=== PATIENT | female | born 1955 | race Caucasian/White ===

== ENCOUNTER 2016-12-12 16:51 | Emergency (ER) | payer MEDICAID ==
[~2016-12-12 16:51] MED LIST: /CELE20CA; ADV500INH INH; ADVAIR DISKUS; ALBU17IN INH; ALBUTEROL NEBS; AMONIUM LACTATE TOP; ATOR1TAB21 PO; AUGM500T34 PO; BENT10CA PO; BUPR300T34 PO; BUPROPION; CELEBREX; CROMOLYN OPTH OU; DOCU100C PO; DRIS50002 PO; FERR325T PO; FURO40TA2 PO; HUMULIN R; HYDR25TA8; INSUHUMDS SC; IPRASOL4 INH; IRON65TA PO; K-TA10TA PO; KLOR10TA; LASI40TA; LEVE1INJ5 SC; LIDO1OIN2 TOP; LIPITOR; LYRI200C PO; LYRI75CA; METF1000 PO; MULTIVIT; ONDA4TAB6 PO; OYST500T76; PERC5TAB6 PO; PERC5TAB8; PRED10TA2; PRILOSEC; PROA1AER2 INH; PROT1TAB2 PO; PROTPAK PO; RITA10TA; SANCTURA; SING10TA32 PO; SPIR12.9 INH; SPIRIVA; STOO100C PO; SYNT50TA PO; TRAM50TA2; TROS60CA2 PO; ULTR37.52 PO; VIBR100C; VITAMIN B-12; VITAMIN C; VITAMIN D; ZOFR20TA PO; ZYRT10CA PO; [UNRECOGNIZED DRUG - CODE] PO; voltaren gel TOP
--- NOTE | 2016-12-12 18:22 | REP ---
Left knee five views: Comparison 05/01/2011. There is no fracture or dislocation. I suspect there is a large effusion/hemarthrosis in the supra pouch. There is tricompartment osteoarthritis. This has progressed. There are no calcifications or foreign bodies. Signed by Earl Mendoza MD 12/12/2016 06:14 P
[2016-12-12] MEDS ORDERED: NORCO, ANEXSIA 5/325MG TABLET (HYDROcodone/ACETAMINOPHEN) As Ordered ONE (20:06)
--- NOTE | 2016-12-12 20:17 | EDDOCDS ---
Physician Documentation [facility] Name: Alba Amaya Age: 61 yrs Sex: Female : 1955 Arrival Date: 12/12/2016 Time: 16:51 Bed TR8 Private MD: Jeremiah Hoover [facility] Disposition: 12/12/16 20:06 Discharged to Home/Self Care. Impression: Osteoarthritis of knee, Sprain of other specified parts of left knee. - Condition is Stable. - Discharge Instructions: Knee Sprain, Knee Pain. - Prescriptions for [place] 5- 325 mg Oral Tablet - take 1 tablet by ORAL route every 6 hours As needed MDD: 4 tabs; 15 tablet. - Medication Reconciliation, Local Pharmacy Hours form. - Follow up: Private Physician; When: Call to arrange an appointment; Reason: Recheck today's complaints, Continuance of care. - Problem is new. - Symptoms are unchanged. Historical: - Allergies: Adhesive; - Home Meds: 1. ferrous sulfate 325 mg (65 mg iron) Oral tab twice a day 2. trospium 60 mg oral cp24 once daily 3. Vitamin D Oral 00474 unit weekly 4. bupropion HCl 300 mg Oral Tb24 1 tab once daily 5. Certavite-Antioxidant 18-400 mg-mcg oral tab 1 tab once daily 6. Protonix 40 mg Oral TbEC 2 times per day 7. levothyroxine 50 mcg Oral tab 1 tab once daily 8. pregabalin 300 mg oral cap 1 cap 2 times per day 9. atorvastatin 10 mg oral tab 1 tab once daily 10. Singulair 10 mg Oral tab 1 tab once daily 11. Zyrtec 10 mg Oral chew 1 tab once daily 12. metformin 1,000 mg Oral tab 1 tab 2 times per day 13. Bentyl 10 mg Oral cap 4 times per day 14. Ultracet 37.5-325 mg Oral tab 2 tabs every 4 hours 15. Carafate 1 gram Oral tab 1 tab 4 times per day 16. Klor-Con M20 20 mEq Oral pack 1 tab 2 times per day 17. Humalog Pen sliding scale Sub-Q inpn 10 unit three times a day 18. Levamir 125units qHS 85 units nightly 19. Advair Diskus 500-50 mcg/dose Inhl dsdv 2 times per day 20. Spiriva with HandiHaler 18 mcg Inhl CpDv 1 cap once daily 21. ProAir HFA 90 mcg/actuation inhalation HFAA 2 puffs every 4-6 hours 22. DuoNeb 0.5 mg-3 mg(2.5 mg base)/3 mL Inhl nebu 3 mL QID prn 23. CPAP machine 24. tobramycin 0.3 % Opht drop 25. Colace 100 mg oral cap as needed 26. melatonin 5 mg Oral cap PRN HS 27. albuterol sulfate 90 mcg/actuation Inhl aepb 2 puffs every 4-6 hours 28. Lasix 40 mg Oral tab 1 tab once daily 29. Lipitor 20 mg Oral tab 1 tab once daily 30. Zofran (as hydrochloride) 4 mg Oral tab as needed - PMHx: Depression; Diabetes - IDDM: controlled; GERD; Osteoarthritis; - PSHx: Gastric Bypass; Hernia repair; Lithotripsy; bilateral carpal tunnel; D & C; cone biopsy; Tubal ligation; multiple menisus repair; - Social history: Smoking status: Patient states former smoker of tobacco. No barriers to communication noted. - Family history: Not pertinent. - : The pt / caregiver states he / she is not on anticoagulants. Home medication list is obtained from the patient. - Exposure Risk Screening:: None identified. Vital Signs: 12/12 16:57 BP 139 / 64; Pulse 90; Resp 18 S; Temp 96.5(O); Pulse Ox 98% on R/A; Weight 122.47 kg / gr2 270 lbs (R); Height 5 ft. 4 in. (162.56 cm) (R); Pain 8/10; 20:07 BP 156 / 72; Pulse 79; Resp 18; Temp 97.0(O); Pulse Ox 95% on R/A; Pain 8/10; kb5 16:57 Body Mass Index 46.34 (122.47 kg, 162.56 cm) gr2 MDM: 17:22 Knee, Complete Ordered. EDMS 20:05 HYDROcodone-acetaminophen 5 mg-325 mg 1 tabs PO once ordered. mo1 20:05 Knee, Complete Reviewed. mo1 Administered Medications: 20:13 Drug: HYDROcodone-acetaminophen 1 tabs [hydrocodone 5 mg-acetaminophen 325 mg tablet (1 cz tabs)] Route: PO; Signatures: Dispatcher [employer] EDMS Mark Vargas, RN RN Lizabeth Vasquez RN RN cj James Hill PA PA mo1 MTDD
--- NOTE | 2016-12-12 20:17 | EDDOCDS ---
Nurse's Notes [facility] Name: Alba Amaya Age: 61 yrs Sex: Female : 1955 Arrival Date: 12/12/2016 Time: 16:51 Bed TR8 Private MD: Jeremiah Hoover [facility] Diagnosis: Osteoarthritis of knee;Sprain of other specified parts of left knee Presentation: 12/12 17:00 Presenting complaint: Patient states: left knee pain, there's no cartilage left in it [facility] and I over did it and it has flared up really bad now it is swollen and painful. Adult Sepsis Screening: The patient does not have new or worsening altered mentation. Patient's respiratory rate is less than 22. Systolic blood pressure is greater than 100. Patient has a qSOFA score of 0- Negative Sepsis Screen. Suicide/Homicide risk assessment- the patient denies having any suicidal and/or homicidal ideations and does not present with any other emotional, behavioral or mental health complaints. Status: Patient is not a director of community services or dependent. Transition of care: patient was not received from another setting of care. 17:00 Acuity: JOSE MIGUEL Level 4 [facility] 17:00 Method Of Arrival: Wheelchair [facility] Triage Assessment: 17:14 General: Appears in no apparent distress, comfortable, Behavior is appropriate for age, [facility] cooperative. Pain: Location: left knee Pain currently is 9 out of 10 on a pain scale. HIV screening NA for this visit Offered previously. Neurological: No deficits noted. Respiratory: No deficits noted. Airway is patent Respiratory effort is even, unlabored, Respiratory pattern is regular, symmetrical. Derm: Skin is pink, warm & dry. Musculoskeletal: Range of motion limited in left knee. Historical: - Allergies: Adhesive; - Home Meds: 1. ferrous sulfate 325 mg (65 mg iron) Oral tab twice a day 2. trospium 60 mg oral cp24 once daily 3. Vitamin D Oral 84834 unit weekly 4. bupropion HCl 300 mg Oral Tb24 1 tab once daily 5. Certavite-Antioxidant 18-400 mg-mcg oral tab 1 tab once daily 6. Protonix 40 mg Oral TbEC 2 times per day 7. levothyroxine 50 mcg Oral tab 1 tab once daily 8. pregabalin 300 mg oral cap 1 cap 2 times per day 9. atorvastatin 10 mg oral tab 1 tab once daily 10. Singulair 10 mg Oral tab 1 tab once daily 11. Zyrtec 10 mg Oral chew 1 tab once daily 12. metformin 1,000 mg Oral tab 1 tab 2 times per day 13. Bentyl 10 mg Oral cap 4 times per day 14. Ultracet 37.5-325 mg Oral tab 2 tabs every 4 hours 15. Carafate 1 gram Oral tab 1 tab 4 times per day 16. Klor-Con M20 20 mEq Oral pack 1 tab 2 times per day 17. Humalog Pen sliding scale Sub-Q inpn 10 unit three times a day 18. Levamir 125units qHS 85 units nightly 19. Advair Diskus 500-50 mcg/dose Inhl dsdv 2 times per day 20. Spiriva with HandiHaler 18 mcg Inhl CpDv 1 cap once daily 21. ProAir HFA 90 mcg/actuation inhalation HFAA 2 puffs every 4-6 hours 22. DuoNeb 0.5 mg-3 mg(2.5 mg base)/3 mL Inhl nebu 3 mL QID prn 23. CPAP machine 24. tobramycin 0.3 % Opht drop 25. Colace 100 mg oral cap as needed 26. melatonin 5 mg Oral cap PRN HS 27. albuterol sulfate 90 mcg/actuation Inhl aepb 2 puffs every 4-6 hours 28. Lasix 40 mg Oral tab 1 tab once daily 29. Lipitor 20 mg Oral tab 1 tab once daily 30. Zofran (as hydrochloride) 4 mg Oral tab as needed - PMHx: Depression; Diabetes - IDDM: controlled; GERD; Osteoarthritis; - PSHx: Gastric Bypass; Hernia repair; Lithotripsy; bilateral carpal tunnel; D & C; cone biopsy; Tubal ligation; multiple menisus repair; - Social history: Smoking status: Patient states former smoker of tobacco. No barriers to communication noted. - Family history: Not pertinent. - : The pt / caregiver states he / she is not on anticoagulants. Home medication list is obtained from the patient. - Exposure Risk Screening:: None identified. Screenin:13 Screening information is obtained from the patient. Fall risk: No risks identified. cz Assistance ADL's: requires no assistance with activities of daily living. Abuse/DV Screen: The patient / caregiver reports he/she is: not in a situation that causes fear, pain or injury. Nutritional screening: No deficits noted. home support is adequate. Assessment: 20:13 Reassessment: Patient appears in no apparent distress at this time. pt medicated for cz stated pain and discharged. Vital Signs: 16:57 BP 139 / 64; Pulse 90; Resp 18 S; Temp 96.5(O); Pulse Ox 98% on R/A; Weight 122.47 kg gr2 (R); Height 5 ft. 4 in. (162.56 cm) (R); Pain 8/10; 20:07 BP 156 / 72; Pulse 79; Resp 18; Temp 97.0(O); Pulse Ox 95% on R/A; Pain 8/10; kb5 16:57 Body Mass Index 46.34 (122.47 kg, 162.56 cm) gr2 Vitals: 16:54 Log In Time: December 12, 2016 at 16:42. mt4 ED Course: 16:52 Patient visited by Brittany Prater. mt4 16:52 Patient moved to Waiting mt4 16:53 Jeremiah Hoover [facility] is Private Physician. mt4 16:55 Patient visited by Donavan Mccullough. gr2 16:57 Patient visited by Donavan Mccullough. gr2 16:57 Patient moved to Pre RCE gr2 17:01 Triage Initiated cjh 18:34 Knee, Complete Returned. EDMS 19:46 James Hill PA is PHCP. mo1 19:46 Tito Yung DO is Attending Physician. mo1 19:46 Patient moved to Triage 1 jf3 20:05 Patient visited by James Hill PA. mo1 20:09 Patient visited by Og Ritter PCA. kb5 20:13 Patient moved to TR8 cz 20:13 The patient / caregiver is instructed regarding the plan of care and ED course. cz 20:13 No IV's were initiated during this patient's visit. No procedures done that require cz assistance. Administered Medications: 20:13 Drug: HYDROcodone-acetaminophen 1 tabs [hydrocodone 5 mg-acetaminophen 325 mg tablet (1 cz tabs)] Route: PO; Order Results: Radiology Order: Knee, Complete Test: Knee, Complete REASON FOR EXAMINATION: Trauma; Left knee five views:; ; Comparison 05/01/2011.; ; There is no fracture or dislocation. I suspect there is a large; effusion/hemarthrosis in the supra pouch.; ; There is tricompartment osteoarthritis. This has progressed.; ; There are no calcifications or foreign bodies.; ; ; Signed by; Earl Mendoza MD 12/12/2016 06:14 P; Outcome: 20:06 Discharge ordered by Provider. mo1 20:13 Discharge Assessment: Patient awake, alert and oriented x 3. No cognitive and/or cz functional deficits noted. Patient verbalized understanding of disposition instructions. patient administered narcotics - yes. Pt provided with safe discharge. The following High Risk Discharge criteria are identified: None. Discharged to home ambulatory, with friend. Condition: stable. Discharge instructions given to patient, Instructed on discharge instructions, follow up and referral plans. medication usage, Demonstrated understanding of instructions, medications, Pt was receptive of discharge instructions/ teaching. Prescriptions given X 1. No special radiology studies were completed. Property :Personal belongings accompany Pt. 20:17 Patient left the ED. cz Signatures: Dispatcher [employer] EDMS Mark Vargas RN RN cz Og Ritter, MANAGER PAID MANAGER PAID kb5 Brittany Prater mt4 Lizabeth Fitzgerald,RN RN [facility] Donavan Mccullough gr2 James Hill PA PA mo1 Baldemar Leung,RN RN jf3 MTDD
--- NOTE | 2016-12-14 21:17 | EDDOCDS ---
Physician Documentation [facility] Name: Alba Amaya Age: 61 yrs Sex: Female : 1955 Arrival Date: 12/12/2016 Time: 16:51 Bed TR8 Private MD: Jeremiah Hoover [facility] Disposition: 12/12/16 20:06 Discharged to Home/Self Care. Impression: Osteoarthritis of knee, Sprain of other specified parts of left knee. - Condition is Stable. - Discharge Instructions: Knee Sprain, Knee Pain. - Prescriptions for [place] 5- 325 mg Oral Tablet - take 1 tablet by ORAL route every 6 hours As needed MDD: 4 tabs; 15 tablet. - Medication Reconciliation, Local Pharmacy Hours form. - Follow up: Private Physician; When: Call to arrange an appointment; Reason: Recheck today's complaints, Continuance of care. - Problem is new. - Symptoms are unchanged. Historical: - Allergies: Adhesive; - Home Meds: 1. ferrous sulfate 325 mg (65 mg iron) Oral tab twice a day 2. trospium 60 mg oral cp24 once daily 3. Vitamin D Oral 75068 unit weekly 4. bupropion HCl 300 mg Oral Tb24 1 tab once daily 5. Certavite-Antioxidant 18-400 mg-mcg oral tab 1 tab once daily 6. Protonix 40 mg Oral TbEC 2 times per day 7. levothyroxine 50 mcg Oral tab 1 tab once daily 8. pregabalin 300 mg oral cap 1 cap 2 times per day 9. atorvastatin 10 mg oral tab 1 tab once daily 10. Singulair 10 mg Oral tab 1 tab once daily 11. Zyrtec 10 mg Oral chew 1 tab once daily 12. metformin 1,000 mg Oral tab 1 tab 2 times per day 13. Bentyl 10 mg Oral cap 4 times per day 14. Ultracet 37.5-325 mg Oral tab 2 tabs every 4 hours 15. Carafate 1 gram Oral tab 1 tab 4 times per day 16. Klor-Con M20 20 mEq Oral pack 1 tab 2 times per day 17. Humalog Pen sliding scale Sub-Q inpn 10 unit three times a day 18. Levamir 125units qHS 85 units nightly 19. Advair Diskus 500-50 mcg/dose Inhl dsdv 2 times per day 20. Spiriva with HandiHaler 18 mcg Inhl CpDv 1 cap once daily 21. ProAir HFA 90 mcg/actuation inhalation HFAA 2 puffs every 4-6 hours 22. DuoNeb 0.5 mg-3 mg(2.5 mg base)/3 mL Inhl nebu 3 mL QID prn 23. CPAP machine 24. tobramycin 0.3 % Opht drop 25. Colace 100 mg oral cap as needed 26. melatonin 5 mg Oral cap PRN HS 27. albuterol sulfate 90 mcg/actuation Inhl aepb 2 puffs every 4-6 hours 28. Lasix 40 mg Oral tab 1 tab once daily 29. Lipitor 20 mg Oral tab 1 tab once daily 30. Zofran (as hydrochloride) 4 mg Oral tab as needed - PMHx: Depression; Diabetes - IDDM: controlled; GERD; Osteoarthritis; - PSHx: Gastric Bypass; Hernia repair; Lithotripsy; bilateral carpal tunnel; D & C; cone biopsy; Tubal ligation; multiple menisus repair; - Social history: Smoking status: Patient states former smoker of tobacco. No barriers to communication noted. - Family history: Not pertinent. - : The pt / caregiver states he / she is not on anticoagulants. Home medication list is obtained from the patient. - Exposure Risk Screening:: None identified. Vital Signs: 12/12 16:57 BP 139 / 64; Pulse 90; Resp 18 S; Temp 96.5(O); Pulse Ox 98% on R/A; Weight 122.47 kg / gr2 270 lbs (R); Height 5 ft. 4 in. (162.56 cm) (R); Pain 8/10; 20:07 BP 156 / 72; Pulse 79; Resp 18; Temp 97.0(O); Pulse Ox 95% on R/A; Pain 8/10; kb5 16:57 Body Mass Index 46.34 (122.47 kg, 162.56 cm) gr2 MDM: 17:22 Knee, Complete Ordered. EDMS 20:05 HYDROcodone-acetaminophen 5 mg-325 mg 1 tabs PO once ordered. mo1 20:05 Knee, Complete Reviewed. mo1 12/13 18:21 T-Sheet-- Draft Copy was scanned into [employer] and attached to record. klr Administered Medications: 12/12 20:13 Drug: HYDROcodone-acetaminophen 1 tabs [hydrocodone 5 mg-acetaminophen 325 mg tablet (1 cz tabs)] Route: PO; Signatures: Dispatcher [employer] Mark Galvin RN RN cz Hafner, Jane, RN RN [facility] James Hill PA PA mo1 Karen Morris The chart was reviewed and I authenticate all verbal orders and agree with the evaluation and treatment provided.Attachments: 12/13 18:21 T-Sheet-- Draft Copy richard Chart Complete MTDD
--- NOTE | 2016-12-14 21:17 | EDDOCDS ---
Physician Documentation [facility] Name: Alba Amaya Age: 61 yrs Sex: Female : 1955 Arrival Date: 12/12/2016 Time: 16:51 Bed TR8 Private MD: Jeremiah Hoover [facility] Disposition: 12/12/16 20:06 Discharged to Home/Self Care. Impression: Osteoarthritis of knee, Sprain of other specified parts of left knee. - Condition is Stable. - Discharge Instructions: Knee Sprain, Knee Pain. - Prescriptions for [place] 5- 325 mg Oral Tablet - take 1 tablet by ORAL route every 6 hours As needed MDD: 4 tabs; 15 tablet. - Medication Reconciliation, Local Pharmacy Hours form. - Follow up: Private Physician; When: Call to arrange an appointment; Reason: Recheck today's complaints, Continuance of care. - Problem is new. - Symptoms are unchanged. Historical: - Allergies: Adhesive; - Home Meds: 1. ferrous sulfate 325 mg (65 mg iron) Oral tab twice a day 2. trospium 60 mg oral cp24 once daily 3. Vitamin D Oral 97431 unit weekly 4. bupropion HCl 300 mg Oral Tb24 1 tab once daily 5. Certavite-Antioxidant 18-400 mg-mcg oral tab 1 tab once daily 6. Protonix 40 mg Oral TbEC 2 times per day 7. levothyroxine 50 mcg Oral tab 1 tab once daily 8. pregabalin 300 mg oral cap 1 cap 2 times per day 9. atorvastatin 10 mg oral tab 1 tab once daily 10. Singulair 10 mg Oral tab 1 tab once daily 11. Zyrtec 10 mg Oral chew 1 tab once daily 12. metformin 1,000 mg Oral tab 1 tab 2 times per day 13. Bentyl 10 mg Oral cap 4 times per day 14. Ultracet 37.5-325 mg Oral tab 2 tabs every 4 hours 15. Carafate 1 gram Oral tab 1 tab 4 times per day 16. Klor-Con M20 20 mEq Oral pack 1 tab 2 times per day 17. Humalog Pen sliding scale Sub-Q inpn 10 unit three times a day 18. Levamir 125units qHS 85 units nightly 19. Advair Diskus 500-50 mcg/dose Inhl dsdv 2 times per day 20. Spiriva with HandiHaler 18 mcg Inhl CpDv 1 cap once daily 21. ProAir HFA 90 mcg/actuation inhalation HFAA 2 puffs every 4-6 hours 22. DuoNeb 0.5 mg-3 mg(2.5 mg base)/3 mL Inhl nebu 3 mL QID prn 23. CPAP machine 24. tobramycin 0.3 % Opht drop 25. Colace 100 mg oral cap as needed 26. melatonin 5 mg Oral cap PRN HS 27. albuterol sulfate 90 mcg/actuation Inhl aepb 2 puffs every 4-6 hours 28. Lasix 40 mg Oral tab 1 tab once daily 29. Lipitor 20 mg Oral tab 1 tab once daily 30. Zofran (as hydrochloride) 4 mg Oral tab as needed - PMHx: Depression; Diabetes - IDDM: controlled; GERD; Osteoarthritis; - PSHx: Gastric Bypass; Hernia repair; Lithotripsy; bilateral carpal tunnel; D & C; cone biopsy; Tubal ligation; multiple menisus repair; - Social history: Smoking status: Patient states former smoker of tobacco. No barriers to communication noted. - Family history: Not pertinent. - : The pt / caregiver states he / she is not on anticoagulants. Home medication list is obtained from the patient. - Exposure Risk Screening:: None identified. Vital Signs: 12/12 16:57 BP 139 / 64; Pulse 90; Resp 18 S; Temp 96.5(O); Pulse Ox 98% on R/A; Weight 122.47 kg / gr2 270 lbs (R); Height 5 ft. 4 in. (162.56 cm) (R); Pain 8/10; 20:07 BP 156 / 72; Pulse 79; Resp 18; Temp 97.0(O); Pulse Ox 95% on R/A; Pain 8/10; kb5 16:57 Body Mass Index 46.34 (122.47 kg, 162.56 cm) gr2 MDM: 17:22 Knee, Complete Ordered. EDMS 20:05 HYDROcodone-acetaminophen 5 mg-325 mg 1 tabs PO once ordered. mo1 20:05 Knee, Complete Reviewed. mo1 12/13 18:21 T-Sheet-- Draft Copy was scanned into [employer] and attached to record. klr Administered Medications: 12/12 20:13 Drug: HYDROcodone-acetaminophen 1 tabs [hydrocodone 5 mg-acetaminophen 325 mg tablet (1 cz tabs)] Route: PO; Signatures: Dispatcher [employer] Mark Galvin RN RN cz Hafner, Jane, RN RN [facility] James Hill PA PA mo1 Karen Morris The chart was reviewed and I authenticate all verbal orders and agree with the evaluation and treatment provided.Attachments: 12/13 18:21 T-Sheet-- Draft Copy richard Chart Complete MTDD
--- NOTE | 2016-12-14 21:17 | EDDOCDS ---
Nurse's Notes [facility] Name: Alba Amaya Age: 61 yrs Sex: Female : 1955 Arrival Date: 12/12/2016 Time: 16:51 Bed TR8 Private MD: Jeremiah Hoover [facility] Diagnosis: Osteoarthritis of knee;Sprain of other specified parts of left knee Presentation: 12/12 17:00 Presenting complaint: Patient states: left knee pain, there's no cartilage left in it [facility] and I over did it and it has flared up really bad now it is swollen and painful. Adult Sepsis Screening: The patient does not have new or worsening altered mentation. Patient's respiratory rate is less than 22. Systolic blood pressure is greater than 100. Patient has a qSOFA score of 0- Negative Sepsis Screen. Suicide/Homicide risk assessment- the patient denies having any suicidal and/or homicidal ideations and does not present with any other emotional, behavioral or mental health complaints. Status: Patient is not a support services specialist or dependent. Transition of care: patient was not received from another setting of care. 17:00 Acuity: JOSE MIGUEL Level 4 [facility] 17:00 Method Of Arrival: Wheelchair [facility] Triage Assessment: 17:14 General: Appears in no apparent distress, comfortable, Behavior is appropriate for age, [facility] cooperative. Pain: Location: left knee Pain currently is 9 out of 10 on a pain scale. HIV screening NA for this visit Offered previously. Neurological: No deficits noted. Respiratory: No deficits noted. Airway is patent Respiratory effort is even, unlabored, Respiratory pattern is regular, symmetrical. Derm: Skin is pink, warm & dry. Musculoskeletal: Range of motion limited in left knee. Historical: - Allergies: Adhesive; - Home Meds: 1. ferrous sulfate 325 mg (65 mg iron) Oral tab twice a day 2. trospium 60 mg oral cp24 once daily 3. Vitamin D Oral 20498 unit weekly 4. bupropion HCl 300 mg Oral Tb24 1 tab once daily 5. Certavite-Antioxidant 18-400 mg-mcg oral tab 1 tab once daily 6. Protonix 40 mg Oral TbEC 2 times per day 7. levothyroxine 50 mcg Oral tab 1 tab once daily 8. pregabalin 300 mg oral cap 1 cap 2 times per day 9. atorvastatin 10 mg oral tab 1 tab once daily 10. Singulair 10 mg Oral tab 1 tab once daily 11. Zyrtec 10 mg Oral chew 1 tab once daily 12. metformin 1,000 mg Oral tab 1 tab 2 times per day 13. Bentyl 10 mg Oral cap 4 times per day 14. Ultracet 37.5-325 mg Oral tab 2 tabs every 4 hours 15. Carafate 1 gram Oral tab 1 tab 4 times per day 16. Klor-Con M20 20 mEq Oral pack 1 tab 2 times per day 17. Humalog Pen sliding scale Sub-Q inpn 10 unit three times a day 18. Levamir 125units qHS 85 units nightly 19. Advair Diskus 500-50 mcg/dose Inhl dsdv 2 times per day 20. Spiriva with HandiHaler 18 mcg Inhl CpDv 1 cap once daily 21. ProAir HFA 90 mcg/actuation inhalation HFAA 2 puffs every 4-6 hours 22. DuoNeb 0.5 mg-3 mg(2.5 mg base)/3 mL Inhl nebu 3 mL QID prn 23. CPAP machine 24. tobramycin 0.3 % Opht drop 25. Colace 100 mg oral cap as needed 26. melatonin 5 mg Oral cap PRN HS 27. albuterol sulfate 90 mcg/actuation Inhl aepb 2 puffs every 4-6 hours 28. Lasix 40 mg Oral tab 1 tab once daily 29. Lipitor 20 mg Oral tab 1 tab once daily 30. Zofran (as hydrochloride) 4 mg Oral tab as needed - PMHx: Depression; Diabetes - IDDM: controlled; GERD; Osteoarthritis; - PSHx: Gastric Bypass; Hernia repair; Lithotripsy; bilateral carpal tunnel; D & C; cone biopsy; Tubal ligation; multiple menisus repair; - Social history: Smoking status: Patient states former smoker of tobacco. No barriers to communication noted. - Family history: Not pertinent. - : The pt / caregiver states he / she is not on anticoagulants. Home medication list is obtained from the patient. - Exposure Risk Screening:: None identified. Screenin:13 Screening information is obtained from the patient. Fall risk: No risks identified. cz Assistance ADL's: requires no assistance with activities of daily living. Abuse/DV Screen: The patient / caregiver reports he/she is: not in a situation that causes fear, pain or injury. Nutritional screening: No deficits noted. home support is adequate. Assessment: 20:13 Reassessment: Patient appears in no apparent distress at this time. pt medicated for cz stated pain and discharged. Vital Signs: 16:57 BP 139 / 64; Pulse 90; Resp 18 S; Temp 96.5(O); Pulse Ox 98% on R/A; Weight 122.47 kg gr2 (R); Height 5 ft. 4 in. (162.56 cm) (R); Pain 8/10; 20:07 BP 156 / 72; Pulse 79; Resp 18; Temp 97.0(O); Pulse Ox 95% on R/A; Pain 8/10; kb5 16:57 Body Mass Index 46.34 (122.47 kg, 162.56 cm) gr2 Vitals: 16:54 Log In Time: December 12, 2016 at 16:42. mt4 ED Course: 16:52 Patient visited by Brittany Prater. mt4 16:52 Patient moved to Waiting mt4 16:53 Jeremiah Hoover [facility] is Private Physician. mt4 16:55 Patient visited by Donavan Mccullough. gr2 16:57 Patient visited by Donavan Mccullough. gr2 16:57 Patient moved to Pre RCE gr2 17:01 Triage Initiated cj 18:34 Knee, Complete Returned. EDMS 19:46 James Hill PA is PHCP. mo1 19:46 Tito Yung DO is Attending Physician. mo1 19:46 Patient moved to Triage 1 jf3 20:05 Patient visited by James Hill PA. mo1 20:09 Patient visited by Og Ritter PCA. kb5 20:13 Patient moved to TR8 cz 20:13 The patient / caregiver is instructed regarding the plan of care and ED course. cz 20:13 No IV's were initiated during this patient's visit. No procedures done that require cz assistance. 12/13 18:21 T-Sheet-- Draft Copy was scanned into [employer] and attached to record. klr Administered Medications: 12/12 20:13 Drug: HYDROcodone-acetaminophen 1 tabs [hydrocodone 5 mg-acetaminophen 325 mg tablet (1 cz tabs)] Route: PO; Order Results: Radiology Order: Knee, Complete Test: Knee, Complete REASON FOR EXAMINATION: Trauma; Left knee five views:; ; Comparison 05/01/2011.; ; There is no fracture or dislocation. I suspect there is a large; effusion/hemarthrosis in the supra pouch.; ; There is tricompartment osteoarthritis. This has progressed.; ; There are no calcifications or foreign bodies.; ; ; Signed by; Earl Mendoza MD 12/12/2016 06:14 P; Outcome: 20:06 Discharge ordered by Provider. mo1 20:13 Discharge Assessment: Patient awake, alert and oriented x 3. No cognitive and/or cz functional deficits noted. Patient verbalized understanding of disposition instructions. patient administered narcotics - yes. Pt provided with safe discharge. The following High Risk Discharge criteria are identified: None. Discharged to home ambulatory, with friend. Condition: stable. Discharge instructions given to patient, Instructed on discharge instructions, follow up and referral plans. medication usage, Demonstrated understanding of instructions, medications, Pt was receptive of discharge instructions/ teaching. Prescriptions given X 1. No special radiology studies were completed. Property :Personal belongings accompany Pt. 20:17 Patient left the ED. cz Signatures: Dispatcher [employer] EDMS Mark Vargas, RN RN cz Og Ritter, DONOR SERVICES COORDINATOR DONOR SERVICES COORDINATOR kb5 Brittany Prater mt4 Lizabeth FitzgeraldRN RN Donavan Arriola2 James Hill PA PA mo1 Baldemar Leung,JERRY RN jf3 Karen Morris Chart Complete MTDD
== END 2016-12-12 20:17 | disposition home or self-care (01) ==
LOC: M ED 16:51
DX: S83.92XA Sprain of unspecified site of left knee, initial encounter (principal); X58.XXXA Exposure to other specified factors, initial encounter; Y92.018 Other place in single-family (private) house as the place of occurrence of the external cause; Y93.89 Activity, other specified; Y99.8 Other external cause status; M25.462 Effusion, left knee; M17.12 Unilateral primary osteoarthritis, left knee; E11.9 Type 2 diabetes mellitus without complications; K21.9 Gastro-esophageal reflux disease without esophagitis; F32.9 Major depressive disorder, single episode, unspecified; Z98.84 Bariatric surgery status; Z79.899 Other long term (current) drug therapy; Z79.51 Long term (current) use of inhaled steroids; Z79.4 Long term (current) use of insulin; Z79.52 Long term (current) use of systemic steroids; Z91.048 Other nonmedicinal substance allergy status; Z87.891 Personal history of nicotine dependence

== ENCOUNTER 2017-02-08 12:09 | Outpatient (RCR) | payer MEDICAID, OTHER | END 2017-02-19 | LOC: M PT 12:09 | PROVIDERS: ATTEND Orthopaedic Surgery | DX: Z51.89 Encounter for other specified aftercare (principal); M17.12 Unilateral primary osteoarthritis, left knee ==

== ENCOUNTER → 2017-03-03 | Outpatient (CLI) | payer OTHER ==
[~2017-03-03] MED LIST changes: +MELA5CHW PO; +METABOUP PLUS PO; +OPCOSOL OU; +PROA1AER INH; +SUCR1TAB56 PO
[2017-03-03 11:48] LABS: MEAN CORPUSCULAR HEMOGLOBIN 28.8 pg (27.0-33.0); MEAN CORPUSCULAR HGB CONC 32.9 g/dl (32.0-36.5); MEAN CORPUSCULAR VOLUME 87.5 fl (80.0-96.0); RED CELL DISTRIBUTION WIDTH 13.8 % (11.5-14.5); WHITE BLOOD COUNT 5.1 K/mm3 (4.0-10.0)
[2017-03-03 12:07] LABS: YEAST LIKE CELL URINE AUTO SMALL
[2017-03-03 12:10] LABS: ALBUMIN 3.8 GM/DL (3.2-5.2); ALBUMIN/GLOBULIN RATIO 1.27 (1.00-1.93); BILIRUBIN,TOTAL 0.5 MG/DL (0.2-1.0); CALCIUM LEVEL 8.7 MG/DL (8.8-10.2); CREATININE FOR GFR 1.09 MG/DL (0.55-1.02); GLOMERULAR FILTRATION RATE 54.5 (>45); POTASSIUM SERUM 4.4 MEQ/L (3.5-5.1); TOTAL PROTEIN 6.8 GM/DL (6.4-8.2)
== END ==
LOC: M ADMPAT 08:55
PROVIDERS: ATTEND Orthopaedic Surgery
DX: M17.12 Unilateral primary osteoarthritis, left knee (principal)

== ENCOUNTER 2017-03-15 10:55 | Inpatient (IN) | payer MEDICAID, OTHER ==
[2017-03-03 10:11] VITALS: BP 154/77
--- NOTE | 2017-03-10 16:18 | HPE ---
DATE OF ADMISSION: 03/15/2017 ADMITTING PHYSICIAN: Dr. Rodriguez. CHIEF COMPLAINT: Left knee pain. HISTORY OF PRESENT ILLNESS: This is a pleasant 61-year-old female with progressively worsening left knee pain and stiffness. She has failed to improve with conservative treatment. She has elected for surgery for her continued symptoms. She has pain with weightbearing activities and her activities of daily living. X-rays of her knee are notable for advanced osteoarthritis of the left knee joint. She has consented for a left total knee arthroplasty by Dr. Syd Rodriguez. Medical optimization was performed by Harleen Hartmann. ALLERGIES: She is allergic to ADHESIVES. CURRENT MEDICATIONS: - atorvastatin 20 mg once a day - Sanctura 60 mg once a day - dicyclomine 20 mg one tablet three times a day - vitamin D2 1.25 mg one capsule a week - Ultracet 37.5/325 mg 1-2 tablets every 4-6 hours as needed - Singulair 10 mg a day - Zyrtec 10 mg a day - furosemide 40 mg a day - Synthroid 50 mcg a day - ferrous sulfate 325 mg one tablet twice a day - Wellbutrin 300 mg one in the morning - Lyrica 300 mg twice a day - metformin 1000 mg one tablet twice a day - potassium 20 mEq two tablets a day - Zofran 4 mg one tablet every 6 hours as needed - Humalog 10 units three times a day as needed - Levemir 72 units at bedtime - voltaren gel three times a day as needed - lidocaine ointment three times a day for the back as needed - Advair Diskus 500/50 twice a day - Spiriva inhaler once a day - ProAir inhaler as needed - DuoNeb as needed - Opcon-A two drops in each eye every 4 hours as needed - MetaboUP two tablets once a day - melatonin 5 mg two tablets at bedtime - stool softener PAST MEDICAL HISTORY: Includes: 1. Diabetes. 2. Chronic obstructive pulmonary disease (COPD). 3. High cholesterol. 4. Hypothyroidism. 5. Depression. 6. Sleep apnea. PAST SURGICAL HISTORY: 1. Cone biopsy and dilation and curettage (D C). 2. Bilateral carpal tunnel releases. 3. Tubal ligation. 4. Hernia repair. 5. Cholecystectomy. SOCIAL HISTORY: This patient is retired. She quit smoking 16 years ago. She rarely drinks alcohol. FAMILY HISTORY: Noncontributory. REVIEW OF SYSTEMS: This patient denies chest pain, heart palpitations, cough, wheezing, difficulty breathing and shortness of breath. She denies abdominal pain, nausea, vomiting, diarrhea or constipation. She denies recent upper respiratory infection or urinary tract infection symptoms. She does complain of persistent pain in her left knee and pain with weightbearing activities of the left knee. PHYSICAL EXAMINATION: GENERAL: She is a well-nourished, well-developed, in no acute distress, alert female patient. She walks with a moderate limp favoring her left lower extremity. She does use a walker. VITAL SIGNS: She is 5 feet 3 inches, weighs 279 pounds with a temperature of 97.3, blood pressure 145/80, pulse of 80 and respirations of 16. NECK: Supple without adenopathy or jugular venous distension. There were no carotid bruits appreciated upon auscultation. LUNGS: Clear to auscultation without rales or wheeze throughout. HEART: Regular rate and rhythm. ABDOMEN: Bowel sounds were present. EXTREMITIES: Examination of the knee revealed intact skin. She had decreased range of motion secondary to pain and stiffness. The limb is neurovascularly intact. LABORATORY DATA: Chest x-ray showed some minor scarring and fibrotic changes in the lingular along the left heart border, but no acute cardiopulmonary disease findings. EKG showed sinus rhythm at 92 beats per minute. Nasal and sinus culture showed moderate growth of Staphylococcus aureus. Glucose 211, BUN 23, creatinine 1.09, for a GFR of 54.5, sodium 141, potassium 4.4. Complete blood count (CBC) was within normal limits. Sedimentation rate was 31. ProTime 13.3, INR 1.00. Urinalysis (UA) showed 2+ glucose, trace ketones, 2+ leukocyte esterase, 65 white blood cells and a small amount of yeastlike cells for a yeast for a yeast typhi. Otherwise, within normal limits with specific gravity 1.027. Urine culture showed a contaminated specimen. IMPRESSION: 1. Symptomatic osteoarthritis of the left knee joint. 2. 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 PLAN: Plan is to proceed as planned for her left total knee arthroplasty by Dr. Rodriguez on 03/15/2017. Up until that day of surgery, she is going to start Bactroban ointment to the nares twice a day today, as well as Hibiclens scrubs every day. She communicated understanding and agreement of the plan. We will see her 03/15/2017.
[~2017-03-15] VITALS: Ht 160 cm; Wt 122.0 kg
[2017-03-15] MEDS: fentaNYL 100 MCG/2 ML INJECTION (J3010) IV ONE ×2 (10:53→12:18)
[2017-03-15] MEDS: MIDAZOLAM INJ 2 MG/2 ML VIAL (J2250) IV ONE ×2 (10:53→12:18)
[2017-03-15] MEDS ORDERED: LR 1,000 ML IV SCH ×3 (11:15→15:15)
[2017-03-15] MEDS ORDERED: ACETAMINOPHEN 500 MG TAB PO ONE (11:15)
[2017-03-15] MEDS ORDERED: MIDAZOLAM INJ 2 MG/2 ML VIAL (J2250) As Ordered ONE ×2 (11:52→12:49)
[2017-03-15] MEDS ORDERED: fentaNYL 100 MCG/2 ML INJECTION (J3010) As Ordered ONE ×3 (11:52→12:49)
[2017-03-15] MEDS ORDERED: HumaLOG INSULIN (NovoLOG) PER UNIT As Ordered ONE (11:59)
[2017-03-15] MEDS ORDERED: HumaLOG INSULIN (NovoLOG) PER UNIT SC ONE (12:15)
[2017-03-15] MEDS ORDERED: PROPOFOL 200 MG/20 ML VIAL As Ordered ONE (12:51)
[2017-03-15] MEDS ORDERED: LIDOCAINE 2% INJ 100 MG/5 ML SDV (FOR ANES.) As Ordered ONE (12:51)
[2017-03-15] MEDS ORDERED: ePHEDrine SULFATE 25 MG/5 ML(5MG/ML) SYRINGE As Ordered ONE (13:17)
[2017-03-15] MEDS ORDERED: PHENYLephrine HCL 500 MCG/5 ML (100MCG/ML) SYRINGE (J2370) As Ordered ONE (13:17)
[2017-03-15] MEDS ORDERED: ONDANSETRON 4MG/2ML VIAL (J2405) As Ordered ONE (13:34)
[2017-03-15] MEDS ORDERED: BUPIVACAINE HCL 0.5% 10 ML VIAL XX ONE (13:49)
[2017-03-15] MEDS ORDERED: EPINEPHrine INJ 1 MG/ML 1ML VIAL/AMP XX ONE (13:49)
[2017-03-15] MEDS ORDERED: ROPIvacaine 0.5% 30 ML INJECTION (J2795) XX ONE (13:49)
[2017-03-15] MEDS ORDERED: TRANEXAMIC ACID 100 MG/ML 10ML VIAL XX ONE (13:49)
[2017-03-15] MEDS ORDERED: ceFAZolin 1GM INJ (J0690) IR ONE (13:49)
[2017-03-15] MEDS ORDERED: MORPHINE PCA 1MG/ML 100ML CADD As Ordered ONE (15:07)
[2017-03-15] MEDS ORDERED: fentaNYL 100 MCG/2 ML INJECTION (J3010) IV PRN (15:15)
[2017-03-15] MEDS ORDERED: MEPERIDINE INJ 25 MG/ML VIAL (J2175) IV PRN (15:15)
[2017-03-15] MEDS ORDERED: METOCLOPRAMIDE INJ 10MG/2ML VIAL (J2765) IV PRN (15:15)
[2017-03-15] MEDS ORDERED: ONDANSETRON 4MG/2ML VIAL (J2405) IV PRN ×3 (15:15→20:00)
[2017-03-15] MEDS ORDERED: MORPHINE PCA 1MG/ML 100ML CADD IV PRN ×2 (15:30→20:00)
[2017-03-15] MEDS ORDERED: diphenhydrAMINE INJ 50MG/ML VIAL (J1200) IV PRN ×2 (15:30→20:00)
[2017-03-15] MEDS ORDERED: PATIENT IS CURRENTLY ON AN ON-Q PAIN BUSTER PAIN RELIEF SYSTEM XX SCH (15:30)
[2017-03-15] MEDS ORDERED: NALOXONE INJ 0.4 MG/1 ML VIAL (J2310) IV PRN ×2 (15:30→20:00)
[2017-03-15] MEDS ORDERED: NALBUPHINE HCL 10 MG/ML AMP (J2300) IV PRN ×2 (15:30→20:00)
[2017-03-15] MEDS ORDERED: EPIDURAL/PCA KEYS XX PRN ×2 (15:30→20:00)
[2017-03-15] MEDS: PERCOCET 5MG/325MG TAB PO PRN ×2 (15:45→16:24)
[2017-03-15] MEDS ORDERED: FLEET ENEMA PR PRN (15:45)
[2017-03-15] MEDS ORDERED: WARFARIN SOD 5 MG TAB PO SCH (17:00)
[2017-03-15] MEDS ORDERED: PERCOCET 5MG/325MG TAB As Ordered ONE (19:08)
[2017-03-15 19:30] VITALS: BP 166/78
[2017-03-15] MEDS: LR 1,000 ML IV SCH (19:58)
[2017-03-15 20:00] VITALS: BP 144/72
[2017-03-15] MEDS ORDERED: IPRATROPIUM 0.5MG/ALBUTEROL 2.5MG INH SOL UD 3ML (DUONEB)(J7620) NEB PRN (20:00)
[2017-03-15] MEDS ORDERED: DOCUSATE SODIUM 100 MG CAP PO PRN (20:00)
[2017-03-15] MEDS: IPRATROPIUM 0.5MG/ALBUTEROL 2.5MG INH SOL UD 3ML (DUONEB)(J7620) NEB SCH ×2 (20:00→23:22)
[2017-03-15] MEDS ORDERED: GLUCOSE 4 GM CHEW TABLET PO PRN (20:00)
[2017-03-15] MEDS ORDERED: GLUCAGON FOR INJ 1 MG VIAL (J1610) SC PRN (20:00)
[2017-03-15] MEDS ORDERED: DEXTROSE 50% 50 ML SYRINGE IV PRN (20:00)
[2017-03-15 21:00] VITALS: BP 139/71
[2017-03-15] MEDS ORDERED: LEVEMIR (INSULIN DETEMIR) 1 UNITS/0.01ML SC SCH (21:00)
[2017-03-15] MEDS: HumaLOG INSULIN (NovoLOG) PER UNIT SC SCH (21:00)
[2017-03-15] MEDS: SUCRALFATE 1 GM TAB PO SCH (21:00)
--- NOTE | 2017-03-15 21:12 | CR ---
DATE OF CONSULTATION: 03/15/2017 PRIMARY CARE PROVIDER: Harleen Hartmann CONSULTATION REPORT FOR: Dr. Rodriguez REASON FOR CONSULTATION: Postoperative management. HISTORY OF PRESENT ILLNESS: The patient is a 61-year-old female with past medical history significant for arthritis, diabetes, chronic obstructive pulmonary disease (COPD), hyperlipidemia, hypothyroidism, depression and sleep apnea, presented to the hospital for elective left knee arthroplasty by Dr. Syd Rodriguez. She had been medically optimized by Harleen Hartmann outpatient after she had failed outpatient conservative therapy. The patient tolerated procedure well. She was moved to the floor. The patient was seen in postanesthesia care unit (PACU). She denied any shortness of breath or chest pain. Denied any nausea or vomiting. She was tolerating a diet. Knee pain was controlled. No other symptoms. REVIEW OF SYSTEMS: 12-point review of systems obtained all which was negative except for those mentioned above. PAST MEDICAL HISTORY: Significant for type 2 diabetes, COPD, hyperlipidemia, hypothyroidism, depression and sleep apnea. PAST SURGICAL HISTORY: Significant for dilatation and curettage (D C), bilateral carpal tunnel release, tubal ligation, hernia repair and cholecystectomy. SOCIAL HISTORY: The patient quit smoking 16 years ago. Drinks alcohol occasionally. FAMILY HISTORY: Noncontributory. HOME MEDICATIONS: Include: - atorvastatin 20 mg daily - Sanctura 60 mg daily - vitamin B12 - Ultracet - Singulair - Zyrtec - Lasix - Synthroid - iron sulfate - Wellbutrin - Lyrica - metformin - potassium - Zofran - Humalog - Levemir - Voltaren gel - lidocaine ointment - Advair Diskus - Spiriva - ProAir - DuoNebs as needed - melatonin - stool softener ALLERGIES TO MEDICATIONS: The patient only has allergies to adhesive tape. PHYSICAL FINDINGS: Vital signs postoperatively: Temperature 97.8, pulse 109, respiratory rate 16, blood pressure 161/73, pulse oximetry 93% on 2 liters nasal cannula. HEENT: Pupils equal, round, reactive to light and accommodation. Neck: Supple. No jugular venous distention (JVD). Lungs: Clear to auscultation bilaterally. Abdomen: Soft, nontender, nondistended. Extremities: No clubbing, cyanosis or edema. LABORATORY FINDINGS: We will order labs in the morning. Preoperative labs were done outpatient and reviewed by primary care provider, Harleen Hartmann. ASSESSMENT/PLAN: 1. Left knee arthroplasty. The patient tolerated the procedure well. Pain and anticoagulation and physical activity per surgery. 2. Diabetes. Will start the patient on consistent carbohydrate diet with insulin sliding scale. We will continue Levemir 20 units at night. 3. History of hyperlipidemia. Continue atorvastatin. 4. History of hypothyroidism. Continue Synthroid. 5. Chronic obstructive pulmonary disease (COPD). We will continue DuoNebs as needed and scheduled. 6. Obstructive sleep apnea. We will put in an order to use home C-PAP machine which the patient has brought along. We will continue to monitor the patient on continuous pulse oximetry overnight. 7. Deep venous thrombosis (DVT) prophylaxis. The patient was started on Coumadin per surgery.
[2017-03-15] MEDS: PANTOPRAZOLE 40MG TAB (PROTONIX) PO SCH (21:20)
[2017-03-15] MEDS: ATORVASTATIN 20 MG TAB PO SCH (21:20)
[2017-03-15] MEDS: MONTELUKAST 10 MG TAB PO SCH (21:20)
[2017-03-15 22:00] VITALS: BP 166/87
[2017-03-15 23:00] VITALS: BP 162/92
[2017-03-15] MEDS: ADVAIR DISKUS 500/50 INH PWD INH SCH (23:22)
[2017-03-15 23:24] VITALS: O2SAT 94
[2017-03-16] VITALS: BP 160/88
[2017-03-16] MEDS: LR 1,000 ML IV SCH (01:58)
--- NOTE | 2017-03-16 03:39 | RO ---
DATE OF PROCEDURE: 03/15/2017 PREOPERATIVE DIAGNOSIS: Left knee degenerative arthritis. POSTOPERATIVE DIAGNOSIS: Left knee degenerative arthritis. PROCEDURE: Left total knee arthroplasty using a size 4 narrow femoral component , cruciate retaining, with a size 3 tibial tray, 10 mm rotating platform polyethylene insert, and a 32 mm polyethylene button. All components were cemented. Prosthesis was made by Ra and Ra[employer]DeP[employer] as a PFC knee. SURGEON: Eva Rodriguez MD CRAYON SAWYER: YULISA Crabtree ANESTHESIA: Left femoral nerve block with spinal. COMPLICATIONS: None. ESTIMATED BLOOD LOSS: Less than 50 mL. SPECIMENS: Joint surface. DESCRIPTION OF PROCEDURE: Antibiotics were given intravenously preoperatively. Then, after a successful left femoral nerve block and spinal anesthetic was established, tourniquet place on left upper thigh and not inflated. Her large pannus had to be reflected out of the way, but we were able to do so adequately. After appropriate time-out, the tourniquet was then inflated after a routine sterile prep and drape had been completed. Then, we made a longitudinal incision for a medial parapatellar approach. Bovie cautery was used to coagulate crossing vessels. Then, a patellar arthrotomy was performed. Subperiosteal dissection around the proximal medial portion of the tibia was performed and the proximal lateral portion of the tibia. It was difficult to pat the patella. We subluxed it laterally. A drill was placed down the center of the femoral canal, followed by the intramedullary jagdeep with the distal femoral cutting jig set at 10 mm resection level at 5-degree valgus cut for a left knee. It was pinned into position and the distal femoral cut performed. AP sizing jig measured closest to a size 4, and so we pinned it in that position and used the 3-degree external rotation block on the size #4. A 4-in-1 block was applied, and the anterior, posterior, chamfer cuts performed, taking great care to protect the surrounding soft tissues. We then exposed the proximal tibia, used the extramedullary jagdeep to attempt to be parallel to the mechanical axis of the tibia, and we referenced off the medial tibial condyle, set the jig at that position at 4 mm resection level, pinned the jig into position, and then extramedullary jagdeep was used to check the position once again. It appeared to be that we were parallel to the mechanical axis. The proximal tibial osteotomy was then performed, and then we placed a lamina pump press operator laterally and performed a completion medial meniscectomy, debridement of the posteromedial osteophytes. We then placed a lamina pump press operator medially and performed a completion lateral meniscectomy and debridement of the posterolateral osteophytes. We then used the spacer block, and the 10 mm fit snug in both flexion and extension with symmetric flexion/extension gaps with good stability to varus/valgus AP stress testing. Thus, we elected to use that size insert. We exposed the proximal tibia, sized for a #3. It just barely fit. We had to use a 3. Could not use a 2-1/2 necessarily because we were using a size 4 femur , but it fit just pretty much line to line with some slight lateral overhang. The tray was then pinned into position, followed by the tower, and then we reamed and broached, placed the polyethylene, then placed the femoral component, brought the knee into extension, everted the patella, performed a patellar osteotomy, and sized for a 32 button. The lug holes were drilled, and the trial patella was placed and the patellofemoral tracking was anatomic. Thus, we drilled the lug holes for the femur, removed all of the trial components, and then Karla Leyvamarcus mixed the cement on the back table as I prepared the bony surfaces for cementing with a copious amount of pulsatile lavage irrigant solution. Then, once everything had been thoroughly dried, we cemented the tibial tray, removed excess cement, placed the polyethylene. We then cemented the femoral component, removed excess cement, brought the knee into extension, everted the patella, and cemented the patella and held it with a clamp until the cement had hardened after we removed the excess. We copiously pulsatile lavage irrigated out the knee joint again, as we did several times throughout the operation, while the cement was hardening. We then placed the tranexamic acid, then closed the apex of the arthrotomy with two #1 PDS sutures, and then the medial parapatellar area was closed with a single PDS suture, #1. Then, #1 double-armed Stratafix was used to close the capsule. We then released the tourniquet, placed a PainBuster catheter, copiously pulsatile lavage irrigated out the subdermal tissues, and they were closed with interrupted #2-0 PDS sutures. Skin was closed with chantel, covered by Adaptic dry sterile bulky dressing. She was then transferred to the recovery room in stable condition. There were no intraoperative complications. Mr. Corey, my assistant director of nursing, was critical to the success of the procedure by helping to close the wound, prepare the patient for surgery, help to mix the cement, help to manipulate the knee (it was a difficult operation because of the size of her leg), and to help with appropriate soft tissue retraction so I could perform the operation smoothly and efficiently. PRINCE
[2017-03-16 04:00] VITALS: BP 160/88
[2017-03-16] MEDS: LEVOTHYROXINE 0.05 MG TAB (50 MCG) PO SCH (05:16)
[2017-03-16 07:24] LABS: MEAN CORPUSCULAR HGB CONC 32.7 g/dl (32.0-36.5); MEAN CORPUSCULAR VOLUME 88.8 fl (80.0-96.0); RED CELL DISTRIBUTION WIDTH 13.7 % (11.5-14.5); WHITE BLOOD COUNT 6.9 K/mm3 (4.0-10.0)
[2017-03-16] MEDS: ADVAIR DISKUS 500/50 INH PWD INH SCH ×2 (07:29→19:36)
[2017-03-16] MEDS: IPRATROPIUM 0.5MG/ALBUTEROL 2.5MG INH SOL UD 3ML (DUONEB)(J7620) NEB SCH ×3 (07:30→18:41)
[2017-03-16] MEDS ORDERED: HumaLOG INSULIN (NovoLOG) PER UNIT SC SCH (07:30)
[2017-03-16 07:36] LABS: INR 1.24
[2017-03-16 07:42] LABS: ALBUMIN 3.3 GM/DL (3.2-5.2); ALBUMIN/GLOBULIN RATIO 1.1 (1.00-1.93); BILIRUBIN,TOTAL 0.3 MG/DL (0.2-1.0); CALCIUM LEVEL 8.4 MG/DL (8.8-10.2); CREATININE FOR GFR 1.16 MG/DL (0.55-1.02); GLOMERULAR FILTRATION RATE 50.7 (>45); MAGNESIUM LEVEL 1.8 MG/DL (1.8-2.4); TOTAL PROTEIN 6.3 GM/DL (6.4-8.2)
[2017-03-16] MEDS: MIRALAX *UNIT DOSE* 17GM PACKET PO SCH (09:15)
[2017-03-16] MEDS: MOM 30ML SUSPENSION UDC PO SCH (09:15)
[2017-03-16] MEDS: HumaLOG INSULIN (NovoLOG) PER UNIT SC SCH ×4 (09:16→21:00)
[2017-03-16] MEDS: ONDANSETRON 4 MG ORAL DISINTEGRATING TAB (S0181) PO PRN (09:17)
[2017-03-16] MEDS: FUROSEMIDE 40 MG TAB PO SCH (09:17)
[2017-03-16] MEDS: PERCOCET 5MG/325MG TAB PO PRN ×4 (09:17→22:17)
[2017-03-16] MEDS: PANTOPRAZOLE 40MG TAB (PROTONIX) PO SCH ×2 (09:18→19:51)
[2017-03-16] MEDS: SENOKOT S TAB PO SCH ×2 (09:18→19:52)
[2017-03-16] MEDS: buPROPion **XL** TABLET 150MG (WELLBUTRIN XL) PO SCH (09:18)
[2017-03-16] MEDS: SUCRALFATE 1 GM TAB PO SCH ×4 (09:18→19:52)
[2017-03-16] MEDS: FERROUS SULFATE 325MG TAB PO SCH ×2 (12:32→17:26)
[2017-03-16 14:00] VITALS: BP 144/70
--- NOTE | 2017-03-16 16:29 | IPN ---
DATE: 03/16/2017 Patient seen and examined. No acute events overnight. Denies any chest pain, pressure or discomfort. Denies any shortness of breath. Reported surgical pain was in tolerable limits. VITAL SIGNS: Temperature 97.9, pulse 101, respirations 16, blood pressure 144/70, pulse oximetry 94% on room air. LABORATORY: WBC 6.9, hemoglobin and hematocrit (H and H) 10.7/32.8, platelets 234. Chemistry: Sodium 138, potassium 4, chloride 103, bicarbonate 25, BUN 20, creatinine 1.16. PHYSICAL EXAMINATION: GENERAL: Patient alert and oriented times three. Obese. In no acute distress. HEENT: Normocephalic, atraumatic. PULMONARY: Bilateral clear to auscultation. CARDIAC: Regular rate and rhythm. Normal S1, S2. ABDOMEN: Soft, nontender, obese. Positive bowel sounds. EXTREMITIES: Surgical site dressings clean, dry and intact. Dorsalis pedal (DP)/posterior tibial (PT) pulses 2+ ASSESSMENT AND PLAN: This is a 61-year-old female patient with underlying medical history of obesity, osteoarthritis, diabetes type 2, chronic obstructive pulmonary disease (COPD), sleep apnea on continuous positive airway pressure (CPAP) at home, dyslipidemia, hypothyroidism, depression, admitted under orthopedic service for left total knee replacement. PROBLEMS: 1. Osteoarthritis status post left total knee arthroplasty by Dr. Syd Paul. Perioperative management as per Dr. Syd Paul. Pain regimen, deep venous thrombosis (DVT) prophylaxis as per orthopedics. Patient currently on Coumadin for DVT prophylaxis. Bowel regimen as ordered. Physical activity status and physical therapy as per primary team. 2. Type 2 diabetes. Patient baseline 85 of Levemir at night. Was given only 20; therefore, patient has slight hyperglycemia. Will increase the Levemir to 60 and monitor. Insulin was mealtime coverage as well. Follow up fingersticks. Address as needed. 3. Dyslipidemia. Continue statin. 4. Hypothyroidism. Continue Synthroid. 5. Chronic obstructive pulmonary disease (COPD). Patient currently not having a wheeze. Nebulizer treatment as needed. Continue Singulair and Advair. 6. Sleep apnea. Obstructive sleep apnea (BHUPINDER) protocol. Continue continuous positive airway pressure (CPAP). 7. Hypertension. Restarting Lasix. Monitor blood pressure. 8. Deep venous thrombosis (DVT) prophylaxis. Patient on Coumadin. Follow up INR. DISPOSITION: As per orthopedic team.
[2017-03-16] MEDS ORDERED: WARFARIN SOD 5 MG TAB PO ONE (17:00)
--- NOTE | 2017-03-16 17:05 | REP ---
LEFT KNEE: REASON: Status-post TKR. COMPARISON: 12/12/2016, a preoperative exam. AP and cross table lateral views were obtained showing a total knee prosthetic device. The femoral and tibial components of which are well seated and well approximated. There is no evidence of an acute fracture. There is expected postoperative soft-tissue swelling. There is an anterior skin staple line in place. IMPRESSION: Postoperative TKR as described above. Signed by Jerzy Butcher DO 03/16/2017 06:27 P
[2017-03-16] MEDS: ATORVASTATIN 20 MG TAB PO SCH (19:51)
[2017-03-16] MEDS: MONTELUKAST 10 MG TAB PO SCH (19:52)
[2017-03-16] MEDS: POTASSIUM CHLORIDE 10 MEQ SR TABLET PO SCH (19:52)
[2017-03-16] MEDS: MORPHINE 15 MG SA TAB PO SCH (19:54)
[2017-03-16] MEDS: ONDANSETRON 4 MG TAB (S0181) PO PRN (19:57)
[2017-03-16] MEDS: LEVEMIR (INSULIN DETEMIR) 1 UNITS/0.01ML SC SCH (19:58)
[2017-03-16] MEDS ORDERED: LEVEMIR (INSULIN DETEMIR) 1 UNITS/0.01ML SC SCH (21:00)
[2017-03-16 22:00] VITALS: BP 142/78
[2017-03-17] MEDS: IPRATROPIUM 0.5MG/ALBUTEROL 2.5MG INH SOL UD 3ML (DUONEB)(J7620) NEB SCH ×4 (00:32→20:00)
[2017-03-17] MEDS: PERCOCET 5MG/325MG TAB PO PRN ×5 (03:00→18:36)
[2017-03-17] MEDS: LEVOTHYROXINE 0.05 MG TAB (50 MCG) PO SCH (05:42)
[2017-03-17] MEDS: ONDANSETRON 4 MG TAB (S0181) PO PRN ×3 (05:43→15:54)
[2017-03-17 06:00] VITALS: BP 168/86
[2017-03-17 06:52] LABS: MEAN CORPUSCULAR HEMOGLOBIN 29.1 pg (27.0-33.0); MEAN CORPUSCULAR HGB CONC 33.3 g/dl (32.0-36.5); MEAN CORPUSCULAR VOLUME 87.3 fl (80.0-96.0); RED CELL DISTRIBUTION WIDTH 13.9 % (11.5-14.5); WHITE BLOOD COUNT 5.2 K/mm3 (4.0-10.0)
[2017-03-17 06:58] LABS: INR 1.55
[2017-03-17 07:13] LABS: ALBUMIN 2.8 GM/DL (3.2-5.2); ALBUMIN/GLOBULIN RATIO 0.85 (1.00-1.93); ALKALINE PHOSPHATASE 104 U/L (45-117); ALT/SGPT 16 U/L (12-78); ANION GAP 8 MEQ/L (8-16); AST/SGOT 16 U/L (15-37); BILIRUBIN,TOTAL 0.5 MG/DL (0.2-1.0); BLOOD UREA NITROGEN 14 MG/DL (7-18); CALCIUM LEVEL 8.2 MG/DL (8.8-10.2); CARBON DIOXIDE LEVEL 26 MEQ/L (21-32); CHLORIDE LEVEL 107 MEQ/L (98-107); CREATININE FOR GFR 0.75 MG/DL (0.55-1.02); GLOMERULAR FILTRATION RATE > 60.0 (>45); GLUCOSE, FASTING 148 MG/DL (80-110); MAGNESIUM LEVEL 2.1 MG/DL (1.8-2.4); POTASSIUM SERUM 3.3 MEQ/L (3.5-5.1); SODIUM LEVEL 141 MEQ/L (136-145); TOTAL PROTEIN 6.1 GM/DL (6.4-8.2)
[2017-03-17] MEDS: ADVAIR DISKUS 500/50 INH PWD INH SCH ×2 (07:35→20:44)
[2017-03-17] MEDS: SUCRALFATE 1 GM TAB PO SCH ×4 (08:27→20:19)
[2017-03-17] MEDS: FUROSEMIDE 40 MG TAB PO SCH (08:27)
[2017-03-17] MEDS: MIRALAX *UNIT DOSE* 17GM PACKET PO SCH (08:28)
[2017-03-17] MEDS: MOM 30ML SUSPENSION UDC PO SCH (08:28)
[2017-03-17] MEDS: buPROPion **XL** TABLET 150MG (WELLBUTRIN XL) PO SCH (08:28)
[2017-03-17] MEDS ORDERED: ENOXAPARIN 40 MG/0.4 ML SYRINGE (J1650) SC ONE (09:00)
[2017-03-17] MEDS: SENOKOT S TAB PO SCH ×2 (09:00→20:19)
[2017-03-17] MEDS: PANTOPRAZOLE 40MG TAB (PROTONIX) PO SCH ×2 (09:00→20:17)
[2017-03-17] MEDS: MORPHINE 15 MG SA TAB PO SCH ×2 (09:15→20:17)
[2017-03-17] MEDS: HumaLOG INSULIN (NovoLOG) PER UNIT SC SCH ×4 (09:32→20:28)
[2017-03-17] MEDS: FERROUS SULFATE 325MG TAB PO SCH ×2 (12:54→17:52)
[2017-03-17 14:00] VITALS: BP 146/87
[2017-03-17] MEDS ORDERED: WARFARIN SOD 5 MG TAB PO ONE (17:00)
[2017-03-17] MEDS ORDERED: WARFARIN SOD 7.5 MG TAB PO ONE (17:00)
[2017-03-17] MEDS ORDERED: WARFARIN SOD 10 MG TAB PO ONE (17:00)
[2017-03-17] MEDS ORDERED: POTASSIUM CHLORIDE 10 MEQ SR TABLET PO ONE (17:15)
[2017-03-17] MEDS: MONTELUKAST 10 MG TAB PO SCH (20:19)
[2017-03-17] MEDS: LEVEMIR (INSULIN DETEMIR) 1 UNITS/0.01ML SC SCH (20:19)
[2017-03-17] MEDS: ATORVASTATIN 20 MG TAB PO SCH (20:20)
[2017-03-17] MEDS: POTASSIUM CHLORIDE 10 MEQ SR TABLET PO SCH (20:20)
[2017-03-17 22:00] VITALS: BP 138/85
--- NOTE | 2017-03-17 23:16 | IPN ---
DATE: 03/17/2017 The patient seen and examined. Reported nausea, with also vomiting. Likely secondary to pain medication. Reported surgical pain to be slightly worse today than yesterday. Denies any fevers or chills, chest pain, pressure or discomfort. VITAL SIGNS: Temperature 99.3, pulse 104, respirations 16, blood pressure 146/87, pulse oximetry 94% on room air. LABORATORY: WBC 5.2, hemoglobin and hematocrit 10.6/31.8, platelets 223. Chemistry: Sodium 141, potassium 3.3, chloride 107, bicarbonate 26, BUN 14, creatinine 0.75, magnesium 2.1. PHYSICAL EXAMINATION: GENERAL: The patient alert and oriented times three. In no acute distress. Morbidly obese. HEENT: Normocephalic, atraumatic. PULMONARY: Bilaterally clear. CARDIAC: Regular rate and rhythm. Normal S1, S2. ABDOMEN: Soft, nontender, obese. Positive bowel sounds. EXTREMITIES: Surgical sites clean, dry and intact. Dorsalis pedis/posterior tibial (DP/PT) pulses 2+. ASSESSMENT AND PLAN: This is a 61-year-old female patient with underlying medical history of obesity, osteoarthritis, type 2 diabetes, chronic obstructive pulmonary disease (COPD), sleep apnea on CPAP at home. Dyslipidemia. Hypothyroidism, depression, admitted under orthopedic service for left total knee replacement. PROBLEM LIST: 1. Osteoarthritis. Status post left total knee arthroplasty by Dr. Syd Rodriguez. Perioperative management, pain regimen, deep venous thrombosis (DVT) prophylaxis and activity status as per orthopedics. The patient on Coumadin for DVT prophylaxis. Bowel regimen ordered. Physical therapy, physical medicine and rehabilitation (PM and R) evaluation. 2. Type 2 diabetes. Basal bolus insulin. Levemir dose has been increased to 60 units, will monitor. Increase as needed. The patient on 85 of Levemir at night at home. Mealtime coverage. Follow fingersticks. 3. Dyslipidemia. Continue statin. 4. Hypokalemia secondary to nausea and vomiting, likely due to opioids. Zofran as needed. Supplement electrolytes. 5. Hypothyroidism. Continue Synthroid. 6. Chronic obstructive pulmonary disease (COPD) history. Currently not having any wheeze. Nebulizer treatments, Singulair, Advair. 7. Sleep apnea. Obstructive sleep apnea (BHUPINDER) protocol. Home CPAP. 8. Hypertension. Restarting Lasix. Monitor blood pressure. 9. Deep venous thrombosis (DVT) prophylaxis. Patient on Coumadin as per primary team. DISPOSITION: As per primary team, physical therapy. Clinical improvement.
[2017-03-18] MEDS: ONDANSETRON 4 MG ORAL DISINTEGRATING TAB (S0181) PO PRN ×2 (00:45→21:38)
[2017-03-18] MEDS: IPRATROPIUM 0.5MG/ALBUTEROL 2.5MG INH SOL UD 3ML (DUONEB)(J7620) NEB SCH ×4 (01:07→18:38)
[2017-03-18] MEDS: LEVOTHYROXINE 0.05 MG TAB (50 MCG) PO SCH (05:27)
[2017-03-18 06:00] VITALS: BP 173/70
[2017-03-18] MEDS: ONDANSETRON 4 MG TAB (S0181) PO PRN ×3 (06:00→19:24)
[2017-03-18] MEDS ORDERED: MAGNESIUM CITRATE 300 ML BTL PO ONE (06:30)
[2017-03-18 07:13] LABS: MEAN CORPUSCULAR HEMOGLOBIN 29.2 pg (27.0-33.0); MEAN CORPUSCULAR HGB CONC 33.6 g/dl (32.0-36.5); MEAN CORPUSCULAR VOLUME 86.8 fl (80.0-96.0); RED CELL DISTRIBUTION WIDTH 13.8 % (11.5-14.5); WHITE BLOOD COUNT 5.5 K/mm3 (4.0-10.0)
[2017-03-18 07:22] LABS: INR 1.76
[2017-03-18 07:52] LABS: ALBUMIN/GLOBULIN RATIO 0.79 (1.00-1.93); ALKALINE PHOSPHATASE 129 U/L (45-117); ALT/SGPT 19 U/L (12-78); ANION GAP 8 MEQ/L (8-16); AST/SGOT 14 U/L (15-37); BILIRUBIN,TOTAL 0.8 MG/DL (0.2-1.0); BLOOD UREA NITROGEN 13 MG/DL (7-18); CALCIUM LEVEL 8.6 MG/DL (8.8-10.2); CARBON DIOXIDE LEVEL 28 MEQ/L (21-32); CHLORIDE LEVEL 105 MEQ/L (98-107); GLOMERULAR FILTRATION RATE > 60.0 (>45); GLUCOSE, FASTING 154 MG/DL (80-110); MAGNESIUM LEVEL 2.3 MG/DL (1.8-2.4); POTASSIUM SERUM 3.9 MEQ/L (3.5-5.1); SODIUM LEVEL 141 MEQ/L (136-145); TOTAL PROTEIN 6.8 GM/DL (6.4-8.2)
[2017-03-18] MEDS: ADVAIR DISKUS 500/50 INH PWD INH SCH ×2 (07:56→20:21)
[2017-03-18] MEDS: SUCRALFATE 1 GM TAB PO SCH ×4 (08:05→20:27)
[2017-03-18] MEDS: SENOKOT S TAB PO SCH ×2 (08:05→20:26)
[2017-03-18] MEDS: FUROSEMIDE 40 MG TAB PO SCH (08:05)
[2017-03-18] MEDS: PANTOPRAZOLE 40MG TAB (PROTONIX) PO SCH ×2 (08:05→20:27)
[2017-03-18] MEDS: MORPHINE 15 MG SA TAB PO SCH ×2 (08:06→20:28)
[2017-03-18] MEDS: buPROPion **XL** TABLET 150MG (WELLBUTRIN XL) PO SCH (08:06)
[2017-03-18] MEDS: HumaLOG INSULIN (NovoLOG) PER UNIT SC SCH ×4 (08:07→20:16)
[2017-03-18] MEDS: PERCOCET 5MG/325MG TAB PO PRN ×2 (08:07→15:08)
[2017-03-18] MEDS: MIRALAX *UNIT DOSE* 17GM PACKET PO SCH (08:10)
[2017-03-18 08:19] VITALS: BP 160/80
[2017-03-18] MEDS: MOM 30ML SUSPENSION UDC PO SCH (09:00)
[2017-03-18] MEDS ORDERED: LIDOCAINE 1% MDV 20ML VIAL ONE (09:31)
[2017-03-18] MEDS ORDERED: dexameTHASONE 10 MG/1 ML VIAL PRES.FREE (J1100) ONE (09:31)
--- NOTE | 2017-03-18 09:31 | REP ---
PORTABLE CHEST: AP portable view of the chest is performed. COMPARISON: 09/15/2016. There is no acute infiltrate or pulmonary edema. Cardiomediastinal silhouette is unchanged without significant cardiomegaly. There is some calcification of the thoracic aorta. IMPRESSION: No acute pulmonary disease. Signed by Earl Baires MD 03/18/2017 04:48 P
[2017-03-18] MEDS ORDERED: ROPIvacaine 0.5% 30 ML INJECTION (J2795) ONE (09:35)
[2017-03-18] MEDS: FERROUS SULFATE 325MG TAB PO SCH ×2 (12:50→17:28)
[2017-03-18 14:00] VITALS: BP 147/72
--- NOTE | 2017-03-18 16:06 | ECGEPIP ---
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
[2017-03-18] MEDS ORDERED: WARFARIN SOD 5 MG TAB PO ONE (17:00)
[2017-03-18] MEDS: ATORVASTATIN 20 MG TAB PO SCH (20:26)
[2017-03-18] MEDS: MONTELUKAST 10 MG TAB PO SCH (20:26)
[2017-03-18] MEDS: POTASSIUM CHLORIDE 10 MEQ SR TABLET PO SCH (20:27)
[2017-03-18] MEDS: LEVEMIR (INSULIN DETEMIR) 1 UNITS/0.01ML SC SCH (20:28)
--- NOTE | 2017-03-18 20:44 | IPN ---
DATE: 03/18/2017 The patient is seen and examined. No acute events overnight. Denies any fevers or chills, chest pain, pressure or discomfort. Continues to report constipation. VITAL SIGNS: Temperature 97.9, pulse 107, respirations 18, blood pressure 147/72, pulse oximetry 96% on room air. LABORATORY: WBC 5.5, hemoglobin and hematocrit 11.2/33.4, platelets 271. Chemistry: Sodium 141, potassium 3.9, chloride 105, bicarbonate 28, BUN 13, creatinine 0.9. PHYSICAL EXAMINATION: GENERAL: The patient is morbidly obese, alert and oriented times three, in no acute distress. HEENT: Normocephalic, atraumatic. PULMONARY: Bilaterally clear. CARDIAC: Regular rate and rhythm. Normal S1, S2. ABDOMEN: Soft, obese, nontender. Positive bowel sounds. EXTREMITIES: Surgical sites clean, dry and intact. Dorsalis pedis/posterior tibial (DP/PT) pulses 2+. ASSESSMENT AND PLAN: This is a 61-year-old female patient with underlying medical history of morbid obesity, osteoarthritis, type 2 diabetes, chronic obstructive pulmonary disease (COPD), sleep apnea on continuous positive airway pressure (CPAP), dyslipidemia. hypothyroidism, depression, admitted under orthopedic service for left total knee replacement. 1. Osteoarthritis, status post left total knee arthroplasty by Dr. Syd Rodriguez. Perioperative management, pain regimen, deep venous thrombosis (DVT) prophylaxis and activity status as per orthopedics. Patient on Coumadin for deep venous thrombosis (DVT). Followup INR. Bowel regimen as ordered. Physical therapy. Physical medicine and rehabilitation (PM and R) evaluation consult was ordered. 2. Type 2 diabetes. Basal bolus insulin, adjust dosage as needed. Follow fingersticks. 3. Constipation. Bowel regimen as ordered. Enema as needed. Follow bowel movements. 4. Dyslipidemia. Continue statin. 5. Hypokalemia, secondary to nausea and vomiting, likely due to opioid, Zofran. Please refer to above. Supplement as needed. Followup electrolytes. 6. Hypothyroidism. Continue Synthroid. 7. Chronic obstructive pulmonary disease (COPD). Patient not having any wheeze. Nebulizer treatments, Singulair, Advair. 8. Sleep apnea. Obstructive sleep apnea (BHUPINDER) protocol. Continue home continuous positive airway pressure (CPAP). 9. Hypertension. Restarting Lasix. Followup blood pressure. 10. Deep venous thrombosis (DVT) prophylaxis. Patient on Coumadin as per primary team. DISPOSITION: Pending clinical improvement, physical therapy. Patient might need short term rehabilitation.
[2017-03-18 22:00] VITALS: BP 173/83
[2017-03-19] MEDS: PERCOCET 5MG/325MG TAB PO PRN ×6 (00:46→21:45)
[2017-03-19] MEDS: ONDANSETRON 4 MG TAB (S0181) PO PRN ×4 (00:48→21:47)
[2017-03-19] MEDS: IPRATROPIUM 0.5MG/ALBUTEROL 2.5MG INH SOL UD 3ML (DUONEB)(J7620) NEB SCH ×4 (01:08→20:00)
[2017-03-19] MEDS: LEVOTHYROXINE 0.05 MG TAB (50 MCG) PO SCH (05:13)
[2017-03-19] MEDS: ONDANSETRON 4 MG ORAL DISINTEGRATING TAB (S0181) PO PRN ×3 (05:13→18:21)
[2017-03-19 06:00] VITALS: BP 166/64
[2017-03-19] MEDS: SUCRALFATE 1 GM TAB PO SCH ×4 (06:10→21:49)
[2017-03-19 07:22] LABS: MEAN CORPUSCULAR HEMOGLOBIN 30.1 pg (27.0-33.0); MEAN CORPUSCULAR HGB CONC 33.9 g/dl (32.0-36.5); MEAN CORPUSCULAR VOLUME 88.8 fl (80.0-96.0); RED CELL DISTRIBUTION WIDTH 13.8 % (11.5-14.5); WHITE BLOOD COUNT 4.8 K/mm3 (4.0-10.0)
[2017-03-19 07:28] LABS: INR 1.91
[2017-03-19 07:38] LABS: ALBUMIN/GLOBULIN RATIO 0.83 (1.00-1.93); ALKALINE PHOSPHATASE 124 U/L (45-117); ALT/SGPT 19 U/L (12-78); ANION GAP 8 MEQ/L (8-16); AST/SGOT 18 U/L (15-37); BILIRUBIN,TOTAL 0.7 MG/DL (0.2-1.0); BLOOD UREA NITROGEN 13 MG/DL (7-18); CALCIUM LEVEL 8.4 MG/DL (8.8-10.2); CARBON DIOXIDE LEVEL 30 MEQ/L (21-32); CHLORIDE LEVEL 102 MEQ/L (98-107); CREATININE FOR GFR 0.97 MG/DL (0.55-1.02); GLOMERULAR FILTRATION RATE > 60.0 (>45); GLUCOSE, FASTING 178 MG/DL (80-110); MAGNESIUM LEVEL 2.5 MG/DL (1.8-2.4); POTASSIUM SERUM 3.6 MEQ/L (3.5-5.1); SODIUM LEVEL 140 MEQ/L (136-145); TOTAL PROTEIN 6.6 GM/DL (6.4-8.2)
[2017-03-19] MEDS ORDERED: ACET65TA PO (07:46)
[2017-03-19] MEDS ORDERED: COUM2.5T11 PO (07:46)
[2017-03-19] MEDS ORDERED: PERC5TAB6 PO (07:46)
[2017-03-19] MEDS: ADVAIR DISKUS 500/50 INH PWD INH SCH ×2 (07:47→20:26)
[2017-03-19] MEDS: CETIRIZINE (ZyrTEC) 10 MG TAB PO SCH (08:01)
[2017-03-19] MEDS: PANTOPRAZOLE 40MG TAB (PROTONIX) PO SCH ×2 (08:01→21:49)
[2017-03-19] MEDS: buPROPion **XL** TABLET 150MG (WELLBUTRIN XL) PO SCH (08:02)
[2017-03-19] MEDS: FUROSEMIDE 40 MG TAB PO SCH (08:02)
[2017-03-19] MEDS: MIRALAX *UNIT DOSE* 17GM PACKET PO SCH (08:02)
[2017-03-19] MEDS: SENOKOT S TAB PO SCH ×2 (08:02→21:50)
[2017-03-19] MEDS: MOM 30ML SUSPENSION UDC PO SCH (08:02)
[2017-03-19] MEDS: HumaLOG INSULIN (NovoLOG) PER UNIT SC SCH ×4 (08:03→21:00)
[2017-03-19] MEDS ORDERED: SENN-23 PO (08:19)
[2017-03-19] MEDS: FERROUS SULFATE 325MG TAB PO SCH ×2 (12:41→17:26)
[2017-03-19 14:00] VITALS: BP 150/86
--- NOTE | 2017-03-19 15:20 | IPN ---
DATE: 03/19/2017 Patient is seen and examined. No acute events overnight. Denies any chest pain, pressure or discomfort. Reported nausea, no vomiting. Reported constipation has improved. Denies fever or chills. VITAL SIGNS: Temperature 98.9, pulse 103, respirations 18, blood pressure 150/86, pulse oximetry 94% on room air. LABORATORY DATA: WBC 4.8, hemoglobin and hematocrit 11.2/33.2, platelets 300. Chemistry: Sodium 140, potassium 3.6, chloride 102, bicarbonate 30, BUN 13, creatinine 0.97. PHYSICAL EXAMINATION: GENERAL: The patient is morbidly obese, alert and oriented times three, in no acute distress. HEENT: Normocephalic, atraumatic. PULMONARY: Bilaterally clear. CARDIAC: Regular rate and rhythm. Normal S1, S2. ABDOMEN: Soft, obese, nontender. Positive bowel sounds. EXTREMITIES: Dressing clean, dry and intact. Dorsalis pedis/posterior tibial (DP/PT) pulses 2+. ASSESSMENT AND PLAN: This is a 61-year-old female patient with underlying medical history of morbid obesity, osteoarthritis, type 2 diabetes, chronic obstructive pulmonary disease (COPD), sleep apnea on continuous positive airway pressure (CPAP) at night, dyslipidemia. hypothyroidism, depression, admitted under orthopedic service for left total knee replacement. 1. Osteoarthritis, status post left total knee arthroplasty by Dr. Syd Rodriguez. Perioperative management, wound care, pain regimen, deep venous thrombosis (DVT) prophylaxis, activity status, physical therapy as per orthopedics. Patient on Coumadin for deep venous thrombosis (DVT) prophylaxis. Followup INR. Bowel regimen ordered. Physical therapy (PT). Possible short-term rehabilitation. 2. Nausea, likely secondary to opioid. Opioid has been adjusted by primary team. Zofran as needed. 3. Type 2 diabetes. Basal bolus insulin, adjust as needed. Followup fingersticks. 4. Constipation. Bowel regimen as ordered. Enema has been given. Followup bowel movements. 5. Dyslipidemia. Continue statin. 6. Hypokalemia, secondary to nausea and vomiting, likely due to opioid. Continue to follow. 7. Hypothyroidism. Continue Synthroid. 8. Chronic obstructive pulmonary disease (COPD). Patient not having any wheeze. Nebulizer treatments, Singulair and Advair. 9. Sleep apnea. Obstructive sleep apnea (BHUPINDER) protocol. Continue CPAP. 10. Hypertension. Restart Lasix. Followup blood pressure. 11. Deep venous thrombosis (DVT) prophylaxis. Patient on Coumadin as per primary team. DISPOSITION: Pending clinical improvement, physical therapy, short term rehabilitation.
[2017-03-19] MEDS: ACETAMINOPHEN TAB 650MG DOSE (2X325MG) PO PRN (15:46)
[2017-03-19] MEDS: LEVEMIR (INSULIN DETEMIR) 1 UNITS/0.01ML SC SCH (21:46)
[2017-03-19] MEDS: MONTELUKAST 10 MG TAB PO SCH (21:48)
[2017-03-19] MEDS: POTASSIUM CHLORIDE 10 MEQ SR TABLET PO SCH (21:48)
[2017-03-19] MEDS: ATORVASTATIN 20 MG TAB PO SCH (21:49)
[2017-03-19 22:00] VITALS: BP 161/83
[2017-03-20] MEDS: ONDANSETRON 4 MG ORAL DISINTEGRATING TAB (S0181) PO PRN ×3 (01:20→18:55)
[2017-03-20] MEDS: IPRATROPIUM 0.5MG/ALBUTEROL 2.5MG INH SOL UD 3ML (DUONEB)(J7620) NEB SCH ×4 (01:25→20:00)
[2017-03-20] MEDS: PERCOCET 5MG/325MG TAB PO PRN ×6 (02:42→22:54)
[2017-03-20] MEDS: LEVOTHYROXINE 0.05 MG TAB (50 MCG) PO SCH (05:55)
[2017-03-20 06:00] VITALS: BP 139/65
[2017-03-20] MEDS: ONDANSETRON 4 MG TAB (S0181) PO PRN ×3 (06:12→17:32)
[2017-03-20 06:44] LABS: INR 1.78
[2017-03-20 06:46] LABS: MEAN CORPUSCULAR HEMOGLOBIN 29.3 pg (27.0-33.0); MEAN CORPUSCULAR HGB CONC 33.3 g/dl (32.0-36.5); MEAN CORPUSCULAR VOLUME 87.9 fl (80.0-96.0); RED CELL DISTRIBUTION WIDTH 13.5 % (11.5-14.5); WHITE BLOOD COUNT 4.7 K/mm3 (4.0-10.0)
[2017-03-20 06:53] LABS: ALBUMIN/GLOBULIN RATIO 0.83 (1.00-1.93); BILIRUBIN,TOTAL 0.7 MG/DL (0.2-1.0); CALCIUM LEVEL 8.5 MG/DL (8.8-10.2); CREATININE FOR GFR 1.03 MG/DL (0.55-1.02); GLOMERULAR FILTRATION RATE 58.2 (>45); MAGNESIUM LEVEL 2.2 MG/DL (1.8-2.4); POTASSIUM SERUM 3.6 MEQ/L (3.5-5.1); TOTAL PROTEIN 6.6 GM/DL (6.4-8.2)
[2017-03-20] MEDS: ADVAIR DISKUS 500/50 INH PWD INH SCH ×2 (07:37→20:27)
[2017-03-20] MEDS ORDERED: POTASSIUM CHLORIDE 10 MEQ SR TABLET PO ONE (08:00)
[2017-03-20] MEDS: MIRALAX *UNIT DOSE* 17GM PACKET PO SCH (10:29)
[2017-03-20] MEDS: MOM 30ML SUSPENSION UDC PO SCH (10:29)
[2017-03-20] MEDS: HumaLOG INSULIN (NovoLOG) PER UNIT SC SCH ×4 (10:30→21:00)
[2017-03-20] MEDS: PANTOPRAZOLE 40MG TAB (PROTONIX) PO SCH ×2 (10:31→21:20)
[2017-03-20] MEDS: CETIRIZINE (ZyrTEC) 10 MG TAB PO SCH (10:31)
[2017-03-20] MEDS: buPROPion **XL** TABLET 150MG (WELLBUTRIN XL) PO SCH (10:31)
[2017-03-20] MEDS: SUCRALFATE 1 GM TAB PO SCH ×4 (10:31→21:19)
[2017-03-20] MEDS: FUROSEMIDE 40 MG TAB PO SCH (10:31)
[2017-03-20] MEDS: SENOKOT S TAB PO SCH ×2 (10:31→21:18)
[2017-03-20] MEDS: FERROUS SULFATE 325MG TAB PO SCH ×2 (13:05→17:32)
[2017-03-20 14:00] VITALS: BP 137/76
[2017-03-20] MEDS ORDERED: WARFARIN SOD 5 MG TAB PO ONE (17:00)
--- NOTE | 2017-03-20 18:00 | IPN ---
DATE: 03/20/2017 Patient seen and examined. No acute events overnight. Denies any chest pain, pressure or discomfort. Reported left breast with cyst that ruptured generally well-healed. VITAL SIGNS: Temperature 98.4, pulse 97, respirations 18, blood pressure 139/65, pulse oximetry 98% on room air. LABORATORY DATA: WBC 4.7, hemoglobin and hematocrit (H and H) 11.8/34.8, platelets 364. Chemistry: Sodium 141, potassium 3.8, chloride 103, bicarbonate 30, BUN 15, creatinine 1.03. PHYSICAL EXAMINATION: GENERAL: Patient morbidly obese, alert and oriented times three, in no acute distress. HEENT: Normocephalic, atraumatic. PULMONARY: Bilateral clear to auscultation. Two scars over left breast, erythematous. Lesion noted, small, healing, nontender. CARDIAC: Regular rate and rhythm. Normal S1, S2. ABDOMEN: Soft, obese, nontender. Positive bowel sounds. EXTREMITIES: Clean, dry and intact dressings. Dorsalis pedis (DP), posterior tibial (PT) pulses 2+. ASSESSMENT AND PLAN: This is a 61-year-old female patient with underlying medical history of morbid obesity, osteoarthritis, type 2 diabetes, chronic obstructive pulmonary disease (COPD), sleep apnea on continuous positive airway pressure (CPAP) at night, dyslipidemia, hypothyroidism, depression, admitted under orthopedic service for left total knee replacement. PROBLEMS: 1. Osteoarthritis status post left total knee replacement. Arthroplasty by Dr. Syd Rodriguez. Perioperative management, wound care, pain regimen, deep venous thrombosis (DVT) prophylaxis, activity status, physical therapy, as per orthopedics. Patient on Coumadin for DVT prophylaxis. Bowel regimen ordered. Pain regimen as per orthopedics. Discharge pending short-term rehabilitation. 2. Nausea. Likely secondary to opiates. Opiates have been adjusted by primary team. Zofran as needed. Possible component of gastroparesis. 3. Left breast sebaceous cyst. Has ruptured. Currently healing. Recommend outpatient mammogram, since patient has not been having mammograms in years. 4. Type 2 diabetes. Continue basal bolus insulin as needed. Follow up fingersticks. 5. Constipation. Bowel regimen as needed. Enema has been given. Follow up albumin. 6. Dyslipidemia. Continue statin. 7. Hypokalemia. Secondary to nausea and vomiting. Supplementation. Continue to follow. 8. Hypothyroidism. Continue Synthroid. 9. Chronic obstructive pulmonary disease (COPD). Patient not having any wheeze. Nebulizer treatment. Singular and Advair. 10. Obstructive sleep apnea. BHUPINDER protocol. Continue continuous positive airway pressure (CPAP) . 11. Hypertension. Restart Lasix. Follow up blood pressure. 12. Deep venous thrombosis (DVT) prophylaxis. Patient on Coumadin as per primary team. DISPOSITION: Pending clinical improvement, physical therapy, short-term rehabilitation.
[2017-03-20] MEDS: LEVEMIR (INSULIN DETEMIR) 1 UNITS/0.01ML SC SCH (21:17)
[2017-03-20] MEDS: POTASSIUM CHLORIDE 10 MEQ SR TABLET PO SCH (21:18)
[2017-03-20] MEDS: MONTELUKAST 10 MG TAB PO SCH (21:19)
[2017-03-20] MEDS: ATORVASTATIN 20 MG TAB PO SCH (21:19)
[2017-03-20 22:00] VITALS: BP 162/78
[2017-03-21] MEDS: IPRATROPIUM 0.5MG/ALBUTEROL 2.5MG INH SOL UD 3ML (DUONEB)(J7620) NEB SCH ×4 (02:15→20:00)
[2017-03-21] MEDS: PERCOCET 5MG/325MG TAB PO PRN ×5 (03:15→22:12)
[2017-03-21] MEDS: ONDANSETRON 4 MG ORAL DISINTEGRATING TAB (S0181) PO PRN (04:39)
[2017-03-21] MEDS: LEVOTHYROXINE 0.05 MG TAB (50 MCG) PO SCH (05:20)
[2017-03-21 06:00] VITALS: BP 150/74
[2017-03-21 06:57] LABS: INR 1.77
[2017-03-21 06:58] LABS: MEAN CORPUSCULAR HEMOGLOBIN 28.7 pg (27.0-33.0); MEAN CORPUSCULAR HGB CONC 31.4 g/dl (32.0-36.5); MEAN CORPUSCULAR VOLUME 91.6 fl (80.0-96.0); RED CELL DISTRIBUTION WIDTH 13.5 % (11.5-14.5); WHITE BLOOD COUNT 4.4 K/mm3 (4.0-10.0)
[2017-03-21 07:08] LABS: ALBUMIN/GLOBULIN RATIO 0.88 (1.00-1.93); BILIRUBIN,TOTAL 0.6 MG/DL (0.2-1.0); CALCIUM LEVEL 8.4 MG/DL (8.8-10.2); CREATININE FOR GFR 1.07 MG/DL (0.55-1.02); GLOMERULAR FILTRATION RATE 55.7 (>45); MAGNESIUM LEVEL 2.2 MG/DL (1.8-2.4); POTASSIUM SERUM 3.8 MEQ/L (3.5-5.1); TOTAL PROTEIN 6.4 GM/DL (6.4-8.2)
[2017-03-21] MEDS ORDERED: MAGNESIUM CITRATE 300 ML BTL PO ONE (07:30)
[2017-03-21] MEDS ORDERED: MAALOX 30 ML SUSP *UDC PO PRN (07:45)
[2017-03-21] MEDS: MOM 30ML SUSPENSION UDC PO SCH (07:50)
[2017-03-21] MEDS: HumaLOG INSULIN (NovoLOG) PER UNIT SC SCH ×4 (07:52→21:00)
[2017-03-21] MEDS: CETIRIZINE (ZyrTEC) 10 MG TAB PO SCH (07:53)
[2017-03-21] MEDS: SENOKOT S TAB PO SCH ×2 (07:53→22:01)
[2017-03-21] MEDS: PANTOPRAZOLE 40MG TAB (PROTONIX) PO SCH ×2 (07:53→22:01)
[2017-03-21] MEDS: FUROSEMIDE 20 MG TAB PO SCH (07:54)
[2017-03-21] MEDS: SUCRALFATE 1 GM TAB PO SCH ×4 (07:54→22:00)
[2017-03-21] MEDS: MIRALAX *UNIT DOSE* 17GM PACKET PO SCH (07:54)
[2017-03-21] MEDS: ADVAIR DISKUS 500/50 INH PWD INH SCH ×2 (08:17→19:50)
[2017-03-21] MEDS: LIDOCAINE 2% JELLY 30 ML TOP SCH ×2 (09:00→22:00)
[2017-03-21] MEDS: buPROPion **XL** TABLET 150MG (WELLBUTRIN XL) PO SCH (09:30)
[2017-03-21] MEDS: FERROUS SULFATE 325MG TAB PO SCH ×2 (12:00→16:58)
[2017-03-21 14:00] VITALS: BP 132/64
[2017-03-21] MEDS ORDERED: WARFARIN SOD 7.5 MG TAB PO ONE (17:00)
[2017-03-21] MEDS: LEVEMIR (INSULIN DETEMIR) 1 UNITS/0.01ML SC SCH (21:59)
[2017-03-21 22:00] VITALS: BP 139/75
[2017-03-21] MEDS: ATORVASTATIN 20 MG TAB PO SCH (22:01)
[2017-03-21] MEDS: POTASSIUM CHLORIDE 10 MEQ SR TABLET PO SCH (22:01)
--- NOTE | 2017-03-21 22:08 | IPN ---
DATE: 03/21/2017 SUBJECTIVE: Patient seen and examined. No acute events overnight. Denies any fever, chills, chest pain, pressure or discomfort. Continues to have nausea. Reported surgical pain to be much improved. VITAL SIGNS: Temperature 98.2, pulse 91, respirations 20, blood pressure 150/74, pulse oximetry 97% on room air. LABORATORY DATA: WBC 4.4, hemoglobin and hematocrit 11 over 35, platelets 311. Chemistry: Sodium 139, potassium 3.8, chloride 103, bicarbonate 28, BUN 15, creatinine 1.07. PHYSICAL EXAMINATION: GENERAL: Morbidly obese, alert and oriented times three. No acute distress. HEENT: Normocephalic, atraumatic. PULMONARY: Bilaterally clear to auscultation. HEART: Regular rate and rhythm. Normal S1, S2. ABDOMEN: Soft, obese, nontender. Positive bowel sounds. EXTREMITIES: Clean dry dressing. Mild minimal exudate; otherwise dry. Dorsalis pedis and posterior tibial pulses 2+. ASSESSMENT AND PLAN: This is a 61 female patient with underlying medical history of morbid obesity, osteoarthritis, type 2 diabetes, chronic obstructive pulmonary disease (COPD), sleep apnea on continuous positive airway pressure (CPAP) at night, dyslipidemia, hypothyroidism, depression, admitted under orthopedic service for left total knee replacement. 1. Osteoarthritis, status post left total knee replacement by Dr. Rodriguez. Perioperative management, wound care, pain management, deep venous thrombosis (DVT) prophylaxis, activity status and physical therapy as per orthopedics. Patient on Coumadin for DVT prophylaxis. Bowel regimen ordered. Pain regimen as per orthopedics. Discharge pending short-term rehabilitation. 2. Nausea, likely secondary to opiates versus diabetic gastroparesis. Opiate has been adjusted. Zofran. Bowel regimen. Possible components of gastroparesis. 3. Left breast sebaceous cyst that has ruptured, well healing. Outpatient mammogram recommended. 4. Type 2 diabetes. Continue basal bolus insulin. Followup fingersticks. 5. Constipation. Bowel regimen as prescribed. Followup enema as needed. Followup bowel movement. 6. Dyslipidemia. Continue statin. 7. Hypokalemia. Supplement electrolytes. Continue to monitor. 8. Hypothyroidism. Continue Synthroid. 9. Chronic obstructive pulmonary disease (COPD). Patient currently not having any wheeze. Continue Singulair, Advair, nebulizer treatment. 10. Obstructive sleep apnea. BHUPINDER protocol. CPAP at night. 11. Hypertension. Lasix restarted. Continue to monitor. 12. DVT prophylaxis. Patient on Coumadin as per primary team. DISPOSITION: Pending clinical improvement, physical therapy, short-term rehabilitation.
[2017-03-21] MEDS: MONTELUKAST 10 MG TAB PO SCH (22:59)
[2017-03-22] MEDS: IPRATROPIUM 0.5MG/ALBUTEROL 2.5MG INH SOL UD 3ML (DUONEB)(J7620) NEB SCH ×4 (01:15→19:51)
[2017-03-22] MEDS: ONDANSETRON 4 MG TAB (S0181) PO PRN ×4 (01:58→21:22)
[2017-03-22] MEDS: ACETAMINOPHEN TAB 650MG DOSE (2X325MG) PO PRN ×2 (05:06→23:31)
[2017-03-22 06:00] VITALS: BP 186/90
[2017-03-22] MEDS: LEVOTHYROXINE 0.05 MG TAB (50 MCG) PO SCH (06:38)
[2017-03-22 07:18] LABS: MEAN CORPUSCULAR HEMOGLOBIN 28.7 pg (27.0-33.0); MEAN CORPUSCULAR HGB CONC 32.4 g/dl (32.0-36.5); MEAN CORPUSCULAR VOLUME 88.7 fl (80.0-96.0); RED CELL DISTRIBUTION WIDTH 13.8 % (11.5-14.5); WHITE BLOOD COUNT 5.1 K/mm3 (4.0-10.0)
[2017-03-22 07:24] LABS: INR 1.98
[2017-03-22] MEDS: ADVAIR DISKUS 500/50 INH PWD INH SCH ×2 (07:42→19:51)
[2017-03-22 07:48] LABS: ALBUMIN 2.9 GM/DL (3.2-5.2); ALBUMIN/GLOBULIN RATIO 0.81 (1.00-1.93); BILIRUBIN,TOTAL 0.5 MG/DL (0.2-1.0); CALCIUM LEVEL 8.5 MG/DL (8.8-10.2); CREATININE FOR GFR 1.11 MG/DL (0.55-1.02); GLOMERULAR FILTRATION RATE 53.4 (>45); MAGNESIUM LEVEL 2.5 MG/DL (1.8-2.4); POTASSIUM SERUM 4.1 MEQ/L (3.5-5.1); TOTAL PROTEIN 6.5 GM/DL (6.4-8.2)
[2017-03-22] MEDS: SENOKOT S TAB PO SCH ×2 (08:09→21:22)
[2017-03-22] MEDS: MOM 30ML SUSPENSION UDC PO SCH (08:09)
[2017-03-22] MEDS: MIRALAX *UNIT DOSE* 17GM PACKET PO SCH (08:09)
[2017-03-22] MEDS: SUCRALFATE 1 GM TAB PO SCH ×4 (08:09→21:21)
[2017-03-22] MEDS: buPROPion **XL** TABLET 150MG (WELLBUTRIN XL) PO SCH (08:09)
[2017-03-22] MEDS: PANTOPRAZOLE 40MG TAB (PROTONIX) PO SCH ×2 (08:09→21:21)
[2017-03-22] MEDS: ULTRACET TAB PO PRN ×3 (08:09→21:18)
[2017-03-22] MEDS: FUROSEMIDE 20 MG TAB PO SCH (08:10)
[2017-03-22] MEDS: HumaLOG INSULIN (NovoLOG) PER UNIT SC SCH ×4 (08:10→21:00)
[2017-03-22] MEDS: LIDOCAINE 2% JELLY 30 ML TOP SCH ×2 (08:11→23:31)
[2017-03-22] MEDS: CETIRIZINE (ZyrTEC) 10 MG TAB PO SCH (10:33)
[2017-03-22] MEDS: FERROUS SULFATE 325MG TAB PO SCH ×2 (12:21→17:52)
[2017-03-22 14:00] VITALS: BP 146/63
--- NOTE | 2017-03-22 15:08 | IPN ---
DATE: 03/22/2017 SUBJECTIVE: Patient is seen and examined. Continued to have nausea. Reported surgical pain to be much improved. Denies any fevers, chills, chest pain, pressure or discomfort. VITAL SIGNS: Temperature 97.9, pulse 104, respirations 18, blood pressure 146/63, pulse oximetry 95% on room air. LABORATORY DATA: WBC 5.1, hemoglobin and hematocrit 11/34, platelets 341. Chemistry: Sodium 139, potassium 4.1, chloride 103, bicarbonate 29, BUN 15, creatinine 1.11. PHYSICAL EXAMINATION: GENERAL: Patient morbidly obese, alert and oriented times three, in no acute distress. HEENT: Normocephalic, atraumatic. PULMONARY: Bilaterally clear to auscultation. HEART: Regular rate and rhythm with normal S1, S2. ABDOMEN: Soft, obese, nontender. Positive bowel sounds. EXTREMITIES: Dressing clean, dry and intact. Dorsalis pedis (DP) and posterior tibial (PT) pulses 2+. ASSESSMENT AND PLAN: This is a 61-year-old female patient with underlying medical history of morbid obesity, osteoarthritis, type 2 diabetes, chronic obstructive pulmonary disease (COPD), sleep apnea on continuous positive airway pressure (CPAP) at night, dyslipidemia, hypothyroidism, depression, admitted under orthopedic service for left total knee replacement. 1. Osteoarthritis, status post left total knee replacement by Dr. Syd Rodriguez. Perioperative management, wound care, pain management, deep venous thrombosis (DVT) prophylaxis, activity status and physical therapy as per orthopedics. Patient on Coumadin for DVT prophylaxis. Bowel regimen ordered. Pain regimen as per orthopedics. Discharge pending short-term rehabilitation. 2. Nausea, likely secondary to opiates with possible components of diabetic gastroparesis. Opiate dose has been adjusted, Zofran, bowel regimen. 3. Left breast sebaceous cyst that has ruptured, well-healing. Outpatient mammogram recommended. 4. Type 2 diabetes. Continue basal bolus insulin. Followup fingersticks. 5. Constipation. Bowel regimen as prescribed. Followup enema as needed. Followup bowel movement. 6. Dyslipidemia. Continue statin. 7. Hypokalemia. Supplement electrolytes. Continue to monitor. 8. Hypothyroidism. Continue Synthroid. 9. COPD. Patient currently not having any wheeze. Continue Singulair, Advair, and nebulizer treatment. 10. Obstructive sleep apnea. Obstructive sleep apnea (BHUPINDER) protocol. CPAP at night. 11. Hypertension. Monitor blood pressure. Lasix on hold given mildly elevated creatinine. 12. Mildly elevated creatinine. Lasix on hold. Continue to monitor. 13. DVT prophylaxis. On Coumadin as per primary team. Followup international normalized ratio (INR). DISPOSITION: Pending clinical improvement, disposition short-term rehabilitation.
[2017-03-22] MEDS ORDERED: WARFARIN SOD 2.5 MG TAB PO SCH (17:00)
[2017-03-22] MEDS: LEVEMIR (INSULIN DETEMIR) 1 UNITS/0.01ML SC SCH (21:19)
[2017-03-22] MEDS: MONTELUKAST 10 MG TAB PO SCH (21:21)
[2017-03-22] MEDS: POTASSIUM CHLORIDE 10 MEQ SR TABLET PO SCH (21:22)
[2017-03-22] MEDS: ATORVASTATIN 20 MG TAB PO SCH (21:22)
[2017-03-22 22:00] VITALS: BP 167/83
[2017-03-23] MEDS: IPRATROPIUM 0.5MG/ALBUTEROL 2.5MG INH SOL UD 3ML (DUONEB)(J7620) NEB SCH ×2 (01:21→07:45)
[2017-03-23] MEDS: ULTRACET TAB PO PRN (01:26)
[2017-03-23] MEDS: ONDANSETRON 4 MG TAB (S0181) PO PRN ×2 (01:26→08:02)
[2017-03-23] MEDS ORDERED: ULTRACET TAB PO PRN (05:15)
[2017-03-23 06:00] VITALS: BP 145/68
[2017-03-23] MEDS: LEVOTHYROXINE 0.05 MG TAB (50 MCG) PO SCH (06:12)
[2017-03-23] MEDS: ADVAIR DISKUS 500/50 INH PWD INH SCH (07:45)
[2017-03-23 07:46] LABS: MEAN CORPUSCULAR HEMOGLOBIN 29.4 pg (27.0-33.0); MEAN CORPUSCULAR HGB CONC 33.1 g/dl (32.0-36.5); MEAN CORPUSCULAR VOLUME 88.8 fl (80.0-96.0); RED CELL DISTRIBUTION WIDTH 13.8 % (11.5-14.5); WHITE BLOOD COUNT 4.8 K/mm3 (4.0-10.0)
[2017-03-23] MEDS: MOM 30ML SUSPENSION UDC PO SCH (08:02)
[2017-03-23] MEDS: CETIRIZINE (ZyrTEC) 10 MG TAB PO SCH (08:02)
[2017-03-23] MEDS: SENOKOT S TAB PO SCH (08:02)
[2017-03-23] MEDS: PANTOPRAZOLE 40MG TAB (PROTONIX) PO SCH (08:02)
[2017-03-23] MEDS: buPROPion **XL** TABLET 150MG (WELLBUTRIN XL) PO SCH (08:02)
[2017-03-23] MEDS: MIRALAX *UNIT DOSE* 17GM PACKET PO SCH (08:02)
[2017-03-23] MEDS: SUCRALFATE 1 GM TAB PO SCH (08:02)
[2017-03-23] MEDS: HumaLOG INSULIN (NovoLOG) PER UNIT SC SCH (08:03)
[2017-03-23 08:05] LABS: INR 1.84
[2017-03-23] MEDS: LIDOCAINE 2% JELLY 30 ML TOP SCH (08:05)
[2017-03-23 08:13] LABS: CALCIUM LEVEL 8.6 MG/DL (8.8-10.2); CREATININE FOR GFR 1.05 MG/DL (0.55-1.02); GLOMERULAR FILTRATION RATE 56.9 (>45); MAGNESIUM LEVEL 2.4 MG/DL (1.8-2.4); POTASSIUM SERUM 4.2 MEQ/L (3.5-5.1)
--- NOTE | 2017-03-24 16:33 | DSES ---
DATE OF ADMISSION: 03/15/2017 DATE OF DISCHARGE: 03/23/2017 ATTENDING PHYSICIAN: Dr. Rodriguez ADMITTING DIAGNOSIS: Left knee degenerative arthritis. OTHER DIAGNOSES: 1. Type 2 diabetes. 2. Dyslpidemia. 3. Chronic obstructive pulmonary disease (COPD). 4. Obstructive sleep apnea. 5. Hypertension. 6. Hypothyroid. DISCHARGE DIAGNOSIS: Left knee degenerative arthritis status post left total knee arthroplasty. HISTORY OF PRESENT ILLNESS: The patient is a 61-year-old female with continuing left knee pain and stiffness. She failed to improve with conservative measures so she consented for an elective left total knee arthroplasty with Dr. Rodriguez. OPERATION PERFORMED: Left total knee arthroplasty. HOSPITAL COURSE: The patient underwent a left total knee arthroplasty under spinal anesthesia which was uneventful. She was up with physical therapy per their protocol and weightbearing as tolerated on the left lower extremity. The patient did develop hypokalemia secondary to nausea and vomiting while in the hospital. The patient was stable and discharged to short-term rehabilitation. She will resume her preoperative medications and diet. She will take Coumadin and use her thromboembolic-deterrent stockings for 30 days postoperatively to prevent deep venous thrombosis. She will followup in our office in 12-14 days for a wound check and staple removal. She is encouraged to contact our office sooner if there is any increased pain, drainage, bleeding, redness, numbness and tingling in her leg, fever greater than 101 degrees, or any other concerns. Please see the medical record for additional details.
== END 2017-03-23 09:15 | DRG 301 ==
LOC: M OR 10:55 → M MS5PR 19:25
PROVIDERS: ADMIT Orthopaedic Surgery; ATTEND Orthopaedic Surgery
PROC: 0SRB049 Replacement of Left Hip Joint with Ceramic on Polyethylene Synthetic Substitute, Cemented, Open Approach (ICD-10-PCS; principal; 2017-03-15 15:25)
DX: M17.12 Unilateral primary osteoarthritis, left knee (principal); I10 Essential (primary) hypertension; E78.5 Hyperlipidemia, unspecified; J44.9 Chronic obstructive pulmonary disease, unspecified; G47.33 Obstructive sleep apnea (adult) (pediatric); E03.9 Hypothyroidism, unspecified; E87.6 Hypokalemia; Z79.899 Other long term (current) drug therapy; E11.9 Type 2 diabetes mellitus without complications; Z87.891 Personal history of nicotine dependence; Z22.39 Carrier of other specified bacterial diseases; F32.9 Major depressive disorder, single episode, unspecified; Z79.4 Long term (current) use of insulin; K59.00 Constipation, unspecified; R11.2 Nausea with vomiting, unspecified

== ENCOUNTER → 2017-04-05 | Outpatient (CLI) | payer MEDICAID, SELFPAY ==
[~2017-04-05] MED LIST changes: +ACET65TA PO; +COUM2.5T11 PO; +SENN-23 PO
[2017-04-05 11:07] LABS: INR 1.33
== END ==
LOC: M LAB 10:35
DX: Z79.01 Long term (current) use of anticoagulants (principal)

== ENCOUNTER → 2017-04-08 | Outpatient (CLI) | payer OTHER, MEDICAID ==
[2017-04-08 11:43] LABS: INR 1.64
== END ==
LOC: M LAB 11:02
PROVIDERS: ATTEND Orthopaedic Surgery
DX: Z79.01 Long term (current) use of anticoagulants (principal)

== ENCOUNTER → 2017-04-12 | Outpatient (CLI) | payer MEDICAID, SELFPAY ==
[2017-04-12 10:51] LABS: INR 1.93
== END ==
LOC: M LAB 09:52
PROVIDERS: ATTEND Orthopaedic Surgery
DX: Z79.01 Long term (current) use of anticoagulants (principal)

== ENCOUNTER → 2017-07-23 | Outpatient (REF) | payer MEDICAID ==
[~2017-07-23] MED LIST changes: -ACET65TA PO; -COUM2.5T11 PO; +COUM2.5T17 PO; -DOCU100C PO; +DOCU100C16 PO; +FERR1TAB8 PO; -FERR325T PO; +MAPA325T3 PO; -MELA5CHW PO; +MELA5TAB20 PO; -METF1000 PO; +METF10004 PO; +PERC5TAB12 PO; -PERC5TAB6 PO; -PROA1AER INH; +PROAAER10 INH; -ULTR37.52 PO; +ULTR37.54 PO
== END ==
LOC: M SFHCWAGY 15:35
PROVIDERS: ATTEND Nurse Practitioner Family
DX: Z01.419 Encounter for gynecological examination (general) (routine) without abnormal findings (principal)

== ENCOUNTER → 2017-07-23 | Outpatient (CLI) | payer MEDICAID ==
--- NOTE | 2017-07-23 16:34 | REPMRS ---
Patient History The patient states she had a clinical breast exam in 07/2017. Patient is postmenopausal. Digital Woman Screen Mammo: July 23, 2017 - Exam #: [id number] Bilateral CC and MLO view(s) were taken. Technologist: Malia Kimble, Technologist Prior study comparison: July 15, 2015, digital woman screen mammo performed at [facility]. June 04, 2014, digital woman screen mammo performed at [facility]. May 31, 2013, digital woman screen mammo performed at [facility]. FINDINGS: There are scattered fibroglandular densities. There has been no change in the appearance of the mammogram from the prior studies. There is a mild amount of scattered fibroglandular density which is fairly symmetric. There is no interval development of dominant mass, architectural distortion, or clustered microcalcification suggestive of malignancy. ASSESSMENT: BI-RADS/ACR category 1 mammogram. Negative. Recommendation Routine screening mammogram in 1 year (for women over age 40). This mammogram was interpreted with the aid of an FDA-approved computer-aided dectection system. Electronically Signed By: Donnie Alvarado MD 07/23/17 1233
== END ==
LOC: M WHC 14:54
PROVIDERS: ATTEND Nurse Practitioner Family
DX: Z12.31 Encounter for screening mammogram for malignant neoplasm of breast (principal)

== ENCOUNTER 2017-10-08 18:34 | Emergency (ER) | payer MEDICAID ==
[~2017-10-08] VITALS: Ht 162.6 cm; Wt 129.6 kg
[2017-10-08] MEDS ORDERED: VOLT1GEL15 (18:51)
[2017-10-08] MEDS ORDERED: DULO1CAP2 (18:51)
[2017-10-08] MEDS ORDERED: POLY1POW4 (18:51)
[2017-10-08] MEDS ORDERED: METO5TAB2 (18:51)
[2017-10-08 22:00] LABS: BASO % 0.4 % (0.0-1.0); EOS # 0.1 10^3/uL (0.0-0.50); EOS % 2.6 % (0.0-3.0); IMMATURE GRANULOCYTE % 1.5 % (0-0); LYMPH # 1.3 10^3/uL (1.5-4.5); LYMPH % 29.4 % (24.0-44.0); MEAN CORPUSCULAR HEMOGLOBIN 29.1 pg (27.0-33.0); MEAN CORPUSCULAR HGB CONC 32.7 g/dl (32.0-36.5); MEAN CORPUSCULAR VOLUME 89.1 fl (80.0-96.0); MONO # 0.4 10^3/uL (0.0-0.8); MONO % 7.9 % (0.0-5.0); NEUTROPHILS # 2.6 10^3/uL (1.8-7.7); NEUTROPHILS % 58.2 % (36.0-66.0); PLATELET COUNT, AUTOMATED 281 10^3/uL (150-450); RED CELL DISTRIBUTION WIDTH 13.4 % (11.5-14.5); WHITE BLOOD COUNT 4.5 10^3/uL (4.0-10.0)
[2017-10-08] MEDS: IPRATROPIUM 0.5MG/ALBUTEROL 2.5MG INH SOL UD 3ML (DUONEB)(J7620) NEB PRN ×2 (22:07→22:13)
[2017-10-08 22:26] LABS: CREATININE FOR GFR 1.1 MG/DL (0.55-1.02); GLOMERULAR FILTRATION RATE 53.8 (>45); POTASSIUM SERUM 4.4 MEQ/L (3.5-5.1)
[2017-10-08 23:26] VITALS: BP 168/68
[2017-10-08] MEDS ORDERED: ZITHTAB PO (23:46)
[2017-10-08] MEDS ORDERED: PRED20TA PO (23:46)
[2017-10-09] MEDS ORDERED: AZITHROMYCIN 250 MG TAB PO ONE
[2017-10-09] MEDS ORDERED: predniSONE 20 MG TAB PO ONE
--- NOTE | 2017-10-09 14:58 | REP ---
CHEST, TWO VIEWS: There is no evidence of acute infiltrate. No pleural effusion is seen. The heart is normal in size. The mediastinal silhouette is unremarkable. The visualized osseous structures are intact. IMPRESSION: No acute pulmonary disease. Signed by Earl Baires MD 10/09/2017 04:18 P
--- NOTE | 2017-10-12 08:14 | ECGEPIP ---
Stationary ECG Study [facility] - ED Test Date: 2017-10-08 Pat Name: ROHIT INGRAM Department: Room: - Gender: F [employer] Tech: : [id number] Requested By: ALBER HENLEY PA-C. Order Number: [id number] Reading MD: Bailey Mckee Measurements Intervals [place] Rate: 96 P: 65 [place]: 160 QRS: -13 QRSD: 90 T: 52 QT: 343 QTc: 434 Interpretive Statements SINUS RHYTHM WITH OCCASIONAL VENTRICULAR PREMATURE COMPLEXES LOW QRS VOLTAGE IN EXTREMITY LEADS PRWP SIMILAR 03/18/17 Electronically Signed On 10-09-2017 8:43:16 EST by Bailey Mckee
== END 2017-10-09 00:17 | disposition home or self-care (01) ==
LOC: M ED 18:34
DX: J44.1 Chronic obstructive pulmonary disease with (acute) exacerbation (principal); J06.9 Acute upper respiratory infection, unspecified; E66.9 Obesity, unspecified; I50.9 Heart failure, unspecified; E78.00 Pure hypercholesterolemia, unspecified; G47.30 Sleep apnea, unspecified; Z87.01 Personal history of pneumonia (recurrent); K21.9 Gastro-esophageal reflux disease without esophagitis; G61.0 Guillain-Barre syndrome; Z85.41 Personal history of malignant neoplasm of cervix uteri; E11.9 Type 2 diabetes mellitus without complications; E03.9 Hypothyroidism, unspecified; M54.9 Dorsalgia, unspecified; M50.20 Other cervical disc displacement, unspecified cervical region; D75.9 Disease of blood and blood-forming organs, unspecified; F41.9 Anxiety disorder, unspecified; F32.9 Major depressive disorder, single episode, unspecified; Z87.891 Personal history of nicotine dependence; Z79.4 Long term (current) use of insulin; Z79.899 Other long term (current) drug therapy; Z91.89 Other specified personal risk factors, not elsewhere classified

== ENCOUNTER → 2017-12-16 | Outpatient (CLI) | payer MEDICAID, SELFPAY | LOC: M CARPUL 13:20 | DX: J45.40 Moderate persistent asthma, uncomplicated (principal) | CPT/HCPCS: 94060 ==

== ENCOUNTER 2018-01-03 20:00 | Emergency (ER) | payer MEDICAID ==
[2018-01-04 01:18] LABS: BASO % 0.4 % (0.0-1.0); EOS # 0.1 10^3/uL (0.0-0.50); HEMATOCRIT 38.2 % (36.0-47.0); HEMOGLOBIN 12.8 g/dl (12.0-16.0); IMMATURE GRANULOCYTE % 0.7 % (0-3.0); LYMPH # 1.4 10^3/uL (1.5-4.5); LYMPH % 31.8 % (24.0-44.0); MEAN CORPUSCULAR HEMOGLOBIN 29.2 pg (27.0-33.0); MEAN CORPUSCULAR HGB CONC 33.5 g/dl (32.0-36.5); MEAN CORPUSCULAR VOLUME 87.2 fl (80.0-96.0); MONO # 0.3 10^3/uL (0.0-0.8); MONO % 7.6 % (0.0-5.0); NEUTROPHILS # 2.6 10^3/uL (1.8-7.7); NEUTROPHILS % 57.5 % (36.0-66.0); PLATELET COUNT, AUTOMATED 291 10^3/uL (150-450); RED BLOOD COUNT 4.38 10^6/uL (4.00-5.40); RED CELL DISTRIBUTION WIDTH 13.2 % (11.5-14.5); WHITE BLOOD COUNT 4.5 10^3/uL (4.0-10.0)
[2018-01-04] MEDS: KETOROLAC 30 MG/ML VIAL (J1885) IV (01:25)
[2018-01-04 01:42] LABS: ANION GAP 10 MEQ/L (8-16); BLOOD UREA NITROGEN 17 MG/DL (7-18); CALCIUM LEVEL 9.1 MG/DL (8.8-10.2); CARBON DIOXIDE LEVEL 26 MEQ/L (21-32); CHLORIDE LEVEL 102 MEQ/L (98-107); CREATININE FOR GFR 0.95 MG/DL (0.55-1.30); GLOMERULAR FILTRATION RATE > 60.0 (>45); GLUCOSE, FASTING 261 MG/DL (70-100); POTASSIUM SERUM 3.8 MEQ/L (3.5-5.1); SODIUM LEVEL 138 MEQ/L (136-145)
[2018-01-07 09:51] LABS: BEDSIDE GLUCOSE 183 MG/DL (80-115)
== END 2018-01-04 04:38 | disposition home or self-care (01) ==
LOC: M ED 01-04 04:38
DX: R55 Syncope and collapse (principal); H92.09 Otalgia, unspecified ear; F41.9 Anxiety disorder, unspecified; F32.9 Major depressive disorder, single episode, unspecified; M50.30 Other cervical disc degeneration, unspecified cervical region; Z98.84 Bariatric surgery status; Z87.891 Personal history of nicotine dependence
CPT/HCPCS: J1885

== ENCOUNTER 2018-02-09 20:27 | Observation (INO) | payer MEDICAID ==
[2018-02-09 21:51] LABS: BEDSIDE GLUCOSE 488 MG/DL (80-115)
[2018-02-09 22:07] LABS: BASO % 0.4 % (0.0-1.0); EOS # 0.1 10^3/uL (0.0-0.50); EOS % 1.5 % (0.0-3.0); HEMATOCRIT 36.9 % (36.0-47.0); HEMOGLOBIN 12.3 g/dl (12.0-16.0); IMMATURE GRANULOCYTE % 1.1 % (0-3.0); LYMPH # 1.1 10^3/uL (1.5-4.5); LYMPH % 22.6 % (24.0-44.0); MEAN CORPUSCULAR HEMOGLOBIN 28.9 pg (27.0-33.0); MEAN CORPUSCULAR HGB CONC 33.3 g/dl (32.0-36.5); MEAN CORPUSCULAR VOLUME 86.6 fl (80.0-96.0); MONO # 0.4 10^3/uL (0.0-0.8); MONO % 7.9 % (0.0-5.0); NEUTROPHILS # 3.1 10^3/uL (1.8-7.7); NEUTROPHILS % 66.5 % (36.0-66.0); PLATELET COUNT, AUTOMATED 248 10^3/uL (150-450); RED BLOOD COUNT 4.26 10^6/uL (4.00-5.40); RED CELL DISTRIBUTION WIDTH 13.5 % (11.5-14.5); WHITE BLOOD COUNT 4.7 10^3/uL (4.0-10.0)
[2018-02-09 22:21] LABS: INR 0.95; PROTHROMBIN TIME 12.8 SECONDS (12.4-14.5)
[2018-02-09 22:22] LABS: PARTIAL THROMBOPLASTIN TIME 31.1 SECONDS (26.8-37.9)
[2018-02-09 22:36] LABS: ANION GAP 10 MEQ/L (8-16); BLOOD UREA NITROGEN 19 MG/DL (7-18); CALCIUM LEVEL 8.6 MG/DL (8.8-10.2); CARBON DIOXIDE LEVEL 23 MEQ/L (21-32); CHLORIDE LEVEL 106 MEQ/L (98-107); CREATININE FOR GFR 1.03 MG/DL (0.55-1.30); FREE T4 0.91 NG/DL (0.76-1.46); GLUCOSE, FASTING 385 MG/DL (70-100); POTASSIUM SERUM 3.7 MEQ/L (3.5-5.1); SODIUM LEVEL 139 MEQ/L (136-145)
[2018-02-09 22:39] LABS: CPK CREATINE PHOSPHOKINASE 94 U/L (26-192); TROPONIN I < 0.02 NG/ML (< 0.10)
[2018-02-09 22:41] LABS: BEDSIDE GLUCOSE 399 MG/DL (80-115)
[2018-02-09 22:43] LABS: CK-MB VALUE MASS 2.8 NG/ML (<3.6); MB/CK RELATIVE INDEX 2.97 (< OR =4)
[2018-02-10] MEDS ORDERED: ONDANSETRON 4MG/2ML VIAL (J2405) IV
[2018-02-10] MEDS ORDERED: DEXTROSE 50% 50 ML SYRINGE IV
[2018-02-10] MEDS ORDERED: GLUCAGON FOR INJ 1 MG VIAL (J1610) SC
[2018-02-10] MEDS ORDERED: GLUCOSE 4 GM CHEW TABLET PO
[2018-02-10] MEDS ORDERED: HumuLIN R (REGULAR) INSULIN (NovoLIN R) **100U/ML** PER UNIT As Ordered (02:48)
[2018-02-10] MEDS: HumaLOG INSULIN (NovoLOG) PER UNIT SC ×5 (03:02→21:00)
[2018-02-10] MEDS: KETOROLAC 30 MG/ML VIAL (J1885) IV ×3 (03:03→20:06)
[2018-02-10 03:16] LABS: BEDSIDE GLUCOSE 463 MG/DL (80-115)
[2018-02-10 06:52] LABS: HEMATOCRIT 35.5 % (36.0-47.0); HEMOGLOBIN 11.7 g/dl (12.0-16.0); MEAN CORPUSCULAR HEMOGLOBIN 28.7 pg (27.0-33.0); PLATELET COUNT, AUTOMATED 232 10^3/uL (150-450); RED BLOOD COUNT 4.08 10^6/uL (4.00-5.40); RED CELL DISTRIBUTION WIDTH 13.6 % (11.5-14.5); WHITE BLOOD COUNT 5.7 10^3/uL (4.0-10.0)
[2018-02-10 07:14] LABS: ANION GAP 9 MEQ/L (8-16); BLOOD UREA NITROGEN 19 MG/DL (7-18); CALCIUM LEVEL 8.6 MG/DL (8.8-10.2); CARBON DIOXIDE LEVEL 24 MEQ/L (21-32); CHLORIDE LEVEL 108 MEQ/L (98-107); CREATININE FOR GFR 1.09 MG/DL (0.55-1.30); GLOMERULAR FILTRATION RATE 54.3 (>45); GLUCOSE, FASTING 307 MG/DL (70-100); POTASSIUM SERUM 3.5 MEQ/L (3.5-5.1); SODIUM LEVEL 141 MEQ/L (136-145)
[2018-02-10] MEDS: HEPARIN SOD (PORCINE) 5000 UNITS/ML VIAL SC ×2 (08:14→20:07)
[2018-02-10] MEDS ORDERED: BACLOFEN 10 MG TAB PO (08:30)
[2018-02-10] MEDS ORDERED: LIDOCAINE 5% OINT 30 GM EXT (08:30)
[2018-02-10] MEDS: PREGABALIN 100 MG CAP (LYRICA) PO ×2 (09:39→20:05)
[2018-02-10] MEDS: DULoxetine 30 MG CAP (CYMBALTA) PO (09:39)
[2018-02-10] MEDS: FERROUS SULFATE 325MG TAB PO ×2 (09:39→20:06)
[2018-02-10] MEDS: LEVEMIR (INSULIN DETEMIR) 1 UNITS/0.01ML SC (09:40)
[2018-02-10] MEDS: PANTOPRAZOLE 40MG TAB (PROTONIX) PO ×2 (09:40→20:05)
[2018-02-10 10:16] LABS: CK-MB VALUE MASS 2.1 NG/ML (<3.6); CPK CREATINE PHOSPHOKINASE 76 U/L (26-192); MB/CK RELATIVE INDEX 2.76 (< OR =4); TROPONIN I < 0.02 NG/ML (< 0.10)
[2018-02-10] MEDS: LEVOTHYROXINE 50MCG TABLET (0.05MG) PO ×2 (10:46→12:01)
[2018-02-10] MEDS: ADVAIR HFA 230/21MCG INHALER INH ×2 (10:47→20:53)
[2018-02-10] MEDS: OCUVITE 1 TAB PO ×2 (10:47→12:01)
[2018-02-10] MEDS: TIOTROPIUM INHALER/CAPSULE (SPIRIVA) INH (10:47)
[2018-02-10] MEDS ORDERED: SLF 3 ML SYR IV (11:30)
[2018-02-10] MEDS: buPROPion **XL** TABLET 150MG (WELLBUTRIN XL) PO (12:00)
[2018-02-10] MEDS: METOCLOPRAMIDE 5 MG TAB PO ×2 (12:01→17:22)
[2018-02-10] MEDS: SUCRALFATE 1 GM TAB PO ×3 (12:14→20:05)
[2018-02-10 13:20] LABS: BEDSIDE GLUCOSE 374 MG/DL (80-115)
[2018-02-10] MEDS: SLF 3 ML SYR IV ×2 (14:35→21:12)
[2018-02-10] MEDS: ACETAMINOPHEN TAB 650MG DOSE (2X325MG) PO ×2 (14:48→20:05)
[2018-02-10 17:18] LABS: BEDSIDE GLUCOSE 292 MG/DL (80-115)
[2018-02-10] MEDS: ATORVASTATIN 20 MG TAB PO (20:04)
[2018-02-10] MEDS: CETIRIZINE (ZyrTEC) 10 MG TAB PO (20:05)
[2018-02-10] MEDS: MONTELUKAST 10 MG TAB PO (20:05)
[2018-02-10 22:27] LABS: BEDSIDE GLUCOSE 250 MG/DL (80-115)
[2018-02-11] MEDS: IPRATROPIUM 0.5MG/ALBUTEROL 2.5MG INH SOL UD 3ML (DUONEB)(J7620) NEB (01:35)
[2018-02-11] MEDS: SLF 3 ML SYR IV (04:53)
[2018-02-11 06:22] LABS: HEMATOCRIT 34.2 % (36.0-47.0); HEMOGLOBIN 11.3 g/dl (12.0-16.0); MEAN CORPUSCULAR HEMOGLOBIN 29.4 pg (27.0-33.0); MEAN CORPUSCULAR VOLUME 89.1 fl (80.0-96.0); PLATELET COUNT, AUTOMATED 193 10^3/uL (150-450); RED BLOOD COUNT 3.84 10^6/uL (4.00-5.40); RED CELL DISTRIBUTION WIDTH 13.6 % (11.5-14.5); WHITE BLOOD COUNT 4.4 10^3/uL (4.0-10.0)
[2018-02-11 06:41] LABS: ANION GAP 9 MEQ/L (8-16); BLOOD UREA NITROGEN 24 MG/DL (7-18); CALCIUM LEVEL 8.5 MG/DL (8.8-10.2); CARBON DIOXIDE LEVEL 24 MEQ/L (21-32); CHLORIDE LEVEL 105 MEQ/L (98-107); CREATININE FOR GFR 0.99 MG/DL (0.55-1.30); GLOMERULAR FILTRATION RATE > 60.0 (>45); GLUCOSE, FASTING 389 MG/DL (70-100); POTASSIUM SERUM 3.3 MEQ/L (3.5-5.1); SODIUM LEVEL 138 MEQ/L (136-145)
[2018-02-11] MEDS: ADVAIR HFA 230/21MCG INHALER INH ×2 (08:05→08:07)
[2018-02-11] MEDS: TIOTROPIUM INHALER/CAPSULE (SPIRIVA) INH ×2 (08:05→08:07)
[2018-02-11] MEDS: POTASSIUM CHLORIDE 10 MEQ SR TABLET PO (08:56)
[2018-02-11] MEDS: buPROPion **XL** TABLET 150MG (WELLBUTRIN XL) PO (08:56)
[2018-02-11] MEDS: PREGABALIN 100 MG CAP (LYRICA) PO (08:57)
[2018-02-11] MEDS: METOCLOPRAMIDE 5 MG TAB PO ×2 (08:57→13:08)
[2018-02-11] MEDS: SUCRALFATE 1 GM TAB PO ×2 (08:57→13:08)
[2018-02-11] MEDS: PANTOPRAZOLE 40MG TAB (PROTONIX) PO (08:58)
[2018-02-11] MEDS: HumaLOG INSULIN (NovoLOG) PER UNIT SC ×2 (08:58→13:09)
[2018-02-11] MEDS: DULoxetine 30 MG CAP (CYMBALTA) PO (08:58)
[2018-02-11] MEDS: FERROUS SULFATE 325MG TAB PO (08:58)
[2018-02-11] MEDS: LEVEMIR (INSULIN DETEMIR) 1 UNITS/0.01ML SC (08:59)
[2018-02-11] MEDS: KETOROLAC 30 MG/ML VIAL (J1885) IV (09:04)
[2018-02-11 12:14] LABS: BEDSIDE GLUCOSE 422 MG/DL (80-115)
== END 2018-02-11 14:46 | disposition home or self-care (01) ==
LOC: M ED INP 20:28 → M PCU 02-10 12:44 → M ED 20:27
PROVIDERS: Internal Medicine
DX: R55 Syncope and collapse (principal); R42 Dizziness and giddiness; M25.561 Pain in right knee; M25.562 Pain in left knee; E11.9 Type 2 diabetes mellitus without complications; J44.9 Chronic obstructive pulmonary disease, unspecified; E03.9 Hypothyroidism, unspecified; E78.4 Other hyperlipidemia; G47.33 Obstructive sleep apnea (adult) (pediatric); M54.2 Cervicalgia; M54.5 Low back pain; Z79.899 Other long term (current) drug therapy; Z79.4 Long term (current) use of insulin; Z87.891 Personal history of nicotine dependence
CPT/HCPCS: J1885

== ENCOUNTER 2018-03-26 11:05 | Inpatient (IN) | payer MEDICAID ==
[2018-03-26] MEDS: VITAMIN D 50,000 UNITS CAPSULE (ERGOCALCIFEROL 1.25MG) PO (09:00)
[2018-03-26 11:36] LABS: BASO % 0.1 % (0.0-1.0); HEMATOCRIT 39.9 % (36.0-47.0); HEMOGLOBIN 13.3 g/dl (12.0-15.5); IMMATURE GRANULOCYTE % 0.3 % (0-3.0); LYMPH # 0.6 10^3/uL (1.5-4.5); LYMPH % 8.1 % (24.0-44.0); MEAN CORPUSCULAR HGB CONC 33.3 g/dl (32.0-36.5); MEAN CORPUSCULAR VOLUME 86.9 fl (80.0-96.0); MONO # 0.3 10^3/uL (0.0-0.8); MONO % 3.7 % (0.0-5.0); NEUTROPHILS # 6.9 10^3/uL (1.8-7.7); NEUTROPHILS % 87.8 % (36.0-66.0); PLATELET COUNT, AUTOMATED 307 10^3/uL (150-450); RED BLOOD COUNT 4.59 10^6/uL (4.00-5.40); RED CELL DISTRIBUTION WIDTH 13.1 % (11.5-14.5); WHITE BLOOD COUNT 7.8 10^3/uL (4.0-10.0)
[2018-03-26] MEDS: ONDANSETRON 4MG/2ML VIAL (J2405) IV ×3 (11:39→20:19)
[2018-03-26] MEDS: NS 500 ML IV (11:39)
[2018-03-26 12:03] LABS: ALBUMIN 4.3 GM/DL (3.2-5.2); ALBUMIN/GLOBULIN RATIO 1.13 (1.00-1.93); ALKALINE PHOSPHATASE 146 U/L (45-117); ALT/SGPT 26 U/L (12-78); ANION GAP 14 MEQ/L (8-16); AST/SGOT 11 U/L (7-37); BILIRUBIN,DIRECT 0.2 MG/DL (0.0-0.2); BILIRUBIN,TOTAL 0.7 MG/DL (0.2-1.0); BLOOD UREA NITROGEN 14 MG/DL (7-18); CALCIUM LEVEL 9.2 MG/DL (8.8-10.2); CARBON DIOXIDE LEVEL 20 MEQ/L (21-32); CHLORIDE LEVEL 102 MEQ/L (98-107); CREATININE FOR GFR 0.96 MG/DL (0.55-1.30); GLOMERULAR FILTRATION RATE > 60.0 (>45); GLUCOSE, FASTING 295 MG/DL (70-100); LIPASE 75 U/L (73-393); SODIUM LEVEL 136 MEQ/L (136-145); TOTAL PROTEIN 8.1 GM/DL (6.4-8.2)
[2018-03-26 12:35] LABS: CK-MB VALUE MASS 1.6 NG/ML (<3.6); CPK CREATINE PHOSPHOKINASE 79 U/L (26-192); MB/CK RELATIVE INDEX 2.02 (< OR =4); TROPONIN I 0.02 NG/ML (< 0.10)
[2018-03-26] MEDS: GASTROGRAFIN SOLUTION 30ML PO ×2 (12:43→13:05)
[2018-03-26] MEDS: MORPHINE 4 MG/ML 1ML VIAL/SYRINGE (J2270) IV ×3 (12:44→23:16)
[2018-03-26 12:50] LABS: KETONE, URINE AUTO RFX 2+ mg/dL (NEGATIVE); LEUKOCYTE ESTERASE UR AUTO RFX NEGATIVE (NEGATIVE); NITRITE, URINE AUTO RFX NEGATIVE (NEGATIVE); RBC, URINE AUTO RFX 3 /HPF (0-3); SPECIFIC GRAVITY UR AUTO RFX 1.023 (1.002-1.035); SQUAM EPITHELIAL CELL UR AURFX 0 /HPF (0-6); WBC, URINE AUTO RFX 8 /HPF (0-3)
[2018-03-26 13:09] LABS: LACTIC ACID SEPSIS PROTOCOL 1.8 MMOL/L (0.4-2.0)
[2018-03-26] MEDS ORDERED: GLUCOSE 4 GM CHEW TABLET PO (16:30)
[2018-03-26] MEDS ORDERED: DEXTROSE 50% 50 ML SYRINGE IV (16:30)
[2018-03-26] MEDS ORDERED: PANTOPRAZOLE 40MG INJ (PROTONIX) (C9113) IV (16:30)
[2018-03-26] MEDS ORDERED: GLUCAGON FOR INJ 1 MG VIAL (J1610) SC (16:30)
[2018-03-26] MEDS ORDERED: IPRATROPIUM 0.5MG/ALBUTEROL 2.5MG INH SOL UD 3ML (DUONEB)(J7620) NEB (16:30)
[2018-03-26] MEDS ORDERED: BISACODYL 10 MG SUPP PR (16:30)
[2018-03-26] MEDS: NS 1,000 ML IV (16:39)
[2018-03-26] MEDS: PROMETHAZINE INJ 25 MG/ML VIAL (J2550) IV (16:39)
[2018-03-26] MEDS ORDERED: hydrOXYzine 50 MG TAB PO (16:45)
[2018-03-26 16:52] LABS: ABG BASE EXCESS -8.2 (-2.0-2.0); ABG HCO3 15.9 MEQ/L (22.0-26.0); ABG O2 SATURATION 94.5 % (95.0-99.0); ABG PARTIAL PRESSURE CO2 29.1 mmHg (35.0-45.0); ABG PARTIAL PRESSURE O2 86.1 mmHg (75.0-100.0); ABG STANDARD HCO3 17.9 MEQ/L (22.0-26.0); ABG TOTAL CO2 16.8 MEQ/L (23.0-31.0); ABG pH (ARTERIAL) 7.356 UNITS (7.350-7.450)
[2018-03-26] MEDS: SUCRALFATE 1 GM TAB PO ×3 (17:30→21:00)
[2018-03-26] MEDS: NITROGLYCERIN 2% OINT 1 GM *U/D* PKT TOP ×2 (17:34→19:30)
[2018-03-26 17:41] LABS: ESTIMATED AVERAGE GLUCOSE 192 MG/DL (60-110); HEMOGLOBIN A1c 8.3 %
[2018-03-26 17:58] LABS: CPK CREATINE PHOSPHOKINASE 75 U/L (26-192); MB/CK RELATIVE INDEX 2.66 (< OR =4); TROPONIN I 0.02 NG/ML (< 0.10)
[2018-03-26 19:26] LABS: ACETONE/KETONE 42.61 MG/DL (<2.81)
[2018-03-26 19:26] LABS: T UPTAKE 33 % (30-39); THYROXINE (T4) 6.2 UG/DL (4.5-12.0)
[2018-03-26] MEDS ORDERED: HumaLOG INSULIN (NovoLOG) PER UNIT SC (19:41)
[2018-03-26] MEDS: IPRATROPIUM 0.5MG/ALBUTEROL 2.5MG INH SOL UD 3ML (DUONEB)(J7620) NEB (20:00)
[2018-03-26] MEDS: hydrALAZINE INJ 20 MG/ML VIAL IV ×2 (20:19→21:30)
[2018-03-26] MEDS: KCL 20MEQ in NS 1000ML 1,000 ML IV (20:36)
[2018-03-26] MEDS: CETIRIZINE (ZyrTEC) 10 MG TAB PO (20:37)
[2018-03-26] MEDS: SENOKOT S TAB PO (20:37)
[2018-03-26] MEDS: ATORVASTATIN 20 MG TAB PO (20:37)
[2018-03-26] MEDS: PREGABALIN 100 MG CAP (LYRICA) PO (20:37)
[2018-03-26] MEDS: MONTELUKAST 10 MG TAB PO (20:37)
[2018-03-26] MEDS: LEVEMIR (INSULIN DETEMIR) 1 UNITS/0.01ML SC (20:55)
[2018-03-26] MEDS: HumaLOG INSULIN (NovoLOG) PER UNIT SC (20:56)
[2018-03-26] MEDS: ADVAIR HFA 230/21MCG INHALER INH (21:00)
[2018-03-26 21:01] LABS: ACETONE/KETONE 45.02 MG/DL (<2.81); ANION GAP 15 MEQ/L (8-16); BLOOD UREA NITROGEN 12 MG/DL (7-18); CARBON DIOXIDE LEVEL 17 MEQ/L (21-32); CHLORIDE LEVEL 107 MEQ/L (98-107); CREATININE FOR GFR 0.87 MG/DL (0.55-1.30); GLOMERULAR FILTRATION RATE > 60.0 (>45); GLUCOSE, FASTING 251 MG/DL (70-100); MAGNESIUM LEVEL 1.6 MG/DL (1.8-2.4); PHOSPHORUS LEVEL 4.4 MG/DL (2.5-4.9); SODIUM LEVEL 139 MEQ/L (136-145)
[2018-03-26] MEDS: PANTOPRAZOLE 40MG INJ (PROTONIX) (C9113) IV (21:03)
[2018-03-26] MEDS: MAG SULF 1GM/100ML (MAG RUN) 1 GM in APPROPRIATE DILUENT 1 EA IV (21:52)
[2018-03-26] MEDS: HEPARIN SOD (PORCINE) 5000 UNITS/ML VIAL SC (22:00)
[2018-03-26] MEDS: METOCLOPRAMIDE INJ 10MG/2ML VIAL (J2765) IV (23:15)
[2018-03-26 23:24] LABS: BEDSIDE GLUCOSE 270 MG/DL (80-115)
[2018-03-26 23:24] LABS: BEDSIDE GLUCOSE 249 MG/DL (80-115)
[2018-03-26 23:34] LABS: BEDSIDE GLUCOSE 226 MG/DL (80-115)
[2018-03-26 23:57] LABS: BEDSIDE GLUCOSE 217 MG/DL (80-115)
[2018-03-27 00:24] LABS: ACETONE/KETONE 23.88 MG/DL (<2.81); ANION GAP 12 MEQ/L (8-16); BLOOD UREA NITROGEN 11 MG/DL (7-18); CALCIUM LEVEL 8.6 MG/DL (8.8-10.2); CARBON DIOXIDE LEVEL 18 MEQ/L (21-32); CHLORIDE LEVEL 109 MEQ/L (98-107); CK-MB VALUE MASS 1.9 NG/ML (<3.6); CPK CREATINE PHOSPHOKINASE 59 U/L (26-192); CREATININE FOR GFR 0.88 MG/DL (0.55-1.30); GLOMERULAR FILTRATION RATE > 60.0 (>45); GLUCOSE, FASTING 219 MG/DL (70-100); MAGNESIUM LEVEL 1.9 MG/DL (1.8-2.4); MB/CK RELATIVE INDEX 3.22 (< OR =4); POTASSIUM SERUM 3.8 MEQ/L (3.5-5.1); SODIUM LEVEL 139 MEQ/L (136-145); TROPONIN I 0.04 NG/ML (< 0.10)
[2018-03-27] MEDS: HumaLOG INSULIN (NovoLOG) PER UNIT SC ×5 (00:25→21:00)
[2018-03-27] MEDS: hydrALAZINE INJ 20 MG/ML VIAL IV (00:26)
[2018-03-27] MEDS: LIDOCAINE 5% OINT 30 GM EXT (01:16)
[2018-03-27 01:20] LABS: BEDSIDE GLUCOSE 218 MG/DL (80-115)
[2018-03-27] MEDS: IPRATROPIUM 0.5MG/ALBUTEROL 2.5MG INH SOL UD 3ML (DUONEB)(J7620) NEB ×4 (01:28→20:00)
[2018-03-27] MEDS: LORazepam 2 MG/ML VIAL (J2060) IV (02:46)
[2018-03-27 03:06] LABS: LACTIC ACID SEPSIS PROTOCOL 1.5 MMOL/L (0.4-2.0)
[2018-03-27 03:47] LABS: BEDSIDE GLUCOSE 227 MG/DL (80-115)
[2018-03-27 03:54] LABS: BEDSIDE GLUCOSE 206 MG/DL (80-115)
[2018-03-27 04:07] LABS: HEMATOCRIT 38.9 % (36.0-47.0); MEAN CORPUSCULAR HEMOGLOBIN 29.5 pg (27.0-33.0); MEAN CORPUSCULAR HGB CONC 33.4 g/dl (32.0-36.5); MEAN CORPUSCULAR VOLUME 88.2 fl (80.0-96.0); PLATELET COUNT, AUTOMATED 304 10^3/uL (150-450); RED BLOOD COUNT 4.41 10^6/uL (4.00-5.40); RED CELL DISTRIBUTION WIDTH 13.3 % (11.5-14.5); WHITE BLOOD COUNT 9.2 10^3/uL (4.0-10.0)
[2018-03-27 04:25] LABS: ALBUMIN 3.8 GM/DL (3.2-5.2); ALBUMIN/GLOBULIN RATIO 1.06 (1.00-1.93); ALKALINE PHOSPHATASE 131 U/L (45-117); ALT/SGPT 22 U/L (12-78); ANION GAP 11 MEQ/L (8-16); AST/SGOT 22 U/L (7-37); BILIRUBIN,TOTAL 0.6 MG/DL (0.2-1.0); BLOOD UREA NITROGEN 11 MG/DL (7-18); CALCIUM LEVEL 8.8 MG/DL (8.8-10.2); CARBON DIOXIDE LEVEL 20 MEQ/L (21-32); CHLORIDE LEVEL 111 MEQ/L (98-107); CREATININE FOR GFR 0.91 MG/DL (0.55-1.30); GLOMERULAR FILTRATION RATE > 60.0 (>45); GLUCOSE, FASTING 211 MG/DL (70-100); POTASSIUM SERUM 4.1 MEQ/L (3.5-5.1); SODIUM LEVEL 142 MEQ/L (136-145); TOTAL PROTEIN 7.4 GM/DL (6.4-8.2)
[2018-03-27 04:26] LABS: PHOSPHORUS LEVEL 3.8 MG/DL (2.5-4.9)
[2018-03-27 04:26] LABS: ACETONE/KETONE 13.39 MG/DL (<2.81); MAGNESIUM LEVEL 1.9 MG/DL (1.8-2.4)
[2018-03-27] MEDS ORDERED: ISOVUE-370 76% 100ML VIAL (Q9967) As Ordered (04:55)
[2018-03-27] MEDS: ONDANSETRON 4MG/2ML VIAL (J2405) IV (05:07)
[2018-03-27] MEDS: cloNIDine 0.2 MG TAB PO (05:10)
[2018-03-27 06:12] LABS: BEDSIDE GLUCOSE 197 MG/DL (80-115)
[2018-03-27] MEDS: LEVOTHYROXINE 50MCG TABLET (0.05MG) PO (06:12)
[2018-03-27] MEDS: HEPARIN SOD (PORCINE) 5000 UNITS/ML VIAL SC ×3 (06:14→21:21)
[2018-03-27 07:14] LABS: BEDSIDE GLUCOSE 185 MG/DL (80-115)
[2018-03-27] MEDS: TIOTROPIUM INHALER/CAPSULE (SPIRIVA) INH (07:47)
[2018-03-27] MEDS: ADVAIR HFA 230/21MCG INHALER INH ×2 (07:47→19:38)
[2018-03-27] MEDS: PANTOPRAZOLE 40MG INJ (PROTONIX) (C9113) IV (08:35)
[2018-03-27] MEDS: DULoxetine 30 MG CAP (CYMBALTA) PO (08:36)
[2018-03-27] MEDS: MELOXICAM (MOBIC) 7.5 MG TAB PO (08:36)
[2018-03-27] MEDS: OCUVITE 1 TAB PO (08:36)
[2018-03-27] MEDS: PREGABALIN 100 MG CAP (LYRICA) PO ×2 (08:36→21:20)
[2018-03-27] MEDS: SENOKOT S TAB PO ×2 (08:36→21:19)
[2018-03-27] MEDS: buPROPion **XL** TABLET 150MG (WELLBUTRIN XL) PO (08:36)
[2018-03-27] MEDS: SUCRALFATE 1 GM TAB PO ×4 (08:36→21:00)
[2018-03-27 08:55] LABS: ANION GAP 7 MEQ/L (8-16); BLOOD UREA NITROGEN 12 MG/DL (7-18); CALCIUM LEVEL 8.7 MG/DL (8.8-10.2); CARBON DIOXIDE LEVEL 24 MEQ/L (21-32); CHLORIDE LEVEL 112 MEQ/L (98-107); CREATININE FOR GFR 0.93 MG/DL (0.55-1.30); GLOMERULAR FILTRATION RATE > 60.0 (>45); GLUCOSE, FASTING 168 MG/DL (70-100); POTASSIUM SERUM 3.9 MEQ/L (3.5-5.1); SODIUM LEVEL 143 MEQ/L (136-145)
[2018-03-27] MEDS: LEVEMIR (INSULIN DETEMIR) 1 UNITS/0.01ML SC ×2 (09:00→21:21)
[2018-03-27 09:10] LABS: BEDSIDE GLUCOSE 150 MG/DL (80-115)
[2018-03-27 09:14] LABS: ACETONE/KETONE 1.38 MG/DL (<2.81)
[2018-03-27 11:05] LABS: BEDSIDE GLUCOSE 133 MG/DL (80-115)
[2018-03-27 11:29] LABS: VENOUS BASE EXCESS -2.3 (-2.0-2.0); VENOUS HCO3 22.3 MEQ/L (23.0-27.0); VENOUS O2 SATURATION 97.7 % (60.0-80.0); VENOUS PARTIAL PRESSURE CO2 37.7 mmHg (38.0-50.0); VENOUS STANDARD HCO3 22.6 MEQ/L; VENOUS TOTAL CO2 23.5 MEQ/L (24.0-28.0)
[2018-03-27 11:49] LABS: ABG BASE EXCESS -3.2 (-2.0-2.0); ABG HCO3 21.4 MEQ/L (22.0-26.0); ABG O2 SATURATION 96.1 % (95.0-99.0); ABG PARTIAL PRESSURE CO2 36.9 mmHg (35.0-45.0); ABG PARTIAL PRESSURE O2 96.5 mmHg (75.0-100.0); ABG STANDARD HCO3 21.8 MEQ/L (22.0-26.0); ABG TOTAL CO2 22.5 MEQ/L (23.0-31.0); ABG pH (ARTERIAL) 7.381 UNITS (7.350-7.450)
[2018-03-27 11:51] LABS: ANION GAP 7 MEQ/L (8-16); BLOOD UREA NITROGEN 13 MG/DL (7-18); CALCIUM LEVEL 8.7 MG/DL (8.8-10.2); CARBON DIOXIDE LEVEL 23 MEQ/L (21-32); CHLORIDE LEVEL 113 MEQ/L (98-107); CREATININE FOR GFR 0.92 MG/DL (0.55-1.30); GLOMERULAR FILTRATION RATE > 60.0 (>45); GLUCOSE, FASTING 134 MG/DL (70-100); PHOSPHORUS LEVEL 4.1 MG/DL (2.5-4.9); POTASSIUM SERUM 3.6 MEQ/L (3.5-5.1); SODIUM LEVEL 143 MEQ/L (136-145)
[2018-03-27 11:58] LABS: BEDSIDE GLUCOSE 134 MG/DL (80-115)
[2018-03-27 12:07] LABS: ACETONE/KETONE 2.05 MG/DL (<2.81)
[2018-03-27] MEDS: LevoFLOXacin 500 MG TABLET PO (14:02)
[2018-03-27] MEDS: POTASSIUM CHLORIDE 10 MEQ SR TABLET PO (14:02)
[2018-03-27] MEDS: CETIRIZINE (ZyrTEC) 10 MG TAB PO (21:19)
[2018-03-27] MEDS: PANTOPRAZOLE 40MG TAB (PROTONIX) PO (21:20)
[2018-03-27] MEDS: ATORVASTATIN 20 MG TAB PO (21:20)
[2018-03-27] MEDS: MONTELUKAST 10 MG TAB PO (21:20)
[2018-03-27 21:43] LABS: BEDSIDE GLUCOSE 171 MG/DL (80-115)
[2018-03-27 21:43] LABS: BEDSIDE GLUCOSE 223 MG/DL (80-115)
[2018-03-28] MEDS: IPRATROPIUM 0.5MG/ALBUTEROL 2.5MG INH SOL UD 3ML (DUONEB)(J7620) NEB ×4 (01:50→20:00)
[2018-03-28 04:28] LABS: HEMATOCRIT 36.2 % (36.0-47.0); HEMOGLOBIN 11.9 g/dl (12.0-15.5); MEAN CORPUSCULAR HEMOGLOBIN 29.5 pg (27.0-33.0); MEAN CORPUSCULAR HGB CONC 32.9 g/dl (32.0-36.5); MEAN CORPUSCULAR VOLUME 89.6 fl (80.0-96.0); PLATELET COUNT, AUTOMATED 278 10^3/uL (150-450); RED BLOOD COUNT 4.04 10^6/uL (4.00-5.40); RED CELL DISTRIBUTION WIDTH 13.3 % (11.5-14.5); WHITE BLOOD COUNT 3.8 10^3/uL (4.0-10.0)
[2018-03-28 04:43] LABS: KETONE, URINE AUTO RFX TRACE mg/dL (NEGATIVE); MUCUS, URINE RFX SMALL (NEGATIVE); NITRITE, URINE AUTO RFX NEGATIVE (NEGATIVE); RBC, URINE AUTO RFX 6 /HPF (0-3); SPECIFIC GRAVITY UR AUTO RFX 1.044 (1.002-1.035); SQUAM EPITHELIAL CELL UR AURFX 30 /HPF (0-6); YEAST LIKE CELL URINE AUTO RFX LARGE
[2018-03-28 04:44] LABS: LEUKOCYTE ESTERASE UR AUTO RFX 3+ (NEGATIVE); WBC, URINE AUTO RFX TNTC /HPF (0-3)
[2018-03-28 04:56] LABS: ALBUMIN 3.3 GM/DL (3.2-5.2); ALKALINE PHOSPHATASE 126 U/L (45-117); ALT/SGPT 20 U/L (12-78); ANION GAP 7 MEQ/L (8-16); AST/SGOT 15 U/L (7-37); BILIRUBIN,TOTAL 0.5 MG/DL (0.2-1.0); BLOOD UREA NITROGEN 18 MG/DL (7-18); CALCIUM LEVEL 8.4 MG/DL (8.8-10.2); CARBON DIOXIDE LEVEL 22 MEQ/L (21-32); CHLORIDE LEVEL 112 MEQ/L (98-107); CREATININE FOR GFR 1.07 MG/DL (0.55-1.30); GLOMERULAR FILTRATION RATE 55.5 (>45); GLUCOSE, FASTING 133 MG/DL (70-100); SODIUM LEVEL 141 MEQ/L (136-145); TOTAL PROTEIN 6.6 GM/DL (6.4-8.2)
[2018-03-28] MEDS: HEPARIN SOD (PORCINE) 5000 UNITS/ML VIAL SC ×3 (06:30→21:09)
[2018-03-28] MEDS: LEVOTHYROXINE 50MCG TABLET (0.05MG) PO (06:30)
[2018-03-28] MEDS: LevoFLOXacin 500 MG TABLET PO (06:30)
[2018-03-28] MEDS: LEVEMIR (INSULIN DETEMIR) 1 UNITS/0.01ML SC ×2 (08:03→21:08)
[2018-03-28] MEDS: buPROPion **XL** TABLET 150MG (WELLBUTRIN XL) PO (08:03)
[2018-03-28] MEDS: PREGABALIN 100 MG CAP (LYRICA) PO ×2 (08:04→21:09)
[2018-03-28] MEDS: HumaLOG INSULIN (NovoLOG) PER UNIT SC ×4 (08:04→21:00)
[2018-03-28] MEDS: DULoxetine 30 MG CAP (CYMBALTA) PO (08:04)
[2018-03-28] MEDS: PANTOPRAZOLE 40MG TAB (PROTONIX) PO ×2 (08:04→21:09)
[2018-03-28] MEDS: SUCRALFATE 1 GM TAB PO ×4 (08:04→21:09)
[2018-03-28] MEDS: SENOKOT S TAB PO ×2 (08:04→21:09)
[2018-03-28] MEDS: OCUVITE 1 TAB PO (08:04)
[2018-03-28] MEDS: MELOXICAM (MOBIC) 7.5 MG TAB PO (08:04)
[2018-03-28] MEDS: TIOTROPIUM INHALER/CAPSULE (SPIRIVA) INH (08:06)
[2018-03-28] MEDS: ADVAIR HFA 230/21MCG INHALER INH ×2 (08:06→20:01)
[2018-03-28 11:40] LABS: BEDSIDE GLUCOSE 198 MG/DL (80-115)
[2018-03-28] MEDS: NYSTATIN 100,000 UNITS/GM TOPICAL PWD 15 GM TOP ×2 (12:00→17:20)
[2018-03-28 17:01] LABS: BEDSIDE GLUCOSE 236 MG/DL (80-115)
[2018-03-28] MEDS: ULTRACET TAB PO (17:56)
[2018-03-28 19:52] LABS: BEDSIDE GLUCOSE 227 MG/DL (80-115)
[2018-03-28] MEDS: ATORVASTATIN 20 MG TAB PO (21:09)
[2018-03-28] MEDS: CETIRIZINE (ZyrTEC) 10 MG TAB PO (21:09)
[2018-03-28] MEDS: MONTELUKAST 10 MG TAB PO (21:09)
[2018-03-29] MEDS: IPRATROPIUM 0.5MG/ALBUTEROL 2.5MG INH SOL UD 3ML (DUONEB)(J7620) NEB ×2 (01:09→08:00)
[2018-03-29 04:56] LABS: HEMATOCRIT 34.1 % (36.0-47.0); HEMOGLOBIN 11.1 g/dl (12.0-15.5); MEAN CORPUSCULAR HEMOGLOBIN 29.2 pg (27.0-33.0); MEAN CORPUSCULAR HGB CONC 32.6 g/dl (32.0-36.5); MEAN CORPUSCULAR VOLUME 89.7 fl (80.0-96.0); PLATELET COUNT, AUTOMATED 224 10^3/uL (150-450); RED CELL DISTRIBUTION WIDTH 13.2 % (11.5-14.5); WHITE BLOOD COUNT 3.3 10^3/uL (4.0-10.0)
[2018-03-29 05:12] LABS: ALBUMIN/GLOBULIN RATIO 0.97 (1.00-1.93); ALKALINE PHOSPHATASE 107 U/L (45-117); ALT/SGPT 23 U/L (12-78); ANION GAP 6 MEQ/L (8-16); AST/SGOT 16 U/L (7-37); BILIRUBIN,TOTAL 0.3 MG/DL (0.2-1.0); BLOOD UREA NITROGEN 18 MG/DL (7-18); CALCIUM LEVEL 8.7 MG/DL (8.8-10.2); CARBON DIOXIDE LEVEL 23 MEQ/L (21-32); CHLORIDE LEVEL 111 MEQ/L (98-107); GLOMERULAR FILTRATION RATE > 60.0 (>45); GLUCOSE, FASTING 199 MG/DL (70-100); SODIUM LEVEL 140 MEQ/L (136-145); TOTAL PROTEIN 6.1 GM/DL (6.4-8.2)
[2018-03-29] MEDS: LevoFLOXacin 500 MG TABLET PO (06:03)
[2018-03-29] MEDS: HEPARIN SOD (PORCINE) 5000 UNITS/ML VIAL SC ×2 (06:03→13:45)
[2018-03-29] MEDS: LEVOTHYROXINE 50MCG TABLET (0.05MG) PO (06:03)
[2018-03-29] MEDS: SUCRALFATE 1 GM TAB PO ×2 (07:40→11:19)
[2018-03-29] MEDS: HumaLOG INSULIN (NovoLOG) PER UNIT SC ×2 (07:40→11:19)
[2018-03-29] MEDS: ADVAIR HFA 230/21MCG INHALER INH (08:14)
[2018-03-29] MEDS: TIOTROPIUM INHALER/CAPSULE (SPIRIVA) INH (08:14)
[2018-03-29] MEDS: MELOXICAM (MOBIC) 7.5 MG TAB PO (08:42)
[2018-03-29] MEDS: PREGABALIN 100 MG CAP (LYRICA) PO (08:42)
[2018-03-29] MEDS: buPROPion **XL** TABLET 150MG (WELLBUTRIN XL) PO (08:42)
[2018-03-29] MEDS: OCUVITE 1 TAB PO (08:42)
[2018-03-29] MEDS: PANTOPRAZOLE 40MG TAB (PROTONIX) PO (08:42)
[2018-03-29] MEDS: DULoxetine 30 MG CAP (CYMBALTA) PO (08:42)
[2018-03-29] MEDS: SENOKOT S TAB PO (08:42)
[2018-03-29] MEDS: NYSTATIN 100,000 UNITS/GM TOPICAL PWD 15 GM TOP (08:43)
[2018-03-29] MEDS: LEVEMIR (INSULIN DETEMIR) 1 UNITS/0.01ML SC (08:43)
[2018-03-29 11:22] LABS: BEDSIDE GLUCOSE 194 MG/DL (80-115)
== END 2018-03-29 14:06 | disposition home or self-care (01) | DRG 420 ==
LOC: M ED 11:05 → M ED INP 16:18 → M ICU 19:46
DX: E11.65 Type 2 diabetes mellitus with hyperglycemia (principal); E55.9 Vitamin D deficiency, unspecified; N13.30 Unspecified hydronephrosis; M50.20 Other cervical disc displacement, unspecified cervical region; Z68.42 Body mass index [BMI] 45.0-49.9, adult; I16.0 Hypertensive urgency; E66.01 Morbid (severe) obesity due to excess calories; N20.0 Calculus of kidney; K52.9 Noninfective gastroenteritis and colitis, unspecified; R11.2 Nausea with vomiting, unspecified; J44.9 Chronic obstructive pulmonary disease, unspecified; G47.33 Obstructive sleep apnea (adult) (pediatric); M19.90 Unspecified osteoarthritis, unspecified site; M79.7 Fibromyalgia; Z79.899 Other long term (current) drug therapy; M51.26 Other intervertebral disc displacement, lumbar region; Z88.8 Allergy status to other drugs, medicaments and biological substances; Z96.652 Presence of left artificial knee joint; Z87.891 Personal history of nicotine dependence; K44.9 Diaphragmatic hernia without obstruction or gangrene

== ENCOUNTER → 2018-05-02 | Outpatient (REF) | payer MEDICAID | LOC: M SFHCPLAZ 15:56 | DX: E11.42 Type 2 diabetes mellitus with diabetic polyneuropathy (principal) ==

== ENCOUNTER 2018-05-06 13:37 | Emergency (ER) | payer MEDICAID ==
[2018-05-06] MEDS ORDERED: ACETAMINOPHEN TAB 650MG DOSE (2X325MG) PO (14:15)
[2018-05-06 15:04] LABS: VENOUS BASE EXCESS -4.4 (-2.0-2.0); VENOUS HCO3 20.7 MEQ/L (23.0-27.0); VENOUS O2 SATURATION 97.1 % (60.0-80.0); VENOUS PARTIAL PRESSURE CO2 38.3 mmHg (38.0-50.0); VENOUS PARTIAL PRESSURE O2 117.2 mmHg (30.0-50.0); VENOUS STANDARD HCO3 20.8 MEQ/L; VENOUS TOTAL CO2 21.8 MEQ/L (24.0-28.0)
[2018-05-06] MEDS: ONDANSETRON 4MG/2ML VIAL (J2405) IV (15:14)
[2018-05-06 15:21] LABS: ANION GAP 10 MEQ/L (8-16); BLOOD UREA NITROGEN 15 MG/DL (7-18); CALCIUM LEVEL 9.2 MG/DL (8.8-10.2); CARBON DIOXIDE LEVEL 24 MEQ/L (21-32); CHLORIDE LEVEL 106 MEQ/L (98-107); CREATININE FOR GFR 1.12 MG/DL (0.55-1.30); GLOMERULAR FILTRATION RATE 52.5 (>45); GLUCOSE, FASTING 200 MG/DL (70-100); POTASSIUM SERUM 4.5 MEQ/L (3.5-5.1); SODIUM LEVEL 140 MEQ/L (136-145)
== END 2018-05-06 16:19 | disposition home or self-care (01) ==
LOC: M ED 13:37
DX: K91.1 Postgastric surgery syndromes (principal); J44.9 Chronic obstructive pulmonary disease, unspecified; E11.9 Type 2 diabetes mellitus without complications; E66.8 Other obesity; G47.30 Sleep apnea, unspecified; Z87.442 Personal history of urinary calculi; Z98.84 Bariatric surgery status; Z91.19 Patient's noncompliance with other medical treatment and regimen; Z79.899 Other long term (current) drug therapy; Z79.4 Long term (current) use of insulin; Z88.8 Allergy status to other drugs, medicaments and biological substances; Z91.048 Other nonmedicinal substance allergy status; Z87.891 Personal history of nicotine dependence
CPT/HCPCS: J2405

== ENCOUNTER → 2018-05-23 | Outpatient (REF) | payer MEDICAID ==
[2018-05-23 16:11] LABS: ESTIMATED AVERAGE GLUCOSE 180 MG/DL (60-110); HEMOGLOBIN A1c 7.9 %
== END ==
LOC: M SFHCPLAZ 13:24
DX: E11.42 Type 2 diabetes mellitus with diabetic polyneuropathy (principal)

== ENCOUNTER → 2018-05-26 | Outpatient (CLI) | payer MEDICAID | LOC: M RAD 08:10 | DX: R11.2 Nausea with vomiting, unspecified (principal); K30 Functional dyspepsia ==

== ENCOUNTER 2018-06-13 11:55 | Day surgery (SDC) | payer MEDICAID ==
[2018-06-13] MEDS: NS 1,000 ML IV (12:00)
[2018-06-13] MEDS ORDERED: LIDOCAINE 2% INJ 100 MG/5 ML SDV (FOR ANES.) As Ordered (13:23)
[2018-06-13] MEDS ORDERED: PROPOFOL 200 MG/20 ML VIAL As Ordered ×2 (13:23→13:38)
== END 2018-06-13 14:28 | disposition home or self-care (01) ==
LOC: M OPP 11:55
DX: K64.0 First degree hemorrhoids (principal); D12.3 Benign neoplasm of transverse colon; R10.30 Lower abdominal pain, unspecified; R19.7 Diarrhea, unspecified; K57.30 Diverticulosis of large intestine without perforation or abscess without bleeding; K44.9 Diaphragmatic hernia without obstruction or gangrene; Z98.84 Bariatric surgery status; R10.13 Epigastric pain; D64.9 Anemia, unspecified; E78.00 Pure hypercholesterolemia, unspecified; J44.9 Chronic obstructive pulmonary disease, unspecified; E03.9 Hypothyroidism, unspecified; E11.9 Type 2 diabetes mellitus without complications; F41.9 Anxiety disorder, unspecified; F32.9 Major depressive disorder, single episode, unspecified; R51 Headache; I10 Essential (primary) hypertension; M81.0 Age-related osteoporosis without current pathological fracture; G47.30 Sleep apnea, unspecified; Z79.4 Long term (current) use of insulin; Z79.891 Long term (current) use of opiate analgesic; Z79.899 Other long term (current) drug therapy; Z88.8 Allergy status to other drugs, medicaments and biological substances; Z91.048 Other nonmedicinal substance allergy status; Z87.891 Personal history of nicotine dependence; Z98.51 Tubal ligation status; Z90.49 Acquired absence of other specified parts of digestive tract
CPT/HCPCS: 45385

== ENCOUNTER 2018-07-07 14:34 | Emergency (ER) | payer MEDICAID ==
[2018-07-07] MEDS ORDERED: MORPHINE 4 MG/ML 1ML VIAL/SYRINGE (J2270) IM (16:45)
[2018-07-07] MEDS: ACETAMINOPHEN TAB 650MG DOSE (2X325MG) PO (16:54)
[2018-07-07] MEDS: traMADol 50 MG TAB PO (16:55)
== END 2018-07-07 17:16 | disposition home or self-care (01) ==
LOC: M ED 14:34
DX: M25.551 Pain in right hip (principal); G89.29 Other chronic pain; I50.9 Heart failure, unspecified; J44.9 Chronic obstructive pulmonary disease, unspecified; Z98.84 Bariatric surgery status; Z87.891 Personal history of nicotine dependence; Z88.8 Allergy status to other drugs, medicaments and biological substances; Z91.048 Other nonmedicinal substance allergy status; Z79.51 Long term (current) use of inhaled steroids; Z79.4 Long term (current) use of insulin
CPT/HCPCS: 99283

== ENCOUNTER → 2018-09-12 | Outpatient (REF) | payer OTHER, MEDICAID ==
[2018-09-12 16:02] LABS: APPEARANCE, URINE CLOUDY (CLEAR); BACTERIA, URINE AUTO 1+ (NEGATIVE); BILIRUBIN, URINE AUTO 1+ (NEGATIVE); BLOOD, URINE BLOOD NEGATIVE (NEGATIVE); COLOR, URINE YELLOW (YELLOW); GLUCOSE, URINE (UA) AUTO NEGATIVE (NEGATIVE); KETONE, URINE AUTO NEGATIVE (NEGATIVE); LEUKOCYTE ESTERASE, URINE AUTO 2+ (NEGATIVE); MUCUS, URINE SMALL (NEGATIVE); NITRITE, URINE AUTO NEGATIVE (NEGATIVE); PROTEIN, URINE AUTO 1+ mg/dL (NEGATIVE); RBC, URINE AUTO 4 /HPF (0-3); SPECIFIC GRAVITY URINE AUTO 1.028 (1.002-1.035); SQUAMOUS EPITHELIAL CELL UR AU 3 /HPF (0-6); WBC, URINE AUTO 11 /HPF (0-3)
[2018-09-12 16:06] LABS: ESTIMATED AVERAGE GLUCOSE 146 MG/DL (60-110); HEMOGLOBIN A1c 6.7 %
[2018-09-12 17:05] LABS: MALB URINE SIEMENS 16.9 MG/L; MAU/CREAT RATIO 7.3 MCG/MG (0.0-30.0)
== END ==
LOC: M SFHCPLAZ 12:34
DX: R30.0 Dysuria (principal); E11.42 Type 2 diabetes mellitus with diabetic polyneuropathy
CPT/HCPCS: 83036

== ENCOUNTER → 2018-10-24 | Outpatient (REF) | payer OTHER, MEDICAID ==
[2018-10-24 16:47] LABS: TOTAL 25(OH) VITAMIN D 52.8 NG/ML (30.0-100.0)
[2018-10-24 16:47] LABS: VITAMIN B12 LEVEL 512 PG/ML (247-911)
[2018-10-24 16:56] LABS: ESTIMATED AVERAGE GLUCOSE 171 MG/DL (60-110); HEMOGLOBIN A1c 7.6 %
== END ==
LOC: M SFHCPLAZ 14:14
DX: E11.42 Type 2 diabetes mellitus with diabetic polyneuropathy (principal)
CPT/HCPCS: 82607

== ENCOUNTER 2018-11-08 08:57 | Inpatient (IN) | payer MEDICAID, OTHER ==
[2018-11-08] MEDS: LEVOTHYROXINE 25MCG TABLET (0.025MG) PO (06:00)
[2018-11-08] MEDS: MULTIVITAMINS/MINERALS THERAP 1 TAB PO (09:00)
[2018-11-08] MEDS: SENOKOT S TAB PO ×2 (09:00→21:05)
[2018-11-08] MEDS: MIRALAX *UNIT DOSE* 17GM PACKET PO (09:00)
[2018-11-08] MEDS: buPROPion **XL** TABLET 150MG (WELLBUTRIN XL) PO (09:00)
[2018-11-08] MEDS: LEVEMIR (INSULIN DETEMIR) 1 UNITS/0.01ML SC ×2 (09:00→21:06)
[2018-11-08] MEDS: FERROUS SULFATE 325MG TAB PO ×2 (09:00→21:05)
[2018-11-08] MEDS: IPRATROPIUM 0.5MG/ALBUTEROL 2.5MG INH SOL UD 3ML (DUONEB)(J7620) NEB ×6 (09:25→21:13)
[2018-11-08] MEDS: methylPREDNISolone INJ 125 MG/2 ML VIAL (J2930) IV ×2 (09:35→17:46)
[2018-11-08 09:45] LABS: BASO % 0.4 % (0.0-1.0); EOS # 0.1 10^3/uL (0.0-0.50); EOS % 1.2 % (0.0-3.0); HEMATOCRIT 35.5 % (36.0-47.0); HEMOGLOBIN 11.4 g/dl (12.0-15.5); IMMATURE GRANULOCYTE % 1.4 % (0-3.0); LYMPH # 1.2 10^3/uL (1.5-4.5); LYMPH % 23.5 % (24.0-44.0); MEAN CORPUSCULAR HEMOGLOBIN 30.2 pg (27.0-33.0); MEAN CORPUSCULAR HGB CONC 32.1 g/dl (32.0-36.5); MEAN CORPUSCULAR VOLUME 93.9 fl (80.0-96.0); MONO # 0.4 10^3/uL (0.0-0.8); MONO % 7.7 % (0.0-5.0); NEUTROPHILS # 3.3 10^3/uL (1.8-7.7); NEUTROPHILS % 65.8 % (36.0-66.0); PLATELET COUNT, AUTOMATED 275 10^3/uL (150-450); RED BLOOD COUNT 3.78 10^6/uL (4.00-5.40); RED CELL DISTRIBUTION WIDTH 12.6 % (11.5-14.5); WHITE BLOOD COUNT 5.1 10^3/uL (4.0-10.0)
[2018-11-08 09:50] LABS: ABG BASE EXCESS -1.2 (-2.0-2.0); ABG HCO3 24.1 MEQ/L (22.0-26.0); ABG PARTIAL PRESSURE CO2 42.3 mmHg (35.0-45.0); ABG PARTIAL PRESSURE O2 66.7 mmHg (75.0-100.0); ABG STANDARD HCO3 23.4 MEQ/L (22.0-26.0); ABG TOTAL CO2 25.4 MEQ/L (23.0-31.0); ABG pH (ARTERIAL) 7.373 UNITS (7.350-7.450)
[2018-11-08 10:20] LABS: INFLUENZA A AMPLIFICATION NEGATIVE (NEGATIVE); INFLUENZA B AMPLIFICATION NEGATIVE (NEGATIVE)
[2018-11-08 10:27] LABS: LACTIC ACID SEPSIS PROTOCOL 2.3 MMOL/L (0.4-2.0)
[2018-11-08 10:28] LABS: ANION GAP 9 MEQ/L (8-16); BLOOD UREA NITROGEN 25 MG/DL (7-18); CALCIUM LEVEL 8.6 MG/DL (8.8-10.2); CARBON DIOXIDE LEVEL 26 MEQ/L (21-32); CHLORIDE LEVEL 104 MEQ/L (98-107); CPK CREATINE PHOSPHOKINASE 63 U/L (26-192); CREATININE FOR GFR 1.03 MG/DL (0.55-1.30); GLOMERULAR FILTRATION RATE 57.8 (>45); GLUCOSE, FASTING 217 MG/DL (70-100); MB/CK RELATIVE INDEX 7.14 (< OR =4); NT-PRO BNP 283 PG/ML (<125); POTASSIUM SERUM 4.1 MEQ/L (3.5-5.1); SODIUM LEVEL 139 MEQ/L (136-145); TROPONIN I < 0.02 NG/ML (< 0.10)
[2018-11-08] MEDS ORDERED: ONDANSETRON 4MG/2ML VIAL (J2405) IV (13:15)
[2018-11-08] MEDS ORDERED: GLUCOSE 4 GM CHEW TABLET PO (13:15)
[2018-11-08] MEDS ORDERED: DEXTROSE 50% 50 ML SYRINGE IV (13:15)
[2018-11-08] MEDS ORDERED: GLUCAGON FOR INJ 1 MG VIAL (J1610) SC (13:15)
[2018-11-08] MEDS ORDERED: ISOVUE-370 76% 100ML VIAL (Q9967) As Ordered (13:15)
[2018-11-08 13:17] LABS: CPK CREATINE PHOSPHOKINASE 58 U/L (26-192); MB/CK RELATIVE INDEX 6.21 (< OR =4); TROPONIN I < 0.02 NG/ML (< 0.10)
[2018-11-08 13:25] LABS: C REACTIVE PROTEIN QUANTITATIV 2.17 MG/DL (0.00-0.30); T UPTAKE 37 % (30-39); THYROXINE (T4) 5.3 UG/DL (4.5-12.0)
[2018-11-08] MEDS: HEPARIN SOD (PORCINE) 5000 UNITS/ML VIAL SC ×2 (14:00→21:05)
[2018-11-08] MEDS: NS 500 ML IV (14:45)
[2018-11-08] MEDS ORDERED: cefTRIAXone SOD 2 GM in D5W MINI-BAG PLUS 50 ML IV (15:00)
[2018-11-08] MEDS: tiZANidine 4 MG TAB PO ×2 (15:42→21:05)
[2018-11-08] MEDS: traMADol 50 MG TAB PO ×2 (15:43→23:44)
[2018-11-08] MEDS: AZITHROMYCIN INJ 500 MG, VIAL MATE ADAPTER 1 EACH in D5W 250 ML IV (15:43)
[2018-11-08 17:15] LABS: BEDSIDE GLUCOSE 319 MG/DL (80-115)
[2018-11-08] MEDS: HumaLOG INSULIN (NovoLOG) PER UNIT SC ×2 (17:30→21:06)
[2018-11-08 18:28] LABS: CPK CREATINE PHOSPHOKINASE 86 U/L (26-192); MB/CK RELATIVE INDEX 3.95 (< OR =4); TROPONIN I < 0.02 NG/ML (< 0.10)
[2018-11-08 18:29] LABS: LACTIC ACID SEPSIS PROTOCOL 4.6 MMOL/L (0.4-2.0)
[2018-11-08 21:01] LABS: BEDSIDE GLUCOSE 313 MG/DL (80-115)
[2018-11-08] MEDS: PREGABALIN 100 MG CAP (LYRICA) PO (21:05)
[2018-11-08] MEDS: MONTELUKAST 10 MG TAB PO (21:05)
[2018-11-08] MEDS: ATORVASTATIN 20 MG TAB PO (21:05)
[2018-11-08] MEDS: ADVAIR HFA 230/21MCG INHALER INH (21:19)
[2018-11-08] MEDS: hydrALAZINE INJ 20 MG/ML VIAL IV (21:42)
[2018-11-09] MEDS: LABETALOL HCL 100 MG/20 ML VIAL IV (00:57)
[2018-11-09] MEDS: methylPREDNISolone INJ 125 MG/2 ML VIAL (J2930) IV ×2 (01:54→09:10)
[2018-11-09 01:56] LABS: BASO % 0.2 % (0.0-1.0); HEMATOCRIT 33.5 % (36.0-47.0); IMMATURE GRANULOCYTE % 1.5 % (0-3.0); LYMPH # 0.4 10^3/uL (1.5-4.5); LYMPH % 6.7 % (24.0-44.0); MEAN CORPUSCULAR HEMOGLOBIN 30.4 pg (27.0-33.0); MEAN CORPUSCULAR HGB CONC 32.8 g/dl (32.0-36.5); MEAN CORPUSCULAR VOLUME 92.5 fl (80.0-96.0); MONO # 0.2 10^3/uL (0.0-0.8); MONO % 3.2 % (0.0-5.0); NEUTROPHILS # 4.7 10^3/uL (1.8-7.7); NEUTROPHILS % 88.4 % (36.0-66.0); PLATELET COUNT, AUTOMATED 306 10^3/uL (150-450); RED BLOOD COUNT 3.62 10^6/uL (4.00-5.40); RED CELL DISTRIBUTION WIDTH 12.5 % (11.5-14.5); WHITE BLOOD COUNT 5.4 10^3/uL (4.0-10.0)
[2018-11-09 02:00] LABS: APPEARANCE, URINE CLEAR (CLEAR); BACTERIA, URINE AUTO NEGATIVE (NEGATIVE); BILIRUBIN, URINE AUTO NEGATIVE (NEGATIVE); BLOOD, URINE BLOOD NEGATIVE (NEGATIVE); COLOR, URINE STRAW (YELLOW); GLUCOSE, URINE (UA) AUTO 3+ mg/dL (NEGATIVE); KETONE, URINE AUTO TRACE mg/dL (NEGATIVE); LEUKOCYTE ESTERASE, URINE AUTO NEGATIVE (NEGATIVE); NITRITE, URINE AUTO NEGATIVE (NEGATIVE); PROTEIN, URINE AUTO NEGATIVE (NEGATIVE); RBC, URINE AUTO 0 /HPF (0-3); SPECIFIC GRAVITY URINE AUTO 1.012 (1.002-1.035); SQUAMOUS EPITHELIAL CELL UR AU 0 /HPF (0-6); UROBILINOGEN, URINE AUTO 0.2 mg/dL (0.0-2.0); WBC, URINE AUTO 0 /HPF (0-3)
[2018-11-09 02:11] LABS: ANION GAP 12 MEQ/L (8-16); BLOOD UREA NITROGEN 29 MG/DL (7-18); CALCIUM LEVEL 8.7 MG/DL (8.8-10.2); CARBON DIOXIDE LEVEL 23 MEQ/L (21-32); CHLORIDE LEVEL 103 MEQ/L (98-107); CREATININE FOR GFR 1.05 MG/DL (0.55-1.30); GLOMERULAR FILTRATION RATE 56.5 (>45); GLUCOSE, FASTING 347 MG/DL (70-100); POTASSIUM SERUM 4.2 MEQ/L (3.5-5.1); SODIUM LEVEL 138 MEQ/L (136-145); TROPONIN I < 0.02 NG/ML (< 0.10)
[2018-11-09] MEDS: IPRATROPIUM 0.5MG/ALBUTEROL 2.5MG INH SOL UD 3ML (DUONEB)(J7620) NEB ×5 (02:24→19:47)
[2018-11-09 02:27] LABS: CREATININE, URINE 19.8 MG/DL; MALB URINE SIEMENS < 5.0 MG/L; MAU/CREAT RATIO 25.2 MCG/MG (0.0-30.0)
[2018-11-09] MEDS ORDERED: FUROSEMIDE 20 MG TAB PO (04:15)
[2018-11-09] MEDS: amLODIPine 10 MG TAB PO (04:23)
[2018-11-09] MEDS: hydrALAZINE INJ 20 MG/ML VIAL IV (04:24)
[2018-11-09] MEDS: LISINOPRIL 10 MG TAB PO ×3 (04:24→09:08)
[2018-11-09 05:41] LABS: HEMATOCRIT 35.4 % (36.0-47.0); HEMOGLOBIN 11.6 g/dl (12.0-15.5); MEAN CORPUSCULAR HEMOGLOBIN 29.7 pg (27.0-33.0); MEAN CORPUSCULAR HGB CONC 32.8 g/dl (32.0-36.5); MEAN CORPUSCULAR VOLUME 90.5 fl (80.0-96.0); PLATELET COUNT, AUTOMATED 346 10^3/uL (150-450); RED BLOOD COUNT 3.91 10^6/uL (4.00-5.40); RED CELL DISTRIBUTION WIDTH 12.6 % (11.5-14.5); WHITE BLOOD COUNT 7.1 10^3/uL (4.0-10.0)
[2018-11-09 05:52] LABS: ANION GAP 11 MEQ/L (8-16); BLOOD UREA NITROGEN 26 MG/DL (7-18); C REACTIVE PROTEIN QUANTITATIV 1.86 MG/DL (0.00-0.30); CALCIUM LEVEL 8.9 MG/DL (8.8-10.2); CARBON DIOXIDE LEVEL 22 MEQ/L (21-32); CHLORIDE LEVEL 103 MEQ/L (98-107); CREATININE FOR GFR 0.99 MG/DL (0.55-1.30); GLOMERULAR FILTRATION RATE > 60.0 (>45); GLUCOSE, FASTING 303 MG/DL (70-100); MAGNESIUM LEVEL 1.8 MG/DL (1.8-2.4); POTASSIUM SERUM 3.9 MEQ/L (3.5-5.1); SODIUM LEVEL 136 MEQ/L (136-145)
[2018-11-09 05:59] LABS: LACTIC ACID SEPSIS PROTOCOL 1.9 MMOL/L (0.4-2.0)
[2018-11-09] MEDS: LEVOTHYROXINE 25MCG TABLET (0.025MG) PO (06:07)
[2018-11-09] MEDS: HEPARIN SOD (PORCINE) 5000 UNITS/ML VIAL SC ×3 (06:08→22:33)
[2018-11-09] MEDS: traMADol 50 MG TAB PO ×2 (07:02→16:52)
[2018-11-09] MEDS ORDERED: LISINOPRIL 10 MG TAB PO (09:00)
[2018-11-09] MEDS: FERROUS SULFATE 325MG TAB PO ×2 (09:07→20:50)
[2018-11-09] MEDS: SENOKOT S TAB PO ×2 (09:07→20:49)
[2018-11-09] MEDS: DULoxetine 30 MG CAP (CYMBALTA) PO (09:07)
[2018-11-09] MEDS: OMEPRAZOLE 20 MG CAP PO (09:07)
[2018-11-09] MEDS: MELOXICAM (MOBIC) 7.5 MG TAB PO (09:07)
[2018-11-09] MEDS: NITROGLYCERIN 2% OINT 1 GM *U/D* PKT TOP (09:07)
[2018-11-09] MEDS: buPROPion **XL** TABLET 150MG (WELLBUTRIN XL) PO (09:07)
[2018-11-09] MEDS: tiZANidine 4 MG TAB PO ×3 (09:07→20:49)
[2018-11-09] MEDS: MULTIVITAMINS/MINERALS THERAP 1 TAB PO (09:08)
[2018-11-09] MEDS: PREGABALIN 100 MG CAP (LYRICA) PO ×2 (09:08→20:51)
[2018-11-09] MEDS: HumaLOG INSULIN (NovoLOG) PER UNIT SC ×4 (09:09→20:51)
[2018-11-09] MEDS: LEVEMIR (INSULIN DETEMIR) 1 UNITS/0.01ML SC ×2 (09:09→20:51)
[2018-11-09] MEDS: MIRALAX *UNIT DOSE* 17GM PACKET PO (09:10)
[2018-11-09] MEDS: TIOTROPIUM INHALER/CAPSULE (SPIRIVA) INH (10:11)
[2018-11-09] MEDS: ADVAIR HFA 230/21MCG INHALER INH ×2 (10:11→19:46)
[2018-11-09 11:26] LABS: BEDSIDE GLUCOSE 476 MG/DL (80-115)
[2018-11-09] MEDS: AZITHROMYCIN INJ 500 MG, VIAL MATE ADAPTER 1 EACH in D5W 250 ML IV (12:45)
[2018-11-09 16:50] LABS: BEDSIDE GLUCOSE 331 MG/DL (80-115)
[2018-11-09 20:26] LABS: BEDSIDE GLUCOSE 360 MG/DL (80-115)
[2018-11-09] MEDS: ATORVASTATIN 20 MG TAB PO (20:49)
[2018-11-09] MEDS: MONTELUKAST 10 MG TAB PO (20:49)
[2018-11-09] MEDS: methylPREDNISolone INJ 40 MG/1 ML VIAL (J2920) IV (22:34)
[2018-11-10] MEDS: IPRATROPIUM 0.5MG/ALBUTEROL 2.5MG INH SOL UD 3ML (DUONEB)(J7620) NEB ×4 (03:25→20:00)
[2018-11-10] MEDS: traMADol 50 MG TAB PO ×3 (04:52→21:38)
[2018-11-10] MEDS: LEVOTHYROXINE 25MCG TABLET (0.025MG) PO (04:53)
[2018-11-10] MEDS: amLODIPine 10 MG TAB PO (04:53)
[2018-11-10] MEDS: LISINOPRIL 10 MG TAB PO ×3 (04:53→21:42)
[2018-11-10 05:23] LABS: HEMATOCRIT 33.1 % (36.0-47.0); HEMOGLOBIN 10.8 g/dl (12.0-15.5); MEAN CORPUSCULAR HEMOGLOBIN 29.8 pg (27.0-33.0); MEAN CORPUSCULAR HGB CONC 32.6 g/dl (32.0-36.5); MEAN CORPUSCULAR VOLUME 91.4 fl (80.0-96.0); PLATELET COUNT, AUTOMATED 338 10^3/uL (150-450); RED BLOOD COUNT 3.62 10^6/uL (4.00-5.40); RED CELL DISTRIBUTION WIDTH 12.7 % (11.5-14.5); WHITE BLOOD COUNT 7.3 10^3/uL (4.0-10.0)
[2018-11-10 05:40] LABS: ANION GAP 9 MEQ/L (8-16); BLOOD UREA NITROGEN 30 MG/DL (7-18); C REACTIVE PROTEIN QUANTITATIV 0.98 MG/DL (0.00-0.30); CALCIUM LEVEL 8.4 MG/DL (8.8-10.2); CARBON DIOXIDE LEVEL 23 MEQ/L (21-32); CHLORIDE LEVEL 107 MEQ/L (98-107); CREATININE FOR GFR 1.04 MG/DL (0.55-1.30); GLOMERULAR FILTRATION RATE 57.2 (>45); GLUCOSE, FASTING 300 MG/DL (70-100); POTASSIUM SERUM 3.9 MEQ/L (3.5-5.1); SODIUM LEVEL 139 MEQ/L (136-145)
[2018-11-10] MEDS: HEPARIN SOD (PORCINE) 5000 UNITS/ML VIAL SC ×3 (06:00→21:37)
[2018-11-10] MEDS: ACETAMINOPHEN TAB 650MG DOSE (2X325MG) PO ×3 (06:22→17:37)
[2018-11-10] MEDS: ADVAIR HFA 230/21MCG INHALER INH ×2 (07:36→20:17)
[2018-11-10] MEDS: TIOTROPIUM INHALER/CAPSULE (SPIRIVA) INH (07:36)
[2018-11-10] MEDS: MIRALAX *UNIT DOSE* 17GM PACKET PO (08:17)
[2018-11-10] MEDS: FERROUS SULFATE 325MG TAB PO ×2 (08:18→21:37)
[2018-11-10] MEDS: MULTIVITAMINS/MINERALS THERAP 1 TAB PO (08:18)
[2018-11-10] MEDS: DULoxetine 30 MG CAP (CYMBALTA) PO (08:18)
[2018-11-10] MEDS: SENOKOT S TAB PO ×2 (08:18→21:38)
[2018-11-10] MEDS: buPROPion **XL** TABLET 150MG (WELLBUTRIN XL) PO (08:18)
[2018-11-10] MEDS: OMEPRAZOLE 20 MG CAP PO (08:19)
[2018-11-10] MEDS: LEVEMIR (INSULIN DETEMIR) 1 UNITS/0.01ML SC ×2 (08:19→21:37)
[2018-11-10] MEDS: MELOXICAM (MOBIC) 7.5 MG TAB PO (08:19)
[2018-11-10] MEDS: HumaLOG INSULIN (NovoLOG) PER UNIT SC ×4 (08:20→21:00)
[2018-11-10] MEDS: tiZANidine 4 MG TAB PO ×3 (08:27→21:38)
[2018-11-10] MEDS: predniSONE 50 MG TAB PO (08:27)
[2018-11-10] MEDS: PREGABALIN 100 MG CAP (LYRICA) PO ×2 (08:28→21:38)
[2018-11-10] MEDS ORDERED: LISINOPRIL 10 MG TAB PO (09:00)
[2018-11-10 11:38] LABS: BEDSIDE GLUCOSE 336 MG/DL (80-115)
[2018-11-10] MEDS: AZITHROMYCIN INJ 500 MG, VIAL MATE ADAPTER 1 EACH in D5W 250 ML IV (14:15)
[2018-11-10 16:44] LABS: BEDSIDE GLUCOSE 315 MG/DL (80-115)
[2018-11-10 21:21] LABS: BEDSIDE GLUCOSE 222 MG/DL (80-115)
[2018-11-10] MEDS: ATORVASTATIN 20 MG TAB PO (21:38)
[2018-11-10] MEDS: MONTELUKAST 10 MG TAB PO (21:38)
[2018-11-11] MEDS: IPRATROPIUM 0.5MG/ALBUTEROL 2.5MG INH SOL UD 3ML (DUONEB)(J7620) NEB ×4 (00:58→20:00)
[2018-11-11] MEDS: LISINOPRIL 20 MG TAB PO ×2 (05:03→20:48)
[2018-11-11] MEDS: amLODIPine 5 MG TAB PO (05:03)
[2018-11-11] MEDS: LEVOTHYROXINE 25MCG TABLET (0.025MG) PO (05:03)
[2018-11-11] MEDS: HEPARIN SOD (PORCINE) 5000 UNITS/ML VIAL SC ×3 (05:03→22:41)
[2018-11-11 05:44] LABS: HEMOGLOBIN 11.8 g/dl (12.0-15.5); MEAN CORPUSCULAR HEMOGLOBIN 30.2 pg (27.0-33.0); MEAN CORPUSCULAR HGB CONC 31.9 g/dl (32.0-36.5); MEAN CORPUSCULAR VOLUME 94.6 fl (80.0-96.0); PLATELET COUNT, AUTOMATED 339 10^3/uL (150-450); RED BLOOD COUNT 3.91 10^6/uL (4.00-5.40); RED CELL DISTRIBUTION WIDTH 13.1 % (11.5-14.5); WHITE BLOOD COUNT 7.1 10^3/uL (4.0-10.0)
[2018-11-11 06:04] LABS: ANION GAP 7 MEQ/L (8-16); BLOOD UREA NITROGEN 28 MG/DL (7-18); C REACTIVE PROTEIN QUANTITATIV 0.48 MG/DL (0.00-0.30); CALCIUM LEVEL 8.6 MG/DL (8.8-10.2); CARBON DIOXIDE LEVEL 27 MEQ/L (21-32); CHLORIDE LEVEL 107 MEQ/L (98-107); CREATININE FOR GFR 1.06 MG/DL (0.55-1.30); GLOMERULAR FILTRATION RATE 55.9 (>45); GLUCOSE, FASTING 177 MG/DL (70-100); MAGNESIUM LEVEL 2.2 MG/DL (1.8-2.4); SODIUM LEVEL 141 MEQ/L (136-145)
[2018-11-11] MEDS: ACETAMINOPHEN TAB 650MG DOSE (2X325MG) PO ×2 (06:13→10:46)
[2018-11-11] MEDS: ADVAIR HFA 230/21MCG INHALER INH ×2 (07:56→21:00)
[2018-11-11] MEDS: TIOTROPIUM INHALER/CAPSULE (SPIRIVA) INH (07:56)
[2018-11-11] MEDS: DULoxetine 30 MG CAP (CYMBALTA) PO (08:14)
[2018-11-11] MEDS: tiZANidine 4 MG TAB PO ×3 (08:15→20:45)
[2018-11-11] MEDS: OMEPRAZOLE 20 MG CAP PO (08:15)
[2018-11-11] MEDS: PREGABALIN 100 MG CAP (LYRICA) PO ×2 (08:15→20:45)
[2018-11-11] MEDS: traMADol 50 MG TAB PO ×3 (08:15→20:46)
[2018-11-11] MEDS: predniSONE 20 MG TAB PO (08:15)
[2018-11-11] MEDS: MELOXICAM (MOBIC) 7.5 MG TAB PO (08:16)
[2018-11-11] MEDS: MULTIVITAMINS/MINERALS THERAP 1 TAB PO (08:16)
[2018-11-11] MEDS: FERROUS SULFATE 325MG TAB PO ×2 (08:16→20:46)
[2018-11-11] MEDS: LEVEMIR (INSULIN DETEMIR) 1 UNITS/0.01ML SC ×2 (08:16→20:44)
[2018-11-11] MEDS: SENOKOT S TAB PO ×2 (08:16→20:46)
[2018-11-11] MEDS: buPROPion **XL** TABLET 150MG (WELLBUTRIN XL) PO (08:16)
[2018-11-11] MEDS: MIRALAX *UNIT DOSE* 17GM PACKET PO (08:19)
[2018-11-11] MEDS: HumaLOG INSULIN (NovoLOG) PER UNIT SC ×4 (08:19→20:44)
[2018-11-11 11:55] LABS: BEDSIDE GLUCOSE 181 MG/DL (80-115)
[2018-11-11] MEDS: AZITHROMYCIN INJ 500 MG, VIAL MATE ADAPTER 1 EACH in D5W 250 ML IV (13:41)
[2018-11-11 16:58] LABS: BEDSIDE GLUCOSE 363 MG/DL (80-115)
[2018-11-11 20:31] LABS: BEDSIDE GLUCOSE 370 MG/DL (80-115)
[2018-11-11] MEDS: ATORVASTATIN 20 MG TAB PO (20:46)
[2018-11-11] MEDS: MONTELUKAST 10 MG TAB PO (20:46)
[2018-11-11] MEDS ORDERED: TROSPIUM 60 MG PO (21:00)
[2018-11-11] MEDS: MOXIFLOXACIN 400 MG TAB PO (22:46)
[2018-11-12] MEDS: ACETAMINOPHEN TAB 650MG DOSE (2X325MG) PO ×2 (00:07→12:44)
[2018-11-12] MEDS: IPRATROPIUM 0.5MG/ALBUTEROL 2.5MG INH SOL UD 3ML (DUONEB)(J7620) NEB ×2 (01:51→08:00)
[2018-11-12] MEDS: LEVOTHYROXINE 25MCG TABLET (0.025MG) PO (05:38)
[2018-11-12] MEDS: HEPARIN SOD (PORCINE) 5000 UNITS/ML VIAL SC ×2 (05:39→14:00)
[2018-11-12 05:58] LABS: HEMATOCRIT 34.1 % (36.0-47.0); HEMOGLOBIN 11.2 g/dl (12.0-15.5); MEAN CORPUSCULAR HEMOGLOBIN 29.9 pg (27.0-33.0); MEAN CORPUSCULAR HGB CONC 32.8 g/dl (32.0-36.5); MEAN CORPUSCULAR VOLUME 91.2 fl (80.0-96.0); PLATELET COUNT, AUTOMATED 304 10^3/uL (150-450); RED BLOOD COUNT 3.74 10^6/uL (4.00-5.40); RED CELL DISTRIBUTION WIDTH 12.7 % (11.5-14.5); WHITE BLOOD COUNT 6.8 10^3/uL (4.0-10.0)
[2018-11-12 06:16] LABS: ANION GAP 5 MEQ/L (8-16); BLOOD UREA NITROGEN 23 MG/DL (7-18); C REACTIVE PROTEIN QUANTITATIV 0.49 MG/DL (0.00-0.30); CALCIUM LEVEL 7.9 MG/DL (8.8-10.2); CARBON DIOXIDE LEVEL 29 MEQ/L (21-32); CHLORIDE LEVEL 109 MEQ/L (98-107); CREATININE FOR GFR 0.95 MG/DL (0.55-1.30); GLOMERULAR FILTRATION RATE > 60.0 (>45); GLUCOSE, FASTING 70 MG/DL (70-100); MAGNESIUM LEVEL 2.1 MG/DL (1.8-2.4); POTASSIUM SERUM 3.9 MEQ/L (3.5-5.1); SODIUM LEVEL 143 MEQ/L (136-145)
[2018-11-12] MEDS: HumaLOG INSULIN (NovoLOG) PER UNIT SC ×2 (07:30→12:00)
[2018-11-12] MEDS: TIOTROPIUM INHALER/CAPSULE (SPIRIVA) INH (08:00)
[2018-11-12] MEDS: ADVAIR HFA 230/21MCG INHALER INH (08:00)
[2018-11-12] MEDS: tiZANidine 4 MG TAB PO (09:07)
[2018-11-12] MEDS: MIRALAX *UNIT DOSE* 17GM PACKET PO (09:07)
[2018-11-12] MEDS: FERROUS SULFATE 325MG TAB PO (09:07)
[2018-11-12] MEDS: SENOKOT S TAB PO (09:07)
[2018-11-12] MEDS: MELOXICAM (MOBIC) 7.5 MG TAB PO (09:08)
[2018-11-12] MEDS: traMADol 50 MG TAB PO ×2 (09:08→14:05)
[2018-11-12] MEDS: OMEPRAZOLE 20 MG CAP PO (09:08)
[2018-11-12] MEDS: PREGABALIN 100 MG CAP (LYRICA) PO (09:09)
[2018-11-12] MEDS: DULoxetine 30 MG CAP (CYMBALTA) PO (09:09)
[2018-11-12] MEDS: MULTIVITAMINS/MINERALS THERAP 1 TAB PO (09:09)
[2018-11-12] MEDS: predniSONE 20 MG TAB PO (09:12)
[2018-11-12] MEDS: buPROPion **XL** TABLET 150MG (WELLBUTRIN XL) PO (09:12)
[2018-11-12] MEDS: LEVEMIR (INSULIN DETEMIR) 1 UNITS/0.01ML SC (09:12)
[2018-11-12] MEDS: amLODIPine 10 MG TAB PO (09:12)
[2018-11-12] MEDS: LISINOPRIL 20 MG TAB PO (09:12)
[2018-11-12] MEDS: VITAMIN D 50,000 UNITS CAPSULE (ERGOCALCIFEROL 1.25MG) PO (09:12)
[2018-11-12 12:00] LABS: BEDSIDE GLUCOSE 222 MG/DL (80-115)
== END 2018-11-12 14:54 | disposition home health service (06) | DRG 140 ==
LOC: M MSPAV 11-11 14:30 → M ED 08:57 → M ED INP 13:12 → M PCU 20:39
DX: J44.1 Chronic obstructive pulmonary disease with (acute) exacerbation (principal); J15.9 Unspecified bacterial pneumonia; E87.2 Acidosis; E11.65 Type 2 diabetes mellitus with hyperglycemia; E66.01 Morbid (severe) obesity due to excess calories; Z68.42 Body mass index [BMI] 45.0-49.9, adult; E55.9 Vitamin D deficiency, unspecified; J21.0 Acute bronchiolitis due to respiratory syncytial virus; K21.9 Gastro-esophageal reflux disease without esophagitis; E78.5 Hyperlipidemia, unspecified; D50.9 Iron deficiency anemia, unspecified; M79.7 Fibromyalgia; G47.33 Obstructive sleep apnea (adult) (pediatric); M19.90 Unspecified osteoarthritis, unspecified site; E02 Subclinical iodine-deficiency hypothyroidism; Z79.899 Other long term (current) drug therapy

== ENCOUNTER → 2018-12-07 | Outpatient (CLI) | payer MEDICAID ==
[~2018-12-07] MED LIST changes: +AMLO10TA5 PO; +AVEL1TAB3 PO; +BACL10TA2 PO; +CERTTAB3 PO; +CIPR-249 PO; -DRIS50002 PO; +DRIS50003 PO; +DULO1CAP2; +DULO1CAP2 PO; +DULO1CAP3 PO; +HYDR50TA70 PO; +IPRA0.00 INH; -IPRASOL4 INH; +KETO10TAB PO; +LEVA1TAB2 PO; +LEVO25TA5 PO; +LIDO5OIN28 EXT; +LIPI20TA PO; +LISI-538 PO; +LYRI300C PO; +MELO15TA28 PO; +METH-914 PO; +METO5TAB2; +METO5TAB2 PO; +MIRA3350 PO; +OMEP20CA3 PO; +ONDA4TAB5 PO; +POLY33503; +POTA10CA32 PO; +PRED10TA2 PO; +PRED20TA PO; +PREG100CA PO; +SPIR1CAP INH; +TIZA4CAP PO; +TOUJ1.2I SC; +TRAM37.53 PO; +TRAM50TA2 PO; +VOLT1GEL15; +VOLT1GEL15 TD; +ZITHTAB PO; -ZOFR20TA PO; +ZOFR4TAB16 PO; +[UNRECOGNIZED DRUG - OTHER] TOP
--- NOTE | 2018-12-09 10:27 | SLEEPCENT ---
DATE OF PROCEDURE: 12/07/2018 ORDERING PROVIDER: Rufina Pastor INTERPRETATION: Nocturnal polysomnography was performed for re-evaluation of pressure therapy in this patient with obstructive sleep apnea syndrome. For testing a Respironics Opus nasal pillows device of small size was used, 10 cm of water pressure applied to the circuit and the lights were extinguished. 8 hours and 13 minutes of data were reviewed. There were 310 minutes of sleep identified. Sleep latency was prolonged at 96 minutes. Rapid eye movement (REM) sleep was not achieved. Sleep architecture was poor with frequent arousals and poor sleep progression. Overall sleep efficiency 63.7%. The electrocardiogram showed a sinus rhythm with an average heart rate of 68 beats per minute. Rate variability was seen between 50 and 95 beats per minute. EEG showed mild background coarsening. No focal events were identified. There were only six respiratory events identified on CPAP pressure of +10 and was sufficient to address the occurrence of airflow obstruction. No snoring noted. Significant activity was ,however, seen in the limb leads with several trains of events. Limb movement arousal index was only 5.6. IMPRESSION: 1. Obstructive sleep apnea syndrome (G47.33). 2. Possible periodic limb movement disorder (G47.61). Limb movement arousal index 5.3. RECOMMENDATIONS: CPAP at a pressure of +10 cm was sufficient to address the patient's obstructive respiratory events. Sleep efficiency may improve if the limb movement is addressed. Remaining sleep fragmentation may be a product of underlying medical disorders, physical discomfort or medication.
== END ==
LOC: M SLEEP 19:33
PROVIDERS: ATTEND Nurse Practitioner Adult Health
DX: G47.33 Obstructive sleep apnea (adult) (pediatric) (principal); G47.61 Periodic limb movement disorder

== ENCOUNTER → 2019-02-17 | Outpatient (CLI) | payer MEDICAID | LOC: M PT 14:48 | PROVIDERS: ATTEND Student in an Organized Health Care Education/Training Program | DX: Z46.89 Encounter for fitting and adjustment of other specified devices (principal) ==

== ENCOUNTER → 2019-04-04 | Outpatient (REF) | payer MEDICAID ==
[~2019-04-04] MED LIST changes: -/CELE20CA; +CELE1CAP4; +METH-1022 PO; -METH-914 PO
[2019-04-04 18:43] LABS: HEMOGLOBIN A1c 8.8 %
== END ==
LOC: M SFHCPLAZ 15:53
PROVIDERS: ATTEND Family Medicine
DX: E03.8 Other specified hypothyroidism (principal); E11.42 Type 2 diabetes mellitus with diabetic polyneuropathy

== ENCOUNTER 2019-05-26 03:21 | Emergency (ER) | payer MEDICAID ==
[~2019-05-26] VITALS: Ht 160 cm; Wt 125.0 kg
[~2019-05-26 03:21] MED LIST changes: -DULO1CAP2; -DULO1CAP2 PO; -DULO1CAP3 PO; +DULO1CAP5; +DULO1CAP5 PO; +DULO1CAP6 PO; +MM S100C PO; -OMEP20CA3 PO; +OMEP20CA4 PO; -STOO100C PO
[2019-05-26 04:01] LABS: BASO % 0.7 % (0.0-1.0); EOS # 0.1 10^3/uL (0.0-0.50); EOS % 1.8 % (0.0-3.0); HEMATOCRIT 36.7 % (36.0-47.0); HEMOGLOBIN 11.7 g/dl (12.0-15.5); LYMPH # 1.2 10^3/uL (1.5-4.5); LYMPH % 28.2 % (24.0-44.0); MEAN CORPUSCULAR HEMOGLOBIN 29.6 pg (27.0-33.0); MEAN CORPUSCULAR HGB CONC 31.9 g/dl (32.0-36.5); MEAN CORPUSCULAR VOLUME 92.9 fl (80.0-96.0); MONO # 0.4 10^3/uL (0.0-0.8); MONO % 9.2 % (0.0-5.0); NEUTROPHILS # 2.6 10^3/uL (1.8-7.7); PLATELET COUNT, AUTOMATED 242 10^3/uL (150-450); RED BLOOD COUNT 3.95 10^6/uL (4.00-5.40); WHITE BLOOD COUNT 4.4 10^3/uL (4.0-10.0)
[2019-05-26] MEDS ORDERED: ONDANSETRON 4MG/2ML VIAL (J2405) IV ONE (04:15)
[2019-05-26] MEDS ORDERED: methylPREDNISolone INJ 125 MG/2 ML VIAL (J2930) IV ONE (04:15)
[2019-05-26 04:25] LABS: BLOOD UREA NITROGEN 27 MG/DL (7-18); CALCIUM LEVEL 8.4 MG/DL (8.8-10.2); CARBON DIOXIDE LEVEL 22 MEQ/L (21-32); CHLORIDE LEVEL 107 MEQ/L (98-107); CK-MB VALUE MASS 5.7 NG/ML (<3.6); CPK CREATINE PHOSPHOKINASE 245 U/L (26-192); CREATININE FOR GFR 1.38 MG/DL (0.55-1.30); GLOMERULAR FILTRATION RATE 41.1 (>45); GLUCOSE, FASTING 451 MG/DL (70-100); MB/CK RELATIVE INDEX 2.33 (< OR =4); POTASSIUM SERUM 4.6 MEQ/L (3.5-5.1); SODIUM LEVEL 140 MEQ/L (136-145); TROPONIN I < 0.02 NG/ML (< 0.10)
[2019-05-26] MEDS: MORPHINE 2 MG/ML 1ML SYRINGE (J2270) IV PRN ×2 (04:37→05:54)
[2019-05-26] MEDS ORDERED: HumuLIN R (REGULAR) INSULIN (NovoLIN R) **100U/ML** PER UNIT IV ONE (04:45)
[2019-05-26] MEDS ORDERED: NS 1,000 ML IV ONE (04:45)
[2019-05-26] MEDS: IPRATROPIUM 0.5MG/ALBUTEROL 2.5MG INH SOL UD 3ML (DUONEB)(J7620) NEB SCH ×3 (04:48→05:21)
[2019-05-26 06:47] VITALS: BP 149/65
[2019-05-26] MEDS ORDERED: PRED20TA PO (06:53)
--- NOTE | 2019-05-26 07:44 | REP ---
Clinical: Cough and dyspnea . Comparison: 11/08/2018 . Findings: The mediastinum and cardiac silhouette are stable and within normal limits for portable technique. The lung [place] are clear without acute consolidation, effusion, or pneumothorax. Skeletal structures are intact. Impression: No acute cardiopulmonary process appreciated. Electronically Signed by Michelet Singh MD 05/26/2019 07:35 A
--- NOTE | 2019-05-26 17:35 | ECGEPIP ---
[facility] - ED Test Date: 2019-05-26 Pat Name: ROHIT INGRAM Department: Room: - Gender: Female Box Printer: LINNEA : 1955 Requested By: NAVDEEP Lindsey Order Number: [id number] Reading MD: Bailey Mckee Measurements Intervals [place] Rate: 112 P: 67 [place]: 152 QRS: QRSD: 86 T: 48 QT: 324 QTc: 443 Interpretive Statements SINUS TACHYCARDIA POSSIBLE LEFT ATRIAL ENLARGEMENT PATTERN CONSISTENT WITH PULMONARY DISEASE LEFT ANTERIOR FASCICULAR BLOCK INFERIOR MYOCARDIAL INFARCTION, PROBABLY OLD PRWP INCREASED RATE 11/09/18 Electronically Signed on 05-26-2019 17:34:53 EDT by Bailey Mckee
== END 2019-05-26 08:49 | disposition home or self-care (01) ==
LOC: M ED 03:21
DX: J45.909 Unspecified asthma, uncomplicated (principal); E11.65 Type 2 diabetes mellitus with hyperglycemia; R00.0 Tachycardia, unspecified; Z87.891 Personal history of nicotine dependence; Z91.048 Other nonmedicinal substance allergy status; Z79.899 Other long term (current) drug therapy; Z79.51 Long term (current) use of inhaled steroids; Z79.4 Long term (current) use of insulin
CPT/HCPCS: 36415; 71045; 80048; 82550; 82553; 83605; 85025; 87040; 93005; 93041; 94640; 94760; 96374; 96375; 96376; 99285; J2270; J2405; J2930

== ENCOUNTER 2019-05-30 14:40 | Inpatient (IN) | payer MEDICAID ==
[~2019-05-30] VITALS: Ht 160 cm; Wt 126.4 kg
[2019-05-30] MEDS ORDERED: ACET-841 PO (14:59)
[2019-05-30 15:57] LABS: APPEARANCE, URINE CLEAR (CLEAR); BACTERIA, URINE AUTO NEGATIVE (NEGATIVE); BILIRUBIN, URINE AUTO NEGATIVE (NEGATIVE); BLOOD, URINE BLOOD NEGATIVE (NEGATIVE); COLOR, URINE YELLOW (YELLOW); GLUCOSE, URINE (UA) AUTO 3+ mg/dL (NEGATIVE); KETONE, URINE AUTO TRACE mg/dL (NEGATIVE); LEUKOCYTE ESTERASE, URINE AUTO NEGATIVE (NEGATIVE); MUCUS, URINE SMALL (NEGATIVE); NITRITE, URINE AUTO NEGATIVE (NEGATIVE); PROTEIN, URINE AUTO NEGATIVE (NEGATIVE); RBC, URINE AUTO 0 /HPF (0-3); SPECIFIC GRAVITY URINE AUTO 1.018 (1.002-1.035); SQUAMOUS EPITHELIAL CELL UR AU 1 /HPF (0-6); UROBILINOGEN, URINE AUTO 0.2 mg/dL (0.0-2.0); WBC, URINE AUTO 0 /HPF (0-3)
[2019-05-30 17:12] LABS: VENOUS BASE EXCESS -7.1 (-2.0-2.0); VENOUS HCO3 18.7 MEQ/L (23.0-27.0); VENOUS O2 SATURATION 97.6 % (60.0-80.0); VENOUS PARTIAL PRESSURE CO2 38.8 mmHg (38.0-50.0); VENOUS PARTIAL PRESSURE O2 218.8 mmHg (30.0-50.0); VENOUS PH 7.301 UNITS (7.330-7.430); VENOUS STANDARD HCO3 18.7 MEQ/L; VENOUS TOTAL CO2 19.9 MEQ/L (24.0-28.0)
[2019-05-30] MEDS ORDERED: NS 1,000 ML IV ONE (17:15)
[2019-05-30 17:18] LABS: OSMOLALITY SERUM 309 MOSM/KG (280-301)
[2019-05-30 17:21] LABS: BASO % 0.4 % (0.0-1.0); EOS % 0.2 % (0.0-3.0); HEMATOCRIT 40.6 % (36.0-47.0); HEMOGLOBIN 13.2 g/dl (12.0-15.5); LYMPH # 0.9 10^3/uL (1.5-4.5); LYMPH % 10.4 % (24.0-44.0); MEAN CORPUSCULAR HEMOGLOBIN 29.7 pg (27.0-33.0); MEAN CORPUSCULAR HGB CONC 32.5 g/dl (32.0-36.5); MEAN CORPUSCULAR VOLUME 91.4 fl (80.0-96.0); MONO # 0.2 10^3/uL (0.0-0.8); MONO % 2.2 % (0.0-5.0); NEUTROPHILS # 6.9 10^3/uL (1.8-7.7); NEUTROPHILS % 84.6 % (36.0-66.0); PLATELET COUNT, AUTOMATED 319 10^3/uL (150-450); RED BLOOD COUNT 4.44 10^6/uL (4.00-5.40); WHITE BLOOD COUNT 8.1 10^3/uL (4.0-10.0)
[2019-05-30 17:51] LABS: HEMOGLOBIN A1c 8.8 %
[2019-05-30 18:57] LABS: ALT/SGPT 38 U/L (12-78); BILIRUBIN,DIRECT < 0.1 MG/DL (0.0-0.2); BILIRUBIN,TOTAL 0.5 MG/DL (0.2-1.0); BLOOD UREA NITROGEN 29 MG/DL (7-18); CALCIUM LEVEL 9.1 MG/DL (8.8-10.2); CARBON DIOXIDE LEVEL 15 MEQ/L (21-32); CHLORIDE LEVEL 107 MEQ/L (98-107); CREATININE FOR GFR 1.31 MG/DL (0.55-1.30); GLOMERULAR FILTRATION RATE 43.7 (>45); GLUCOSE, FASTING 340 MG/DL (70-100); LIPASE 118 U/L (73-393); MAGNESIUM LEVEL 2.1 MG/DL (1.8-2.4); PHOSPHORUS LEVEL 4.7 MG/DL (2.5-4.9); POTASSIUM SERUM 5.7 MEQ/L (3.5-5.1); SODIUM LEVEL 138 MEQ/L (136-145); TOTAL PROTEIN 7.3 GM/DL (6.4-8.2)
[2019-05-30] MEDS ORDERED: LEVO25TA5 PO (20:24)
[2019-05-30] MEDS ORDERED: LISI-538 PO (20:24)
[2019-05-30] MEDS ORDERED: AMLO10TA5 PO (20:24)
[2019-05-30] MEDS ORDERED: ONDA8TAB8 PO (20:28)
[2019-05-30] MEDS ORDERED: PRED20TA PO (20:28)
[2019-05-30] MEDS ORDERED: GLUCOSE 4 GM CHEW TABLET PO PRN (20:30)
[2019-05-30] MEDS ORDERED: GLUCAGON FOR INJ 1 MG VIAL (J1610) SC PRN (20:30)
[2019-05-30] MEDS ORDERED: DEXTROSE 50% 50 ML SYRINGE IV PRN (20:30)
[2019-05-30] MEDS ORDERED: IPRATROPIUM 0.5MG/ALBUTEROL 2.5MG INH SOL UD 3ML (DUONEB)(J7620) NEB PRN (20:30)
[2019-05-30] MEDS ORDERED: ONDANSETRON 4 MG ORAL DISINTEGRATING TAB (Q0162 PER 1MG) PO PRN (20:30)
[2019-05-30] MEDS ORDERED: ATORVASTATIN 20 MG TAB PO SCH (21:00)
[2019-05-30] MEDS ORDERED: MONTELUKAST 10 MG TAB PO SCH (21:00)
[2019-05-30] MEDS ORDERED: HumaLOG INSULIN (NovoLOG) PER UNIT SC SCH (21:00)
[2019-05-30] MEDS: LR 1,000 ML IV SCH (21:01)
[2019-05-30] MEDS: tiZANidine 4 MG TAB PO SCH (21:28)
[2019-05-30] MEDS: PREGABALIN 100 MG CAP (LYRICA) PO SCH (21:28)
[2019-05-30] MEDS: traMADol 50 MG TAB PO PRN (22:06)
--- NOTE | 2019-05-30 22:10 | HPEPDOC ---
General Date of Admission May 30, 2019 at 20:25 Date of Service: May 30, 2019 Chief Complaint The patient is a 64-year-old female admitted with a reason for visit of Type 2 Diabetes Mellitus With Hyperglycemia. History of Present Illness 64-year-old female with past medical history of COPD, BHUPINDER on CPAP, morbid obesity, history of gastric bypass, type 2 diabetes, arthritis, fibromyalgia, and chronic lower back pain presents to the ER with a chief complaint of elevated blood sugars. Of note, the patient was seen in the ER on 05/26/19 for shortness of breath due to a COPD exacerbation, she was discharged home on by mouth prednisone. However, since returning home the patient states that she has felt increasingly nauseous and noted that her blood sugar levels remained above 500. In addition, the patient endorses increased thirst and urinary frequency. She denies any complaints of fevers, chills, chest pain, palpitations, abdominal complaints, or any vomiting/diarrhea. In the ER, the patient's blood sugar levels were noted to be in the 340s. In addition, the patient was also noted to have renal insufficiency and hyperkalemia. The patient will be admitted to the hospitalist service for further evaluation and management. Home Medications Scheduled Acetaminophen (Acetaminophen) 500 Mg Tablet, 1,000 MG PO TID, (Reported) Amlodipine Besylate (Amlodipine Besylate) 10 Mg Tablet, 10 MG PO DAILY, (Reported) Atorvastatin Calcium (Lipitor) 20 Mg Tab, 20 MG PO QHS, (Reported) Bupropion HCl (Bupropion Xl) 300 Mg Tab, 300 MG PO DAILY, (Reported) Docusate Sodium (Stool Softener) 100 Mg Cap, 200 MG PO DAILY, (Reported) Duloxetine Hcl (Duloxetine HCl) 60 Mg Cap, 60 MG PO DAILY, (Reported) Ergocalciferol (Vitamin D2) (Drisdol) 50,000 Unit Cap, 50,000 UNIT PO 1XWK, (Reported) SATURDAYS Ferrous Sulfate (Ferrous Sulfate) 325 Mg Tab, 325 MG PO BID, (Reported) LUNCH AND DINNERTIME Insulin Glargine,Hum.rec.anlog ([place] Solostar) 300 Unit/Ml Inj, 110 UNIT SC DAILY, (Reported) Insulin Human Lispro (Humalog) 1 Units/0.01 Ml Inj, 1 DOSE SC AC, (Reported) per sliding scale Levothyroxine Sodium (Levothyroxine Sodium) 25 Mcg Tablet, 25 MCG PO DAILY, (Reported) AT 0600 Lisinopril (Lisinopril) 20 Mg Tablet, 20 MG PO BID, (Reported) Meloxicam (Meloxicam) 15 Mg Tab, 15 MG PO DAILY, (Reported) Metformin HCl (Metformin HCl) 1,000 Mg Tab, 1,000 MG PO BIDWM, (Reported) BREAKFAST/DINNER Montelukast Sodium (Singulair) 10 Mg Tab, 10 MG PO QHS, (Reported) Multivitamin/Iron/Folic Acid (Certavite-Antioxidant Tablet) 1 Tab Tab, 1 TAB PO DAILY, (Reported) Omeprazole (Omeprazole) 20 Mg Cap, 40 MG PO DAILY, (Reported) Potassium Chloride (Potassium Chloride) 10 Meq Cap, 40 MEQ PO QHS, (Reported) Prednisone (Prednisone) 20 Mg Tablet, 40 MG PO DAILY, (Reported) TO TAKE X 4 DAYS. PATIENT STATES SHE TOOK LAST DOSE TODAY. Pregabalin (Lyrica) 100 Mg Cap, 100 MG PO TID, (Reported) Salmeterol/Fluticasone (Advair 500-50 Diskus) 28 Puff/Inhaler Aerp, 1 PUFF INH BID, (Reported) Sucralfate (Sucralfate) 1 Gm Tab, 1 GM PO ACHS, (Reported) Tizanidine HCl (Tizanidine HCl) 4 Mg Cap, 4 MG PO TID, (Reported) Trospium Chloride (Trospium Chloride ER) 60 Mg Cap, 60 MG PO QHS, (Reported) Scheduled PRN Albuterol Sulfate (Proair Hfa) 108 Mcg/Act Aer, 2 PUFF INH Q4H PRN for SHORTNESS OF BREATH, (Reported) Ipratropium/Albuterol Sulfate (Iprat-Albut 0.5-3(2.5) mg/3 ml) 1 Tiffanie Tiffanie, 1 TIFFANIE INH Q4H PRN for SHORTNESS OF BREATH, (Reported) Ondansetron (Ondansetron Odt) 8 Mg Tab.rapdis, 8 MG PO Q4H PRN for NAUSEA, (Reported) Polyethylene Glycol 3350 (Miralax) 1 Pow Pow, 17 GM PO DAILY PRN for CONSTIPATION, (Reported) Tramadol HCl (Tramadol HCl) 50 Mg Tab, 100 MG PO Q6H PRN for PAIN, (Reported) [Compound Med] , 1 APLCT TOP QID PRN for PAIN, (Reported) FRANKINSENSE,MYRRH,LAVENDER,WINTERGREEN. APPLIES TO HIPS/BACK/KNEES Allergies Coded Allergies: TAPE (Verified Allergy, Intermediate, RASH,ITCHING, 05/26/19) Past Medical History Medical History As noted in HPI. Surgical History Tubal ligation, cone biopsy, dilatation and curettage (D and C), abdominal hernia repair, carpal tunnel release, gastric bypass, knee arthroscopy for meniscus repair, colonoscopy, left total knee replacement. Social History * Smoker: former Smoker (Former smoker, quit 20 years ago, 2 1/2 packs per day smoking) Alcohol: occationally (drink a glass of wine once a year) Drugs: denies Lives at home by herself, gets around using an electrical wheel chair Review of Systems Other systems 10 point review of systems negative unless otherwise specified in HPI. Physical Examination General Exam: Positive: Alert, Cooperative, No Acute Distress, Other (morbidly obese appearing) ENT Exam: Positive: Atraumatic, Mucous membr. moist/pink Neck Exam: Negative: JVD Chest Exam: Positive: Diminished; Negative: Rales, Rhonchi, Wheezing Heart Exam: Positive: Rate Normal, Normal S1, Normal S2 Abdomen Exam: Positive: Soft; Negative: Tenderness Extremity Exam: Negative: Tenderness, Swelling Psych Exam: Positive: Oriented x 3 Vital Signs Vital Signs Date Time Temp Pulse Resp B/P (MAP) Pulse Ox O2 Delivery O2 Flow Rate FiO2 05/30/19 20:53 103 22 180/98 (125) 97 05/30/19 19:36 97.7 Room Air Laboratory Data Labs 24H Laboratory Tests 2 05/30/19 15:10: Immature Granulocyte % (Auto) 2.2, White Blood Count 8.1, Red Blood Count 4.44, Hemoglobin 13.2, Hematocrit 40.6, Mean Corpuscular Volume 91.4, Mean Corpuscular Hemoglobin 29.7, Mean Corpuscular Hemoglobin Concent 32.5, Red Cell Distribution Width 12.9, Platelet Count 319, Neutrophils (%) (Auto) 84.6H, Lymphocytes (%) (Auto) 10.4L, Monocytes (%) (Auto) 2.2, Eosinophils (%) (Auto) 0.2, Basophils (%) (Auto) 0.4, Neutrophils # (Auto) 6.9, Lymphocytes # (Auto) 0.9L, Monocytes # (Auto) 0.2, Eosinophils # (Auto) 0.0, Basophils # (Auto) 0.0, Nucleated Red B lood Cells % (auto) 0.0, Blood Gas Bicarbonate Standard 18.7, Venous Blood pH 7.301L, Venous Blood Partial Pressure CO2 38.8, Venous Blood Partial Pressure O2 218.8H, Venous Blood Total Carbon Dioxide 19.9L, Venous Blood HCO3 18.7L, Venous Blood Oxygen Saturation 97.6H, Venous Blood Base Excess -7.1L, Anion Gap 16, Glomerular Filtration Rate 43.7L, Estimated Mean Plasma Glucose 206H, Hemoglobin A1c 8.8, Osmolality 309H, Calcium Level 9.1, Phosphorus Level 4.7, Magnesium Level 2.1, Aspartate Amino Transf (AST/SGOT) 30, Alanine Aminotransferase (ALT/SGPT) 38, Alkaline Phosphatase 155H, Total Bilirubin 0.5, Direct Bilirubin < 0.1, Total Protein 7.3, Albumin 4.0, Albumin/Globulin Ratio 1.21, Lipase 118, B-Hydroxybutyrate 4.10H 05/30/19 15:36: Urine Appearance CLEAR, Urine Color YELLOW, Urine pH 5.0, Urine Specific [place] 1.018, Urine Protein NEGATIVE, Urine Glucose (UA) 3+H, Urine Ketones TRACEH, Urine Urobilinogen 0.2, Urine Bilirubin NEGATIVE, Urine Leukocyte Esterase NEGATIVE, Urine Blood NEGATIVE, Urine Nitrite NEGATIVE, Urine WBC (Auto) 0, Urine RBC (Auto) 0, Urine Hyaline Casts (Auto) 0, Urine Bacteria (Auto) NEGATIVE, Urine Squamous Epithelial Cells 1, Urine Mucus (Auto) SMALL, Urine Sperm (Auto) 05/30/19 19:49: Lactic Acid Level 2.9*H 05/30/19 21:16: Bedside Glucose (Misc Panel) 170H CBC/BMP Laboratory Tests 05/30/19 15:10 Red Blood Count 4.44, Mean Corpuscular Volume 91.4, Mean Corpuscular Hemoglobin 29.7, Mean Corpuscular Hemoglobin Concent 32.5, Red Cell Distribution Width 12.9, Neutrophils (%) (Auto) 84.6 H, Lymphocytes (%) (Auto) 10.4 L, Monocytes (%) (Auto) 2.2, Eosinophils (%) (Auto) 0.2, Basophils (%) (Auto) 0.4, Neutrophils # (Auto) 6.9, Lymphocytes # (Auto) 0.9 L, Monocytes # (Auto) 0.2, Eosinophils # (Auto) 0.0, Basophils # (Auto) 0.0 Plan / VTE VTE Prophylaxis Ordered?: Yes Plan Plan Hyperglycemia 2/2 Prednisone Use We will cont the patient on Basal Insulin and provide ISS for additional coverage Anion gap borderline (16) likely attributable to underlying renal insufficiency IVF Hydration ordered Prednisone has been discontinued as the patient's respiratory status has returned back to baseline We will continue to monitor the patient's blood sugar levels Renal insufficiency, hyperkalemia likely 2/2 Above, and concomitant use of ARTURO inhibitor/supplemental potassium We will hold lisinopril and supplemental potassium as well as other nephrotoxic agents IV fluid hydration ordered We will follow up with a BMP in the a.m. History of COPD Patient's respiratory status has returned back to baseline, we will hold prednisone for the time being. Continue serial nebulizer therapy as ordered, and inhaler therapy Obstructive sleep apnea May use own CPAP Diabetes mellitus Continue medications as above Morbid obesity status post gastric bypass Chronic pain Continue medications as ordered DVT prophylaxis Heparin subcutaneous TREVA TORRES MD May 30, 2019 22:10
[2019-05-30] MEDS: HEPARIN SOD (PORCINE) 5000 UNITS/ML VIAL SC SCH (22:11)
[2019-05-30] MEDS: ADVAIR HFA 230/21MCG INHALER INH SCH (22:11)
[2019-05-30] MEDS: ACETAMINOPHEN TAB 650MG DOSE (2X325MG) PO PRN (23:41)
[2019-05-30] MEDS: SUCRALFATE 1 GM TAB PO SCH (23:43)
[2019-05-30 23:59] VITALS: BP 138/62
[2019-05-31] VITALS (8 sets, daily range): BP systolic 132–145; BP diastolic 70–72; O2SAT 95–98
[2019-05-31] MEDS: IPRATROPIUM 0.5MG/ALBUTEROL 2.5MG INH SOL UD 3ML (DUONEB)(J7620) NEB SCH ×3 (02:47→14:43)
[2019-05-31] MEDS: HEPARIN SOD (PORCINE) 5000 UNITS/ML VIAL SC SCH ×2 (05:49→14:00)
[2019-05-31] MEDS ORDERED: LEVOTHYROXINE 25MCG TABLET (0.025MG) PO SCH (06:00)
[2019-05-31] MEDS: ADVAIR HFA 230/21MCG INHALER INH SCH (07:45)
[2019-05-31 07:54] LABS: HEMATOCRIT 37.9 % (36.0-47.0); HEMOGLOBIN 12.2 g/dl (12.0-15.5); MEAN CORPUSCULAR HEMOGLOBIN 29.3 pg (27.0-33.0); MEAN CORPUSCULAR HGB CONC 32.2 g/dl (32.0-36.5); MEAN CORPUSCULAR VOLUME 91.1 fl (80.0-96.0); PLATELET COUNT, AUTOMATED 296 10^3/uL (150-450); RED BLOOD COUNT 4.16 10^6/uL (4.00-5.40); WHITE BLOOD COUNT 5.6 10^3/uL (4.0-10.0)
[2019-05-31] MEDS: ACETAMINOPHEN TAB 650MG DOSE (2X325MG) PO PRN ×2 (08:08→13:46)
[2019-05-31] MEDS: traMADol 50 MG TAB PO PRN ×2 (08:08→13:45)
[2019-05-31] MEDS: SUCRALFATE 1 GM TAB PO SCH ×2 (08:09→12:22)
[2019-05-31] MEDS: tiZANidine 4 MG TAB PO SCH (08:09)
[2019-05-31] MEDS: PREGABALIN 100 MG CAP (LYRICA) PO SCH (08:09)
[2019-05-31] MEDS: LR 1,000 ML IV SCH (08:13)
[2019-05-31 08:24] LABS: ALBUMIN 3.6 GM/DL (3.2-5.2); ALT/SGPT 31 U/L (12-78); BILIRUBIN,TOTAL 0.4 MG/DL (0.2-1.0); BLOOD UREA NITROGEN 19 MG/DL (7-18); CALCIUM LEVEL 8.9 MG/DL (8.8-10.2); CARBON DIOXIDE LEVEL 27 MEQ/L (21-32); CHLORIDE LEVEL 106 MEQ/L (98-107); CREATININE FOR GFR 0.96 MG/DL (0.55-1.30); GLOMERULAR FILTRATION RATE > 60.0 (>45); GLUCOSE, FASTING 157 MG/DL (70-100); POTASSIUM SERUM 3.9 MEQ/L (3.5-5.1); SODIUM LEVEL 141 MEQ/L (136-145); TOTAL PROTEIN 6.6 GM/DL (6.4-8.2)
[2019-05-31] MEDS ORDERED: amLODIPine 10 MG TAB PO SCH (09:00)
[2019-05-31] MEDS ORDERED: DOCUSATE SODIUM 100 MG CAP PO SCH (09:00)
[2019-05-31] MEDS ORDERED: buPROPion **XL** TABLET 150MG (WELLBUTRIN XL) PO SCH (09:00)
[2019-05-31] MEDS ORDERED: OMEPRAZOLE 20 MG CAP PO SCH (09:00)
[2019-05-31] MEDS ORDERED: LEVEMIR (INSULIN DETEMIR) 1 UNITS/0.01ML SC SCH (09:00)
[2019-05-31] MEDS ORDERED: DULoxetine 30 MG CAP (CYMBALTA) PO SCH (09:00)
[2019-05-31] MEDS ORDERED: FERROUS SULFATE 325MG TAB PO SCH (12:30)
--- NOTE | 2019-05-31 15:30 | DS.PDOC ---
Discharge Summary General Date of Admission May 30, 2019 at 20:25 Date of Discharge 05/31/19 Discharge Summary PROCEDURES PERFORMED DURING STAY: [None]. ADMITTING DIAGNOSES: 1. Hyperglycemia 2. RADHA/hyperkalemia SECONDARY DIAGNOSES: 1. COPD 2. BHUPINDER/CPAP 3. DM 4. Morbid obesity s/p gastric bypass 5. Chronic pain COMPLICATIONS/CHIEF COMPLAINT: Type 2 Diabetes Mellitus With Hyperglycemia. HISTORY OF PRESENT ILLNESS: 64-year-old female with past medical history of COPD, BHUPINDER on CPAP, morbid obesity, history of gastric bypass, type 2 diabetes, arthritis, fibromyalgia, and chronic lower back pain presents to the ER with a chief complaint of elevated blood sugars. Of note, the patient was seen in the ER on 05/26/19 for shortness of breath due to a COPD exacerbation, she was discharged home on by mouth prednisone. However, since returning home the patient states that she has felt increasingly nauseous and noted that her blood sugar levels remained above 500. In addition, the patient endorsed increased thirst and urinary frequency. She denied any complaints of fevers, chills, chest pain, palpitations, abdominal complaints, or any vomiting/diarrhea. In the ER, the patient's blood sugar levels were noted to be in the 340s. In addition, the patient was also noted to have renal insufficiency and hyperkalemia. HOSPITAL COURSE: Patient responded well to IV fluids. Renal function returned to baseline. Blood sugars also to baseline. Patient planned for discharge home today. Also seen by PT, cleared for discharge home. DISCHARGE MEDICATIONS: Please see below. ALLERGIES: Please see below. PHYSICAL EXAMINATION ON DISCHARGE: VITAL SIGNS: Please see below. General: Alert, Cooperative, No Acute Distress HEENT: NC/AT, MMM Neck: supple Chest: CTA B/L Heart: +S1S2, RRR Abdomen: Soft, NT, +BS, obese LABORATORY DATA: Please see below. ACTIVITY: [As tolerated]. DIET: carb consistent DISCHARGE PLAN: Discharge home DISCHARGE INSTRUCTIONS: 1. Follow up PCP in 3-5 days. DISCHARGE CONDITION: [Stable]. TIME SPENT ON DISCHARGE: 35 minutes. Vital Signs/I&Os Vital Signs Date Time Temp Pulse Resp B/P (MAP) Pulse Ox O2 Delivery O2 Flow Rate FiO2 05/31/19 14:15 17 05/31/19 08:12 85 132/72 05/31/19 08:00 98.1 96 05/31/19 06:00 Room Air I&O- Last 24 Hours up to 6 AM 05/31/19 06:00 Intake Total 2490 ml Output Total 400 ml Balance 2090 ml Laboratory Data Labs 24H Laboratory Tests 2 05/30/19 15:36: Urine Appearance CLEAR, Urine Color YELLOW, Urine pH 5.0, Urine Specific [place] 1.018, Urine Protein NEGATIVE, Urine Glucose (UA) 3+H, Urine Ketones TRACEH, Urine Urobilinogen 0.2, Urine Bilirubin NEGATIVE, Urine Leukocyte Esterase NEGATIVE, Urine Blood NEGATIVE, Urine Nitrite NEGATIVE, Urine WBC (Auto) 0, Urine RBC (Auto) 0, Urine Hyaline Casts (Auto) 0, Urine Bacteria (Auto) NEGATIVE, Urine Squamous Epithelial Cells 1, Urine Mucus (Auto) SMALL, Urine Sperm (Auto) 05/30/19 15:47: Bedside Glucose (Misc Panel) 322H 05/30/19 19:49: Lactic Acid Level 2.9*H 05/30/19 21:16: Bedside Glucose (Misc Panel) 170H 05/31/19 00:04: Lactic Acid Followup at 4 Hours 1.9 05/31/19 07:32: Bedside Glucose (Misc Panel) 169H 05/31/19 07:37: Nucleated Red Blood Cells % (auto) 0.0, Anion Gap 8, Glomerular Filtration Rate > 60.0, Blood Urea Nitrogen 19H, Creatinine 0.96, Sodium Level 141, Potassium Level 3.9#, Chloride Level 106, Carbon Dioxide Level 27, Calcium Level 8.9, Aspartate Amino Transf (AST/SGOT) 15, Alanine Aminotransferase (ALT/SGPT) 31, Al kaline Phosphatase 119H, Total Bilirubin 0.4, Total Protein 6.6, Albumin 3.6, Magnesium Level 2.0, Albumin/Globulin Ratio 1.20 CBC/BMP Laboratory Tests 05/31/19 07:37 Red Blood Count 4.16, Mean Corpuscular Volume 91.1, Mean Corpuscular Hemoglobin 29.3, Mean Corpuscular Hemoglobin Concent 32.2, Red Cell Distribution Width 13.0, Calcium Level 8.9, Aspartate Amino Transf (AST/SGOT) 15, Alanine Aminotransferase (ALT/SGPT) 31, Alkaline Phosphatase 119 H, Total Bilirubin 0.4, Total Protein 6.6, Albumin 3.6 FSBS Laboratory Tests Test 05/30/19 15:47 05/30/19 21:16 05/31/19 07:32 Range/Units Bedside Glucose (Misc Panel) 322 170 169 80-115 MG/DL Discharge Medications Scheduled Acetaminophen (Acetaminophen) 500 Mg Tablet, 1,000 MG PO TID, (Reported) Amlodipine Besylate (Amlodipine Besylate) 10 Mg Tablet, 10 MG PO DAILY, (Reported) Atorvastatin Calcium (Lipitor) 20 Mg Tab, 20 MG PO QHS, (Reported) Bupropion HCl (Bupropion Xl) 300 Mg Tab, 300 MG PO DAILY, (Reported) Docusate Sodium (Stool Softener) 100 Mg Cap, 200 MG PO DAILY, (Reported) Duloxetine Hcl (Duloxetine HCl) 60 Mg Cap, 60 MG PO DAILY, (Reported) Ergocalciferol (Vitamin D2) (Drisdol) 50,000 Unit Cap, 50,000 UNIT PO 1XWK, (Reported) SATURDAYS Ferrous Sulfate (Ferrous Sulfate) 325 Mg Tab, 325 MG PO BID, (Reported) LUNCH AND DINNERTIME Insulin Glargine,Hum.rec.anlog ([place] Solostar) 300 Unit/Ml Inj, 110 UNIT SC DAILY, (Reported) Insulin Human Lispro (Humalog) 1 Units/0.01 Ml Inj, 1 DOSE SC AC, (Reported) per sliding scale Levothyroxine Sodium (Levothyroxine Sodium) 25 Mcg Tablet, 25 MCG PO DAILY, (Reported) AT 0600 Lisinopril (Lisinopril) 20 Mg Tablet, 20 MG PO BID, (Reported) Meloxicam (Meloxicam) 15 Mg Tab, 15 MG PO DAILY, (Reported) Metformin HCl (Metformin HCl) 1,000 Mg Tab, 1,000 MG PO BIDWM, (Reported) BREAKFAST/DINNER Montelukast Sodium (Singulair) 10 Mg Tab, 10 MG PO QHS, (Reported) Multivitamin/Iron/Folic Acid (Certavite-Antioxidant Tablet) 1 Tab Tab, 1 TAB PO DAILY, (Reported) Omeprazole (Omeprazole) 20 Mg Cap, 40 MG PO DAILY, (Reported) Potassium Chloride (Potassium Chloride) 10 Meq Cap, 40 MEQ PO QHS, (Reported) Pregabalin (Lyrica) 100 Mg Cap, 100 MG PO TID, (Reported) Salmeterol/Fluticasone (Advair 500-50 Diskus) 28 Puff/Inhaler Aerp, 1 PUFF INH BID, (Reported) Sucralfate (Sucralfate) 1 Gm Tab, 1 GM PO ACHS, (Reported) Tizanidine HCl (Tizanidine HCl) 4 Mg Cap, 4 MG PO TID, (Reported) Trospium Chloride (Trospium Chloride ER) 60 Mg Cap, 60 MG PO QHS, (Reported) Scheduled PRN Albuterol Sulfate (Proair Hfa) 108 Mcg/Act Aer, 2 PUFF INH Q4H PRN for SHORTNESS OF BREATH, (Reported) Ipratropium/Albuterol Sulfate (Iprat-Albut 0.5-3(2.5) mg/3 ml) 1 Tiffanie Tiffanie, 1 TIFFANIE INH Q4H PRN for SHORTNESS OF BREATH, (Reported) Ondansetron (Ondansetron Odt) 8 Mg Tab.rapdis, 8 MG PO Q4H PRN for NAUSEA, (Reported) Polyethylene Glycol 3350 (Miralax) 1 Pow Pow, 17 GM PO DAILY PRN for CONSTIPATION, (Reported) Tramadol HCl (Tramadol HCl) 50 Mg Tab, 100 MG PO Q6H PRN for PAIN, (Reported) [Compound Med] , 1 APLCT TOP QID PRN for PAIN, (Reported) FRANKINSENSE,MYRRH,LAVENDER,WINTERGREEN. APPLIES TO HIPS/BACK/KNEES Allergies Coded Allergies: TAPE (Verified Allergy, Intermediate, RASH,ITCHING, 05/26/19) DANIEL CARIAS MD May 31, 2019 15:30
== END 2019-05-31 15:16 | disposition home or self-care (01) | DRG 420 ==
LOC: EDBD 14:40 → M ED 14:40 → M ED INP 20:25 → M PCU 23:05
PROVIDERS: ADMIT Internal Medicine; ATTEND Internal Medicine
DX: E11.65 Type 2 diabetes mellitus with hyperglycemia (principal); Z68.42 Body mass index [BMI] 45.0-49.9, adult; E66.01 Morbid (severe) obesity due to excess calories; E87.5 Hyperkalemia; J44.9 Chronic obstructive pulmonary disease, unspecified; M19.90 Unspecified osteoarthritis, unspecified site; M79.7 Fibromyalgia; Z79.899 Other long term (current) drug therapy; Z79.4 Long term (current) use of insulin; Z87.891 Personal history of nicotine dependence

== ENCOUNTER 2019-07-17 21:37 | Emergency (ER) | payer MEDICAID ==
[~2019-07-17] VITALS: Ht 160 cm; Wt 125.0 kg
[~2019-07-17 21:37] MED LIST changes: +ACET-841 PO; +ONDA8TAB8 PO
[2019-07-17] MEDS ORDERED: traMADol 50 MG TAB PO ONE (23:45)
[2019-07-17] MEDS ORDERED: traMADol 50 MG TAB (BULK 4 TAB ED) PO ONE (23:45)
[2019-07-17] MEDS ORDERED: diazePAM 5 MG TAB PO ONE (23:45)
[2019-07-18 00:05] VITALS: BP 106/64
--- NOTE | 2019-07-18 08:09 | ECGEPIP ---
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
== END 2019-07-18 00:16 | disposition home or self-care (01) ==
LOC: M ED 21:37
DX: G89.29 Other chronic pain (principal); M54.5 Low back pain; I51.9 Heart disease, unspecified; E11.9 Type 2 diabetes mellitus without complications; I10 Essential (primary) hypertension; K21.9 Gastro-esophageal reflux disease without esophagitis; E07.9 Disorder of thyroid, unspecified; J44.9 Chronic obstructive pulmonary disease, unspecified; Z98.84 Bariatric surgery status; Z79.4 Long term (current) use of insulin; Z79.899 Other long term (current) drug therapy; Z91.89 Other specified personal risk factors, not elsewhere classified

== ENCOUNTER → 2019-08-02 | Outpatient (REF) | payer MEDICAID ==
[2019-08-02 10:24] LABS: HEMOGLOBIN A1c 8.1 %
== END ==
LOC: M SFHCPLAZ 07:44
PROVIDERS: ATTEND Family Medicine
DX: E11.42 Type 2 diabetes mellitus with diabetic polyneuropathy (principal)

== ENCOUNTER 2019-11-03 14:44 | Emergency (ER) | payer MEDICAID ==
[~2019-11-03] VITALS: Ht 160 cm; Wt 132.7 kg
[~2019-11-03 14:44] MED LIST changes: +OMEP-172 PO; -OMEP20CA4 PO
[2019-11-03 16:13] LABS: BASO % 0.5 % (0.0-1.0); EOS # 0.1 10^3/uL (0.0-0.5); HEMATOCRIT 37.1 % (36.0-47.0); HEMOGLOBIN 11.6 g/dl (12.0-15.5); LYMPH % 22.9 % (24.0-44.0); MEAN CORPUSCULAR HEMOGLOBIN 29.5 pg (27.0-33.0); MEAN CORPUSCULAR HGB CONC 31.3 g/dl (32.0-36.5); MEAN CORPUSCULAR VOLUME 94.4 fl (80.0-96.0); MONO # 0.3 10^3/uL (0.0-0.8); MONO % 6.7 % (0.0-5.0); NEUTROPHILS # 2.9 10^3/uL (1.5-8.5); NEUTROPHILS % 65.7 % (36.0-66.0); PLATELET COUNT, AUTOMATED 276 10^3/uL (150-450); RED BLOOD COUNT 3.93 10^6/uL (4.00-5.40); WHITE BLOOD COUNT 4.3 10^3/uL (4.0-10.0)
[2019-11-03 16:46] LABS: ALBUMIN 3.6 GM/DL (3.2-5.2); ALT/SGPT 31 U/L (12-78); BILIRUBIN,DIRECT < 0.1 MG/DL (0.0-0.2); BILIRUBIN,TOTAL 0.3 MG/DL (0.2-1.0); BLOOD UREA NITROGEN 14 MG/DL (7-18); CALCIUM LEVEL 8.8 MG/DL (8.8-10.2); CARBON DIOXIDE LEVEL 22 MEQ/L (21-32); CHLORIDE LEVEL 108 MEQ/L (98-107); CK-MB VALUE MASS 5.7 NG/ML (<3.6); CPK CREATINE PHOSPHOKINASE 256 U/L (26-192); CREATININE FOR GFR 1.15 MG/DL (0.55-1.30); GLOMERULAR FILTRATION RATE 50.7 (>45); GLUCOSE, FASTING 196 MG/DL (70-100); MB/CK RELATIVE INDEX 2.23 (< OR =4); NT-PRO BNP 301 PG/ML (<125); POTASSIUM SERUM 5.3 MEQ/L (3.5-5.1); SODIUM LEVEL 139 MEQ/L (136-145); TOTAL PROTEIN 6.7 GM/DL (6.4-8.2); TROPONIN I < 0.02 NG/ML (< 0.10)
[2019-11-03] MEDS ORDERED: ACETAMINOPHEN 500 MG TAB PO ONE (17:30)
[2019-11-03] MEDS ORDERED: traMADol 50 MG TAB PO ONE (17:30)
[2019-11-03] MEDS ORDERED: FUROSEMIDE 20 MG/2 ML VIAL (J1940) IV ONE (17:30)
[2019-11-03] MEDS ORDERED: LASI20TA3 PO (17:45)
--- NOTE | 2019-11-03 18:16 | REP ---
CT chest without contrast: Repeat dictation. History: Shortness of breath. Preliminary report is provided at the time of exam by [facility]. Comparison is made with today's chest x-ray raising question of right base density. Comparison is also made with November 08, [address] findings: The lungs are well inflated and clear. There is minimal linear fibrosis in the left base unchanged. Some vascular calcification is observed. 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 This measures 6.2 x 3.4 x 2.7 cm. It is unchanged. No bony abnormality is seen. Impression: No acute abnormality. Electronically Signed by Kevan Alvarado MD 11/03/2019 08:00 P
[2019-11-03 18:45] VITALS: BP 149/70
--- NOTE | 2019-11-03 20:21 | ECGEPIP ---
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
--- NOTE | 2019-11-04 07:40 | REP ---
HISTORY: Cough and dyspnea. COMPARISON: 05/26/2019 The technique utilized in obtaining the radiograph has magnified the cardiac silhouette and accentuated the interstitial markings. A subtle opacity has developed silhouetting out the right heart border. The lung [place] are otherwise unchanged. The heart is magnified by technique. Mild cardiomegaly cannot be ruled out. There is no change in the osseous structures. IMPRESSION: Subtle right middle lobe opacity, as described above, atelectasis versus early pneumonia. Correlate clinically. Electronically Signed by Jerzy Butcher DO 11/06/2019 01:17 P
== END 2019-11-03 18:52 | disposition home or self-care (01) ==
LOC: M ED 14:44
DX: R60.1 Generalized edema (principal); R94.31 Abnormal electrocardiogram [ECG] [EKG]; E11.9 Type 2 diabetes mellitus without complications; G47.33 Obstructive sleep apnea (adult) (pediatric); J44.9 Chronic obstructive pulmonary disease, unspecified; E66.01 Morbid (severe) obesity due to excess calories; M79.7 Fibromyalgia; Z87.891 Personal history of nicotine dependence; Z91.048 Other nonmedicinal substance allergy status; Z79.4 Long term (current) use of insulin; Z79.84 Long term (current) use of oral hypoglycemic drugs; Z79.891 Long term (current) use of opiate analgesic; Z79.899 Other long term (current) drug therapy
CPT/HCPCS: 71045; 71250; 80048; 80076; 82550; 82553; 83880; 84443; 85025; 93005; 93041; 94760; 96374; 99285; J1940

== ENCOUNTER → 2020-01-12 | Outpatient (CLI) | payer MEDICAID ==
[~2020-01-12] MED LIST changes: -BUPR300T34 PO; +BUPR300T92 PO; +LASI20TA3 PO; -OMEP-172 PO; +OMEP1CAP73 PO; +ONDA-83 PO; -ONDA4TAB5 PO
[2020-01-12 16:28] LABS: FREE T4 0.95 NG/DL (0.76-1.46); THYROID STIMULATING HORMONE 0.651 uIU/ML (0.358-3.740)
[2020-01-12 16:30] LABS: MALB URINE SIEMENS 13.3 MG/L; MAU/CREAT RATIO 10.7 MCG/MG (0.0-30.0)
== END ==
LOC: M PLALAB 11:04
PROVIDERS: ATTEND Student in an Organized Health Care Education/Training Program
DX: E03.9 Hypothyroidism, unspecified (principal); E11.42 Type 2 diabetes mellitus with diabetic polyneuropathy

== ENCOUNTER → 2020-06-11 | Outpatient (REF) | payer MEDICAID ==
[~2020-06-11] MED LIST changes: +ACET325T42 PO; -AMLO10TA5 PO; +AMLO1TAB25 PO; -MAPA325T3 PO
== END ==
LOC: M SFHCPLAZ 10:03
PROVIDERS: ATTEND Student in an Organized Health Care Education/Training Program
DX: L03.115 Cellulitis of right lower limb (principal)

== ENCOUNTER 2020-06-20 16:04 | Emergency (ER) | payer MEDICAID ==
[2020-07-22 08:47] LABS: BASO % 0.2 % (0.0-1.0); EOS # 0.1 10^3/uL (0.0-0.5); EOS % 1.7 % (0.0-3.0); ERYTHROCYTE SEDIMENTATION RATE 49 mm/hr (0-30); HEMATOCRIT 32.9 % (36.0-47.0); HEMOGLOBIN 9.9 g/dl (12.0-15.5); LYMPH # 1.1 10^3/uL (1.5-5.0); LYMPH % 28.1 % (24.0-44.0); MEAN CORPUSCULAR HEMOGLOBIN 28.1 pg (27.0-33.0); MEAN CORPUSCULAR HGB CONC 30.1 g/dl (32.0-36.5); MEAN CORPUSCULAR VOLUME 93.5 fl (80.0-96.0); MONO # 0.4 10^3/uL (0.0-0.8); MONO % 8.9 % (0.0-5.0); NEUTROPHILS # 2.4 10^3/uL (1.5-8.5); NEUTROPHILS % 60.4 % (36.0-66.0); PLATELET COUNT, AUTOMATED 319 10^3/uL (150-450); RED BLOOD COUNT 3.52 10^6/uL (4.00-5.40); WHITE BLOOD COUNT 4.1 10^3/uL (4.0-10.0)
[2020-07-28 14:19] LABS: BASO % 0.2 % (0.0-1.0); EOS # 0.1 10^3/uL (0.0-0.5); EOS % 1.9 % (0.0-3.0); HEMATOCRIT 33.7 % (36.0-47.0); HEMOGLOBIN 10.4 g/dl (12.0-15.5); LYMPH # 1.1 10^3/uL (1.5-5.0); LYMPH % 26.9 % (24.0-44.0); MEAN CORPUSCULAR HEMOGLOBIN 28.6 pg (27.0-33.0); MEAN CORPUSCULAR HGB CONC 30.9 g/dl (32.0-36.5); MEAN CORPUSCULAR VOLUME 92.6 fl (80.0-96.0); MONO # 0.4 10^3/uL (0.0-0.8); NEUTROPHILS # 2.6 10^3/uL (1.5-8.5); NEUTROPHILS % 61.3 % (36.0-66.0); PLATELET COUNT, AUTOMATED 335 10^3/uL (150-450); RED BLOOD COUNT 3.64 10^6/uL (4.00-5.40); WHITE BLOOD COUNT 4.2 10^3/uL (4.0-10.0)
[2020-07-28 14:26] LABS: ERYTHROCYTE SEDIMENTATION RATE 46 mm/hr (0-30)
[2020-09-13 12:36] LABS: ALBUMIN 3.3 GM/DL (3.2-5.2); ALT/SGPT 27 U/L (12-78); BILIRUBIN,TOTAL 0.4 MG/DL (0.2-1.0); BLOOD UREA NITROGEN 19 MG/DL (7-18); C REACTIVE PROTEIN QUANTITATIV 1.59 MG/DL (0.00-0.30); CALCIUM LEVEL 8.5 MG/DL (8.8-10.2); CARBON DIOXIDE LEVEL 24 MEQ/L (21-32); CHLORIDE LEVEL 113 MEQ/L (98-107); CREATININE FOR GFR 0.99 MG/DL (0.55-1.30); GLOMERULAR FILTRATION RATE > 60.0 (>45); GLUCOSE, FASTING 100 MG/DL (70-100); POTASSIUM SERUM 4.9 MEQ/L (3.5-5.1); SODIUM LEVEL 142 MEQ/L (136-145); TOTAL PROTEIN 6.5 GM/DL (6.4-8.2)
== END 2020-06-20 18:22 | disposition home or self-care (01) ==
LOC: M ED 16:04
DX: L03.115 Cellulitis of right lower limb (principal); E11.9 Type 2 diabetes mellitus without complications; I10 Essential (primary) hypertension; J44.9 Chronic obstructive pulmonary disease, unspecified; Z79.2 Long term (current) use of antibiotics; Z79.899 Other long term (current) drug therapy

== ENCOUNTER → 2020-09-20 | Outpatient (CLI) | payer MEDICAID ==
--- NOTE | 2020-10-01 07:49 | ECWPNPC ---
PATIENT NAME: ROHIT INGRAM : 1955 GENDER: FEMALE VISIT DATE: 09/20/2020 DISCHARGE DATE: 09/20/20 154 VISIT LOCKED DATE TIME: PHYSICIAN: ALONDRA SAMUEL MD PHYSICIAN PAGER NO: ACTIVE RESOURCE: ALONDRA SAMUEL MD REASON FOR APPOINTMENT 1. UNILATERAL PRIMARY OSTEOARTHRITIS, RIGHT HIP 2. REFERRAL SCANNED 08/23 HISTORY OF PRESENT ILLNESS GENERAL: 65-YEAR-OLD FEMALE PATIENT WITH A HISTORY OF CHRONIC RIGHT HIP PAIN. SHE HAS BEEN SUFFERING FROM THIS FOR MANY YEARS. THE PATIENT DESCRIBES THE PAIN SHARP AND STABBING WITH A PAIN SCORE RANGING FROM 4-10/10. THE PAIN INCREASES WITH ACTIVITY. SHE HAS BEEN RECEIVING MEDIATION MANAGEMENT AND INJECTION THERAPY. THE INJECTIONS SEEM TO HELP FOR ABOUT 2 MONTHS. WHEN THE PAIN COMES BACK IT IS REALLY BAD. SHE IS FOLLOWED BY [facility] FOR HER MEDICATION WHICH IS HYDROCODONE, TRAMADOL AND LYRICA. SHE HAS BEEN OFFERED A HIP SURGERY BUT SHE WAS INFORMED THAT SHE HAD TO LOSE WEIGHT FIRST. IN TERMS OF PHYSICAL ACTIVITIES, THE PATIENT IS IN THE WHEELCHAIR AND CANNOT MOVE MUCH. WHEN SHE DOESN'T MOVE SHE CAN TOLERATE IT BUT WHEN SHE MOVES A LITTLE, THE PAIN GETS REALLY BAD. SHE TRIED PHYSICAL THERAPY BUT IT ONLY MADE THE PAIN WORSE. PATIENT DENIES UNEXPLAINABLE WEIGHT LOSS, FEVER, CHILLS, NEW CHANGES ON HER URINARY OR BOWEL CONTROL. FALL RISK SCREENING: SCREENING :NO FALLS REPORTED IN THE LAST YEAR PAIN SCREENING: PATIENT HAS A COMPLAINT OF ACUTE OR CHRONIC PAIN :YES LOCATION OF PAIN:RIGHT HIP INTENSITY OF PAIN (SCALE OF 1 TO 10):9 WHAT DOES YOUR PAIN FEEL LIKE:SHARP, STABBING DURATION:CONTINOUS, CONSTANT, INTERMITTENT PAIN IS INCREASED BY:ACTIVITIES PAIN IS DECREASED BY:OTHERS LAYING ON LEFT SIDE TREATMENT/MEDICATIONS USED TO MANAGE PAIN:OPIOIDS LEVEL OF RELIEF FROM PAIN TREATMENTS IN THE PAST:75% PAIN HAS INTERFERED WITH THE FOLLOWING:BATHING/DRESSING, WALKING ABILITY, HOUSEWORK, SLEEP, TRANSPORTATION, TOILETING NURSING NOTE: - - -. PAIN CENTER INTAKE QUESTIONS: DO YOU HAVE A HISTORY OF MRSA? :NO DO YOU TAKE A BLOOD THINNERS? :NO DO YOU HAVE ANY BLEEDING DISORDERS? :NO ANY NEW NUMBNESS OR WEAKNESS IN YOUR LEGS OR ARMS? :NO ANY PACEMAKER,DEFIBRILLATOR, OR DORSAL COLUMN STIMULATOR? :NO DO YOU HAVE ANY RASHES OR OPEN SORES? :NO ARE YOU ALLERGIC TO IV DYE? :NO ARE YOU DIABETIC? :YES ANY NEW PROBLEMS WITH YOUR MEDICATIONS? :NO HAVE YOU RECEIVED A VACCINE IN THE PAST 30 DAYS? :NO DO YOU PLAN TO RECEIVE A VACCINE IN THE NEXT 21 DAYS? :YES IF SO WHAT VACCINE AND WHEN? FLU DO YOU NEED ANY PRESCRIPTION? :NO DO YOU TAKE ANY IMMUNOSUPPRESSIVE MEDICATIONS? :NO CURRENT MEDICATIONS TAKING METFORMIN HCL 1000 MG TABLET 1 TABLET WITH MEALS ORALLY TWICE A DAY TAKING SUCRALFATE 1 GM TABLET 1 TABLET AT BEDTIME ON AN EMPTY STOMACH BEFORE MEALS ORALLY DAILY TAKING BUPROPION HCL ER (XL) 300 MG TABLET EXTENDED RELEASE 24 HOUR 1 TABLET IN THE MORNING P.O. ONCE A DAY TAKING COLACE 100 MG CAPSULE 1 CAPSULE NEEDED ORALLY TWICE DAILY NEEDED, NOTES: PRN TAKING MELATONIN 5 MG TABLET 1 TABLET AT BEDTIME NEEDED WITH FOOD ORALLY ONCE A DAY TAKING MIRALAX - POWDER 17 GRAMS ORALLY ONCE A DAY TAKING ADVAIR DISKUS 500-50 MCG/DOSE AEROSOL POWDER BREATH ACTIVATED 1 PUFF INHALATION TWICE A DAY TAKING ALCOHOL WIPES 70 % PAD DIRECTED TOPICALLY BID TAKING VITAMIN D (ERGOCALCIFEROL) 18121 UNIT CAPSULE TAKE ONE CAPSULE BY MOUTH ONCE WEEKLY TAKING ZOFRAN 4 MG TABLET 1 TABLET NEEDED ORALLY EVERY 4 HRS TAKING PROAIR HFA 108 (90 BASE) MCG/ACT AEROSOL SOLUTION 2 PUFFS NEEDED INHALATION FOUR TIMES DAILY NEEDED TAKING DUONEB 0.5-2.5 (3) MG/3ML SOLUTION 3 ML INHALATION FOUR TIMES A DAY NEEDED TAKING MAY HAVE - - MAY HAVE WHEEL CHAIR BATTERY (R26.2) DIRECTED (R26.2) DAILY TAKING MAY HAVE CERTARITE ANTIOXIDANT DAILY TAKING HYDROXYZINE HCL 50 MG TABLET 1 TABLET NEEDED ORALLY EVERY 6 HRS PRN FOR PURITUS TAKING MAY HAVE - - WHEEL CHAIR SEAT BELT DIRECTOR GRAPHICS DIRECTED (R 26.2) DAILY TAKING CYMBALTA 60 MG CAPSULE DELAYED RELEASE PARTICLES 1 CAPSULE ORALLY ONCE A DAY TAKING TROSPIUM CHLORIDE ER 60 MG CAPSULE EXTENDED RELEASE 24 HOUR 1 CAPSULE IN THE MORNING ON AN EMPTY STOMACH OR 1 HOUR BEFORE A MEAL ORALLY ONCE A DAY TAKING NORVASC 10 MG TABLET 1 TABLET ORALLY ONCE A DAY TAKING ONETOUCH TEST - STRIP DX E11.9 DIRECTED FOUR TIMES DAILY TAKING ONETOUCH ULTRA TEST - STRIP USE FOUR TIMES A DAY DIRECTED TAKING HUMALOG KWIKPEN 200 UNIT/ML SOLUTION PEN-INJECTOR DIRECTED SUBCUTANEOUS PER SLIDING SCALE (MDD 66 UNITS) TAKING PRILOSEC OTC 20 MG TABLET DELAYED RELEASE 2 TABLET ORALLY ONCE A DAY TAKING NARA BRUNER SOLOSTAR 300 UNIT/ML SOLUTION PEN-INJECTOR 116 UNITS SUBCUTANEOUS DAILY TAKING FLONASE ALLERGY RELIEF 50 MCG/ACT SUSPENSION 1 SPRAY IN EACH NOSTRIL NASALLY ONCE A DAY TAKING INSULIN PEN NEEDLE 29G X 8MM MISCELLANEOUS 1 SUBCUTANEOUSLY DAILY TAKING FERROUS SULFATE 325 (65 FE) MG TABLET 1 TABLET ORALLY TWICE A DAY TAKING TIZANIDINE HCL 4 MG TABLET 1 TABLET NEEDED ORALLY THREE TIMES A DAY TAKING LIPITOR 20 MG TABLET 1 TABLET ORALLY ONCE A DAY TAKING LEVOTHYROXINE SODIUM 50 MCG TABLET 1 TABLET ON AN EMPTY STOMACH IN THE MORNING ORALLY ONCE A DAY TAKING SINGULAIR 10 MG TABLET 1 TABLET IN THE EVENING P.O. ONCE A DAY TAKING DAILY MULTIVITAMIN - CAPSULE DIRECTED ORALLY DAILY TAKING INCRUSE ELLIPTA 62.5 MCG/INH AEROSOL POWDER BREATH ACTIVATED 1 PUFF INHALATION ONCE A DAY TAKING LYRICA 200 MG CAPSULE 1 CAPSULE ORALLY TID MDD: 3 TABS TAKING MELOXICAM 15 MG TABLET 1 TABLET ORALLY ONCE A DAY TAKING WHEELCHAIR BATTERY REPAIR AND MAINTENANCE DIRECTED ICD10 - R26.2 [facility]# [id number] TAKING WHEELCHAIR - MISCELLANEOUS DX.R26.2 BATTERY DAILY TAKING LISINOPRIL 20 MG TABLET 1 TABLET ORALLY ONCE A DAY TAKING LORATADINE 10 MG TABLET 1 TABLET ORALLY ONCE A DAY TAKING LANCETS - MISCELLANEOUS DIRECTED SUBCUTANEOUSLY BID TAKING WHEELCHAIR - MISCELLANEOUS DIRECTED (R26.2) MAY HAVE MOTERIZED WHEELCHAIR DAILY TAKING MAY HAVE - - POWER WHEELCHAIR PARTS COUNTER CLERK DIRECTED DX:R26.9 NOT-TAKING NYSTATIN [id number] UNIT/GM POWDER 1 APPLICATION TO AFFECTED AREA EXTERNALLY GROIN DAILY NOT-TAKING DOXYCYCLINE MONOHYDRATE 100 MG CAPSULE 1 CAPSULE ORALLY EVERY 12 HOURS NOT-TAKING CEPHALEXIN 500 MG CAPSULE 1 CAPSULE ORALLY EVERY 8 HRS NOT-TAKING [facility] HYDROCORTISONE ANTI-ITCH 0.5 % CREAM 1 APPLICATION TO AFFECTED AREA EXTERNALLY TWICE A DAY NOT-TAKING SPIRIVA HANDIHALER 18 MCG CAPSULE 1 CAPSULE INHALATION ONCE A DAY MEDICATION LIST REVIEWED AND RECONCILED WITH THE PATIENT PAST MEDICAL HISTORY OBSTRUCTIVE SLEEP APNEA LOW VITAMIN D TYPE II DIABETES GOAL ALC OF LESS THAT 7.5 HISTORY OF ABNORMAL PAPS MORBID OBESITY ARTHRITIS QUESTIONABLE FIBROMYALGIA 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 KNEE SURGERY MENISCUS TEAR REPAIR 2013 COLONOSCOPY 2006 TOTAL KNEE REPLACEMENT LEFT 03/19/17 FAMILY HISTORY FATHER: MOTHER: SON(S): ALIVE 3 SON(S) - HEALTHY. PATIENT IS ADOPTED. SOCIAL HISTORY GENERAL: TOBACCO USE ARE YOU A:FORMER SMOKER HOW LONG HAS IT BEEN SINCE YOU LAST SMOKED?> 10 YEARS LATEX QUESTIONNAIRE LATEX ALLERGY : HAVE YOU EVER DEVELOPED ANY TYPE OF REACTION AFTER HANDLING LATEX PRODUCTS SUCH RUBBER GLOVES, CONDOMS, DIAPHRAGMS, BALLOONS, SOCKS, OR UNDERWEAR?YES - PLEASE INDICATE :OTHER (DOCUMENT IN NOTES) ADHESIVE LATEX ALLERGY : HAVE YOU EVER DEVELOPED ANY TYPE OF REACTION DURING OR AFTER DENTAL APPOINTMENT, VAGINAL/RECTAL EXAMINATION, SURGICAL PROCEDURE, OR ANY OTHER EXPOSURE?NO LATEX RISK : HAVE YOU EVER HAD ANY DIFFICULTY BREATHING OR HIVES AFTER EATING OR HANDLING ANY FRUITS, OR VEGETABLES; SUCH KIWI, BANANAS, STONE FRUITS, OR CHESTNUTSNO LATEX RISK : DO YOU HAVE A PREVIOUS PERSONAL HISTORY OF MORE THAN NINE SURGERIES, SPINA BIFIDA, OR REPEATED CATHERIZATIONS? NO LATEX RISK : ARE YOU FREQUENTLY EXPOSED TO LATEX PRODUCTS IN YOUR OCCUPATION?NO DATE ASKED : 09/19/2020 BMI CARE GOAL FOLLOW-UP ABOVE NORMAL BMI FOLLOW-UPLIFEYLE EDUCATION REGARDING DIET ALCOHOL SCREENING DID YOU HAVE A DRINK CONTAINING ALCOHOL IN THE PAST YEAR?YES HOW OFTEN DID YOU HAVE A DRINK CONTAINING ALCOHOL IN THE PAST YEAR?MONTHLY OR LESS (1 POINT) HOW MANY DRINKS DID YOU HAVE ON A TYPICAL DAY WHEN YOU WERE DRINKING IN THE PAST YEAR?1 OR 2 (0 POINTS) HOW OFTEN DID YOU HAVE SIX OR MORE DRINKS ON ONE OCCASION IN THE PAST YEAR?NEVER (0 POINTS) POINTS1 INTERPRETATIONNEGATIVE RECREATIONAL DRUG USE DRUG USE?NO CAFFEINE CAFFEINE USE?YES HOW OFTEN AND HOW MUCH? ICE 2-3 8 OZ GLASSES A DAY SEXUAL HX HAD SEX IN THE LAST 12 MONTHS (VAGINAL, ORAL, OR ANAL)?: NO, HAVE YOU EVER HAD AN STD?: YES, CHLAMYDIA?: YES. HIV / HEP-C SCREENING HIV TEST OFFERED TO PATIENT:YES DATE OFFERED:03/21/2018 TEST ACCEPTED:NO HEP-C TEST OFFERED TO PATIENT:YES DATE OFFERED:03/21/2018 REASON:PATIENT DECLINED TEST ACCEPTED:NO REASON:PATIENT DECLINED BROCHURE PROVIDED TO PATIENTNO ORTHODOXY [id number] [employer]EN[employer]. EDUCATION LEVEL OF EDUCATION:[employer] LEARNING BARRIERS / SPECIAL NEEDS BARRIERS TO LEARNING?NO HEARING IMPAIRED?NO VISION IMPAIRED?YES :CORRECTIVE LENSES READINESS TO LEARN?YES LEARNING PREFERENCES?NO LEARNING CAPABILITIES PRESENT?YES EMOTIONAL BARRIERS?NO SPECIAL DEVICES?YES : SCOOTER CHAIR, CANE AND WALKER WORM GROWER NEEDED?NO DOMESTIC VIOLENCE NONE. 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 EXERCISE: LOST 70 POUNDS AFTER BYPASS, STARTED BACK UP AT [facility] DOING WATER AEROBICS AND WEIGHTS AT THE GYM FIVE TIMES A WEEK.. MARITAL STATUS: .. OTHERS AT HOME: LIVES BYSELF WITH CAT. PAIN CLINIC PFS, CLERGY, PUBLIC HEALTH REFERRALS HAS THE PATIENT BEEN EDUCATED REGARDING HIS/HER PLAN OF CARE?YES HAS THE PATIENT BEEN EDUCATED REGARDING PAIN, THE RISK FOR PAIN, THE IMPORTANCE OF EFFECTIVE PAIN MANAGEMENT, AND THE PAIN ASSESSMENT PROCESS?YES ADVANCE DIRECTIVE ADVANCE DIRECTIVE DISCUSSED WITH PATIENT:YES MUNIRA Jacobs [phone] HOSPITALIZATION/MAJOR DIAGNOSTIC PROCEDURE COPD EXACERBATION AND RSV 11/08/2018-11/12/2018 DIABETIC KETOACIDOSIS 05/30/19 CELLULITIS 06/2020 REVIEW OF SYSTEMS CONSTITUTIONAL: ANY RECENT FEVER NO . CHILLS NO . WEIGHT CHANGE OF UNKNOWN REASONS NO . MUSCULOSKELETAL: ANY UNUSUAL JOINT PAIN OR SWELLING NOT MENTIONED NO . SYSTEMIC LUPUS NO . ANY NEUROMUSCULAR DISORDER NOT MENTIONED NO . LYME DISEASE NO . GASTROENTEROLOGY: ANY NEW CHANGE IN BOWEL CONTROL? NO . HISTORY OF LIVER DISORDER NOT MENTIONED NO . HISTORY OF UNUSUAL ABDOMINAL PAIN OR CRAMPING NOT MENTIONED NO . NO CONSTIPATION. GENITOURINARY: ANY NEW CHANGE IN BLADDER CONTROL? NO . ANY RENAL/KIDNEY CONDITON NOT MENTIONED NO . NEUROLOGY: HISTORY OF TBI NOT MENTIONED NO . OTHER NEW NUMBNESS OR PAIN PATTERNS NOT MENTIONED NO . NEW ONSET DIZZINESS OR NEUROLOGICAL CHANGES NOT MENTIONED NO . HISTORY OF SEVERE HEADACHES NOT MENTIONED NO . HISTORY OF STROKE OR NEUROLOGICAL DISORDER NOT MENTIONED NO . CARDIOLOGY: HEART SURGERY NO . CONGESTIVE HEART FAILURE/FLUID OVERLOAD NOT MENTIONED NO . HISTORY OF CHEST PAIN,IRREGULAR HEART BEAT NOT MENTIONED NO . RESPIRATORY: SHORTNESS OF BREATH ON EXERTION, WHEEZES, UNUSUAL COUGH NOT MENTIONED NO . ENDOCRINOLOGY: ADRENAL GLAND OR THYROID DISORDERS NOT MENTIONED NO . UNUSUAL URINATION, DIZZINESS OR LETHARGY NOT MENTIONED NO . VITAL SIGNS WT 320.0 LBS, HT 62.75 IN, BMI 57.13 INDEX, BP 157/74 MM HG, HR 101 /MIN, RR 18 /MIN, TEMP 97.2 F, OXYGEN SAT % 92%, BLOOD GLUCOSE LEVEL 164 0800, SAFE IN ENV? (Y/N) YES, NA INITIALS AW 1413, REVIEWED BY: GILLIAN JUAREZ METAL PATTERNMAKER. EXAMINATION GENERAL EXAMINATION: THE PATIENT IS ALERT, ORIENTED TIMES THREE AND COOPERATIVE. HEART, THERE IS A II/IV SYSTOLIC MURMUR. LUNGS ARE CLEAR TO AUSCULTATION. SHE IS IN A WHEELCHAIR. THE PATIENT HAS A RIGHT INGUINAL HERNIA AND WHEN I TRIED TO MOVE HER RIGHT LEG SHE HAD A LOT OF PAIN. THE RIGHT LEG IS WEAKER THAN THE LEFT LEG ON FLEXION AND EXTENSION. I SAW THE REFER NOTE FROM MR. JIANG. ASSESSMENTS RIGHT HIP PAIN - M25.551 (PRIMARY) TREATMENT RIGHT HIP PAIN CLINICAL NOTES: I DISCUSSED ALTERNATIVES WITH MS. INGRAM. I DO NOT HAVE ANY IMAGING STUDIES OF THE RIGHT HIP. I WILL CALL [facility] TO SEE IF THEY HAVE ANYTHING. THEY HAVE A RULE OUT OF PRIMARY OSTEOARTHRITIS AND DR. PEDERSON INDICATED THAT SHE HAS OSTEOARTHRITIS AND THAT SHE NEEDS A HIP SURGERY BUT THEY AGREE ON HER HAVING INJECTION THERAPY. I WOULD LIKE TO SEE THE HIP STUDIES TO CLARIFY BUT I DO BELIEVE THAT SHE DOES HAVE PRIMARY OSTEOARTHRITIS. WE CAN ATTEMPT INJECTIONS ON THE PATIENT IF THAT IS WHAT SHE WOULD LIKE TO DO. I WOULD LIKE TO DR. FRANCISCO HER PRIMARY CARE PHYSICIAN ABOUT HER WEIGHT LOSS. THE PATIENT WILL FOLLOW UP WITH ME IN 1 MONTH. THE PATIENT UNDERSTANDS AND AGREES WITH THE PLAN. I, GISELA PETERSON, DOCUMENTED THE ABOVE INFORMATION ACTING A SCRIBE FOR DR. SAMUEL. I HAVE REVIEWED THE ABOVE DOCUMENT, WRITTEN BY GISELA PETERSON, SAS ANALYST, AND I VERIFY THAT IT IS ACCURATE. DEAR DR. PEDERSON, THANK YOU FOR YOUR KIND REFERRAL OF ROHIT INGRAM. IF YOU WANT TO DISCUSS HER CASE WITH ME PLEASE CALL ME AT THE PAIN CENTER AT [phone]. SINCERELY, ALONDRA SAMUEL MD PAIN MEDICINE. OTHERS NOTES: 09/19/20 TRACIE CAMILO RN BSN [id number] 09/20/20 PATIENT EDUCATED TO CONTINUE CURRENT TREATMENT PLAN AND FOLLOW UP WITH ENGINEER FIRST ASSISTANT. PROCEDURE CODES FA211 ESTABILISHED PATIENT [facility] CHARGE DISPOSITION & COMMUNICATION FOLLOW UP FOLLOW UP WITH DR. Buchanan IN 1 MONTH (REASON: REVISIT PATIENT STATUS ) ELECTRONICALLY SIGNED BY ALONDRA SAMUEL MD, MD ON 09/30/2020 AT 03:14 PM EST DISCLAIMER : THIS IS A VISIT SUMMARY EXTRACTED FROM THE [employer] CHART. IT IS NOT A COPY OF THE [employer] PROGRESS NOTE. PRINCE
== END ==
LOC: M PAIN 14:00
PROVIDERS: ATTEND Anesthesiology
DX: M25.551 Pain in right hip (principal); G47.33 Obstructive sleep apnea (adult) (pediatric); E55.9 Vitamin D deficiency, unspecified; E11.9 Type 2 diabetes mellitus without complications; E66.01 Morbid (severe) obesity due to excess calories; J44.9 Chronic obstructive pulmonary disease, unspecified; Z99.3 Dependence on wheelchair; Z68.43 Body mass index [BMI] 50.0-59.9, adult; Z87.891 Personal history of nicotine dependence; Z91.048 Other nonmedicinal substance allergy status; Z79.4 Long term (current) use of insulin; Z79.1 Long term (current) use of non-steroidal anti-inflammatories (NSAID); Z79.899 Other long term (current) drug therapy

== ENCOUNTER → 2020-10-31 | Outpatient (CLI) | payer MEDICAID ==
--- NOTE | 2020-11-01 23:16 | ECWPNPC ---
PATIENT NAME: ROHIT INGRAM : 1955 GENDER: FEMALE VISIT DATE: 10/31/2020 DISCHARGE DATE: 10/31/20 0000 VISIT LOCKED DATE TIME: PHYSICIAN: ALONDRA SAMUEL MD PHYSICIAN PAGER NO: ACTIVE RESOURCE: ALONDRA SAMUEL MD REASON FOR APPOINTMENT 1. REVISIT PATIENT STATUS HISTORY OF PRESENT ILLNESS DEPRESSION SCREENING: PHQ-9 LITTLE INTEREST OR PLEASURE IN DOING THINGSNEARLY EVERY DAY FEELING DOWN, DEPRESSED, OR HOPELESSNEARLY EVERY DAY TROUBLE FALLING OR STAYING ASLEEP, OR SLEEPING TOO MUCHNEARLY EVERY DAY FEELING TIRED OR HAVING LITTLE ENERGYNEARLY EVERY DAY POOR APPETITE OR OVEREATING MORE THAN HALF THE DAYS FEELING BAD ABOUT YOURSELF-OR THAT YOU ARE A FAILURE OR HAVE LET YOURSELF OR YOUR FAMILY DOWN SEVERAL DAYS TROUBLE CONCENTRATING ON THINGS, SUCH READING THE NEWSPAPER OR WATCHING TELEVISION NEARLY EVERY DAY MOVING OR SPEAKING SO SLOWLY THAT OTHER PEOPLE COULD HAVE NOTICED. OR THE OPPOSITE- BEING SO FIDGETY OR RESTLESS THAT YOU HAVE BEEN MOVING AROUND A LOT MORE THAN USUALNOT AT ALL THOUGHTS THAT YOU WOULD BE BETTER OFF , OR OF HURTING YOURSELF IN SOME WAY?NOT AT ALL TOTAL SCORE:18 INTERPRETATIONMODERATELY SEVERE DEPRESSION PHQ-2 (2015 EDITION) LITTLE INTEREST OR PLEASURE IN DOING THINGS?NEARLY EVERY DAY FEELING DOWN, DEPRESSED, OR HOPELESS?NEARLY EVERY DAY TOTAL SCORE6 FALL RISK SCREENING: SCREENING :NO FALLS REPORTED IN THE LAST YEAR PAIN SCREENING: PATIENT HAS A COMPLAINT OF ACUTE OR CHRONIC PAIN :YES LOCATION OF PAIN:RIGHT HIP INTENSITY OF PAIN (SCALE OF 1 TO 10):10 WHAT DOES YOUR PAIN FEEL LIKE:SHARP, STABBING DURATION:CONTINOUS, CONSTANT, INTERMITTENT PAIN IS INCREASED BY:ACTIVITIES PAIN IS DECREASED BY:OTHERS LAYING ON LEFT SIDE TREATMENT/MEDICATIONS USED TO MANAGE PAIN:OPIOIDS LEVEL OF RELIEF FROM PAIN TREATMENTS IN THE PAST:75% PAIN HAS INTERFERED WITH THE FOLLOWING:BATHING/DRESSING, WALKING ABILITY, HOUSEWORK, SLEEP, TRANSPORTATION, TOILETING PAIN CENTER INTAKE QUESTIONS: DO YOU HAVE A HISTORY OF MRSA? :NO DO YOU TAKE A BLOOD THINNERS? :NO DO YOU HAVE ANY BLEEDING DISORDERS? :NO ANY NEW NUMBNESS OR WEAKNESS IN YOUR LEGS OR ARMS? :NO ANY PACEMAKER,DEFIBRILLATOR, OR DORSAL COLUMN STIMULATOR? :NO DO YOU HAVE ANY RASHES OR OPEN SORES? :NO ARE YOU ALLERGIC TO IV DYE? :NO ARE YOU DIABETIC? :YES ANY NEW PROBLEMS WITH YOUR MEDICATIONS? :NO HAVE YOU RECEIVED A VACCINE IN THE PAST 30 DAYS? :NO DO YOU PLAN TO RECEIVE A VACCINE IN THE NEXT 21 DAYS? :NO IF SO WHAT VACCINE AND WHEN? FLU DO YOU NEED ANY PRESCRIPTION? :NO DO YOU TAKE ANY IMMUNOSUPPRESSIVE MEDICATIONS? :NO GENERAL: 65-YEAR-OLD FEMALE PATIENT WITH A HISTORY OF CHRONIC RIGHT HIP PAIN. THE PATIENT HAS BEEN SUFFERING FROM THIS FOR MANY YEARS. SHE HAS TRIED INJECTIONS THERAPY THAT HAVE HELPED HER FOR A COUPLE OF MOTHS. SHE HAS RECEIVED MEDICATION MANAGEMENT, LIKE TRAMADOL. SOME MEDICATIONS HELP MORE THAN OTHERS. THE PATIENT DESCRIBES THE PAIN CONTINUOUS AND INTERMITTENT WITH A PAIN SCORE RANGING FROM 8-10/10. SHE IS VERY UNCOMFORTABLE AND CANNOT PERFORM ACTIVITIES. PATIENT DENIES UNEXPLAINABLE WEIGHT LOSS, FEVER, CHILLS, NEW CHANGES ON URINARY OR BOWEL CONTROL. CURRENT MEDICATIONS TAKING SUCRALFATE 1 GM TABLET 1 TABLET AT BEDTIME ON AN EMPTY STOMACH BEFORE MEALS ORALLY DAILY TAKING BUPROPION HCL ER (XL) 300 MG TABLET EXTENDED RELEASE 24 HOUR 1 TABLET IN THE MORNING P.O. ONCE A DAY TAKING MELATONIN 5 MG TABLET 1 TABLET AT BEDTIME NEEDED WITH FOOD ORALLY ONCE A DAY TAKING MIRALAX - POWDER 17 GRAMS ORALLY ONCE A DAY TAKING ADVAIR DISKUS 500-50 MCG/DOSE AEROSOL POWDER BREATH ACTIVATED 1 PUFF INHALATION TWICE A DAY TAKING ALCOHOL WIPES 70 % PAD DIRECTED TOPICALLY BID TAKING VITAMIN D (ERGOCALCIFEROL) 11596 UNIT CAPSULE TAKE ONE CAPSULE BY MOUTH ONCE WEEKLY TAKING ZOFRAN 4 MG TABLET 1 TABLET NEEDED ORALLY EVERY 4 HRS TAKING PROAIR HFA 108 (90 BASE) MCG/ACT AEROSOL SOLUTION 2 PUFFS NEEDED INHALATION FOUR TIMES DAILY NEEDED TAKING DUONEB 0.5-2.5 (3) MG/3ML SOLUTION 3 ML INHALATION FOUR TIMES A DAY NEEDED TAKING MAY HAVE - - MAY HAVE WHEEL CHAIR BATTERY (R26.2) DIRECTED (R26.2) DAILY TAKING MAY HAVE CERTARITE ANTIOXIDANT DAILY TAKING HYDROXYZINE HCL 50 MG TABLET 1 TABLET NEEDED ORALLY EVERY 6 HRS PRN FOR PURITUS TAKING MAY HAVE - - WHEEL CHAIR SEAT BELT MID WIFE DIRECTED (R 26.2) DAILY TAKING CYMBALTA 60 MG CAPSULE DELAYED RELEASE PARTICLES 1 CAPSULE ORALLY ONCE A DAY TAKING TROSPIUM CHLORIDE ER 60 MG CAPSULE EXTENDED RELEASE 24 HOUR 1 CAPSULE IN THE MORNING ON AN EMPTY STOMACH OR 1 HOUR BEFORE A MEAL ORALLY ONCE A DAY TAKING NORVASC 10 MG TABLET 1 TABLET ORALLY ONCE A DAY TAKING ONETOUCH TEST - STRIP DX E11.9 DIRECTED FOUR TIMES DAILY TAKING ONETOUCH ULTRA TEST - STRIP USE FOUR TIMES A DAY DIRECTED TAKING HUMALOG KWIKPEN 200 UNIT/ML SOLUTION PEN-INJECTOR DIRECTED SUBCUTANEOUS PER SLIDING SCALE (MDD 66 UNITS) TAKING TOUJEO MAX SOLOSTAR 300 UNIT/ML SOLUTION PEN-INJECTOR 116 UNITS SUBCUTANEOUS DAILY TAKING FLONASE ALLERGY RELIEF 50 MCG/ACT SUSPENSION 1 SPRAY IN EACH NOSTRIL NASALLY ONCE A DAY TAKING INSULIN PEN NEEDLE 29G X 8MM MISCELLANEOUS 1 SUBCUTANEOUSLY DAILY TAKING FERROUS SULFATE 325 (65 FE) MG TABLET 1 TABLET ORALLY TWICE A DAY TAKING SINGULAIR 10 MG TABLET 1 TABLET IN THE EVENING P.O. ONCE A DAY TAKING DAILY MULTIVITAMIN - CAPSULE DIRECTED ORALLY DAILY TAKING INCRUSE ELLIPTA 62.5 MCG/INH AEROSOL POWDER BREATH ACTIVATED 1 PUFF INHALATION ONCE A DAY TAKING WHEELCHAIR BATTERY REPAIR AND MAINTENANCE DIRECTED ICD10 - R26.2 [facility]# [id number] TAKING WHEELCHAIR - MISCELLANEOUS DX.R26.2 BATTERY DAILY TAKING LORATADINE 10 MG TABLET 1 TABLET ORALLY ONCE A DAY TAKING LANCETS - MISCELLANEOUS DIRECTED SUBCUTANEOUSLY BID TAKING WHEELCHAIR - MISCELLANEOUS DIRECTED (R26.2) MAY HAVE MOTERIZED WHEELCHAIR DAILY TAKING MAY HAVE - - POWER WHEELCHAIR CONE FORMER DIRECTED DX:R26.9 TAKING PRILOSEC OTC 20 MG TABLET DELAYED RELEASE 2 TABLET ORALLY ONCE A DAY TAKING LISINOPRIL 20 MG TABLET 1 TABLET ORALLY ONCE A DAY TAKING MELOXICAM 15 MG TABLET 1 TABLET ORALLY ONCE A DAY TAKING LIPITOR 20 MG TABLET 1 TABLET ORALLY ONCE A DAY TAKING COLACE 100 MG CAPSULE 1 CAPSULE NEEDED ORALLY TWICE DAILY NEEDED, NOTES: PRN TAKING METFORMIN HCL 1000 MG TABLET 1 TABLET WITH MEALS ORALLY TWICE A DAY TAKING LYRICA 200 MG CAPSULE 1 CAPSULE ORALLY TID MDD: 3 TABS TAKING LEVOTHYROXINE SODIUM 50 MCG TABLET 1 TABLET ON AN EMPTY STOMACH IN THE MORNING ORALLY ONCE A DAY TAKING TIZANIDINE HCL 4 MG TABLET 1 TABLET NEEDED ORALLY THREE TIMES A DAY NOT-TAKING NYSTATIN 274190 UNIT/GM POWDER 1 APPLICATION TO AFFECTED AREA EXTERNALLY GROIN DAILY NOT-TAKING DOXYCYCLINE MONOHYDRATE 100 MG CAPSULE 1 CAPSULE ORALLY EVERY 12 HOURS NOT-TAKING CEPHALEXIN 500 MG CAPSULE 1 CAPSULE ORALLY EVERY 8 HRS NOT-TAKING [facility] HYDROCORTISONE ANTI-ITCH 0.5 % CREAM 1 APPLICATION TO AFFECTED AREA EXTERNALLY TWICE A DAY NOT-TAKING SPIRIVA HANDIHALER 18 MCG CAPSULE 1 CAPSULE INHALATION ONCE A DAY MEDICATION LIST REVIEWED AND RECONCILED WITH THE PATIENT PAST MEDICAL HISTORY OBSTRUCTIVE SLEEP APNEA LOW VITAMIN D TYPE II DIABETES GOAL ALC OF LESS THAT 7.5 HISTORY OF ABNORMAL PAPS MORBID OBESITY ARTHRITIS QUESTIONABLE FIBROMYALGIA 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 KNEE SURGERY MENISCUS TEAR REPAIR 2013 COLONOSCOPY 2006 TOTAL KNEE REPLACEMENT LEFT 03/19/17 FAMILY HISTORY FATHER: MOTHER: SON(S): ALIVE 3 SON(S) - HEALTHY. PATIENT IS ADOPTED. SOCIAL HISTORY GENERAL: TOBACCO USE ARE YOU A:FORMER SMOKER HOW LONG HAS IT BEEN SINCE YOU LAST SMOKED?> 10 YEARS LATEX QUESTIONNAIRE LATEX ALLERGY : HAVE YOU EVER DEVELOPED ANY TYPE OF REACTION AFTER HANDLING LATEX PRODUCTS SUCH RUBBER GLOVES, CONDOMS, DIAPHRAGMS, BALLOONS, SOCKS, OR UNDERWEAR?YES - PLEASE INDICATE :OTHER (DOCUMENT IN NOTES) ADHESIVE LATEX ALLERGY : HAVE YOU EVER DEVELOPED ANY TYPE OF REACTION DURING OR AFTER DENTAL APPOINTMENT, VAGINAL/RECTAL EXAMINATION, SURGICAL PROCEDURE, OR ANY OTHER EXPOSURE?NO LATEX RISK : HAVE YOU EVER HAD ANY DIFFICULTY BREATHING OR HIVES AFTER EATING OR HANDLING ANY FRUITS, OR VEGETABLES; SUCH KIWI, BANANAS, STONE FRUITS, OR CHESTNUTSNO LATEX RISK : DO YOU HAVE A PREVIOUS PERSONAL HISTORY OF MORE THAN NINE SURGERIES, SPINA BIFIDA, OR REPEATED CATHERIZATIONS? NO LATEX RISK : ARE YOU FREQUENTLY EXPOSED TO LATEX PRODUCTS IN YOUR OCCUPATION?NO DATE ASKED : 10/31/2020 BMI CARE GOAL FOLLOW-UP ABOVE NORMAL BMI FOLLOW-RUSTYLE EDUCATION REGARDING DIET ALCOHOL SCREENING DID YOU HAVE A DRINK CONTAINING ALCOHOL IN THE PAST YEAR?YES HOW OFTEN DID YOU HAVE SIX OR MORE DRINKS ON ONE OCCASION IN THE PAST YEAR?NEVER (0 POINTS) HOW MANY DRINKS DID YOU HAVE ON A TYPICAL DAY WHEN YOU WERE DRINKING IN THE PAST YEAR?1 OR 2 (0 POINTS) HOW OFTEN DID YOU HAVE A DRINK CONTAINING ALCOHOL IN THE PAST YEAR?MONTHLY OR LESS (1 POINT) POINTS1 INTERPRETATIONNEGATIVE RECREATIONAL DRUG USE DRUG USE?NO CAFFEINE CAFFEINE USE?YES HOW OFTEN AND HOW MUCH? ICE 2-3 8 OZ GLASSES A DAY SEXUAL HX HAD SEX IN THE LAST 12 MONTHS (VAGINAL, ORAL, OR ANAL)?: NO, HAVE YOU EVER HAD AN STD?: YES, CHLAMYDIA?: YES. HIV / HEP-C SCREENING HIV TEST OFFERED TO PATIENT:YES DATE OFFERED:03/21/2018 TEST ACCEPTED:NO HEP-C TEST OFFERED TO PATIENT:YES DATE OFFERED:03/21/2018 REASON:PATIENT DECLINED TEST ACCEPTED:NO REASON:PATIENT DECLINED BROCHURE PROVIDED TO PATIENTNO YAZDANISM [id number] [employer] LANGUAGE [employer]ER. EDUCATION LEVEL OF EDUCATION:[employer] LEARNING BARRIERS / SPECIAL NEEDS BARRIERS TO LEARNING?NO HEARING IMPAIRED?NO VISION IMPAIRED?YES :CORRECTIVE LENSES READINESS TO LEARN?YES LEARNING PREFERENCES?NO LEARNING CAPABILITIES PRESENT?YES EMOTIONAL BARRIERS?NO SPECIAL DEVICES?YES : SCOOTER CHAIR, CANE AND WALKER OFFICE AIDE NEEDED?NO DOMESTIC VIOLENCE NONE. 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 EXERCISE: LOST 70 POUNDS AFTER BYPASS, STARTED BACK UP AT [facility] DOING WATER AEROBICS AND WEIGHTS AT THE GYM FIVE TIMES A WEEK.. MARITAL STATUS: .. OTHERS AT HOME: LIVES BYSELF WITH CAT. PAIN CLINIC PFS, CLERGY, PUBLIC HEALTH REFERRALS HAS THE PATIENT BEEN EDUCATED REGARDING HIS/HER PLAN OF CARE?YES HAS THE PATIENT BEEN EDUCATED REGARDING PAIN, THE RISK FOR PAIN, THE IMPORTANCE OF EFFECTIVE PAIN MANAGEMENT, AND THE PAIN ASSESSMENT PROCESS?YES ADVANCE DIRECTIVE ADVANCE DIRECTIVE DISCUSSED WITH PATIENT:YES MUNIRA Jacobs [phone] HOSPITALIZATION/MAJOR DIAGNOSTIC PROCEDURE COPD EXACERBATION AND RSV 11/08/2018-11/12/2018 DIABETIC KETOACIDOSIS 05/30/19 CELLULITIS 06/2020 REVIEW OF SYSTEMS CONSTITUTIONAL: ANY RECENT FEVER NO . CHILLS NO . WEIGHT CHANGE OF UNKNOWN REASONS NO . GASTROENTEROLOGY: NEW UNEXPLAINABLE CHANGES IN BOWEL CONTROL NO . CONSTIPATION NO . GENITOURINARY: ANY NEW CHANGE IN BLADDER CONTROL? NO . NEUROLOGY: NEW ONSET DIZZINESS OR NEUROLOGICAL CHANGES NOT MENTIONED NO . NEW NUMBNESS OR PAIN PATTERNS NOT MENTIONED AND PERTINENT TO TODAY'S VISIT NO . CARDIOLOGY: NEW CHEST PRESSURE NO . NEW CHEST PAIN NO . RESPIRATORY: UNEXPLAINABLE COUGH NO . NEW SHORTNESS OF BREATH NO HISTORY OF BHUPINDER. DENIES COPD . VITAL SIGNS WT 320.0 LBS, HT 62.75 IN, BMI 57.13 INDEX, BP 112/58 MM HG, HR 98 /MIN, RR 18 /MIN, TEMP 96.0 F, OXYGEN SAT % 97%, SAFE IN ENV? (Y/N) YES, NA INITIALS AW 1321, REVIEWED BY: GILLIAN JUAREZ RN. EXAMINATION GENERAL EXAMINATION: THE PATIENT IS ALERT, ORIENTED TIMES THREE AND COOPERATIVE. HEART SHOWS REGULAR RHYTHM, NO MURMURS AND NO GALLOPS. LUNGS ARE CLEAR TO AUSCULTATION. SHE IS IN A WHEELCHAIR. THERE IS SEVERE TENDERNESS OVER THE RIGHT HIP AREA. I TOUCHED THE PATIENT AND THE PAIN SEEMS TO BE MORE IN THE SIDE OF THE HIP IN THE GREATER TROCHANTER OF THE FEMUR. X-RAYS OF THE RIGHT HIP 06/17/2020 SHOWS OESTOARTHIRTIS CHANGES. X-RAYS DATED 03/23/2019 ALSO SHOWS OESTOARTHRITIS. 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 INGRAM. I SPOKE WITH THE PATIENT ABOUT HER DEPRESSION SCREENING. SHE STATED THAT SHE IS NOT SUICIDAL AND I DO NOT FEEL THAT SHE NEEDS TO BE HOSPITALIZED. I HAD A LONG CONVERSATION WITH THE PATIENT ABOUT MEDICATIONS. SHE STATES THAT SHE DOES NOT HAVE AN ADDICTIVE PERSONALITY. SHE STATES THAT SHE CAN FOLLOW THE INSTRUCTIONS OF THE MEDIATIONS WITH NO PROBLEMS. I DISCUSSED THE RISKS ASSOCIATED WITH NARCOTICS INCLUDING RESPIRATORY DEPRESSION AND CARDIAC EVENTS OR . I INFORMED THE PATIENT THAT SHE NEEDS TO BRING IN HER MEDICATIONS TO EVERY APPOINTMENT AND THAT WE WILL DO URINE TOXICOLOGY AND HAIR ANALYSIS AND SHE WILL NEED TO SIGN A NARCOTIC AGREEMENT. I WILL NEED TO TALK TO DR. FRANCISCO. I AGREED WITH THE REFERRING PROVIDER, ERON JIANG, WE WILL BE PRESCRIBING HER MEDICATIONS. I WILL ONLY BE PRESCRIBING FOR HER FOR 8 MONTHS. HYDROCODONE 7.5/325 UP TO 3 TABLETS A DAY ON A PRN BASIS. I WILL GIVE HER 75 TABLETS. THIS SHOULD LAST HER UNTIL November. IF SHE TAKES ONLY 2 TABLETS OF HYDROCODONE IN A DAY, SHE CAN TAKE A TRAMADOL BETWEEN THEM. THE PATIENT IS VERY UNCOMFORTABLE. SHE WILL STOP THE TRAMADOL BUT CONTINUE HER OTHER MEDICATIONS. THE PATIENT STATES THAT SHE TOOK A MEDICAL MARIJUANA PILL A FEW DAYS AGO GIVEN TO HER BY A FRIEND. IT WAS INFORMED TO THE PATIENT TO NOT TRY ANYTHING THAT IS GIVEN TO HER BY SOMEONE OTHER THAN A DOCTOR. I WILL SIGN A NARCOTIC AGREEMENT WITH THE PATIENT. I REACHED AN AGREEMENT WITH HE REFERRING PROVIDER TO PRESCRIBE HER MEDS FOR NEXT 8 MONTHS. I PLAN TO DO URINE TOX AT NEXT VISIT. I WILL REQUEST AUTHORIZATION FOR AN MRI OF HER RIGHT HIP. IF THEY CANNOT PERFORM THE MRI, I WILL ORDER A CT SCAN. I WILL REQUEST AUTH FOR AN INJECTION OF THE GREATER TROCHANTER OF THE FEMUR, BOOK AFTER APPROVED. I WILL NEED EXTRA TIME TO PERFORM THE PROCEDURE. I WILL NEED TO TALK TO THE GASTRIC BYPASS SURGEON. I BELIEVE THAT THEY CAN DO A REVISION. SHE HAD A BYPASS ABOUT 10 YEARS AGO. THE PATIENT REALLY NEEDS HELP AND I FEEL THAT WILL CHANGE THE WHOLE SITUATION. THE PATIENT REPORTS UNDERSTANDING AND AGREES WITH THE PLAN. I, GISELA PETERSON, DOCUMENTED THE ABOVE INFORMATION ACTING A SCRIBE FOR DR. SAMUEL. I HAVE REVIEWED THE ABOVE DOCUMENT, WRITTEN BY GISELA PETERSON, FISCAL ECONOMIST, AND I VERIFY THAT IT IS ACCURATE. . RIGHT HIP PAIN START HYDROCODONE-ACETAMINOPHEN TABLET, 7.5-325 MG, 1 TABLET NEEDED, ORALLY FOR PAIN, EVERY 8 HRS MDD3, 30 DAYS, 75, REFILLS 0 START DIAZEPAM TABLET, 5 MG, 1 TABLET NEEDED, ORALLY, ON WAY TO MRI MAY REPEAT AT MRI UNTI MDD2, 1 DAYS, 2, REFILLS 0 [facility] MRI HIP WITHOUT [id number] OTHERS NOTES: 10/31/20 1336 PATIENT PRESENTS SITTING IN MOTORIZED WHEELCHAIR, APPEARS UNCOMFORTABLE, PATIENT STATES, "I WISH YOU WOULD JUST SHOOT ME WITH A SHOTGUN, I'M NOT SUICIDAL." PATIENT SCORED AN 18 ON PHQ9, PATENT REPORTS FOLLOWING WITH MENTAL HEALTH ON A REGULAR BASIS, DR. SAMUEL AWARE. PROCEDURE CODES FA211 ESTABILISHED PATIENT [facility] FACILITY CHARGE [address]1948 OFFICE/OUTPATIENT VISIT EST DISPOSITION & COMMUNICATION FOLLOW UP MED MANAGEMENT FOLLOW UP FIRST WEEK OF NOVEMBER (REASON: REQUEST AUTH FOR MRI OF RIGHT HIP, REQUEST AUTH FOR INJECTION OF THE GREATER TROCHANTER OF THE FEMUR ) ELECTRONICALLY SIGNED BY ALONDRA SAMUEL MD, MD ON 11/01/2020 AT 01:23 PM EST DISCLAIMER : THIS IS A VISIT SUMMARY EXTRACTED FROM THE [employer] CHART. IT IS NOT A COPY OF THE [employer] PROGRESS NOTE. MTDD
== END ==
LOC: M PAIN 13:45
PROVIDERS: ATTEND Anesthesiology
DX: M70.60 Trochanteric bursitis, unspecified hip (principal); M25.551 Pain in right hip; M16.11 Unilateral primary osteoarthritis, right hip; G89.29 Other chronic pain; E11.9 Type 2 diabetes mellitus without complications; G47.33 Obstructive sleep apnea (adult) (pediatric); E55.9 Vitamin D deficiency, unspecified; J44.9 Chronic obstructive pulmonary disease, unspecified; Z98.84 Bariatric surgery status; Z96.652 Presence of left artificial knee joint; Z87.891 Personal history of nicotine dependence; Z91.09 Other allergy status, other than to drugs and biological substances; E66.01 Morbid (severe) obesity due to excess calories; Z68.43 Body mass index [BMI] 50.0-59.9, adult; Z79.4 Long term (current) use of insulin; Z79.51 Long term (current) use of inhaled steroids; Z79.899 Other long term (current) drug therapy

== ENCOUNTER → 2020-11-07 | Outpatient (REF) | payer MEDICAID ==
[2020-11-07 18:02] LABS: CALCIUM LEVEL 8.7 MG/DL (8.8-10.2); CREATININE FOR GFR 1.03 MG/DL (0.55-1.30); GLOMERULAR FILTRATION RATE 57.4 (>45); HEMATOCRIT 36.8 % (36.0-47.0); HEMOGLOBIN 11.5 g/dl (12.0-15.5); MEAN CORPUSCULAR HEMOGLOBIN 28.7 pg (27.0-33.0); MEAN CORPUSCULAR HGB CONC 31.3 g/dl (32.0-36.5); MEAN CORPUSCULAR VOLUME 91.8 fl (80.0-96.0); PLATELET COUNT, AUTOMATED 278 10^3/uL (150-450); RED BLOOD COUNT 4.01 10^6/uL (4.00-5.40)
[2020-11-07 20:04] LABS: HEMOGLOBIN A1c 9.2 %
== END ==
LOC: M SFHCPLAZ 14:43
DX: E11.42 Type 2 diabetes mellitus with diabetic polyneuropathy (principal)

== ENCOUNTER → 2020-11-20 | Outpatient (CLI) | payer MEDICAID ==
--- NOTE | 2020-11-25 11:15 | ECHO ---
DATE OF PROCEDURE: 11/20/2020 Age: 65 Gender: Female REFERRING PHYSICIAN: Tim Banerjee DO PATIENT LOCATION: Outpatient. REASON FOR STUDY: Heart murmur. 2D MEASUREMENTS: IVS 1.3 cm LV 4.6 cm LVPW 1.2 cm LA 3.8 cm Aorta 2.8 cm DOPPLER MEASUREMENT Peak velocity across the aortic valve 2.0 msec Peak velocity across the LVOT 1.0 msec Peak gradient across the aortic valve 16 mmHg Mean gradient across the aortic valve 10 mmHg Mitral E 1.1 Mitral A 1.2 with a ratio of 0.9 2D COMMENTS: 1. Normal left ventricular size with mildly increased left ventricular wall thickness. Left ventricular systolic function is normal, estimated at 60% to 65%. 2. Normal left atrium. Normal right atrium and right ventricle. There appears to be findings consistent with right ventricular hypertrophy. 3. The atrial septum appeared to be normal without evidence of defect or shunt. 4. Normal aortic root. 5. A small pericardial effusion was noted, no evidence of cardiac tamponade. 6. Mildly calcified aortic valve with normal leaflet excursion. Mildly calcified mitral annulus with normal anterior mitral valve leaflet motion. Normal tricuspid valve. The pulmonic valve and proximal pulmonary artery branches were not well visualized. 7. The inferior vena cava was not visualized. Doppler with no significant valvular regurgitation detected. Abnormal relaxation pattern was noted across the mitral valve leaflets, as well as the mitral valve annulus, consistent with features of grade 1 left ventricular diastolic dysfunction. IMPRESSION: 1. Normal global left ventricular systolic function with mild concentric left ventricular hypertrophy. There are some features of grade 1 left ventricular diastolic dysfunction. 2. Aortic valve sclerosis with mild aortic stenosis, but no aortic regurgitation. 3. Isolated mitral annulus calcification. 4. A small pericardial effusion was noted. No evidence of cardiac tamponade. 5. This study was technically limited due to poor acoustic window. MTDD
== END ==
LOC: M CARPUL 12:44
PROVIDERS: ATTEND Family Medicine
DX: R01.1 Cardiac murmur, unspecified (principal)

== ENCOUNTER → 2020-11-29 | Outpatient (CLI) | payer MEDICAID | LOC: M LABSMTC 13:41 | PROVIDERS: ATTEND Anesthesiology | DX: Z20.822 Contact with and (suspected) exposure to COVID-19 (principal) ==

== ENCOUNTER → 2020-11-29 | Outpatient (CLI) | payer MEDICAID ==
--- NOTE | 2020-11-29 16:23 | REP ---
INDICATION: RT HIP PAIN injury February 2020 in May 2020, pain COMPARISON: None. TECHNIQUE: Coronal T1, STIR through the pelvis, axial, coronal, sagittal T2 fat sat right hip. FINDINGS: This study is significantly limited due to excessive patient motion. There is severe arthritic change at the right hip joint with diffuse severe chondromalacia. There is subchondral marrow edema on both sides of the joint. Edema extends into the right femoral neck. Serpiginous low signal in the superior aspect of the right femoral head is suspicious for an element of avascular necrosis. There is a small joint effusion. I cannot evaluate the labrum due to patient motion. Mild increased signal on T2 weighted images along the greater trochanters bilaterally is compatible with mild greater trochanteric tendonobursitis. There is a small partial tear of the right common hamstring tendon at its insertion onto the ischium. There is mild diffuse edema in the right atrophic gluteal muscles posteriorly. The visualized intrapelvic structures appear unremarkable. IMPRESSION: Significantly limited exam due to excessive patient motion. Severe arthritic change right hip joint with associated marrow edema on both sides of the joint. 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 Small joint effusion. Labrum cannot be evaluated. Findings compatible with mild greater trochanteric tendonobursitis bilaterally. Small partial tear right common hamstring tendon at its insertion onto the ischium. Mild diffuse edema in the atrophic right posterior gluteal muscles. <Electronically signed by Earl Baires > 11/29/20 [id number]
== END ==
LOC: M PLARAD 13:47
PROVIDERS: ATTEND Anesthesiology
DX: M25.551 Pain in right hip (principal); M25.451 Effusion, right hip; S76.011A Strain of muscle, fascia and tendon of right hip, initial encounter; X58.XXXA Exposure to other specified factors, initial encounter; Y92.9 Unspecified place or not applicable

== ENCOUNTER → 2020-12-04 | Outpatient (CLI) | payer MEDICAID ==
[~2020-12-04] MED LIST changes: +BUPIVACAINE HCL 0.25% 30ML VIAL As Ordered ONE; +ISOVUE-M 300 61% 15ML VIAL As Ordered ONE; +LIDOCAINE 1% SDV 30ML VIAL As Ordered ONE; +TRIAMCINOLONE ACETONIDE SUSP 40 MG/ML VIAL (J3301) As Ordered ONE; +oxyCODONE 5MG TAB As Ordered ONE
--- NOTE | 2020-12-04 17:58 | REP ---
INDICATION: RIGHT GREATER THROCHANTER BURSA INJECTION. COMPARISON: None. TECHNIQUE: Single-view proximal right femur performed. FINDINGS: Needle overlies the proximal right femur. IMPRESSION: 16 seconds fluoroscopy time utilized. <Electronically signed by Earl Baires > 12/04/20 [id number]
--- NOTE | 2020-12-06 00:39 | ECWPNPC ---
PATIENT NAME: ROHIT INGRAM : 1955 GENDER: FEMALE VISIT DATE: 12/04/2020 DISCHARGE DATE: 12/04/201655 VISIT LOCKED DATE TIME: PHYSICIAN: ALONDRA SAMUEL MD PHYSICIAN PAGER NO: ACTIVE RESOURCE: ALONDRA SAMUEL MD REASON FOR APPOINTMENT 1. INJECTION OF THE GREATER TROCHANTER OF THE FEMUR HISTORY OF PRESENT ILLNESS GENERAL: -. FALL RISK SCREENING: SCREENING :NO FALLS REPORTED IN THE LAST YEAR PAIN SCREENING: PATIENT HAS A COMPLAINT OF ACUTE OR CHRONIC PAIN :YES LOCATION OF PAIN:RIGHT HIP INTENSITY OF PAIN (SCALE OF 1 TO 10):9 WHAT DOES YOUR PAIN FEEL LIKE:ACHING, CONTINOUS, SHARP, SHOOTING DURATION:CONTINOUS PAIN IS INCREASED BY:OTHERS MOVING PAIN IS DECREASED BY:OTHERS LYING ON LEFT SIDE NURSING NOTE: -. PAIN CENTER INTAKE QUESTIONS: DO YOU HAVE A HISTORY OF MRSA? :NO DO YOU TAKE A BLOOD THINNERS? :NO DO YOU HAVE ANY BLEEDING DISORDERS? :YES IRON DEFFICIENCY ANEMIA ANY NEW NUMBNESS OR WEAKNESS IN YOUR LEGS OR ARMS? :NO ANY PACEMAKER,DEFIBRILLATOR, OR DORSAL COLUMN STIMULATOR? :NO DO YOU HAVE ANY RASHES OR OPEN SORES? :YES "RASH/SORE BELOW LEFT BUTT CHEEK" ARE YOU ALLERGIC TO IV DYE? :NO ARE YOU DIABETIC? :YES 191 ANY NEW PROBLEMS WITH YOUR MEDICATIONS? :NO HAVE YOU RECEIVED A VACCINE IN THE PAST 30 DAYS? :NO DO YOU PLAN TO RECEIVE A VACCINE IN THE NEXT 21 DAYS? :NO DO YOU TAKE ANY IMMUNOSUPPRESSIVE MEDICATIONS? :NO ANY HISTORY OF SEIZURES? :NO ANY HISTORY OF CARDIAC ISSUES OR EVENTS? :NO DO YOU HAVE SLEEP APNEA? :YES DO YOU WEAR A CPAP?YES ANY RECENT HEAD INJURY? :NO DO YOU HAVE ANY NEW INFECTIONS? :NO IS THERE A CHANCE YOU COULD BE ? :NO ARE YOU BREAST FEEDING? :NO WHEN DID YOU LAST EAT? : 12/04/2020 0300 WHEN DID YOU LAST DRINK? : 12/04/2020 1200 WHAT DID YOU LAST DRINK? : WATER NAME OF PERSON DRIVING YOU HOME? : COLERAINE DO YOU HAVE ANY OTHER QUESTIONS OR CONCERNS? : NO CURRENT MEDICATIONS TAKING FLUCONAZOLE 150 MG TABLET 1 TABLET ORALLY ONCE TAKING CLOTRIMAZOLE 1 % CREAM 1 APPLICATION EXTERNALLY TWICE A DAY NEEDED FOR RASH TAKING SUCRALFATE 1 GM TABLET 1 TABLET AT BEDTIME ON AN EMPTY STOMACH BEFORE MEALS ORALLY DAILY TAKING BUPROPION HCL ER (XL) 300 MG TABLET EXTENDED RELEASE 24 HOUR 1 TABLET IN THE MORNING P.O. ONCE A DAY TAKING ADVAIR DISKUS 500-50 MCG/DOSE AEROSOL POWDER BREATH ACTIVATED 1 PUFF INHALATION TWICE A DAY TAKING ALCOHOL WIPES 70 % PAD DIRECTED TOPICALLY BID TAKING VITAMIN D (ERGOCALCIFEROL) 22992 UNIT CAPSULE TAKE ONE CAPSULE BY MOUTH ONCE WEEKLY TAKING ZOFRAN 4 MG TABLET 1 TABLET NEEDED ORALLY EVERY 4 HRS, NOTES: 12/04/2020 0830 TAKING PROAIR HFA 108 (90 BASE) MCG/ACT AEROSOL SOLUTION 2 PUFFS NEEDED INHALATION FOUR TIMES DAILY NEEDED TAKING DUONEB 0.5-2.5 (3) MG/3ML SOLUTION 3 ML INHALATION FOUR TIMES A DAY NEEDED TAKING MAY HAVE - - MAY HAVE WHEEL CHAIR BATTERY (R26.2) DIRECTED (R26.2) DAILY TAKING MAY HAVE CERTARITE ANTIOXIDANT DAILY TAKING HYDROXYZINE HCL 50 MG TABLET 1 TABLET NEEDED ORALLY EVERY 6 HRS PRN FOR PURITUS TAKING MAY HAVE - - WHEEL CHAIR SEAT BELT MERCHANDISE FLOW MANAGER DIRECTED (R 26.2) DAILY TAKING NORVASC 10 MG TABLET 1 TABLET ORALLY ONCE A DAY, NOTES: 12/03/2019 2100 TAKING ONETOUCH TEST - STRIP DX E11.9 DIRECTED FOUR TIMES DAILY TAKING ONETOUCH ULTRA TEST - STRIP USE FOUR TIMES A DAY DIRECTED TAKING HUMALOG KWIKPEN 200 UNIT/ML SOLUTION PEN-INJECTOR DIRECTED SUBCUTANEOUS PER SLIDING SCALE (MDD 66 UNITS) TAKING FLONASE ALLERGY RELIEF 50 MCG/ACT SUSPENSION 1 SPRAY IN EACH NOSTRIL NASALLY ONCE A DAY TAKING FERROUS SULFATE 325 (65 FE) MG TABLET 1 TABLET ORALLY TWICE A DAY TAKING INCRUSE ELLIPTA 62.5 MCG/INH AEROSOL POWDER BREATH ACTIVATED 1 PUFF INHALATION ONCE A DAY TAKING WHEELCHAIR BATTERY REPAIR AND MAINTENANCE DIRECTED ICD10 - R26.2 [facility]# [id number] TAKING WHEELCHAIR - MISCELLANEOUS DX.R26.2 BATTERY DAILY TAKING LORATADINE 10 MG TABLET 1 TABLET ORALLY ONCE A DAY TAKING LANCETS - MISCELLANEOUS DIRECTED SUBCUTANEOUSLY BID TAKING WHEELCHAIR - MISCELLANEOUS DIRECTED (R26.2) MAY HAVE MOTERIZED WHEELCHAIR DAILY TAKING MAY HAVE - - POWER WHEELCHAIR COMPUTER NETWORK ENGINEER DIRECTED DX:R26.9 TAKING PRILOSEC OTC 20 MG TABLET DELAYED RELEASE 2 TABLET ORALLY ONCE A DAY TAKING LISINOPRIL 20 MG TABLET 1 TABLET ORALLY ONCE A DAY, NOTES: 12/04/2020829 TAKING LIPITOR 20 MG TABLET 1 TABLET ORALLY ONCE A DAY, NOTES: 12/03/2020 TAKING COLACE 100 MG CAPSULE 1 CAPSULE NEEDED ORALLY TWICE DAILY NEEDED, NOTES: PRN TAKING METFORMIN HCL 1000 MG TABLET 1 TABLET WITH MEALS ORALLY TWICE A DAY TAKING LEVOTHYROXINE SODIUM 50 MCG TABLET 1 TABLET ON AN EMPTY STOMACH IN THE MORNING ORALLY ONCE A DAY TAKING TIZANIDINE HCL 4 MG TABLET 1 TABLET NEEDED ORALLY THREE TIMES A DAY, NOTES: 12/04/2020829 TAKING DAILY MULTIVITAMIN - CAPSULE 1 TAB ORALLY DAILY TAKING SINGULAIR 10 MG TABLET 1 TABLET IN THE EVENING P.O. ONCE A DAY TAKING TOUJEO MAX SOLOSTAR 300 UNIT/ML SOLUTION PEN-INJECTOR 116 UNITS SUBCUTANEOUS DAILY TAKING MIRALAX - POWDER 17 GRAMS ORALLY ONCE A DAY TAKING FUROSEMIDE 20 MG TABLET 1 TABLET ORALLY ONCE A DAY TAKING TRULICITY 0.75 MG/0.5ML SOLUTION PEN-INJECTOR DIRECTED SUBCUTANEOUS WEEKLY, NOTES: WEDNESDAY TAKING TROSPIUM CHLORIDE ER 60 MG CAPSULE EXTENDED RELEASE 24 HOUR 1 CAPSULE IN THE MORNING ON AN EMPTY STOMACH OR 1 HOUR BEFORE A MEAL ORALLY ONCE A DAY TAKING HYDROCODONE-ACETAMINOPHEN 7.5-325 MG TABLET 1 TABLET NEEDED ORALLY FOR PAIN EVERY 8 HRS MDD3, NOTES: 12/04/2020829 TAKING MAY HAVE - - HEAVY DUTY ROLLING WALKER WITH SEAT, ROLLATOR, DX: R26.2 WEIGHT: 320 LBS TAKING LYRICA 200 MG CAPSULE 1 CAPSULE ORALLY TID MDD: 3 TABS, NOTES: 12/04/2020829 TAKING INSULIN PEN NEEDLE 29G X 8MM MISCELLANEOUS 1 SUBCUTANEOUSLY DAILY TAKING CYMBALTA 60 MG CAPSULE DELAYED RELEASE PARTICLES 1 CAPSULE ORALLY ONCE A DAY, NOTES: 12/03/2020 NOT-TAKING MELATONIN 5 MG TABLET 1 TABLET AT BEDTIME NEEDED WITH FOOD ORALLY ONCE A DAY NOT-TAKING DIAZEPAM 5 MG TABLET [address]T NEEDED ORALLY ON WAY TO MRI MAY REPEAT AT MRI UNTI MDD2 NOT-TAKING NYSTATIN 236859 UNIT/GM POWDER 1 APPLICATION TO AFFECTED AREA EXTERNALLY GROIN DAILY NOT-TAKING DOXYCYCLINE MONOHYDRATE 100 MG CAPSULE 1 CAPSULE ORALLY EVERY 12 HOURS NOT-TAKING CEPHALEXIN 500 MG CAPSULE 1 CAPSULE ORALLY EVERY 8 HRS NOT-TAKING [facility] HYDROCORTISONE ANTI-ITCH 0.5 % CREAM 1 APPLICATION TO AFFECTED AREA EXTERNALLY TWICE A DAY NOT-TAKING SPIRIVA HANDIHALER 18 MCG CAPSULE 1 CAPSULE INHALATION ONCE A DAY MEDICATION LIST REVIEWED AND RECONCILED WITH THE PATIENT PAST MEDICAL HISTORY LOW VITAMIN D TYPE II DIABETES GOAL ALC OF LESS THAT 7.5 OBSTRUCTIVE SLEEP APNEA HISTORY OF ABNORMAL PAPS, LAST 4 PAP SMEARS NORMAL (LAST 2016) MORBID OBESITY ARTHRITIS QUESTIONABLE FIBROMYALGIA 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 KNEE SURGERY MENISCUS TEAR REPAIR 2013 COLONOSCOPY 2006 TOTAL KNEE REPLACEMENT LEFT 03/19/17 FAMILY HISTORY FATHER: MOTHER: SON(S): ALIVE 3 SON(S) - HEALTHY. PATIENT IS ADOPTED. SOCIAL HISTORY GENERAL: TOBACCO USE ARE YOU A:FORMER SMOKER HOW LONG HAS IT BEEN SINCE YOU LAST SMOKED?> 10 YEARS LATEX QUESTIONNAIRE LATEX ALLERGY : HAVE YOU EVER DEVELOPED ANY TYPE OF REACTION AFTER HANDLING LATEX PRODUCTS SUCH RUBBER GLOVES, CONDOMS, DIAPHRAGMS, BALLOONS, SOCKS, OR UNDERWEAR?YES LATEX ALLERGY : HAVE YOU EVER DEVELOPED ANY TYPE OF REACTION DURING OR AFTER DENTAL APPOINTMENT, VAGINAL/RECTAL EXAMINATION, SURGICAL PROCEDURE, OR ANY OTHER EXPOSURE?NO - PLEASE INDICATE :OTHER (DOCUMENT IN NOTES) ADHESIVE DATE ASKED : 10/31/2020 LATEX RISK : HAVE YOU EVER HAD ANY DIFFICULTY BREATHING OR HIVES AFTER EATING OR HANDLING ANY FRUITS, OR VEGETABLES; SUCH KIWI, BANANAS, STONE FRUITS, OR CHESTNUTSNO LATEX RISK : DO YOU HAVE A PREVIOUS PERSONAL HISTORY OF MORE THAN NINE SURGERIES, SPINA BIFIDA, OR REPEATED CATHERIZATIONS? NO LATEX RISK : ARE YOU FREQUENTLY EXPOSED TO LATEX PRODUCTS IN YOUR OCCUPATION?NO BMI CARE GOAL FOLLOW-UP ABOVE NORMAL BMI [facility] ALCOHOL SCREENING DID YOU HAVE A DRINK CONTAINING ALCOHOL IN THE PAST YEAR?YES HOW OFTEN DID YOU HAVE SIX OR MORE DRINKS ON ONE OCCASION IN THE PAST YEAR?NEVER (0 POINTS) HOW MANY DRINKS DID YOU HAVE ON A TYPICAL DAY WHEN YOU WERE DRINKING IN THE PAST YEAR?1 OR 2 (0 POINTS) HOW OFTEN DID YOU HAVE A DRINK CONTAINING ALCOHOL IN THE PAST YEAR?MONTHLY OR LESS (1 POINT) POINTS1 INTERPRETATIONNEGATIVE RECREATIONAL DRUG USE DRUG USE?NO CAFFEINE CAFFEINE USE?YES HOW OFTEN AND HOW MUCH? ICE 2-3 8 OZ GLASSES A DAY SEXUAL HX HAD SEX IN THE LAST 12 MONTHS (VAGINAL, ORAL, OR ANAL)?: NO, HAVE YOU EVER HAD AN STD?: YES, CHLAMYDIA?: YES. HIV / HEP-C SCREENING HIV TEST OFFERED TO PATIENT:YES DATE OFFERED:03/21/2018 TEST ACCEPTED:NO HEP-C TEST OFFERED TO PATIENT:YES DATE OFFERED:03/21/2018 REASON:PATIENT DECLINED TEST ACCEPTED:NO REASON:PATIENT DECLINED BROCHURE PROVIDED TO PATIENTNO PRESYBETERIAN [id number] ROMAN CATHOLIC LANGUAGE TRINIDADIAN. EDUCATION LEVEL OF EDUCATION:[employer] LEARNING BARRIERS / SPECIAL NEEDS BARRIERS TO LEARNING?NO HEARING IMPAIRED?NO VISION IMPAIRED?YES :CORRECTIVE LENSES READINESS TO LEARN?YES LEARNING PREFERENCES?NO LEARNING CAPABILITIES PRESENT?YES EMOTIONAL BARRIERS?NO SPECIAL DEVICES?YES : SCOOTER CHAIR, CANE AND WALKER PROFESSOR OF MECHANICAL ENGINEERING NEEDED?NO DOMESTIC VIOLENCE NONE. 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 EXERCISE: LOST 70 POUNDS AFTER BYPASS, STARTED BACK UP AT [employer] DOING WATER AEROBICS AND WEIGHTS AT THE GYM FIVE TIMES A WEEK.. MARITAL STATUS: .. OTHERS AT HOME: LIVES BYSELF WITH CAT. PAIN CLINIC PFS, CLERGY, PUBLIC HEALTH REFERRALS HAS THE PATIENT BEEN EDUCATED REGARDING HIS/HER PLAN OF CARE?YES HAS THE PATIENT BEEN EDUCATED REGARDING PAIN, THE RISK FOR PAIN, THE IMPORTANCE OF EFFECTIVE PAIN MANAGEMENT, AND THE PAIN ASSESSMENT PROCESS?YES ADVANCE DIRECTIVE ADVANCE DIRECTIVE DISCUSSED WITH PATIENT:YES MUNIRA Jacobs [phone] HOSPITALIZATION/MAJOR DIAGNOSTIC PROCEDURE COPD EXACERBATION AND RSV 11/08/2018-11/12/2018 HYPERGLYCEMIA, RENAL INSUFFICIENCY 05/30/19 CELLULITIS 06/2020 VITAL SIGNS WT 320 LBS, HT 62.75 IN, BMI 57.13 INDEX, BP 148/81 MM HG, HR 101 /MIN, RR 20 /MIN, TEMP 97.8 F, OXYGEN SAT % 96%, BLOOD GLUCOSE LEVEL 191, SAFE IN ENV? (Y/N) YES, NA INITIALS RI 14:01, REVIEWED BY: NLJREVIEWERosalia BARROSO RN. 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 EXPIRATION DATE 12/2021 MICHELLE MONTEIRO 12/04/2020 3:21:51 PM > ADMINISTER SALINE MICHELLE PINEDA 12/04/2020 4:13:03 PM > #22 SL STARTED X 1 ATEMPT BY THIS MACHINE I TRIMMER IN RIGHT AC, SITE ASYMPTOMATIC, FLUSHES WITHOUT DIFFICULTY PATIENT TOLERATED WELL. PROCEDURES PAIN NURSING RECORD PROCEDURE IN ROOM 1615, PHYSICIAN IN ROOM 1621, START 1625, FINISH 1631, PHYSICIAN OUT OF ROOM 1633, OUT OF ROOM 1640, ECG NORMAL SINUS, PATIENT SHIELDED YES, SAFETY STRAP YES, PREP CHLOROPREP BY Ochoa PASCUAL RN, DRESSING TEGADERM BY DR SAMUEL LOC: 12/04/2020 161 , 1. ALERT, ORIENTED RESP: 12/04/2020 161 , 1. REGULAR, NO DYSPNEA COLOR: 12/04/2020 161 , 1. PINK SKIN: 12/04/20201614 , 1. WARM, DRY POSITION: 12/04/2020 161 , 3. LATERAL VITALS: 12/04/2020 1615 [id number]% 12/04/2020 1630 153/59-90-18-96% 12/04/2020 1650 150/30-972-20-96% DISCHARGE: POST PAIN 4 RIGHT HIP, DRESSING SITE DRY AND INTACT RIGHT HIP, IV DISCONTINUED, SITE CLEAR, CATHETER INTACT SL RIGHT AC DISCONTINUED BY Dewayne URIBE RN. SITE ASYMPTOMATIC 2X2 APPLIED TO SITE WITH PAPER TAPE, GAIT WHEELCHAIR, TEACHING COMPLETED, PATIENT ACKNOWLEDGES UNDERSTANDING YES PATIENT VERBALIZES UNDERSATNDING OF DISCHARGE INSTRUCTIONS REVIEWED, PATIENT DISCHARGED AT 1654 PRE PROCEDURE DIAGNOSIS BURSITIS AT THE RIGHT GREATER TROCHANTER OF THE FEMUR POST PROCEDURE DIAGNOSIS BURSITIS AT THE RIGHT GREATER TROCHANTER OF THE FEMUR PROCEDURE INJECTION AT THE BURSA OF THE RIGHT GREATER TROCHANTER OF THE FEMUR UNDER FLUOROSCOPIC GUIDANCE SURGEON DR. ALONDRA SAMUEL REPLANTING MACHINE CREWMAN NONE ANESTHESIA LOCAL PRE PROCEDURE NOTE THE PATIENT HAS A HISTORY OF RIGHT HIP PAIN. I EVALUATED THE PATIENT AND REVIEWED THE CHART. WE BOTH AGREE ON INJECTING OVER THE BURSA OF THE RIGHT GREATER TROCHANTER OF THE FEMUR. I DISCUSSED THE RISKS, BENEFITS AND ALTERNATIVES ASSOCIATED WITH THIS PROCEDURE. I DISCUSSED ALTERNATIVES WITH THE PATIENT. THE MRI OF THE RIGHT HIP IS SHOWING A POSSIBLE AVASCULAR NECROSIS OF THE FEMUR AMONG OTHER FINDINGS. I DISCUSSED WITH THAT PATIENT THAT IN ORDER TO DO THIS INJECTION I HAVE TO USE STEROIDS TO ADDRESS THE BURSITIS. 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 THE PATIENT WOULD LIKE TO PROCEED AND GAVE CONSENT TO PERFORM THE PROCEDURE. THE PATIENT DENIES UNEXPLAINABLE WEIGHT LOSS, FEVERS, CHILLS, OR CHANGES IN HIS URINARY OR BOWEL CONTROL. THE PATIENT IS COVID-19 NEGATIVE DESCRIPTION OF PROCEDURE AFTER CONSENT WAS TAKEN, THE PATIENT WAS BROUGHT TO THE PROCEDURE ROOM AND PLACED IN THE LEFT LATERAL DECUBITUS POSITION. THE RIGHT HIP AREA WAS CLEANED WITH CHLORAPREP SOLUTION AND DRAPED ASEPTICALLY. THE PROCEDURE WAS DONE UNDER STERILE CONDITIONS. A TIMEOUT WAS PERFORMED WHERE LATERALITY AND THE SITE OF THE PROCEDURE WERE CHECKED AND CONFIRMED WITH EVERYONE IN THE ROOM. UNDER FLUOROSCOPIC GUIDANCE, TARGET WAS SELECTED AT THE RIGHT GREATER TROCHANTER OF THE FEMUR. I CONFIRMED AGAIN WITH EVERYONE IN THE ROOM THE LATERALITY AND SITE OF THE TARGET 1425. LIDOCAINE WAS USED TO NUMB THE SKIN AND THE SUBCUTANEOUS TISSUE BELOW IT. SPINAL NEEDLE, 22-GAUGE, WAS ADVANCED UNDER FLUOROSCOPIC GUIDANCE AND FOLLOWING PATIENT FEEDBACK UNTIL THE TARGET WAS TOUCHED. POSITION OF THE NEEDLE WAS VERIFIED WITH AP AND LATERAL VIEWS. AFTER PROPER POSITION OF THE NEEDLE WAS ACHIEVED, ISOVUE-M 30%, 1.0 ML, WAS INJECTED SHOWING ADEQUATE SPREAD OF THE DYE. KENALOG 40 MG WAS INJECTED. THEN, A SOLUTION OF 30 ML OF BUPIVACAINE 0.125% WAS USED TO FLUSH THE SITE. THE MEDICATIONS WERE VERIFIED WITH THE NURSE. THERE WAS NO EVIDENCE OF BLOOD OR PARESTHESIA. THE PATIENT WAS SENT TO THE RECOVERY ROOM. THE PATIENT WAS MOVING THE EXTREMITIES AND DOING WELL. THERE WERE NO COMPLICATIONS DURING THE PROCEDURE. ESTIMATED BLOOD LOSS WAS LESS THAN 5 ML. FLUOROSCOPIC TIME WAS 16 SECONDS POST PROCEDURE NOTE I DISCUSSED THE PROCEDURE WITH THE PATIENT. WE WILL SEE THE PATIENT BACK IN SEVERAL WEEKS FOR FOLLOWUP. I AM LOOKING FOR LONG-LASTING PAIN RELIEF WITH THIS INTERVENTION. I, GISELA PETERSON, DOCUMENTED THE ABOVE INFORMATION ACTING A SCRIBE FOR DR. SAMUEL. I HAVE REVIEWED THE ABOVE DOCUMENT, WRITTEN BY GISELA PETERSON, METERS SUPERINTENDENT, AND I VERIFY THAT IT IS ACCURATE PROCEDURE CODES 30393 DRAIN/INJECT, JOINT/BURSA, MODIFIERS: [place] [id number] NEEDLE LOCALIZATION BY XRAY, MODIFIERS: 26 DISPOSITION & COMMUNICATION FOLLOW UP FOLLOW UP WITH WINDOW DRAPER (REASON: POST RIGHT GREATER TROCHANTER OF THE FEMUR BURSAL INJECTION) ELECTRONICALLY SIGNED BY ALONDRA SAMUEL MD, MD ON 12/05/2020 AT 12:51 PM EST DISCLAIMER : THIS IS A VISIT SUMMARY EXTRACTED FROM THE [employer] CHART. IT IS NOT A COPY OF THE [employer] PROGRESS NOTE. JASOND
== END ==
LOC: M PAIN 14:00
PROVIDERS: ATTEND Anesthesiology
DX: M70.60 Trochanteric bursitis, unspecified hip (principal); E11.9 Type 2 diabetes mellitus without complications; G47.33 Obstructive sleep apnea (adult) (pediatric); E55.9 Vitamin D deficiency, unspecified; J45.40 Moderate persistent asthma, uncomplicated; Z98.84 Bariatric surgery status; Z96.652 Presence of left artificial knee joint; Z87.891 Personal history of nicotine dependence; Z91.09 Other allergy status, other than to drugs and biological substances; E66.01 Morbid (severe) obesity due to excess calories; Z68.43 Body mass index [BMI] 50.0-59.9, adult; Z79.4 Long term (current) use of insulin; Z79.51 Long term (current) use of inhaled steroids; Z79.899 Other long term (current) drug therapy
CPT/HCPCS: 20610; 77002; J3301; Q9967

== ENCOUNTER → 2020-12-20 | Outpatient (CLI) | payer MEDICAID ==
[~2020-12-20] MED LIST changes: -BUPIVACAINE HCL 0.25% 30ML VIAL As Ordered ONE; -ISOVUE-M 300 61% 15ML VIAL As Ordered ONE; -LIDOCAINE 1% SDV 30ML VIAL As Ordered ONE; -TRIAMCINOLONE ACETONIDE SUSP 40 MG/ML VIAL (J3301) As Ordered ONE; -oxyCODONE 5MG TAB As Ordered ONE
== END ==
LOC: M PAIN 14:00
PROVIDERS: ATTEND Anesthesiology
DX: M25.551 Pain in right hip (principal); G89.29 Other chronic pain; E11.9 Type 2 diabetes mellitus without complications; G47.33 Obstructive sleep apnea (adult) (pediatric); Z87.891 Personal history of nicotine dependence; Z91.09 Other allergy status, other than to drugs and biological substances; Z79.4 Long term (current) use of insulin; Z79.51 Long term (current) use of inhaled steroids; Z79.899 Other long term (current) drug therapy

== ENCOUNTER → 2020-12-25 | Outpatient (CLI) | payer MEDICAID ==
[~2020-12-25] MED LIST changes: -LISI-538 PO; +LISI20TA33 PO
== END ==
LOC: M LABSMTC 13:47
PROVIDERS: ATTEND Anesthesiology
DX: Z20.822 Contact with and (suspected) exposure to COVID-19 (principal)

== ENCOUNTER → 2021-01-03 | Outpatient (CLI) | payer MEDICAID ==
--- NOTE | 2021-01-15 01:45 | ECWPNPC ---
PATIENT NAME: ROHIT INGRAM : 1955 GENDER: FEMALE VISIT DATE: 01/03/2021 DISCHARGE DATE: 01/03/21 1514 VISIT LOCKED DATE TIME: PHYSICIAN: ALONDRA SAMUEL MD PHYSICIAN PAGER NO: ACTIVE RESOURCE: ALONDRA SAMUEL MD REASON FOR APPOINTMENT 1. FOLLOW UP RIGHT HIP HISTORY OF PRESENT ILLNESS FALL RISK SCREENING: SCREENING :NO FALLS REPORTED IN THE LAST YEAR PAIN SCREENING: PATIENT HAS A COMPLAINT OF ACUTE OR CHRONIC PAIN :YES LOCATION OF PAIN:RIGHT HIP INTENSITY OF PAIN (SCALE OF 1 TO 10):8 WHAT DOES YOUR PAIN FEEL LIKE:ACHING, OTHER PATIENT REPORTS VARYING PAIN INTENSITY AND SEVERITY. "THIS REALLY DEEP DEEP HORRIBLE ACHING PAIN." DURATION:CONTINOUS PAIN IS INCREASED BY:OTHERS MOVING PAIN IS DECREASED BY:OTHERS LYING ON LEFT SIDE TREATMENT/MEDICATIONS USED TO MANAGE PAIN:OPIOIDS PLAN/GOALS/TREATMENT/INTERVENTION/FOLLOW UP:SEE PLAN GENERAL: 65-YEAR-OLD FEMALE PATIENT WITH A HISTORY OF CHRONIC LOW BACK AND MAINLY RIGHT LEG PAIN. THE PATIENT DESCRIBES THE PAIN A SHARP, STABBING AND SHOOTING WITH A PAIN SCORE RANGING FROM 8-10/10 IN THE BACK WITH RADIATION TO MAINLY THE RIGHT LEG. THIS IS AFFECTING HER ABILITY TO DO ACTIVITIES SUCH CLEANING HER HOUSE AND GROCERY SHOPPING. SHE HAS DONE HIP INJECTIONS IN THE PAST WITH NOT LONG LASTING RELIEF. PAIN CENTER INTAKE QUESTIONS: DO YOU HAVE A HISTORY OF MRSA? :NO DO YOU TAKE A BLOOD THINNERS? :NO DO YOU HAVE ANY BLEEDING DISORDERS? :NO ANY NEW NUMBNESS OR WEAKNESS IN YOUR LEGS OR ARMS? :NO ANY PACEMAKER,DEFIBRILLATOR, OR DORSAL COLUMN STIMULATOR? :NO DO YOU HAVE ANY RASHES OR OPEN SORES? :NO ARE YOU ALLERGIC TO IV DYE? :NO ARE YOU DIABETIC? :YES ANY NEW PROBLEMS WITH YOUR MEDICATIONS? :NO HAVE YOU RECEIVED A VACCINE IN THE PAST 30 DAYS? :NO DO YOU PLAN TO RECEIVE A VACCINE IN THE NEXT 21 DAYS? :NO DO YOU NEED ANY PRESCRIPTION? :NO DO YOU TAKE ANY IMMUNOSUPPRESSIVE MEDICATIONS? :NO CURRENT MEDICATIONS TAKING FLUCONAZOLE 150 MG TABLET 1 TABLET ORALLY ONCE TAKING CLOTRIMAZOLE 1 % CREAM 1 APPLICATION EXTERNALLY TWICE A DAY NEEDED FOR RASH TAKING SUCRALFATE 1 GM TABLET 1 TABLET AT BEDTIME ON AN EMPTY STOMACH BEFORE MEALS ORALLY DAILY TAKING BUPROPION HCL ER (XL) 300 MG TABLET EXTENDED RELEASE 24 HOUR 1 TABLET IN THE MORNING P.O. ONCE A DAY TAKING ADVAIR DISKUS 500-50 MCG/DOSE AEROSOL POWDER BREATH ACTIVATED 1 PUFF INHALATION TWICE A DAY TAKING ALCOHOL WIPES 70 % PAD DIRECTED TOPICALLY BID TAKING VITAMIN D (ERGOCALCIFEROL) 04122 UNIT CAPSULE TAKE ONE CAPSULE BY MOUTH ONCE WEEKLY TAKING ZOFRAN 4 MG TABLET 1 TABLET NEEDED ORALLY EVERY 4 HRS TAKING PROAIR HFA 108 (90 BASE) MCG/ACT AEROSOL SOLUTION 2 PUFFS NEEDED INHALATION FOUR TIMES DAILY NEEDED TAKING DUONEB 0.5-2.5 (3) MG/3ML SOLUTION 3 ML INHALATION FOUR TIMES A DAY NEEDED TAKING MAY HAVE - - MAY HAVE WHEEL CHAIR BATTERY (R26.2) DIRECTED (R26.2) DAILY TAKING MAY HAVE CERTARITE ANTIOXIDANT DAILY TAKING HYDROXYZINE HCL 50 MG TABLET 1 TABLET NEEDED ORALLY EVERY 6 HRS PRN FOR PURITUS TAKING MAY HAVE - - WHEEL CHAIR SEAT BELT HYDRAULIC AND PLUMBING INSTALLER DIRECTED (R 26.2) DAILY TAKING NORVASC 10 MG TABLET 1 TABLET ORALLY ONCE A DAY TAKING ONETOUCH TEST - STRIP DX E11.9 DIRECTED FOUR TIMES DAILY TAKING ONETOUCH ULTRA TEST - STRIP USE FOUR TIMES A DAY DIRECTED TAKING HUMALOG KWIKPEN 200 UNIT/ML SOLUTION PEN-INJECTOR DIRECTED SUBCUTANEOUS PER SLIDING SCALE (MDD 66 UNITS) TAKING FLONASE ALLERGY RELIEF 50 MCG/ACT SUSPENSION 1 SPRAY IN EACH NOSTRIL NASALLY ONCE A DAY TAKING FERROUS SULFATE 325 (65 FE) MG TABLET 1 TABLET ORALLY TWICE A DAY TAKING INCRUSE ELLIPTA 62.5 MCG/INH AEROSOL POWDER BREATH ACTIVATED 1 PUFF INHALATION ONCE A DAY TAKING WHEELCHAIR BATTERY REPAIR AND MAINTENANCE DIRECTED ICD10 - R26.2 [facility]# [id number] TAKING WHEELCHAIR - MISCELLANEOUS DX.R26.2 BATTERY DAILY TAKING LORATADINE 10 MG TABLET 1 TABLET ORALLY ONCE A DAY TAKING LANCETS - MISCELLANEOUS DIRECTED SUBCUTANEOUSLY BID TAKING WHEELCHAIR - MISCELLANEOUS DIRECTED (R26.2) MAY HAVE MOTERIZED WHEELCHAIR DAILY TAKING MAY HAVE - - POWER WHEELCHAIR SHELLS INSPECTOR DIRECTED DX:R26.9 TAKING PRILOSEC OTC 20 MG TABLET DELAYED RELEASE 2 TABLET ORALLY ONCE A DAY TAKING LISINOPRIL 20 MG TABLET 1 TABLET ORALLY ONCE A DAY TAKING LIPITOR 20 MG TABLET 1 TABLET ORALLY ONCE A DAY TAKING COLACE 100 MG CAPSULE 1 CAPSULE NEEDED ORALLY TWICE DAILY NEEDED, NOTES: PRN TAKING METFORMIN HCL 1000 MG TABLET 1 TABLET WITH MEALS ORALLY TWICE A DAY TAKING LEVOTHYROXINE SODIUM 50 MCG TABLET 1 TABLET ON AN EMPTY STOMACH IN THE MORNING ORALLY ONCE A DAY TAKING TIZANIDINE HCL 4 MG TABLET 1 TABLET NEEDED ORALLY THREE TIMES A DAY TAKING DAILY MULTIVITAMIN - CAPSULE 1 TAB ORALLY DAILY TAKING SINGULAIR 10 MG TABLET 1 TABLET IN THE EVENING P.O. ONCE A DAY TAKING TOUJEO MAX SOLOSTAR 300 UNIT/ML SOLUTION PEN-INJECTOR 116 UNITS SUBCUTANEOUS DAILY TAKING MIRALAX - POWDER 17 GRAMS ORALLY ONCE A DAY TAKING FUROSEMIDE 20 MG TABLET 1 TABLET ORALLY ONCE A DAY TAKING TRULICITY 0.75 MG/0.5ML SOLUTION PEN-INJECTOR DIRECTED SUBCUTANEOUS WEEKLY, NOTES: WEDNESDAY TAKING TROSPIUM CHLORIDE ER 60 MG CAPSULE EXTENDED RELEASE 24 HOUR 1 CAPSULE IN THE MORNING ON AN EMPTY STOMACH OR 1 HOUR BEFORE A MEAL ORALLY ONCE A DAY TAKING MAY HAVE - - HEAVY DUTY ROLLING WALKER WITH SEAT, ROLLATOR, DX: R26.2 WEIGHT: 320 LBS TAKING INSULIN PEN NEEDLE 29G X 8MM MISCELLANEOUS 1 SUBCUTANEOUSLY DAILY TAKING CYMBALTA 60 MG CAPSULE DELAYED RELEASE PARTICLES 1 CAPSULE ORALLY ONCE A DAY, NOTES: 12/03/2020 TAKING HYDROCODONE-ACETAMINOPHEN 7.5-325 MG TABLET 1 TABLET NEEDED ORALLY FOR PAIN EVERY 8 HRS MDD3, NOTES: 12/04/2020 0830 TAKING LYRICA 200 MG CAPSULE 1 CAPSULE ORALLY TID MDD: 3 TABS NOT-TAKING MELATONIN 5 MG TABLET 1 TABLET AT BEDTIME NEEDED WITH FOOD ORALLY ONCE A DAY NOT-TAKING DIAZEPAM 5 MG TABLET 1 TABLET NEEDED ORALLY ON WAY TO MRI MAY REPEAT AT MRI UNTI MDD2 NOT-TAKING NYSTATIN [id number] UNIT/GM POWDER 1 APPLICATION TO AFFECTED AREA EXTERNALLY GROIN DAILY NOT-TAKING DOXYCYCLINE MONOHYDRATE 100 MG CAPSULE 1 CAPSULE ORALLY EVERY 12 HOURS NOT-TAKING CEPHALEXIN 500 MG CAPSULE 1 CAPSULE ORALLY EVERY 8 HRS NOT-TAKING [facility] HYDROCORTISONE ANTI-ITCH 0.5 % CREAM 1 APPLICATION TO AFFECTED AREA EXTERNALLY TWICE A DAY NOT-TAKING SPIRIVA HANDIHALER 18 MCG CAPSULE 1 CAPSULE INHALATION ONCE A DAY MEDICATION LIST REVIEWED AND RECONCILED WITH THE PATIENT PAST MEDICAL HISTORY LOW VITAMIN D TYPE II DIABETES GOAL ALC OF LESS THAT 7.5 OBSTRUCTIVE SLEEP APNEA HISTORY OF ABNORMAL PAPS, LAST 4 PAP SMEARS NORMAL (LAST 2017) MORBID OBESITY ARTHRITIS QUESTIONABLE FIBROMYALGIA 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 WHEELCHAIR BOUND DUE TO PAIN ALLERGIES ADHESIVE BANDAGES PLASTIC: ITCHING/RASH - ALLERGY SOCIAL HISTORY GENERAL: TOBACCO USE ARE YOU A:FORMER SMOKER HOW LONG HAS IT BEEN SINCE YOU LAST SMOKED?> 10 YEARS LATEX QUESTIONNAIRE LATEX ALLERGY : HAVE YOU EVER DEVELOPED ANY TYPE OF REACTION AFTER HANDLING LATEX PRODUCTS SUCH RUBBER GLOVES, CONDOMS, DIAPHRAGMS, BALLOONS, SOCKS, OR UNDERWEAR?YES - PLEASE INDICATE :OTHER (DOCUMENT IN NOTES) ADHESIVE LATEX ALLERGY : HAVE YOU EVER DEVELOPED ANY TYPE OF REACTION DURING OR AFTER DENTAL APPOINTMENT, VAGINAL/RECTAL EXAMINATION, SURGICAL PROCEDURE, OR ANY OTHER EXPOSURE?NO LATEX RISK : HAVE YOU EVER HAD ANY DIFFICULTY BREATHING OR HIVES AFTER EATING OR HANDLING ANY FRUITS, OR VEGETABLES; SUCH KIWI, BANANAS, STONE FRUITS, OR CHESTNUTSNO LATEX RISK : DO YOU HAVE A PREVIOUS PERSONAL HISTORY OF MORE THAN NINE SURGERIES, SPINA BIFIDA, OR REPEATED CATHERIZATIONS? NO LATEX RISK : ARE YOU FREQUENTLY EXPOSED TO LATEX PRODUCTS IN YOUR OCCUPATION?NO DATE ASKED : 01/03/2021 ALCOHOL USE: YES, OCCASIONALLY 1 GLASS OF WINE MAYBE ONCE A YEAR.. BMI CARE GOAL FOLLOW-UP ABOVE NORMAL BMI FOLLOW-UPLIFESTYLE EDUCATION REGARDING DIET ALCOHOL SCREENING DID YOU HAVE A DRINK CONTAINING ALCOHOL IN THE PAST YEAR?YES HOW OFTEN DID YOU HAVE SIX OR MORE DRINKS ON ONE OCCASION IN THE PAST YEAR?NEVER (0 POINTS) HOW MANY DRINKS DID YOU HAVE ON A TYPICAL DAY WHEN YOU WERE DRINKING IN THE PAST YEAR?1 OR 2 (0 POINTS) HOW OFTEN DID YOU HAVE A DRINK CONTAINING ALCOHOL IN THE PAST YEAR?MONTHLY OR LESS (1 POINT) POINTS1 INTERPRETATIONNEGATIVE RECREATIONAL DRUG USE DRUG USE?NO CAFFEINE CAFFEINE USE?YES HOW OFTEN AND HOW MUCH? ICE 2-3 8 OZ GLASSES A DAY SEXUAL HX HAD SEX IN THE LAST 12 MONTHS (VAGINAL, ORAL, OR ANAL)?: NO, HAVE YOU EVER HAD AN STD?: YES, CHLAMYDIA?: YES. HIV / HEP-C SCREENING HIV TEST OFFERED TO PATIENT:YES DATE OFFERED:03/21/2018 TEST ACCEPTED:NO HEP-C TEST OFFERED TO PATIENT:YES DATE OFFERED:03/21/2018 REASON:PATIENT DECLINED TEST ACCEPTED:NO REASON:PATIENT DECLINED BROCHURE PROVIDED TO PATIENTNO SHINTO [id number] RESTORATIONIST LANGUAGE [place]. EDUCATION LEVEL OF EDUCATION:[employer] DEGREE LEARNING BARRIERS / SPECIAL NEEDS BARRIERS TO LEARNING?NO HEARING IMPAIRED?NO VISION IMPAIRED?YES :CORRECTIVE LENSES READINESS TO LEARN?YES LEARNING PREFERENCES?NO LEARNING CAPABILITIES PRESENT?YES EMOTIONAL BARRIERS?NO SPECIAL DEVICES?YES : SCOOTER CHAIR, CANE AND WALKER DEBUG TECHNICIAN NEEDED?NO DOMESTIC VIOLENCE NONE. 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 EXERCISE: LOST 70 POUNDS AFTER BYPASS, STARTED BACK UP AT [facility] DOING WATER AEROBICS AND WEIGHTS AT THE GYM FIVE TIMES A WEEK.. MARITAL STATUS: .. OTHERS AT HOME: LIVES BYSELF WITH CAT. - HAS THE PATIENT BEEN EDUCATED REGARDING HIS/HER PLAN OF CARE?YES HAS THE PATIENT BEEN EDUCATED REGARDING PAIN, THE RISK FOR PAIN, THE IMPORTANCE OF EFFECTIVE PAIN MANAGEMENT, AND THE PAIN ASSESSMENT PROCESS?YES ADVANCE DIRECTIVE ADVANCE DIRECTIVE DISCUSSED WITH PATIENT:YES MUNIRA Jacobs [phone] REVIEW OF SYSTEMS CONSTITUTIONAL: ANY RECENT FEVER NO . CHILLS NO . WEIGHT CHANGE OF UNKNOWN REASONS NO . GASTROENTEROLOGY: NEW UNEXPLAINABLE CHANGES IN BOWEL CONTROL NO . CONSTIPATION NO . GENITOURINARY: ANY NEW CHANGE IN BLADDER CONTROL? NO . NEUROLOGY: NEW ONSET DIZZINESS OR NEUROLOGICAL CHANGES NOT MENTIONED NO . NEW NUMBNESS OR PAIN PATTERNS NOT MENTIONED AND PERTINENT TO TODAY'S VISIT NO . CARDIOLOGY: NEW CHEST PRESSURE NO . NEW CHEST PAIN NO . RESPIRATORY: UNEXPLAINABLE COUGH NO . NEW SHORTNESS OF BREATH NO . VITAL SIGNS WT 298 LBS, HT 62.75 IN, BMI 53.20 INDEX, BP 143/69 MM HG, HR 100 /MIN, RR 20 /MIN, TEMP 96.0 F, OXYGEN SAT % 95%, BLOOD GLUCOSE LEVEL 103 THIS AM, SAFE IN ENV? (Y/N) YES, NA INITIALS DC 13:54, REVIEWED BY: Alissa JUAREZ RN BSN. EXAMINATION GENERAL EXAMINATION: THE PATIENT IS ALERT, ORIENTED TIMES THREE AND COOPERATIVE. LUNGS ARE CLEAR TO AUSCULTATION. HEART SHOWS REGULAR RHYTHM, NO MURMURS AND NO GALLOPS. THE RIGHT LEG IS WEAKER THAN THE LEFT LEG ON FLEXION AND EXTENSION. STRAIGHT LEG RAISE IS POSITIVE FOR RADICULOPATHY ON THE RIGHT AT 40 DEGREES. THERE IS TENDERNESS IN THE LOWER BACK IN THE PARASPINAL MUSCLE GROUP. MRI DATED 04/2015 SHOWS BULGING DISC AT L4-L5 AND L5-S1. ASSESSMENTS INTERVERTEBRAL DISC DISORDERS WITH RADICULOPATHY, LUMBAR REGION - M51.16 (PRIMARY) LUMBAR RADICULOPATHY - M54.16 TREATMENT INTERVERTEBRAL DISC DISORDERS WITH RADICULOPATHY, LUMBAR REGION CT SCAN : LUMBAR [id number] CLINICAL NOTES: I DISCUSSED ALTERNATIVES WITH MS. INGRAM. WE AGREE ON DOING AN EPIDURAL AT L4-L5. I AM LOOKING FOR LONG LASTING PAIN RELIEF. I AM GOING TO ORDER A CT. I WAS GOING TO ORDER AN MRI BUT THE PATIENT DOES NOT THINK THAT SHE CAN GO THROUGH THAT SO I WILL ORDER THE CT TO GET IT FASTER AND GET UPDATED IMIAGNING BEFORE DOING THE INJECTION. I WOULD LIKE TO SEE THE CT BEFORE BOOKING THE APPOINTMENT. THE PATIENT REPORTS UNDERSTANDING AND AGREES WITH THE PLAN. I, GISELA PETERSON, DOCUMENTED THE ABOVE INFORMATION ACTING A SCRIBE FOR DR. SAMUEL. I HAVE REVIEWED THE ABOVE DOCUMENT, WRITTEN BY GISELA PETERSON, DISBURSING AGENT, AND I VERIFY THAT IT IS ACCURATE. PROCEDURE CODES FA211 ESTABILISHED PATIENT [facility]GE 19694 OFFICE/OUTPATIENT VISIT EST DISPOSITION & COMMUNICATION FOLLOW UP REQUEST AUTH FOR LUMBAR EPIDURAL STEROID INJECTION (REASON: REQUEST AUTH FOR CT SCAN LUMBAR) ELECTRONICALLY SIGNED BY ALONDRA SAMUEL MD, MD ON 01/14/2021 AT 12:36 PM EST DISCLAIMER : THIS IS A VISIT SUMMARY EXTRACTED FROM THE [employer] CHART. IT IS NOT A COPY OF THE [employer] PROGRESS NOTE. MTDD
== END ==
LOC: M PAIN 14:00
PROVIDERS: ATTEND Anesthesiology
DX: M51.16 Intervertebral disc disorders with radiculopathy, lumbar region (principal); G89.29 Other chronic pain; E11.9 Type 2 diabetes mellitus without complications; E55.9 Vitamin D deficiency, unspecified; G47.33 Obstructive sleep apnea (adult) (pediatric); J45.40 Moderate persistent asthma, uncomplicated; Z87.891 Personal history of nicotine dependence; Z91.09 Other allergy status, other than to drugs and biological substances; E66.01 Morbid (severe) obesity due to excess calories; Z68.43 Body mass index [BMI] 50.0-59.9, adult; Z79.4 Long term (current) use of insulin; Z79.51 Long term (current) use of inhaled steroids; Z79.899 Other long term (current) drug therapy

== ENCOUNTER → 2021-01-06 | Outpatient (CLI) | payer MEDICAID ==
--- NOTE | 2021-01-15 00:44 | ECWPNPC ---
PATIENT NAME: ROHIT INGRAM : 1955 GENDER: FEMALE VISIT DATE: 01/06/2021 DISCHARGE DATE: 01/06/21 0000 VISIT LOCKED DATE TIME: PHYSICIAN: ALONDRA SAMUEL MD PHYSICIAN PAGER NO: ACTIVE RESOURCE: ALONDRA SAMUEL MD REASON FOR APPOINTMENT 1. INCREASED PAIN HISTORY OF PRESENT ILLNESS GENERAL: PERMISSION FROM PATIENT WAS RECEIVED TO DO TELEPHONE OFFICE VISIT. 65-YEAR-OLD FEMALE PATIENT WITH A HISTORY OF CHRONIC LOW BACK AND RIGHT LEG PAIN. THE PATIENT HAS BEEN SUFFERING FROM THIS CONDITION FOR MANY YEARS. WE ARE PLANNING TO DO AN EPIDURAL ON THE PATIENT BUT THE PAIN HAS BEEN INCREASING. THE PATIENT DESCRIBES THE PAIN ACHING, SHARP AND SEVERE WITH A PAIN SCORE RANGING FROM 7-10/10. SHE STATES THAT THE 3 HYDROCODONE A DAY ARE NOT LASTING. SHE IS REALLY HAVING A DIFFICULT TIME. SHE CANNOT MOVE AROUND. FALL RISK SCREENING: SCREENING :NO FALLS REPORTED IN THE LAST YEAR PAIN SCREENING: PATIENT HAS A COMPLAINT OF ACUTE OR CHRONIC PAIN :YES LOCATION OF PAIN:LOW BACK, LEFT HIP, RIGHT HIP, LEG(S) INTENSITY OF PAIN (SCALE OF 1 TO 10):10 WHAT DOES YOUR PAIN FEEL LIKE:SHARP, STABBING, SHOOTING DURATION:CONTINOUS, CONSTANT PAIN IS INCREASED BY:ACTIVITIES PAIN IS DECREASED BY:USE OF PAIN MEDICATIONS NURSING NOTE: -. PAIN CENTER INTAKE QUESTIONS: DO YOU HAVE A HISTORY OF MRSA? :NO DO YOU TAKE A BLOOD THINNERS? :NO DO YOU HAVE ANY BLEEDING DISORDERS? :NO ANY NEW NUMBNESS OR WEAKNESS IN YOUR LEGS OR ARMS? :NO ANY PACEMAKER,DEFIBRILLATOR, OR DORSAL COLUMN STIMULATOR? :NO DO YOU HAVE ANY RASHES OR OPEN SORES? :NO ARE YOU ALLERGIC TO IV DYE? :NO ARE YOU DIABETIC? :YES ANY NEW PROBLEMS WITH YOUR MEDICATIONS? :YES PAIN MEDS AREN'T LASTING LONG, PAIN IS WORSE NOW HAVE YOU RECEIVED A VACCINE IN THE PAST 30 DAYS? :NO DO YOU PLAN TO RECEIVE A VACCINE IN THE NEXT 21 DAYS? :NO DO YOU NEED ANY PRESCRIPTION? :YES PT ASKING FOR BETTER PAIN CONTROL DO YOU TAKE ANY IMMUNOSUPPRESSIVE MEDICATIONS? :NO IS THERE A CHANCE YOU COULD BE ? :NO ARE YOU BREAST FEEDING? :NO CURRENT MEDICATIONS TAKING FLUCONAZOLE 150 MG TABLET 1 TABLET ORALLY ONCE TAKING CLOTRIMAZOLE 1 % CREAM 1 APPLICATION EXTERNALLY TWICE A DAY NEEDED FOR RASH TAKING SUCRALFATE 1 GM TABLET 1 TABLET AT BEDTIME ON AN EMPTY STOMACH BEFORE MEALS ORALLY DAILY TAKING BUPROPION HCL ER (XL) 300 MG TABLET EXTENDED RELEASE 24 HOUR 1 TABLET IN THE MORNING P.O. ONCE A DAY TAKING ADVAIR DISKUS 500-50 MCG/DOSE AEROSOL POWDER BREATH ACTIVATED 1 PUFF INHALATION TWICE A DAY TAKING ALCOHOL WIPES 70 % PAD DIRECTED TOPICALLY BID TAKING VITAMIN D (ERGOCALCIFEROL) 59537 UNIT CAPSULE TAKE ONE CAPSULE BY MOUTH ONCE WEEKLY TAKING ZOFRAN 4 MG TABLET 1 TABLET NEEDED ORALLY EVERY 4 HRS TAKING PROAIR HFA 108 (90 BASE) MCG/ACT AEROSOL SOLUTION 2 PUFFS NEEDED INHALATION FOUR TIMES DAILY NEEDED TAKING DUONEB 0.5-2.5 (3) MG/3ML SOLUTION 3 ML INHALATION FOUR TIMES A DAY NEEDED TAKING MAY HAVE - - MAY HAVE WHEEL CHAIR BATTERY (R26.2) DIRECTED (R26.2) DAILY TAKING MAY HAVE CERTARITE ANTIOXIDANT DAILY TAKING HYDROXYZINE HCL 50 MG TABLET 1 TABLET NEEDED ORALLY EVERY 6 HRS PRN FOR PURITUS TAKING MAY HAVE - - WHEEL CHAIR SEAT BELT INSTITUTIONAL COMMODITY ANALYST DIRECTED (R 26.2) DAILY TAKING NORVASC 10 MG TABLET 1 TABLET ORALLY ONCE A DAY TAKING ONETOUCH TEST - STRIP DX E11.9 DIRECTED FOUR TIMES DAILY TAKING ONETOUCH ULTRA TEST - STRIP USE FOUR TIMES A DAY DIRECTED TAKING HUMALOG KWIKPEN 200 UNIT/ML SOLUTION PEN-INJECTOR DIRECTED SUBCUTANEOUS PER SLIDING SCALE (MDD 66 UNITS) TAKING FLONASE ALLERGY RELIEF 50 MCG/ACT SUSPENSION 1 SPRAY IN EACH NOSTRIL NASALLY ONCE A DAY TAKING FERROUS SULFATE 325 (65 FE) MG TABLET 1 TABLET ORALLY TWICE A DAY TAKING INCRUSE ELLIPTA 62.5 MCG/INH AEROSOL POWDER BREATH ACTIVATED 1 PUFF INHALATION ONCE A DAY TAKING WHEELCHAIR BATTERY REPAIR AND MAINTENANCE DIRECTED ICD10 - R26.2 [facility]# [id number] TAKING WHEELCHAIR - MISCELLANEOUS DX.R26.2 BATTERY DAILY TAKING LORATADINE 10 MG TABLET 1 TABLET ORALLY ONCE A DAY TAKING LANCETS - MISCELLANEOUS DIRECTED SUBCUTANEOUSLY BID TAKING WHEELCHAIR - MISCELLANEOUS DIRECTED (R26.2) MAY HAVE MOTERIZED WHEELCHAIR DAILY TAKING MAY HAVE - - POWER WHEELCHAIR EMBEDDED SYSTEMS DESIGNER DIRECTED DX:R26.9 TAKING PRILOSEC OTC 20 MG TABLET DELAYED RELEASE 2 TABLET ORALLY ONCE A DAY TAKING LISINOPRIL 20 MG TABLET 1 TABLET ORALLY ONCE A DAY TAKING LIPITOR 20 MG TABLET 1 TABLET ORALLY ONCE A DAY TAKING COLACE 100 MG CAPSULE 1 CAPSULE NEEDED ORALLY TWICE DAILY NEEDED, NOTES: PRN TAKING METFORMIN HCL 1000 MG TABLET 1 TABLET WITH MEALS ORALLY TWICE A DAY TAKING LEVOTHYROXINE SODIUM 50 MCG TABLET 1 TABLET ON AN EMPTY STOMACH IN THE MORNING ORALLY ONCE A DAY TAKING TIZANIDINE HCL 4 MG TABLET 1 TABLET NEEDED ORALLY THREE TIMES A DAY TAKING DAILY MULTIVITAMIN - CAPSULE 1 TAB ORALLY DAILY TAKING SINGULAIR 10 MG TABLET 1 TABLET IN THE EVENING P.O. ONCE A DAY TAKING TOUJEO MAX SOLOSTAR 300 UNIT/ML SOLUTION PEN-INJECTOR 116 UNITS SUBCUTANEOUS DAILY TAKING MIRALAX - POWDER 17 GRAMS ORALLY ONCE A DAY TAKING FUROSEMIDE 20 MG TABLET 1 TABLET ORALLY ONCE A DAY TAKING TRULICITY 0.75 MG/0.5ML SOLUTION PEN-INJECTOR DIRECTED SUBCUTANEOUS WEEKLY TAKING TROSPIUM CHLORIDE ER 60 MG CAPSULE EXTENDED RELEASE 24 HOUR 1 CAPSULE IN THE MORNING ON AN EMPTY STOMACH OR 1 HOUR BEFORE A MEAL ORALLY ONCE A DAY TAKING MAY HAVE - - HEAVY DUTY ROLLING WALKER WITH SEAT, ROLLATOR, DX: R26.2 WEIGHT: 320 LBS TAKING INSULIN PEN NEEDLE 29G X 8MM MISCELLANEOUS 1 SUBCUTANEOUSLY DAILY TAKING CYMBALTA 60 MG CAPSULE DELAYED RELEASE PARTICLES 1 CAPSULE ORALLY ONCE A DAY TAKING HYDROCODONE-ACETAMINOPHEN 7.5-325 MG TABLET 1 TABLET NEEDED ORALLY FOR PAIN EVERY 8 HRS MDD3 TAKING LYRICA 200 MG CAPSULE 1 CAPSULE ORALLY TID MDD: 3 TABS NOT-TAKING MELATONIN 5 MG TABLET 1 TABLET AT BEDTIME NEEDED WITH FOOD ORALLY ONCE A DAY NOT-TAKING DIAZEPAM 5 MG TABLET 1 TABLET NEEDED ORALLY ON WAY TO MRI MAY REPEAT AT MRI UNTI MDD2 NOT-TAKING NYSTATIN [id number] UNIT/GM POWDER 1 APPLICATION TO AFFECTED AREA EXTERNALLY GROIN DAILY NOT-TAKING DOXYCYCLINE MONOHYDRATE 100 MG CAPSULE 1 CAPSULE ORALLY EVERY 12 HOURS NOT-TAKING CEPHALEXIN 500 MG CAPSULE 1 CAPSULE ORALLY EVERY 8 HRS NOT-TAKING [facility] HYDROCORTISONE ANTI-ITCH 0.5 % CREAM 1 APPLICATION TO AFFECTED AREA EXTERNALLY TWICE A DAY NOT-TAKING SPIRIVA HANDIHALER 18 MCG CAPSULE 1 CAPSULE INHALATION ONCE A DAY MEDICATION LIST REVIEWED AND RECONCILED WITH THE PATIENT PAST MEDICAL HISTORY LOW VITAMIN D TYPE II DIABETES GOAL ALC OF LESS THAT 7.5 OBSTRUCTIVE SLEEP APNEA HISTORY OF ABNORMAL PAPS, LAST 4 PAP SMEARS NORMAL (LAST 2016) MORBID OBESITY ARTHRITIS QUESTIONABLE FIBROMYALGIA 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 WHEELCHAIR BOUND DUE TO PAIN ALLERGIES ADHESIVE BANDAGES PLASTIC: ITCHING/RASH - ALLERGY SOCIAL HISTORY GENERAL: TOBACCO USE ARE YOU A:FORMER SMOKER HOW LONG HAS IT BEEN SINCE YOU LAST SMOKED?> 10 YEARS LATEX QUESTIONNAIRE LATEX ALLERGY : HAVE YOU EVER DEVELOPED ANY TYPE OF REACTION AFTER HANDLING LATEX PRODUCTS SUCH RUBBER GLOVES, CONDOMS, DIAPHRAGMS, BALLOONS, SOCKS, OR UNDERWEAR?YES - PLEASE INDICATE :OTHER (DOCUMENT IN NOTES) ADHESIVE LATEX ALLERGY : HAVE YOU EVER DEVELOPED ANY TYPE OF REACTION DURING OR AFTER DENTAL APPOINTMENT, VAGINAL/RECTAL EXAMINATION, SURGICAL PROCEDURE, OR ANY OTHER EXPOSURE?NO LATEX RISK : HAVE YOU EVER HAD ANY DIFFICULTY BREATHING OR HIVES AFTER EATING OR HANDLING ANY FRUITS, OR VEGETABLES; SUCH KIWI, BANANAS, STONE FRUITS, OR CHESTNUTSNO LATEX RISK : DO YOU HAVE A PREVIOUS PERSONAL HISTORY OF MORE THAN NINE SURGERIES, SPINA BIFIDA, OR REPEATED CATHERIZATIONS? NO LATEX RISK : ARE YOU FREQUENTLY EXPOSED TO LATEX PRODUCTS IN YOUR OCCUPATION?NO DATE ASKED : 01/03/2021 ALCOHOL USE: YES, OCCASIONALLY 1 GLASS OF WINE MAYBE ONCE A YEAR.. BMI CARE GOAL FOLLOW-UP ABOVE NORMAL BMI FOLLOW-UPLIFESTYLE EDUCATION REGARDING DIET ALCOHOL SCREENING DID YOU HAVE A DRINK CONTAINING ALCOHOL IN THE PAST YEAR?YES HOW OFTEN DID YOU HAVE SIX OR MORE DRINKS ON ONE OCCASION IN THE PAST YEAR?NEVER (0 POINTS) HOW MANY DRINKS DID YOU HAVE ON A TYPICAL DAY WHEN YOU WERE DRINKING IN THE PAST YEAR?1 OR 2 (0 POINTS) HOW OFTEN DID YOU HAVE A DRINK CONTAINING ALCOHOL IN THE PAST YEAR?MONTHLY OR LESS (1 POINT) POINTS1 INTERPRETATIONNEGATIVE RECREATIONAL DRUG USE DRUG USE?NO CAFFEINE CAFFEINE USE?YES HOW OFTEN AND HOW MUCH? ICE 2-3 8 OZ GLASSES A DAY SEXUAL HX HAD SEX IN THE LAST 12 MONTHS (VAGINAL, ORAL, OR ANAL)?: NO, HAVE YOU EVER HAD AN STD?: YES, CHLAMYDIA?: YES. HIV / HEP-C SCREENING HIV TEST OFFERED TO PATIENT:YES DATE OFFERED:03/21/2018 TEST ACCEPTED:NO HEP-C TEST OFFERED TO PATIENT:YES DATE OFFERED:03/21/2018 REASON:PATIENT DECLINED TEST ACCEPTED:NO REASON:PATIENT DECLINED BROCHURE PROVIDED TO PATIENTNO CONGREGATION [id number] UATSDIN LANGUAGE MONTENEGRIN. 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 EXERCISE: LOST 70 POUNDS AFTER BYPASS, STARTED BACK UP AT [facility] DOING WATER AEROBICS AND WEIGHTS AT THE GYM FIVE TIMES A WEEK.. MARITAL STATUS: .. OTHERS AT HOME: LIVES BYSELF WITH CAT. - HAS THE PATIENT BEEN EDUCATED REGARDING HIS/HER PLAN OF CARE?YES HAS THE PATIENT BEEN EDUCATED REGARDING PAIN, THE RISK FOR PAIN, THE IMPORTANCE OF EFFECTIVE PAIN MANAGEMENT, AND THE PAIN ASSESSMENT PROCESS?YES ADVANCE DIRECTIVE ADVANCE DIRECTIVE DISCUSSED WITH PATIENT:YES MUNIRA Jacobs [phone] REVIEW OF SYSTEMS CONSTITUTIONAL: ANY RECENT FEVER NO . CHILLS NO . WEIGHT CHANGE OF UNKNOWN REASONS NO . GASTROENTEROLOGY: NEW UNEXPLAINABLE CHANGES IN BOWEL CONTROL NO . CONSTIPATION NO . GENITOURINARY: ANY NEW CHANGE IN BLADDER CONTROL? NO . NEUROLOGY: NEW ONSET DIZZINESS OR NEUROLOGICAL CHANGES NOT MENTIONED NO . NEW NUMBNESS OR PAIN PATTERNS NOT MENTIONED AND PERTINENT TO TODAY'S VISIT NO . CARDIOLOGY: NEW CHEST PRESSURE NO . NEW CHEST PAIN NO . RESPIRATORY: UNEXPLAINABLE COUGH NO . NEW SHORTNESS OF BREATH NO . EXAMINATION GENERAL EXAMINATION: THIS IS A TELEPHONE VISIT. MRI OF THE LUMBAR SPINE DATED 04/26/2015 SHOWS BULGING DISC AT MULTIPLE LEVELS, L4-L5 AND L5-S1. ASSESSMENTS INTERVERTEBRAL DISC DISORDERS WITH RADICULOPATHY, LUMBAR REGION - M51.16 (PRIMARY) TREATMENT INTERVERTEBRAL DISC DISORDERS WITH RADICULOPATHY, LUMBAR REGION START MORPHINE SULFATE TABLET, 15 MG, 1 TABLET NEEDED, ORALLY FOR PAIN, DAILY, 15 DAYS, 15 TABLET, REFILLS 0 CLINICAL NOTES: I DISCUSSED ALTERNATIVES WITH Karla JUAN JOSE. I WOULD LIKE TO DO AN EPIDURAL ON THE PATIENT. I WAS PLANNING ON ORDERING AN MRI OF THE LUMBAR SPINE BUT THE PATIENT STATES THAT SHE CANNOT DO IT SO I WILL ORDER A CT. HOPEFULLY, WE CAN DO IT THIS WEEK SO WE CAN DO AN INJECTION SOON. THE PATIENT AGREES WITH THAT INTERVENTIONAL PLAN. IN TERMS OF MEDICATIONS, I WILL GIVE THE PATIENT MORPHINE 50 MG TABLET ONCE A DAY FOR 2 WEEKS. THE PATIENT IS IN A LOT OF PAIN AND IS UNABLE TO FUNCTION AND SHE STATES THAT THE HYDROCODONE IS NOT LASTING LONG ENOUGH. THE PATIENT WILL REPLACE ONE HYDROCODONE TABLET A DAY WITH THE MORPHINE THE MORPHINE IS LONGER LASTING THAN THE HYDROCODONE. I REVIEWED THE ISTOP, REFERENCE NUMBER [id number]. THE PATIENT REPORTS UNDERSTANDING AND AGREES WITH THE PLAN TOTAL TIME OF PHONE VISIT WAS 20 MINUTES. I, GISELA PETERSON, DOCUMENTED THE ABOVE INFORMATION ACTING A SCRIBE FOR DR. SAMUEL. I HAVE REVIEWED THE ABOVE DOCUMENT, WRITTEN BY GISELA PETERSON, RESEARCH ANTHROPOLOGIST, AND I VERIFY THAT IT IS ACCURATE. OTHERS NOTES: PHONE VISIT, NO VITALS TAKEN. Sandra CAMILO RN BSN. PROCEDURE CODES 10034 TELEMEDICINE PHONE E/M BY AUGUSTO 11-20 MIN DISPOSITION & COMMUNICATION FOLLOW UP 4 WEEKS ELECTRONICALLY SIGNED BY ALONDRA SAMUEL MD, ON 01/14/2021 AT 01:16 PM EST DISCLAIMER : THIS IS A VISIT SUMMARY EXTRACTED FROM THE [employer] CHART. IT IS NOT A COPY OF THE [employer] PROGRESS NOTE. PRINCE
== END ==
LOC: M PAIN 13:00
PROVIDERS: ATTEND Anesthesiology
DX: M51.16 Intervertebral disc disorders with radiculopathy, lumbar region (principal); G89.29 Other chronic pain; E11.9 Type 2 diabetes mellitus without complications; E55.9 Vitamin D deficiency, unspecified; G47.33 Obstructive sleep apnea (adult) (pediatric); J45.40 Moderate persistent asthma, uncomplicated; Z87.891 Personal history of nicotine dependence; Z91.09 Other allergy status, other than to drugs and biological substances; Z79.4 Long term (current) use of insulin; Z79.51 Long term (current) use of inhaled steroids; Z79.899 Other long term (current) drug therapy

== ENCOUNTER → 2021-01-14 | Outpatient (CLI) | payer MEDICAID ==
--- NOTE | 2021-01-15 23:06 | ECWPNPC ---
PATIENT NAME: ROHIT INGRAM : 1955 GENDER: FEMALE VISIT DATE: 01/14/2021 DISCHARGE DATE: 01/14/21 1029 VISIT LOCKED DATE TIME: PHYSICIAN: ALONDRA SAMUEL MD PHYSICIAN PAGER NO: ACTIVE RESOURCE: ALONDRA SAMUEL MD REASON FOR APPOINTMENT 1. F/U HISTORY OF PRESENT ILLNESS GENERAL: PERMISSION FROM PATIENT WAS RECEIVED TO DO TELEPHONE OFFICE VISIT. 65-YEAR-OLD FEMALE PATIENT WITH A HISTORY OF CHRONIC LOW BACK PAIN. THE PATIENT DESCRIBES THE PAIN ACHING AND SEVERE IN THE BACK WITH RADIATION TO MAINLY THE RIGHT LEG. SHE WAS HAVING SEVERE PAIN AND CHOSE TO TRY A TRAMADOL. THE NEXT DAY, SHE SEEMED TO HAVE DEVELOPED SOME SORT OF HALLUCINATIONS AND SHE WAS THINKING IT WAS CAUSED BY THE MORPHINE AND SHE CALLED US WITH CONCERNS -. FALL RISK SCREENING: SCREENING :NO FALLS REPORTED IN THE LAST YEAR PAIN SCREENING: PATIENT HAS A COMPLAINT OF ACUTE OR CHRONIC PAIN :YES LOCATION OF PAIN:RIGHT HIP, LEG(S), FEET, ANKLE(S) RIGHT HIP, RADIATING DOWN RIGHT LEG, DOWN TO RIGHT FOOT INTENSITY OF PAIN (SCALE OF 1 TO 10):9 WHAT DOES YOUR PAIN FEEL LIKE:ACHING, CONTINOUS, THROBBING DURATION:CONTINOUS PAIN IS INCREASED BY:ACTIVITIES PAIN IS DECREASED BY:OTHERS REST, LYING ON LEFT SIDE NURSING NOTE: -. PAIN CENTER INTAKE QUESTIONS: DO YOU HAVE A HISTORY OF MRSA? :NO DO YOU TAKE A BLOOD THINNERS? :NO DO YOU HAVE ANY BLEEDING DISORDERS? :NO ANY NEW NUMBNESS OR WEAKNESS IN YOUR LEGS OR ARMS? :NO ANY PACEMAKER,DEFIBRILLATOR, OR DORSAL COLUMN STIMULATOR? :NO DO YOU HAVE ANY RASHES OR OPEN SORES? :NO ARE YOU ALLERGIC TO IV DYE? :NO ARE YOU DIABETIC? :YES ANY NEW PROBLEMS WITH YOUR MEDICATIONS? :NO HAVE YOU RECEIVED A VACCINE IN THE PAST 30 DAYS? :NO DO YOU PLAN TO RECEIVE A VACCINE IN THE NEXT 21 DAYS? :NO DO YOU NEED ANY PRESCRIPTION? :NO DO YOU TAKE ANY IMMUNOSUPPRESSIVE MEDICATIONS? :NO IS THERE A CHANCE YOU COULD BE ? :NO ARE YOU BREAST FEEDING? :NO CURRENT MEDICATIONS TAKING FLUCONAZOLE 150 MG TABLET 1 TABLET ORALLY ONCE TAKING CLOTRIMAZOLE 1 % CREAM 1 APPLICATION EXTERNALLY TWICE A DAY NEEDED FOR RASH TAKING SUCRALFATE 1 GM TABLET 1 TABLET AT BEDTIME ON AN EMPTY STOMACH BEFORE MEALS ORALLY DAILY TAKING BUPROPION HCL ER (XL) 300 MG TABLET EXTENDED RELEASE 24 HOUR 1 TABLET IN THE MORNING P.O. ONCE A DAY TAKING ADVAIR DISKUS 500-50 MCG/DOSE AEROSOL POWDER BREATH ACTIVATED 1 PUFF INHALATION TWICE A DAY TAKING ALCOHOL WIPES 70 % PAD DIRECTED TOPICALLY BID TAKING VITAMIN D (ERGOCALCIFEROL) 71382 UNIT CAPSULE TAKE ONE CAPSULE BY MOUTH ONCE WEEKLY TAKING ZOFRAN 4 MG TABLET 1 TABLET NEEDED ORALLY EVERY 4 HRS TAKING PROAIR HFA 108 (90 BASE) MCG/ACT AEROSOL SOLUTION 2 PUFFS NEEDED INHALATION FOUR TIMES DAILY NEEDED TAKING DUONEB 0.5-2.5 (3) MG/3ML SOLUTION 3 ML INHALATION FOUR TIMES A DAY NEEDED TAKING MAY HAVE - - MAY HAVE WHEEL CHAIR BATTERY (R26.2) DIRECTED (R26.2) DAILY TAKING MAY HAVE CERTARITE ANTIOXIDANT DAILY TAKING HYDROXYZINE HCL 50 MG TABLET 1 TABLET NEEDED ORALLY EVERY 6 HRS PRN FOR PURITUS TAKING MAY HAVE - - WHEEL CHAIR SEAT BELT LABORER [employer] DIRECTED (R 26.2) DAILY TAKING NORVASC 10 MG TABLET 1 TABLET ORALLY ONCE A DAY TAKING ONETOUCH TEST - STRIP DX E11.9 DIRECTED FOUR TIMES DAILY TAKING ONETOUCH ULTRA TEST - STRIP USE FOUR TIMES A DAY DIRECTED TAKING HUMALOG KWIKPEN 200 UNIT/ML SOLUTION PEN-INJECTOR DIRECTED SUBCUTANEOUS PER SLIDING SCALE (MDD 66 UNITS) TAKING FLONASE ALLERGY RELIEF 50 MCG/ACT SUSPENSION 1 SPRAY IN EACH NOSTRIL NASALLY ONCE A DAY TAKING FERROUS SULFATE 325 (65 FE) MG TABLET 1 TABLET ORALLY TWICE A DAY TAKING INCRUSE ELLIPTA 62.5 MCG/INH AEROSOL POWDER BREATH ACTIVATED 1 PUFF INHALATION ONCE A DAY TAKING WHEELCHAIR BATTERY REPAIR AND MAINTENANCE DIRECTED ICD10 - R26.2 [facility]# [id number] TAKING WHEELCHAIR - MISCELLANEOUS DX.R26.2 BATTERY DAILY TAKING LORATADINE 10 MG TABLET 1 TABLET ORALLY ONCE A DAY TAKING LANCETS - MISCELLANEOUS DIRECTED SUBCUTANEOUSLY BID TAKING WHEELCHAIR - MISCELLANEOUS DIRECTED (R26.2) MAY HAVE MOTERIZED WHEELCHAIR DAILY TAKING MAY HAVE - - POWER WHEELCHAIR SKEIN BANDER DIRECTED DX:R26.9 TAKING PRILOSEC OTC 20 MG TABLET DELAYED RELEASE 2 TABLET ORALLY ONCE A DAY TAKING LISINOPRIL 20 MG TABLET 1 TABLET ORALLY ONCE A DAY TAKING LIPITOR 20 MG TABLET 1 TABLET ORALLY ONCE A DAY TAKING COLACE 100 MG CAPSULE 1 CAPSULE NEEDED ORALLY TWICE DAILY NEEDED, NOTES: PRN TAKING METFORMIN HCL 1000 MG TABLET 1 TABLET WITH MEALS ORALLY TWICE A DAY TAKING LEVOTHYROXINE SODIUM 50 MCG TABLET 1 TABLET ON AN EMPTY STOMACH IN THE MORNING ORALLY ONCE A DAY TAKING TIZANIDINE HCL 4 MG TABLET 1 TABLET NEEDED ORALLY THREE TIMES A DAY TAKING DAILY MULTIVITAMIN - CAPSULE 1 TAB ORALLY DAILY TAKING SINGULAIR 10 MG TABLET 1 TABLET IN THE EVENING P.O. ONCE A DAY TAKING TOUJEO MAX SOLOSTAR 300 UNIT/ML SOLUTION PEN-INJECTOR 116 UNITS SUBCUTANEOUS DAILY TAKING MIRALAX - POWDER 17 GRAMS ORALLY ONCE A DAY TAKING FUROSEMIDE 20 MG TABLET 1 TABLET ORALLY ONCE A DAY TAKING TRULICITY 0.75 MG/0.5ML SOLUTION PEN-INJECTOR DIRECTED SUBCUTANEOUS WEEKLY TAKING TROSPIUM CHLORIDE ER 60 MG CAPSULE EXTENDED RELEASE 24 HOUR 1 CAPSULE IN THE MORNING ON AN EMPTY STOMACH OR 1 HOUR BEFORE A MEAL ORALLY ONCE A DAY TAKING MAY HAVE - - HEAVY DUTY ROLLING WALKER WITH SEAT, ROLLATOR, DX: R26.2 WEIGHT: 320 LBS TAKING INSULIN PEN NEEDLE 29G X 8MM MISCELLANEOUS 1 SUBCUTANEOUSLY DAILY TAKING CYMBALTA 60 MG CAPSULE DELAYED RELEASE PARTICLES 1 CAPSULE ORALLY ONCE A DAY TAKING HYDROCODONE-ACETAMINOPHEN 7.5-325 MG TABLET 1 TABLET NEEDED ORALLY FOR PAIN EVERY 8 HRS MDD3 TAKING LYRICA 200 MG CAPSULE 1 CAPSULE ORALLY TID MDD: 3 TABS TAKING MORPHINE SULFATE 15 MG TABLET 1 TABLET NEEDED ORALLY FOR PAIN DAILY NOT-TAKING MELATONIN 5 MG TABLET 1 TABLET AT BEDTIME NEEDED WITH FOOD ORALLY ONCE A DAY NOT-TAKING DIAZEPAM 5 MG TABLET 1 TABLET NEEDED ORALLY ON WAY TO MRI MAY REPEAT AT MRI UNTI MDD2 NOT-TAKING NYSTATIN [id number] UNIT/GM POWDER 1 APPLICATION TO AFFECTED AREA EXTERNALLY GROIN DAILY NOT-TAKING DOXYCYCLINE MONOHYDRATE 100 MG CAPSULE 1 CAPSULE ORALLY EVERY 12 HOURS NOT-TAKING CEPHALEXIN 500 MG CAPSULE 1 CAPSULE ORALLY EVERY 8 HRS NOT-TAKING [facility] HYDROCORTISONE ANTI-ITCH 0.5 % CREAM 1 APPLICATION TO AFFECTED AREA EXTERNALLY TWICE A DAY NOT-TAKING SPIRIVA HANDIHALER 18 MCG CAPSULE 1 CAPSULE INHALATION ONCE A DAY MEDICATION LIST REVIEWED AND RECONCILED WITH THE PATIENT PAST MEDICAL HISTORY LOW VITAMIN D TYPE II DIABETES GOAL ALC OF LESS THAT 7.5 OBSTRUCTIVE SLEEP APNEA HISTORY OF ABNORMAL PAPS, LAST 4 PAP SMEARS NORMAL (LAST 2016) MORBID OBESITY ARTHRITIS QUESTIONABLE FIBROMYALGIA 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 WHEELCHAIR BOUND DUE TO PAIN ALLERGIES ADHESIVE BANDAGES PLASTIC: ITCHING/RASH - ALLERGY SOCIAL HISTORY GENERAL: TOBACCO USE ARE YOU A:FORMER SMOKER HOW LONG HAS IT BEEN SINCE YOU LAST SMOKED?> 10 YEARS LATEX QUESTIONNAIRE LATEX ALLERGY : HAVE YOU EVER DEVELOPED ANY TYPE OF REACTION AFTER HANDLING LATEX PRODUCTS SUCH RUBBER GLOVES, CONDOMS, DIAPHRAGMS, BALLOONS, SOCKS, OR UNDERWEAR?YES - PLEASE INDICATE :OTHER (DOCUMENT IN NOTES) ADHESIVE LATEX ALLERGY : HAVE YOU EVER DEVELOPED ANY TYPE OF REACTION DURING OR AFTER DENTAL APPOINTMENT, VAGINAL/RECTAL EXAMINATION, SURGICAL PROCEDURE, OR ANY OTHER EXPOSURE?NO LATEX RISK : HAVE YOU EVER HAD ANY DIFFICULTY BREATHING OR HIVES AFTER EATING OR HANDLING ANY FRUITS, OR VEGETABLES; SUCH KIWI, BANANAS, STONE FRUITS, OR CHESTNUTSNO LATEX RISK : DO YOU HAVE A PREVIOUS PERSONAL HISTORY OF MORE THAN NINE SURGERIES, SPINA BIFIDA, OR REPEATED CATHERIZATIONS? NO LATEX RISK : ARE YOU FREQUENTLY EXPOSED TO LATEX PRODUCTS IN YOUR OCCUPATION?NO DATE ASKED : 01/14/2021 ALCOHOL USE: YES, OCCASIONALLY 1 GLASS OF WINE MAYBE ONCE A YEAR.. BMI CARE GOAL FOLLOW-UP ABOVE NORMAL BMI FOLLOW-UPLIFESTYLE EDUCATION REGARDING DIET ALCOHOL SCREENING DID YOU HAVE A DRINK CONTAINING ALCOHOL IN THE PAST YEAR?YES HOW OFTEN DID YOU HAVE SIX OR MORE DRINKS ON ONE OCCASION IN THE PAST YEAR?NEVER (0 POINTS) HOW MANY DRINKS DID YOU HAVE ON A TYPICAL DAY WHEN YOU WERE DRINKING IN THE PAST YEAR?1 OR 2 (0 POINTS) HOW OFTEN DID YOU HAVE A DRINK CONTAINING ALCOHOL IN THE PAST YEAR?MONTHLY OR LESS (1 POINT) POINTS1 INTERPRETATIONNEGATIVE RECREATIONAL DRUG USE DRUG USE?NO CAFFEINE CAFFEINE USE?YES HOW OFTEN AND HOW MUCH? ICE 2-3 8 OZ GLASSES A DAY SEXUAL HX HAD SEX IN THE LAST 12 MONTHS (VAGINAL, ORAL, OR ANAL)?: NO, HAVE YOU EVER HAD AN STD?: YES, CHLAMYDIA?: YES. HIV / HEP-C SCREENING HIV TEST OFFERED TO PATIENT:YES DATE OFFERED:03/21/2018 TEST ACCEPTED:NO HEP-C TEST OFFERED TO PATIENT:YES DATE OFFERED:03/21/2018 REASON:PATIENT DECLINED TEST ACCEPTED:NO REASON:PATIENT DECLINED BROCHURE PROVIDED TO PATIENTNO CATHOL[employer] [id number]. 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 EXERCISE: LOST 70 POUNDS AFTER BYPASS, STARTED BACK UP AT [facility] DOING WATER AEROBICS AND WEIGHTS AT THE GYM FIVE TIMES A WEEK.. MARITAL STATUS: .. OTHERS AT HOME: LIVES BYSELF WITH CAT. - HAS THE PATIENT BEEN EDUCATED REGARDING HIS/HER PLAN OF CARE?YES HAS THE PATIENT BEEN EDUCATED REGARDING PAIN, THE RISK FOR PAIN, THE IMPORTANCE OF EFFECTIVE PAIN MANAGEMENT, AND THE PAIN ASSESSMENT PROCESS?YES ADVANCE DIRECTIVE ADVANCE DIRECTIVE DISCUSSED WITH PATIENT:YES SONELVA Jacobs [phone] EXAMINATION GENERAL EXAMINATION: THIS IS A TELEPHONE VISIT. THE PATIENT IS ALERT, ORIENTED TIMES THREE AND COOPERATIVE. ASSESSMENTS INTERVERTEBRAL DISC DISORDERS WITH RADICULOPATHY, LUMBAR REGION - M51.16 (PRIMARY) TREATMENT INTERVERTEBRAL DISC DISORDERS WITH RADICULOPATHY, LUMBAR REGION CLINICAL NOTES: I DISCUSSED ALTERNATIVES WITH MS. INGRAM. I EXPLAINED TO HER THE IMPORTANCE OF NOT USING NARCOTICS WITHOUT CONSULTING WITH US. I EXPLAINED TO HER THAT THIS IS A SAFETY ISSSUE. I EXPLAINED THAT SHE IS USING CYMBALTA AND THERE COULD BE INTERACTIONS WITH OTHER MEDICATIONS LIKE TRAMADOL. I TOLD HER AT THE MOMENT TO GO BACK TO [facility]. I WOULD LIKE TO SEE HER IN THE OFFICE IN THE NEXT FEW DAYS. I WOULD LIKE TO REVIEW WITH HER THE MEDICATIONS THAT SHE IS TAKING AND THE USE OF NARCOTICS. WE ARE STILL WAITING FOR THE CT SCAN TO BE APPROVED. I WOULD LIKE TO DO AN EPIDURAL ON HER BUT I NEED UPDATED STUDIES. THE TOTAL VISIT WAS 16 MINUTES. THE PATIENT REPORTS UNDERSTANDING AND AGREES WITH THE PLAN. I, GISELA PETERSON, DOCUMENTED THE ABOVE INFORMATION ACTING A SCRIBE FOR DR. SAMUEL. I HAVE REVIEWED THE ABOVE DOCUMENT, WRITTEN BY GISELA PETERSON, PROPELLER DRIVEN AIRPLANE MECHANIC, AND I VERIFY THAT IT IS ACCURATE. OTHERS NOTES: VITAL SIGNS NOT PERFORMED DUE TO TELEPHONE VISIT 01/14/2021 SophiaQuinn BARROSO RN. PROCEDURE CODES 91999 OL DIG E/M SVC 11-20 MIN DISPOSITION & COMMUNICATION FOLLOW UP FOLLOW UP WITH DR. SAMUEL ON WEDNESDAY 01/17 (REASON: MEDICATION MANAGEMENT-INCREASED PAIN) ELECTRONICALLY SIGNED BY ALONDRA SAMUEL MD, MD ON 01/15/2021 AT 03:26 PM EST DISCLAIMER : THIS IS A VISIT SUMMARY EXTRACTED FROM THE [employer] CHART. IT IS NOT A COPY OF THE [employer] PROGRESS NOTE. [place]
== END ==
LOC: M PAIN 14:15
PROVIDERS: ATTEND Anesthesiology
DX: M51.16 Intervertebral disc disorders with radiculopathy, lumbar region (principal); G89.29 Other chronic pain; E11.9 Type 2 diabetes mellitus without complications; E55.9 Vitamin D deficiency, unspecified; G47.33 Obstructive sleep apnea (adult) (pediatric); J45.40 Moderate persistent asthma, uncomplicated; Z87.891 Personal history of nicotine dependence; Z91.09 Other allergy status, other than to drugs and biological substances; Z79.4 Long term (current) use of insulin; Z79.51 Long term (current) use of inhaled steroids; Z79.899 Other long term (current) drug therapy

== ENCOUNTER → 2021-01-20 | Outpatient (CLI) | payer MEDICAID ==
--- NOTE | 2021-01-20 23:52 | ECWPNPC ---
PATIENT NAME: ROHIT INGRAM : 1955 GENDER: FEMALE VISIT DATE: 01/20/2021 DISCHARGE DATE: 01/20/21 1500 VISIT LOCKED DATE TIME: PHYSICIAN: ALONDRA SAMUEL MD PHYSICIAN PAGER NO: ACTIVE RESOURCE: ALONDRA SAMUEL MD REASON FOR APPOINTMENT 1. RIGHT HIP HISTORY OF PRESENT ILLNESS GENERAL: 65-YEAR-OLD FEMALE PATIENT WITH A HISTORY OF CHRONIC LOW BACK AND RIGHT HIP PAIN. THE PATIENT DESCRIBES THE PAIN STABBING AND SHOOTING WITH A PAIN SCORE RANGING FROM 8-10/10. SHE IS VERY UNCOMFORTABLE. SHE STARTED USING MORHPINE AND SHE WAS USING TRAMADOL AND SHE STARTED HAVING HALLUCINATIONS. THE PATIENT WAS TOLD TO STOP USING BOTH AND GO BACK TO THE HYDROCODONE. FALL RISK SCREENING: SCREENING :NO FALLS REPORTED IN THE LAST YEAR PAIN SCREENING: PATIENT HAS A COMPLAINT OF ACUTE OR CHRONIC PAIN :YES LOCATION OF PAIN:RIGHT HIP RADIATES DOWN LEG INTENSITY OF PAIN (SCALE OF 1 TO 10):9.5 WHAT DOES YOUR PAIN FEEL LIKE:ACHING, STABBING, SHOOTING, OTHER DEEP DURATION:CONTINOUS, STEADY PAIN IS INCREASED BY:ACTIVITIES PAIN IS DECREASED BY:OTHERS LAYING ON LEFT SIDE NURSING NOTE: -. PAIN CENTER INTAKE QUESTIONS: DO YOU HAVE A HISTORY OF MRSA? :NO DO YOU TAKE A BLOOD THINNERS? :NO DO YOU HAVE ANY BLEEDING DISORDERS? :NO ANY NEW NUMBNESS OR WEAKNESS IN YOUR LEGS OR ARMS? :NO ANY PACEMAKER,DEFIBRILLATOR, OR DORSAL COLUMN STIMULATOR? :NO DO YOU HAVE ANY RASHES OR OPEN SORES? :NO ARE YOU ALLERGIC TO IV DYE? :NO ARE YOU DIABETIC? :YES ANY NEW PROBLEMS WITH YOUR MEDICATIONS? :NO HAVE YOU RECEIVED A VACCINE IN THE PAST 30 DAYS? :NO DO YOU PLAN TO RECEIVE A VACCINE IN THE NEXT 21 DAYS? :NO DO YOU NEED ANY PRESCRIPTION? :NO DO YOU TAKE ANY IMMUNOSUPPRESSIVE MEDICATIONS? :NO IS THERE A CHANCE YOU COULD BE ? :NO ARE YOU BREAST FEEDING? :NO CURRENT MEDICATIONS TAKING FLUCONAZOLE 150 MG TABLET 1 TABLET ORALLY ONCE TAKING CLOTRIMAZOLE 1 % CREAM 1 APPLICATION EXTERNALLY TWICE A DAY NEEDED FOR RASH TAKING SUCRALFATE 1 GM TABLET 1 TABLET AT BEDTIME ON AN EMPTY STOMACH BEFORE MEALS ORALLY DAILY TAKING BUPROPION HCL ER (XL) 300 MG TABLET EXTENDED RELEASE 24 HOUR 1 TABLET IN THE MORNING P.O. ONCE A DAY TAKING ADVAIR DISKUS 500-50 MCG/DOSE AEROSOL POWDER BREATH ACTIVATED 1 PUFF INHALATION TWICE A DAY TAKING ALCOHOL WIPES 70 % PAD DIRECTED TOPICALLY BID TAKING VITAMIN D (ERGOCALCIFEROL) 96051 UNIT CAPSULE TAKE ONE CAPSULE BY MOUTH ONCE WEEKLY , NOTES: WEEKLY TAKING ZOFRAN 4 MG TABLET 1 TABLET NEEDED ORALLY EVERY 4 HRS TAKING PROAIR HFA 108 (90 BASE) MCG/ACT AEROSOL SOLUTION 2 PUFFS NEEDED INHALATION FOUR TIMES DAILY NEEDED TAKING DUONEB 0.5-2.5 (3) MG/3ML SOLUTION 3 ML INHALATION FOUR TIMES A DAY NEEDED TAKING MAY HAVE - - MAY HAVE WHEEL CHAIR BATTERY (R26.2) DIRECTED (R26.2) DAILY TAKING MAY HAVE CERTARITE ANTIOXIDANT DAILY TAKING HYDROXYZINE HCL 50 MG TABLET 1 TABLET NEEDED ORALLY EVERY 6 HRS PRN FOR PURITUS TAKING MAY HAVE - - WHEEL CHAIR SEAT BELT ROAD SIGN INSTALLER DIRECTED (R 26.2) DAILY TAKING NORVASC 10 MG TABLET 1 TABLET ORALLY ONCE A DAY TAKING ONETOUCH TEST - STRIP DX E11.9 DIRECTED FOUR TIMES DAILY TAKING ONETOUCH ULTRA TEST - STRIP USE FOUR TIMES A DAY DIRECTED TAKING HUMALOG KWIKPEN 200 UNIT/ML SOLUTION PEN-INJECTOR DIRECTED SUBCUTANEOUS PER SLIDING SCALE (MDD 66 UNITS) TAKING FLONASE ALLERGY RELIEF 50 MCG/ACT SUSPENSION 1 SPRAY IN EACH NOSTRIL NASALLY ONCE A DAY TAKING FERROUS SULFATE 325 (65 FE) MG TABLET 1 TABLET ORALLY TWICE A DAY TAKING INCRUSE ELLIPTA 62.5 MCG/INH AEROSOL POWDER BREATH ACTIVATED 1 PUFF INHALATION ONCE A DAY TAKING WHEELCHAIR BATTERY REPAIR AND MAINTENANCE DIRECTED ICD10 - R26.2 [facility]# [id number] TAKING WHEELCHAIR - MISCELLANEOUS DX.R26.2 BATTERY DAILY TAKING LORATADINE 10 MG TABLET 1 TABLET ORALLY ONCE A DAY TAKING LANCETS - MISCELLANEOUS DIRECTED SUBCUTANEOUSLY BID TAKING WHEELCHAIR - MISCELLANEOUS DIRECTED (R26.2) MAY HAVE MOTERIZED WHEELCHAIR DAILY TAKING MAY HAVE - - POWER WHEELCHAIR INFANTRY OFFICER DIRECTED DX:R26.9 TAKING PRILOSEC OTC 20 MG TABLET DELAYED RELEASE 2 TABLET ORALLY ONCE A DAY TAKING LISINOPRIL 20 MG TABLET 1 TABLET ORALLY ONCE A DAY TAKING LIPITOR 20 MG TABLET 1 TABLET ORALLY ONCE A DAY TAKING COLACE 100 MG CAPSULE 1 CAPSULE NEEDED ORALLY TWICE DAILY NEEDED, NOTES: PRN TAKING METFORMIN HCL 1000 MG TABLET 1 TABLET WITH MEALS ORALLY TWICE A DAY TAKING LEVOTHYROXINE SODIUM 50 MCG TABLET 1 TABLET ON AN EMPTY STOMACH IN THE MORNING ORALLY ONCE A DAY TAKING TIZANIDINE HCL 4 MG TABLET 1 TABLET NEEDED ORALLY THREE TIMES A DAY TAKING DAILY MULTIVITAMIN - CAPSULE 1 TAB ORALLY DAILY TAKING SINGULAIR 10 MG TABLET 1 TABLET IN THE EVENING P.O. ONCE A DAY TAKING TOUJEO MAX SOLOSTAR 300 UNIT/ML SOLUTION PEN-INJECTOR 116 UNITS SUBCUTANEOUS DAILY TAKING MIRALAX - POWDER 17 GRAMS ORALLY ONCE A DAY TAKING FUROSEMIDE 20 MG TABLET 1 TABLET ORALLY ONCE A DAY TAKING TRULICITY 0.75 MG/0.5ML SOLUTION PEN-INJECTOR DIRECTED SUBCUTANEOUS WEEKLY TAKING TROSPIUM CHLORIDE ER 60 MG CAPSULE EXTENDED RELEASE 24 HOUR 1 CAPSULE IN THE MORNING ON AN EMPTY STOMACH OR 1 HOUR BEFORE A MEAL ORALLY ONCE A DAY TAKING MAY HAVE - - HEAVY DUTY ROLLING WALKER WITH SEAT, ROLLATOR, DX: R26.2 WEIGHT: 320 LBS TAKING INSULIN PEN NEEDLE 29G X 8MM MISCELLANEOUS 1 SUBCUTANEOUSLY DAILY TAKING CYMBALTA 60 MG CAPSULE DELAYED RELEASE PARTICLES 1 CAPSULE ORALLY ONCE A DAY TAKING HYDROCODONE-ACETAMINOPHEN 7.5-325 MG TABLET 1 TABLET NEEDED ORALLY FOR PAIN EVERY 8 HRS MDD3 TAKING LYRICA 200 MG CAPSULE 1 CAPSULE ORALLY TID MDD: 3 TABS TAKING HYDROCODONE-ACETAMINOPHEN 7.5-500 MG TABLET DIRECTED ORALLY NOT-TAKING MORPHINE SULFATE 15 MG TABLET 1 TABLET NEEDED ORALLY FOR PAIN DAILY NOT-TAKING MELATONIN 5 MG TABLET 1 TABLET AT BEDTIME NEEDED WITH FOOD ORALLY ONCE A DAY NOT-TAKING DIAZEPAM 5 MG TABLET [address] NEEDED ORALLY ON WAY TO MRI MAY REPEAT AT MRI UNTI MDD2 NOT-TAKING NYSTATIN [id number] UNIT/GM POWDER 1 APPLICATION TO AFFECTED AREA EXTERNALLY GROIN DAILY NOT-TAKING DOXYCYCLINE MONOHYDRATE 100 MG CAPSULE 1 CAPSULE ORALLY EVERY 12 HOURS NOT-TAKING CEPHALEXIN 500 MG CAPSULE 1 CAPSULE ORALLY EVERY 8 HRS NOT-TAKING [facility] HYDROCORTISONE ANTI-ITCH 0.5 % CREAM 1 APPLICATION TO AFFECTED AREA EXTERNALLY TWICE A DAY NOT-TAKING SPIRIVA HANDIHALER 18 MCG CAPSULE 1 CAPSULE INHALATION ONCE A DAY MEDICATION LIST REVIEWED AND RECONCILED WITH THE PATIENT PAST MEDICAL HISTORY LOW VITAMIN D TYPE II DIABETES GOAL ALC OF LESS THAT 7.5 OBSTRUCTIVE SLEEP APNEA HISTORY OF ABNORMAL PAPS, LAST 4 PAP SMEARS NORMAL (LAST 2016) MORBID OBESITY ARTHRITIS QUESTIONABLE FIBROMYALGIA 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 WHEELCHAIR BOUND DUE TO PAIN ALLERGIES ADHESIVE BANDAGES PLASTIC: ITCHING/RASH - ALLERGY SOCIAL HISTORY GENERAL: TOBACCO USE ARE YOU A:FORMER SMOKER HOW LONG HAS IT BEEN SINCE YOU LAST SMOKED?> 10 YEARS LATEX QUESTIONNAIRE LATEX ALLERGY : HAVE YOU EVER DEVELOPED ANY TYPE OF REACTION AFTER HANDLING LATEX PRODUCTS SUCH RUBBER GLOVES, CONDOMS, DIAPHRAGMS, BALLOONS, SOCKS, OR UNDERWEAR?YES - PLEASE INDICATE :OTHER (DOCUMENT IN NOTES) ADHESIVE LATEX ALLERGY : HAVE YOU EVER DEVELOPED ANY TYPE OF REACTION DURING OR AFTER DENTAL APPOINTMENT, VAGINAL/RECTAL EXAMINATION, SURGICAL PROCEDURE, OR ANY OTHER EXPOSURE?NO LATEX RISK : HAVE YOU EVER HAD ANY DIFFICULTY BREATHING OR HIVES AFTER EATING OR HANDLING ANY FRUITS, OR VEGETABLES; SUCH KIWI, BANANAS, STONE FRUITS, OR CHESTNUTSNO LATEX RISK : DO YOU HAVE A PREVIOUS PERSONAL HISTORY OF MORE THAN NINE SURGERIES, SPINA BIFIDA, OR REPEATED CATHERIZATIONS? NO LATEX RISK : ARE YOU FREQUENTLY EXPOSED TO LATEX PRODUCTS IN YOUR OCCUPATION?NO DATE ASKED : 01/14/2021 ALCOHOL USE: YES, OCCASIONALLY 1 GLASS OF WINE MAYBE ONCE A YEAR.. BMI CARE GOAL FOLLOW-UP ABOVE NORMAL BMI FOLLOW-UPLIFESTYLE EDUCATION REGARDING DIET ALCOHOL SCREENING DID YOU HAVE A DRINK CONTAINING ALCOHOL IN THE PAST YEAR?YES HOW OFTEN DID YOU HAVE SIX OR MORE DRINKS ON ONE OCCASION IN THE PAST YEAR?NEVER (0 POINTS) HOW MANY DRINKS DID YOU HAVE ON A TYPICAL DAY WHEN YOU WERE DRINKING IN THE PAST YEAR?1 OR 2 (0 POINTS) HOW OFTEN DID YOU HAVE A DRINK CONTAINING ALCOHOL IN THE PAST YEAR?MONTHLY OR LESS (1 POINT) POINTS1 INTERPRETATIONNEGATIVE RECREATIONAL DRUG USE DRUG USE?NO CAFFEINE CAFFEINE USE?YES HOW OFTEN AND HOW MUCH? ICE 2-3 8 OZ GLASSES A DAY SEXUAL HX HAD SEX IN THE LAST 12 MONTHS (VAGINAL, ORAL, OR ANAL)?: NO, HAVE YOU EVER HAD AN STD?: YES, CHLAMYDIA?: YES. HIV / HEP-C SCREENING HIV TEST OFFERED TO PATIENT:YES DATE OFFERED:03/21/2018 TEST ACCEPTED:NO HEP-C TEST OFFERED TO PATIENT:YES DATE OFFERED:03/21/2018 REASON:PATIENT DECLINED TEST ACCEPTED:NO REASON:PATIENT DECLINED BROCHURE PROVIDED TO PATIENTNO SABIANIST [id number] [employer]. 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 EXERCISE: LOST 70 POUNDS AFTER BYPASS, STARTED BACK UP AT [facility] DOING WATER AEROBICS AND WEIGHTS AT THE GYM FIVE TIMES A WEEK.. MARITAL STATUS: .. OTHERS AT HOME: LIVES BYSELF WITH CAT. - HAS THE PATIENT BEEN EDUCATED REGARDING HIS/HER PLAN OF CARE?YES HAS THE PATIENT BEEN EDUCATED REGARDING PAIN, THE RISK FOR PAIN, THE IMPORTANCE OF EFFECTIVE PAIN MANAGEMENT, AND THE PAIN ASSESSMENT PROCESS?YES ADVANCE DIRECTIVE ADVANCE DIRECTIVE DISCUSSED WITH PATIENT:YES SONELVA [phone] VITAL SIGNS WT 299.0 LBS, HT 62.75 IN, BMI 53.38 INDEX, BP 133/63 MM HG, HR 120 /MIN, RR 18 /MIN, TEMP 97.2 F, OXYGEN SAT % 97%, SAFE IN ENV? (Y/N) YES, NA INITIALS AW 1253, REVIEWED BY: APLET NURSE KNOW ABOUT HRTOOK HEART RATE MANUALLY- HR OF 102 UPON RADIAL PALPATION. JERRY MIGUEL. EXAMINATION GENERAL EXAMINATION: THE PATIENT IS ALERT, ORIENTED TIMES THREE AND COOPERATIVE. SHE IS IN A LOT OF PAIN. JUST MOVING IN HER WHEELCHAIR IS CAUSING A LOT OF PAIN. SHE IS IN OBVIOUS DISCOMFORT. MRI OF THE LUMBAR DATED 04/26/2015 SHOWS BULGING DISC AT L5-S1. ASSESSMENTS INTERVERTEBRAL DISC DISORDERS WITH RADICULOPATHY, LUMBAR REGION - M51.16 (PRIMARY) RIGHT HIP PAIN - M25.551 TREATMENT INTERVERTEBRAL DISC DISORDERS WITH RADICULOPATHY, LUMBAR REGION START OXYCODONE HCL TABLET, 5 MG, 1 TABLET NEEDED, ORALLY FOR PAIN, EVERY 8 HRS MDD3, 10 DAYS, 30, REFILLS 0 CLINICAL NOTES: I DISCUSSED ALTERNATIVES WITH MS. INGRAM. I SEE HER TODAY, I HAVE SOME QUESTION WHETHER HER PAIN IS COMING FROM HER HIP OR HER BACK. WE ARE WAITING FOR HER CT SCAN THAT SHE IS DOING TOMORROW. SHE IS CLEAR THAT SHE CANNOT USE ANY MEDICATIONS THAT ARE NOT GIVEN TO HER BY ME. WE ARE GOING TO HAVE HER DESTROY THE MORPHINE AND TRAMADOL. I WILL DO PILL COUNTING OF THE HYDROCODONE. I WILL START HER ON OXYCODONE 5 MG TABLETS ON A PRN BASIS. I WILL GIVE HER A 10 DAY SUPPLY. I WANT TO SEE HER AGAIN IN A WEEK. THE NURSE WILL REVIEW THE NARCOTIC AGREEMENT WITH THE PATIENT. I WOULD LIKE TO REFER HER TO A STEERSMAN TO TALK ABOUT DIET. I WOULD ALSO LIKE TO TALK TO HER PRIMARY CARE PHYSICIAN ABOUT THIS. THE PATIENT REPORTS UNDERSTANDING AND AGREES WITH THE PLAN. I, GISELA PETERSON, DOCUMENTED THE ABOVE INFORMATION ACTING A SCRIBE FOR DR. SAMUEL. I HAVE REVIEWED THE ABOVE DOCUMENT, WRITTEN BY GISELA PETERSON, ALTERATION TAILOR, AND I VERIFY THAT IT IS ACCURATE. [facility] REASON:LOW BACK PAIN,RIGHT HIP PAIN,PATIENT NEEDS TO LOSE WEIGHT BEFORE HIP SURGERY. RIGHT HIP PAIN [facility]ASON:LOW BACK PAIN,RIGHT HIP PAIN,PATIENT NEEDS TO LOSE WEIGHT BEFORE HIP SURGERY. PROCEDURE CODES FA211 ESTABILISHED PATIENT [facility] CHARGE [id number] OFFICE/OUTPATIENT VISIT EST DISPOSITION & COMMUNICATION FOLLOW UP FOLLOW UP WITH DR. Buchanan WEDNESDAY AT 1 PM (REASON: MED MANAGEMENT ) ELECTRONICALLY SIGNED BY ALONDRA SAMUEL MD, MD ON 01/20/2021 AT 04:41 PM EST DISCLAIMER : THIS IS A VISIT SUMMARY EXTRACTED FROM THE [employer] CHART. IT IS NOT A COPY OF THE [employer] PROGRESS NOTE. PRINCE
== END ==
LOC: M PAIN 13:00
PROVIDERS: ATTEND Anesthesiology
DX: M51.16 Intervertebral disc disorders with radiculopathy, lumbar region (principal); M25.551 Pain in right hip; G89.29 Other chronic pain; E11.9 Type 2 diabetes mellitus without complications; E55.9 Vitamin D deficiency, unspecified; G47.33 Obstructive sleep apnea (adult) (pediatric); J45.30 Mild persistent asthma, uncomplicated; Z87.891 Personal history of nicotine dependence; Z91.09 Other allergy status, other than to drugs and biological substances; E66.01 Morbid (severe) obesity due to excess calories; Z68.43 Body mass index [BMI] 50.0-59.9, adult; Z79.4 Long term (current) use of insulin; Z79.51 Long term (current) use of inhaled steroids; Z79.891 Long term (current) use of opiate analgesic; Z79.899 Other long term (current) drug therapy

== ENCOUNTER → 2021-01-21 | Outpatient (CLI) | payer MEDICAID ==
--- NOTE | 2021-01-21 12:22 | REP ---
INDICATION: INTERVERTEBRAL DISC DISORDER, RADICULOPATHY. COMPARISON: None. TECHNIQUE: Axial CT lumbar spine performed with sagittal and coronal reconstruction images. FINDINGS: No compression fracture is visualized. There is normal alignment and lumbar lordosis. Severe disc space narrowing is noted at L3-4 with vacuum phenomenon and moderate subchondral sclerosis. There is moderate disc space narrowing at L4-5 with vacuum phenomenon and mild subchondral sclerosis. There is moderately severe disc space narrowing with mild subchondral sclerosis and vacuum at L5-S1. Mild anterior and posterior spurring is seen of L3 through L5. At the L1-2 and L2-3 levels no significant disc protrusion is seen and there is no spinal stenosis or significant foraminal narrowing. At L 3-4 through L5-S1 there is mild diffuse disc bulging with associated osteophytic ridging. There is mild facet hypertrophy. There is mild bilateral foraminal narrowing at all levels, more moderate in severity on the left at the L5-S1. There is some mild induration of the posterior superficial subcutaneous fat in the paraspinal region. IMPRESSION: Degenerative disc and facet changes as discussed in detail above. No significant spinal stenosis. Mild bilateral foraminal narrowing L3-4 through L5-S1, more moderate in severity on the left at L5-S1. A preliminary report was provided by [facility] at the time of the exam. <Electronically signed by Earl Baires > 01/21/21 [id number]
== END ==
LOC: M RAD 10:40
PROVIDERS: ATTEND Anesthesiology
DX: M51.16 Intervertebral disc disorders with radiculopathy, lumbar region (principal)

== ENCOUNTER → 2021-01-27 | Outpatient (CLI) | payer MEDICAID ==
--- NOTE | 2021-01-30 01:16 | ECWPNPC ---
PATIENT NAME: ROHIT INGRAM : 1955 GENDER: FEMALE VISIT DATE: 01/27/2021 DISCHARGE DATE: 01/27/21 1350 VISIT LOCKED DATE TIME: PHYSICIAN: ALONDRA SAMUEL MD PHYSICIAN PAGER NO: ACTIVE RESOURCE: ALONDRA SAMUEL MD REASON FOR APPOINTMENT 1. MED MANAGEMENT HISTORY OF PRESENT ILLNESS FALL RISK SCREENING: SCREENING : NO FALLS REPORTED IN THE LAST YEAR. PAIN SCREENING: PATIENT HAS A COMPLAINT OF ACUTE OR CHRONIC PAIN :YES LOCATION OF PAIN:RIGHT HIP RADIATES DOWN LEG INTENSITY OF PAIN (SCALE OF 1 TO 10):7 WHAT DOES YOUR PAIN FEEL LIKE:ACHING, OTHER DEEP DURATION:CONTINOUS, STEADY PAIN IS INCREASED BY:ACTIVITIES PAIN IS DECREASED BY:OTHERS LAYING ON LEFT SIDE PLAN/GOALS/TREATMENT/INTERVENTION/FOLLOW UP:SEE PLAN GENERAL: 65-YEAR-OLD FEMALE PATIENT WITH A HISTORY OF CHRONIC LOW BACK AND RIGHT HIP PAIN. THE PATIENT DESCRIBES THE PAIN ACHING, DEEP IN THE HIP, WITH A PAIN SCORE RANGING FROM 6-9/10 WITH PAIN MORE IN THE BACK WITH RADIATION TO THE RIGHT BACK OF THE LEG WITH TINGLING IN THE RIGHT FOOT. WE CHANGED HER MEDICATIONS TO OXYCODONE AT HER LAST APPOINTMENT AND IT SEEMS TO BE WORKING BETTER. THIS PAIN IS AFFECTING HER ABILITY TO MOVE BUT OVERALL SHE FEELS THAT SHE IS DOING BETTER TODAY NOW WITH THE OXYCODONE THAN SHE WAS BEFORE. PAIN CENTER INTAKE QUESTIONS: DO YOU HAVE A HISTORY OF MRSA? :NO DO YOU TAKE A BLOOD THINNERS? :NO DO YOU HAVE ANY BLEEDING DISORDERS? :NO ANY NEW NUMBNESS OR WEAKNESS IN YOUR LEGS OR ARMS? :NO ANY PACEMAKER,DEFIBRILLATOR, OR DORSAL COLUMN STIMULATOR? :NO DO YOU HAVE ANY RASHES OR OPEN SORES? :NO ARE YOU ALLERGIC TO IV DYE? :NO ARE YOU DIABETIC? :YES ANY NEW PROBLEMS WITH YOUR MEDICATIONS? :NO HAVE YOU RECEIVED A VACCINE IN THE PAST 30 DAYS? :NO DO YOU PLAN TO RECEIVE A VACCINE IN THE NEXT 21 DAYS? :NO DO YOU NEED ANY PRESCRIPTION? :NO DO YOU TAKE ANY IMMUNOSUPPRESSIVE MEDICATIONS? :NO IS THERE A CHANCE YOU COULD BE ? :NO ARE YOU BREAST FEEDING? :NO CURRENT MEDICATIONS TAKING FLUCONAZOLE 150 MG TABLET 1 TABLET ORALLY ONCE TAKING CLOTRIMAZOLE 1 % CREAM 1 APPLICATION EXTERNALLY TWICE A DAY NEEDED FOR RASH TAKING SUCRALFATE 1 GM TABLET 1 TABLET AT BEDTIME ON AN EMPTY STOMACH BEFORE MEALS ORALLY DAILY TAKING BUPROPION HCL ER (XL) 300 MG TABLET EXTENDED RELEASE 24 HOUR 1 TABLET IN THE MORNING P.O. ONCE A DAY TAKING ADVAIR DISKUS 500-50 MCG/DOSE AEROSOL POWDER BREATH ACTIVATED 1 PUFF INHALATION TWICE A DAY TAKING ALCOHOL WIPES 70 % PAD DIRECTED TOPICALLY BID TAKING ZOFRAN 4 MG TABLET 1 TABLET NEEDED ORALLY EVERY 4 HRS TAKING PROAIR HFA 108 (90 BASE) MCG/ACT AEROSOL SOLUTION 2 PUFFS NEEDED INHALATION FOUR TIMES DAILY NEEDED TAKING DUONEB 0.5-2.5 (3) MG/3ML SOLUTION 3 ML INHALATION FOUR TIMES A DAY NEEDED TAKING MAY HAVE - - MAY HAVE WHEEL CHAIR BATTERY (R26.2) DIRECTED (R26.2) DAILY TAKING MAY HAVE CERTARITE ANTIOXIDANT DAILY TAKING HYDROXYZINE HCL 50 MG TABLET 1 TABLET NEEDED ORALLY EVERY 6 HRS PRN FOR PURITUS TAKING MAY HAVE - - WHEEL CHAIR SEAT BELT CAT TENDER DIRECTED (R 26.2) DAILY TAKING ONETOUCH TEST - STRIP DX E11.9 DIRECTED FOUR TIMES DAILY TAKING ONETOUCH ULTRA TEST - STRIP USE FOUR TIMES A DAY DIRECTED TAKING HUMALOG KWIKPEN 200 UNIT/ML SOLUTION PEN-INJECTOR DIRECTED SUBCUTANEOUS PER SLIDING SCALE (MDD 66 UNITS) TAKING FLONASE ALLERGY RELIEF 50 MCG/ACT SUSPENSION 1 SPRAY IN EACH NOSTRIL NASALLY ONCE A DAY TAKING INCRUSE ELLIPTA 62.5 MCG/INH AEROSOL POWDER BREATH ACTIVATED 1 PUFF INHALATION ONCE A DAY TAKING WHEELCHAIR BATTERY REPAIR AND MAINTENANCE DIRECTED ICD10 - R26.2 [facility]# [id number] TAKING WHEELCHAIR - MISCELLANEOUS DX.R26.2 BATTERY DAILY TAKING LORATADINE 10 MG TABLET 1 TABLET ORALLY ONCE A DAY TAKING LANCETS - MISCELLANEOUS DIRECTED SUBCUTANEOUSLY BID TAKING WHEELCHAIR - MISCELLANEOUS DIRECTED (R26.2) MAY HAVE MOTERIZED WHEELCHAIR DAILY TAKING MAY HAVE - - POWER WHEELCHAIR GLUING MACHINE OPERATOR ELECTRONIC DIRECTED DX:R26.9 TAKING PRILOSEC OTC 20 MG TABLET DELAYED RELEASE 2 TABLET ORALLY ONCE A DAY TAKING LISINOPRIL 20 MG TABLET 1 TABLET ORALLY ONCE A DAY TAKING LIPITOR 20 MG TABLET 1 TABLET ORALLY ONCE A DAY TAKING COLACE 100 MG CAPSULE 1 CAPSULE NEEDED ORALLY TWICE DAILY NEEDED, NOTES: PRN TAKING METFORMIN HCL 1000 MG TABLET 1 TABLET WITH MEALS ORALLY TWICE A DAY TAKING LEVOTHYROXINE SODIUM 50 MCG TABLET 1 TABLET ON AN EMPTY STOMACH IN THE MORNING ORALLY ONCE A DAY TAKING TIZANIDINE HCL 4 MG TABLET 1 TABLET NEEDED ORALLY THREE TIMES A DAY TAKING DAILY MULTIVITAMIN - CAPSULE 1 TAB ORALLY DAILY TAKING SINGULAIR 10 MG TABLET 1 TABLET IN THE EVENING P.O. ONCE A DAY TAKING TOUASHISH MAX SOLOSTAR 300 UNIT/ML SOLUTION PEN-INJECTOR 116 UNITS SUBCUTANEOUS DAILY TAKING MIRALAX - POWDER 17 GRAMS ORALLY ONCE A DAY TAKING FUROSEMIDE 20 MG TABLET 1 TABLET ORALLY ONCE A DAY TAKING TRULICITY 0.75 MG/0.5ML SOLUTION PEN-INJECTOR DIRECTED SUBCUTANEOUS WEEKLY TAKING TROSPIUM CHLORIDE ER 60 MG CAPSULE EXTENDED RELEASE 24 HOUR 1 CAPSULE IN THE MORNING ON AN EMPTY STOMACH OR 1 HOUR BEFORE A MEAL ORALLY ONCE A DAY TAKING MAY HAVE - - HEAVY DUTY ROLLING WALKER WITH SEAT, ROLLATOR, DX: R26.2 WEIGHT: 320 LBS TAKING INSULIN PEN NEEDLE 29G X 8MM MISCELLANEOUS 1 SUBCUTANEOUSLY DAILY TAKING CYMBALTA 60 MG CAPSULE DELAYED RELEASE PARTICLES 1 CAPSULE ORALLY ONCE A DAY TAKING HYDROCODONE-ACETAMINOPHEN 7.5-325 MG TABLET 1 TABLET NEEDED ORALLY FOR PAIN EVERY 8 HRS MDD3 TAKING HYDROCODONE-ACETAMINOPHEN 7.5-500 MG TABLET DIRECTED ORALLY TAKING OXYCODONE HCL 5 MG TABLET 1 TABLET NEEDED ORALLY FOR PAIN EVERY 8 HRS MDD3 TAKING VITAMIN D (ERGOCALCIFEROL) 46076 UNIT CAPSULE TAKE ONE CAPSULE BY MOUTH ONCE WEEKLY , NOTES: WEEKLY TAKING LYRICA 200 MG CAPSULE 1 CAPSULE ORALLY TID MDD: 3 TABS TAKING FERROUS SULFATE 325 (65 FE) MG TABLET 1 TABLET ORALLY TWICE A DAY TAKING NORVASC 10 MG TABLET 1 TABLET ORALLY ONCE A DAY NOT-TAKING MORPHINE SULFATE 15 MG TABLET 1 TABLET NEEDED ORALLY FOR PAIN DAILY NOT-TAKING MELATONIN 5 MG TABLET 1 TABLET AT BEDTIME NEEDED WITH FOOD ORALLY ONCE A DAY NOT-TAKING DIAZEPAM 5 MG TABLET [address]T NEEDED ORALLY ON WAY TO MRI MAY REPEAT AT MRI UNTI MDD2 NOT-TAKING NYSTATIN [id number] UNIT/GM POWDER 1 APPLICATION TO AFFECTED AREA EXTERNALLY GROIN DAILY NOT-TAKING DOXYCYCLINE MONOHYDRATE 100 MG CAPSULE 1 CAPSULE ORALLY EVERY 12 HOURS NOT-TAKING CEPHALEXIN 500 MG CAPSULE 1 CAPSULE ORALLY EVERY 8 HRS NOT-TAKING [facility] HYDROCORTISONE ANTI-ITCH 0.5 % CREAM 1 APPLICATION TO AFFECTED AREA EXTERNALLY TWICE A DAY NOT-TAKING SPIRIVA HANDIHALER 18 MCG CAPSULE 1 CAPSULE INHALATION ONCE A DAY MEDICATION LIST REVIEWED AND RECONCILED WITH THE PATIENT PAST MEDICAL HISTORY LOW VITAMIN D TYPE II DIABETES GOAL ALC OF LESS THAT 7.5 OBSTRUCTIVE SLEEP APNEA HISTORY OF ABNORMAL PAPS, LAST 4 PAP SMEARS NORMAL (LAST 2017) MORBID OBESITY ARTHRITIS QUESTIONABLE FIBROMYALGIA 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 WHEELCHAIR BOUND DUE TO PAIN ALLERGIES ADHESIVE BANDAGES PLASTIC: ITCHING/RASH - ALLERGY SOCIAL HISTORY GENERAL: TOBACCO USE ARE YOU A:FORMER SMOKER HOW LONG HAS IT BEEN SINCE YOU LAST SMOKED?> 10 YEARS LATEX QUESTIONNAIRE LATEX ALLERGY : HAVE YOU EVER DEVELOPED ANY TYPE OF REACTION AFTER HANDLING LATEX PRODUCTS SUCH RUBBER GLOVES, CONDOMS, DIAPHRAGMS, BALLOONS, SOCKS, OR UNDERWEAR?YES - PLEASE INDICATE :OTHER (DOCUMENT IN NOTES) ADHESIVE LATEX ALLERGY : HAVE YOU EVER DEVELOPED ANY TYPE OF REACTION DURING OR AFTER DENTAL APPOINTMENT, VAGINAL/RECTAL EXAMINATION, SURGICAL PROCEDURE, OR ANY OTHER EXPOSURE?NO LATEX RISK : HAVE YOU EVER HAD ANY DIFFICULTY BREATHING OR HIVES AFTER EATING OR HANDLING ANY FRUITS, OR VEGETABLES; SUCH KIWI, BANANAS, STONE FRUITS, OR CHESTNUTSNO LATEX RISK : DO YOU HAVE A PREVIOUS PERSONAL HISTORY OF MORE THAN NINE SURGERIES, SPINA BIFIDA, OR REPEATED CATHERIZATIONS? NO LATEX RISK : ARE YOU FREQUENTLY EXPOSED TO LATEX PRODUCTS IN YOUR OCCUPATION?NO DATE ASKED : 01/27/2021 ALCOHOL USE: YES, OCCASIONALLY 1 GLASS OF WINE MAYBE ONCE A YEAR.. BMI CARE GOAL FOLLOW-UP ABOVE NORMAL BMI FOLLOW-UPLIFESTYLE EDUCATION REGARDING DIET ALCOHOL SCREENING DID YOU HAVE A DRINK CONTAINING ALCOHOL IN THE PAST YEAR?YES HOW OFTEN DID YOU HAVE SIX OR MORE DRINKS ON ONE OCCASION IN THE PAST YEAR?NEVER (0 POINTS) HOW MANY DRINKS DID YOU HAVE ON A TYPICAL DAY WHEN YOU WERE DRINKING IN THE PAST YEAR?1 OR 2 (0 POINTS) HOW OFTEN DID YOU HAVE A DRINK CONTAINING ALCOHOL IN THE PAST YEAR?MONTHLY OR LESS (1 POINT) POINTS1 INTERPRETATIONNEGATIVE RECREATIONAL DRUG USE DRUG USE?NO CAFFEINE CAFFEINE USE?YES HOW OFTEN AND HOW MUCH? ICE 2-3 8 OZ GLASSES A DAY SEXUAL HX HAD SEX IN THE LAST 12 MONTHS (VAGINAL, ORAL, OR ANAL)?: NO, HAVE YOU EVER HAD AN STD?: YES, CHLAMYDIA?: YES. 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 EXERCISE: LOST 70 POUNDS AFTER BYPASS, STARTED BACK UP AT [facility] DOING WATER AEROBICS AND WEIGHTS AT THE GYM FIVE TIMES A WEEK.. MARITAL STATUS: .. OTHERS AT HOME: LIVES BYSELF WITH CAT. - HAS THE PATIENT BEEN EDUCATED REGARDING HIS/HER PLAN OF CARE?YES HAS THE PATIENT BEEN EDUCATED REGARDING PAIN, THE RISK FOR PAIN, THE IMPORTANCE OF EFFECTIVE PAIN MANAGEMENT, AND THE PAIN ASSESSMENT PROCESS?YES ADVANCE DIRECTIVE ADVANCE DIRECTIVE DISCUSSED WITH PATIENT:YES MUNIRA Jacobs [phone] REVIEW OF SYSTEMS CONSTITUTIONAL: ANY RECENT FEVER NO . CHILLS NO . WEIGHT CHANGE OF UNKNOWN REASONS NO . GASTROENTEROLOGY: NEW UNEXPLAINABLE CHANGES IN BOWEL CONTROL NO . CONSTIPATION NO . GENITOURINARY: ANY NEW CHANGE IN BLADDER CONTROL? NO . NEUROLOGY: NEW ONSET DIZZINESS OR NEUROLOGICAL CHANGES NOT MENTIONED NO . NEW NUMBNESS OR PAIN PATTERNS NOT MENTIONED AND PERTINENT TO TODAY'S VISIT NO . CARDIOLOGY: NEW CHEST PRESSURE NO . PATIENT DENIES NO . RESPIRATORY: UNEXPLAINABLE COUGH NO . NEW SHORTNESS OF BREATH NO . GLAUCOMA: NOTHYROID DISEASE: NOHYPERTENSION: NOHEART DISEASE: NOLUNG DISEASE: ASTHMA, SLEEP APNEADIABETES: YESGI DISEASE: NO LIVER DISEASE: NO KIDNEY DISEASE: NOSTERIOD USE: NONEUROLOGICAL DISEASE: NOBACK PROBLEMS: YES, PAINEXTREMITIES: YES, PAINGENITOURINARY: NOBLEEDING DISORDER: NOASA CLASS: IIAIRWAY CLASS: II. VITAL SIGNS WT 299.0 LBS, HT 62.75 IN, BMI 53.38 INDEX, BP 143/63 MM HG, HR 85 /MIN, RR 18 /MIN, TEMP 96.4 F, OXYGEN SAT % 965, BLOOD GLUCOSE LEVEL 132 THIS AM, SAFE IN ENV? (Y/N) YES, NA INITIALS AW 1300, REVIEWED BY: Alissa JUAREZ FISH TRAPPER. EXAMINATION GENERAL EXAMINATION: THE PATIENT IS ALERT, ORIENTED TIMES THREE AND COOPERATIVE. THE PATIENT USUALLY STAYS IN HER WHEELCHAIR. JUST MOVING THE HIP A LITTLE BIT, THE PATIENT REPORTS PAIN OVER THE RIGHT HIP AREA. THERE IS SOME PITTING EDEMA IN BOTH LOWER EXTREMITIES. WHEN I TOUCH HER BACK, THE PATIENT IS FEELING BETTER. CT SCAN OF THE LUMBAR SPINE DATED 01/21/2021 SHOWS SOME NARROWING IN THE FORAMEN AT L3-L4 TO L5-S1, SOME BULGING DISC AND FACET ARTHROPATHY CHANGES. MRI OF THE RIGHT HIP DATED 11/29/2020 SHOWS SEVERE RIGHT HIP ARTHRITIC CHANGES, THERE IS A FINDING OF AVASCULAR NECROSIS OF THE RIGHT FEMORAL HEAD, BURSITIS OF THE GREATER TROCHANTER OF THE FEMUR. MRI OF THE LUMBAR SPINE DATED 04/26/2015 SHOWS A LEFT DISC PROTRUSION AT L4-L5, FACET ARTHROPATHY CHANGES AND BULGES AT MULTIPLE LEVELS. 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 INGRAM. I REVIEWED THE ISTOP, REFERENCE NUMBER [id number]. OXYCODONE IS WORKING BETTER FOR THE PATIENT. I WILL KEEP HER ON IT. I HAVE EVIDENCE OF THE DESTRUCTION OF THE MORPHINE AND TRAMADOL. URINE TOX IS BEING PULLED, THE RESULTS ARE NOT AVAILABLE AT THIS MOMENT. AFTER EXAMINING THE PATIENT AND TALKING TO HER, I AM MORE INCLINED TO DO A RIGHT HIP INJECTION. THE CT IS NOT SHOWING MUCH ON THE RIGHT SIDE. HER MRI DONE IN 2014 SHOWS A BULGE TO THE LEFT. AFTER DISCUSSING ALTERNATIVES, WE AGREE ON PERFORMING A RIGHT HIP INJECTION WITH IV SEDATION DUE TO ANXIETY AND DISCOMFORT ASSOCIATED WITH THE PROCEDURE. I WOULD LIKE TO SEE THE PATIENT IN FOLLOW UP A WEEK LATER. IF THE PAIN GOES AWAY COMPLETELY, I WILL KNOW FOR SURE THAT HER PAIN IS IN HER HIP WHICH IS WHAT I SUSPECT. WE ARE WAITING FOR HER TO SEE A SURGEON ABOUT HER REVISION GASTRIC BYPASS. I WOULD LIKE TO REFER HER TO [facility] FOR EVALUATION OF HER HIP AND POSSIBLE OPERATION. THEY ARE WORKING ON REFERRING HER TO A WASTEWATER ENGINEER. THE PATIENT REPORTS UNDERSTANDING AND AGREES WITH THE PLAN. I, GISELA PETERSON, DOCUMENTED THE ABOVE INFORMATION ACTING A SCRIBE FOR DR. SAMUEL. I HAVE REVIEWED THE ABOVE DOCUMENT, WRITTEN BY GISELA PETERSON, FLOWER GROWER, AND I VERIFY THAT IT IS ACCURATE. TROCHANTERIC BURSITIS, RIGHT HIP REFERRAL TO: REASON:RIP HIP PAIN OTHERS REFERRAL TO: REASON:RIP HIP PAIN PROCEDURE CODES FA211 ESTABILISHED PATIENT [facility] CHARGE [id number] OFFICE/OUTPATIENT VISIT EST DISPOSITION & COMMUNICATION FOLLOW UP REQUEST AUTH FOR RIGHT HIP INJECTION WITH IV SEDATION, NOT DOING LUMBAR EPIDURAL (REASON: REQUEST AUTH FOR RIGHT HIP INJECTION WITH IV SEDATION, NOT DOING LUMBAR EPIDURAL) ELECTRONICALLY SIGNED BY ALONDRA SAMUEL MD, MD ON 01/29/2021 AT 12:21 PM EST DISCLAIMER : THIS IS A VISIT SUMMARY EXTRACTED FROM THE [employer] CHART. IT IS NOT A COPY OF THE [employer] PROGRESS NOTE. PRINCE
== END ==
LOC: M PAIN 13:00
PROVIDERS: ATTEND Anesthesiology
DX: M51.16 Intervertebral disc disorders with radiculopathy, lumbar region (principal); M16.11 Unilateral primary osteoarthritis, right hip; M87.059 Idiopathic aseptic necrosis of unspecified femur; M70.61 Trochanteric bursitis, right hip; G89.29 Other chronic pain; E11.9 Type 2 diabetes mellitus without complications; E55.9 Vitamin D deficiency, unspecified; G47.33 Obstructive sleep apnea (adult) (pediatric); J45.30 Mild persistent asthma, uncomplicated; Z87.891 Personal history of nicotine dependence; Z91.09 Other allergy status, other than to drugs and biological substances; E66.01 Morbid (severe) obesity due to excess calories; Z68.43 Body mass index [BMI] 50.0-59.9, adult; Z79.4 Long term (current) use of insulin; Z79.51 Long term (current) use of inhaled steroids; Z79.891 Long term (current) use of opiate analgesic; Z79.899 Other long term (current) drug therapy

== ENCOUNTER → 2021-01-31 | Outpatient (CLI) | payer MEDICAID ==
--- NOTE | 2021-02-04 23:55 | ECWPNPC ---
PATIENT NAME: ROHIT INGRAM : 1955 GENDER: FEMALE VISIT DATE: 01/31/2021 DISCHARGE DATE: 01/31/21 1216 VISIT LOCKED DATE TIME: PHYSICIAN: ALONDRA SAMUEL MD PHYSICIAN PAGER NO: ACTIVE RESOURCE: ALONDRA SAMUEL MD REASON FOR APPOINTMENT 1. PRESEDATE FOR RIGHT HIP INJECTION HISTORY OF PRESENT ILLNESS GENERAL: 65-YEAR-OLD FEMALE PATIENT WITH A HISTORY OF CHRONIC RIGHT HIP PAIN. THE PATIENT DESCRIBES THE PAIN ACHING, INTERMITTENT AND SHARP WITH A PAIN SCORE RANGING FROM 6-9/10 OVER THE RIGHT HIP. SHE IS USING OXYCODONE AND THE PAIN IS BETTER BUT STILL UNCOMFORTABLE. SHE USING TYLENOL BETWEEN TABLETS. SHE KNOWS NOT TO USE MORE THAN 6 TYLENOLS A DAY FOR SEVERE PAIN. SHE ALSO USES LIDOCAINE CREAM. FALL RISK SCREENING: SCREENING : NO FALLS REPORTED IN THE LAST YEAR. PAIN SCREENING: PATIENT HAS A COMPLAINT OF ACUTE OR CHRONIC PAIN :YES LOCATION OF PAIN:RIGHT HIP INTENSITY OF PAIN (SCALE OF 1 TO 10):5 WHAT DOES YOUR PAIN FEEL LIKE:ACHING, INTERMITTENT, SHARP DURATION:INTERMITTENT PAIN IS INCREASED BY:OTHERS MOVEMENT PAIN IS DECREASED BY:USE OF PAIN MEDICATIONS, OTHERS LAYING ON LEFT SIDE, LIDOCAINE CREAM NURSING NOTE: -. PAIN CENTER INTAKE QUESTIONS: DO YOU HAVE A HISTORY OF MRSA? :NO DO YOU TAKE A BLOOD THINNERS? :NO DO YOU HAVE ANY BLEEDING DISORDERS? :NO ANY NEW NUMBNESS OR WEAKNESS IN YOUR LEGS OR ARMS? :NO ANY PACEMAKER,DEFIBRILLATOR, OR DORSAL COLUMN STIMULATOR? :NO DO YOU HAVE ANY RASHES OR OPEN SORES? :YES SMALL RASH TO LEFT UPPER THIGH ARE YOU ALLERGIC TO IV DYE? :NO ARE YOU DIABETIC? :YES ANY NEW PROBLEMS WITH YOUR MEDICATIONS? :NO HAVE YOU RECEIVED A VACCINE IN THE PAST 30 DAYS? :NO DO YOU PLAN TO RECEIVE A VACCINE IN THE NEXT 21 DAYS? :NO WILL NOT BE GETTING COVID VACCINE UNTIL 2 WEEKS AFTER INJECTION DO YOU NEED ANY PRESCRIPTION? :NO DO YOU TAKE ANY IMMUNOSUPPRESSIVE MEDICATIONS? :NO DO YOU HAVE ANY KIDNEY OR LIVER DISEASE? :NO IS THERE A CHANCE YOU COULD BE ? :NO ARE YOU BREAST FEEDING? :NO CURRENT MEDICATIONS TAKING FLUCONAZOLE 150 MG TABLET 1 TABLET ORALLY ONCE TAKING CLOTRIMAZOLE 1 % CREAM 1 APPLICATION EXTERNALLY TWICE A DAY NEEDED FOR RASH TAKING SUCRALFATE 1 GM TABLET 1 TABLET AT BEDTIME ON AN EMPTY STOMACH BEFORE MEALS ORALLY DAILY TAKING BUPROPION HCL ER (XL) 300 MG TABLET EXTENDED RELEASE 24 HOUR 1 TABLET IN THE MORNING P.O. ONCE A DAY TAKING ADVAIR DISKUS 500-50 MCG/DOSE AEROSOL POWDER BREATH ACTIVATED 1 PUFF INHALATION TWICE A DAY TAKING ALCOHOL WIPES 70 % PAD DIRECTED TOPICALLY BID TAKING ZOFRAN 4 MG TABLET 1 TABLET NEEDED ORALLY EVERY 4 HRS TAKING PROAIR HFA 108 (90 BASE) MCG/ACT AEROSOL SOLUTION 2 PUFFS NEEDED INHALATION FOUR TIMES DAILY NEEDED TAKING DUONEB 0.5-2.5 (3) MG/3ML SOLUTION 3 ML INHALATION FOUR TIMES A DAY NEEDED TAKING MAY HAVE - - MAY HAVE WHEEL CHAIR BATTERY (R26.2) DIRECTED (R26.2) DAILY TAKING MAY HAVE CERTARITE ANTIOXIDANT DAILY TAKING HYDROXYZINE HCL 50 MG TABLET 1 TABLET NEEDED ORALLY EVERY 6 HRS PRN FOR PURITUS TAKING MAY HAVE - - WHEEL CHAIR SEAT BELT BISCUITWARE BRUSHER DIRECTED (R 26.2) DAILY TAKING ONETOUCH TEST - STRIP DX E11.9 DIRECTED FOUR TIMES DAILY TAKING ONETOUCH ULTRA TEST - STRIP USE FOUR TIMES A DAY DIRECTED TAKING HUMALOG KWIKPEN 200 UNIT/ML SOLUTION PEN-INJECTOR DIRECTED SUBCUTANEOUS PER SLIDING SCALE (MDD 66 UNITS) TAKING FLONASE ALLERGY RELIEF 50 MCG/ACT SUSPENSION 1 SPRAY IN EACH NOSTRIL NASALLY ONCE A DAY TAKING INCRUSE ELLIPTA 62.5 MCG/INH AEROSOL POWDER BREATH ACTIVATED 1 PUFF INHALATION ONCE A DAY TAKING WHEELCHAIR BATTERY REPAIR AND MAINTENANCE DIRECTED ICD10 - R26.2 [facility]# [id number] TAKING WHEELCHAIR - MISCELLANEOUS DX.R26.2 BATTERY DAILY TAKING LORATADINE 10 MG TABLET 1 TABLET ORALLY ONCE A DAY TAKING LANCETS - MISCELLANEOUS DIRECTED SUBCUTANEOUSLY BID TAKING WHEELCHAIR - MISCELLANEOUS DIRECTED (R26.2) MAY HAVE MOTERIZED WHEELCHAIR DAILY TAKING MAY HAVE - - POWER WHEELCHAIR MANUFACTURING QUALITY ENGINEER DIRECTED DX:R26.9 TAKING PRILOSEC OTC 20 MG TABLET DELAYED RELEASE 2 TABLET ORALLY ONCE A DAY TAKING LISINOPRIL 20 MG TABLET 1 TABLET ORALLY ONCE A DAY TAKING LIPITOR 20 MG TABLET 1 TABLET ORALLY ONCE A DAY TAKING COLACE 100 MG CAPSULE 1 CAPSULE NEEDED ORALLY TWICE DAILY NEEDED, NOTES: PRN TAKING METFORMIN HCL 1000 MG TABLET 1 TABLET WITH MEALS ORALLY TWICE A DAY TAKING LEVOTHYROXINE SODIUM 50 MCG TABLET 1 TABLET ON AN EMPTY STOMACH IN THE MORNING ORALLY ONCE A DAY TAKING TIZANIDINE HCL 4 MG TABLET 1 TABLET NEEDED ORALLY THREE TIMES A DAY TAKING DAILY MULTIVITAMIN - CAPSULE 1 TAB ORALLY DAILY TAKING SINGULAIR 10 MG TABLET 1 TABLET IN THE EVENING P.O. ONCE A DAY TAKING TOUASHISH MAX SOLOSTAR 300 UNIT/ML SOLUTION PEN-INJECTOR 116 UNITS SUBCUTANEOUS DAILY TAKING MIRALAX - POWDER 17 GRAMS ORALLY ONCE A DAY TAKING FUROSEMIDE 20 MG TABLET 1 TABLET ORALLY ONCE A DAY TAKING TRULICITY 0.75 MG/0.5ML SOLUTION PEN-INJECTOR DIRECTED SUBCUTANEOUS WEEKLY TAKING TROSPIUM CHLORIDE ER 60 MG CAPSULE EXTENDED RELEASE 24 HOUR 1 CAPSULE IN THE MORNING ON AN EMPTY STOMACH OR 1 HOUR BEFORE A MEAL ORALLY ONCE A DAY TAKING MAY HAVE - - HEAVY DUTY ROLLING WALKER WITH SEAT, ROLLATOR, DX: R26.2 WEIGHT: 320 LBS TAKING INSULIN PEN NEEDLE 29G X 8MM MISCELLANEOUS 1 SUBCUTANEOUSLY DAILY TAKING CYMBALTA 60 MG CAPSULE DELAYED RELEASE PARTICLES 1 CAPSULE ORALLY ONCE A DAY TAKING VITAMIN D (ERGOCALCIFEROL) 45970 UNIT CAPSULE TAKE ONE CAPSULE BY MOUTH ONCE WEEKLY , NOTES: WEEKLY TAKING LYRICA 200 MG CAPSULE 1 CAPSULE ORALLY TID MDD: 3 TABS TAKING FERROUS SULFATE 325 (65 FE) MG TABLET 1 TABLET ORALLY TWICE A DAY TAKING NORVASC 10 MG TABLET 1 TABLET ORALLY ONCE A DAY TAKING OXYCODONE HCL 5 MG TABLET 1 TABLET NEEDED ORALLY FOR PAIN EVERY 8 HRS MDD3 NOT-TAKING HYDROCODONE-ACETAMINOPHEN 7.5-325 MG TABLET 1 TABLET NEEDED ORALLY FOR PAIN EVERY 8 HRS MDD3 NOT-TAKING HYDROCODONE-ACETAMINOPHEN 7.5-500 MG TABLET DIRECTED ORALLY NOT-TAKING MORPHINE SULFATE 15 MG TABLET 1 TABLET NEEDED ORALLY FOR PAIN DAILY NOT-TAKING MELATONIN 5 MG TABLET 1 TABLET AT BEDTIME NEEDED WITH FOOD ORALLY ONCE A DAY NOT-TAKING DIAZEPAM 5 MG TABLET [address] NEEDED ORALLY ON WAY TO MRI MAY REPEAT AT MRI UNTI MDD2 NOT-TAKING NYSTATIN [id number] UNIT/GM POWDER 1 APPLICATION TO AFFECTED AREA EXTERNALLY GROIN DAILY NOT-TAKING DOXYCYCLINE MONOHYDRATE 100 MG CAPSULE 1 CAPSULE ORALLY EVERY 12 HOURS NOT-TAKING CEPHALEXIN 500 MG CAPSULE 1 CAPSULE ORALLY EVERY 8 HRS NOT-TAKING [facility] HYDROCORTISONE ANTI-ITCH 0.5 % CREAM 1 APPLICATION TO AFFECTED AREA EXTERNALLY TWICE A DAY NOT-TAKING SPIRIVA HANDIHALER 18 MCG CAPSULE 1 CAPSULE INHALATION ONCE A DAY MEDICATION LIST REVIEWED AND RECONCILED WITH THE PATIENT PAST MEDICAL HISTORY LOW VITAMIN D TYPE II DIABETES GOAL ALC OF LESS THAT 7.5 OBSTRUCTIVE SLEEP APNEA HISTORY OF ABNORMAL PAPS, LAST 4 PAP SMEARS NORMAL (LAST 2017) MORBID OBESITY ARTHRITIS QUESTIONABLE FIBROMYALGIA 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 WHEELCHAIR BOUND DUE TO PAIN ALLERGIES ADHESIVE BANDAGES PLASTIC: ITCHING/RASH - ALLERGY SOCIAL HISTORY GENERAL: TOBACCO USE ARE YOU A:FORMER SMOKER HOW LONG HAS IT BEEN SINCE YOU LAST SMOKED?> 10 YEARS LATEX QUESTIONNAIRE LATEX ALLERGY : HAVE YOU EVER DEVELOPED ANY TYPE OF REACTION AFTER HANDLING LATEX PRODUCTS SUCH RUBBER GLOVES, CONDOMS, DIAPHRAGMS, BALLOONS, SOCKS, OR UNDERWEAR?YES - PLEASE INDICATE :OTHER (DOCUMENT IN NOTES) ADHESIVE LATEX ALLERGY : HAVE YOU EVER DEVELOPED ANY TYPE OF REACTION DURING OR AFTER DENTAL APPOINTMENT, VAGINAL/RECTAL EXAMINATION, SURGICAL PROCEDURE, OR ANY OTHER EXPOSURE?NO LATEX RISK : HAVE YOU EVER HAD ANY DIFFICULTY BREATHING OR HIVES AFTER EATING OR HANDLING ANY FRUITS, OR VEGETABLES; SUCH KIWI, BANANAS, STONE FRUITS, OR CHESTNUTSNO LATEX RISK : DO YOU HAVE A PREVIOUS PERSONAL HISTORY OF MORE THAN NINE SURGERIES, SPINA BIFIDA, OR REPEATED CATHERIZATIONS? NO LATEX RISK : ARE YOU FREQUENTLY EXPOSED TO LATEX PRODUCTS IN YOUR OCCUPATION?NO DATE ASKED : 01/27/2021 ALCOHOL USE: YES, OCCASIONALLY 1 GLASS OF WINE MAYBE ONCE A YEAR.. BMI CARE GOAL FOLLOW-UP ABOVE NORMAL BMI FOLLOW-UPLIFESTYLE EDUCATION REGARDING DIET ALCOHOL SCREENING DID YOU HAVE A DRINK CONTAINING ALCOHOL IN THE PAST YEAR?YES HOW OFTEN DID YOU HAVE SIX OR MORE DRINKS ON ONE OCCASION IN THE PAST YEAR?NEVER (0 POINTS) HOW MANY DRINKS DID YOU HAVE ON A TYPICAL DAY WHEN YOU WERE DRINKING IN THE PAST YEAR?1 OR 2 (0 POINTS) HOW OFTEN DID YOU HAVE A DRINK CONTAINING ALCOHOL IN THE PAST YEAR?MONTHLY OR LESS (1 POINT) POINTS1 INTERPRETATIONNEGATIVE RECREATIONAL DRUG USE DRUG USE?NO CAFFEINE CAFFEINE USE?YES HOW OFTEN AND HOW MUCH? ICE 2-3 8 OZ GLASSES A DAY SEXUAL HX HAD SEX IN THE LAST 12 MONTHS (VAGINAL, ORAL, OR ANAL)?: NO, HAVE YOU EVER HAD AN STD?: YES, CHLAMYDIA?: YES. HIV / HEP-C SCREENING HIV TEST OFFERED TO PATIENT:YES DATE OFFERED:03/21/2018 TEST ACCEPTED:NO HEP-C TEST OFFERED TO PATIENT:YES DATE OFFERED:03/21/2018 REASON:PATIENT DECLINED TEST ACCEPTED:NO REASON:PATIENT DECLINED BROCHURE PROVIDED TO PATIENTNO [employer] [id number] DRUZE LANGUAGE IRISH. 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 EXERCISE: LOST 70 POUNDS AFTER BYPASS, STARTED BACK UP AT [facility] DOING WATER AEROBICS AND WEIGHTS AT THE GYM FIVE TIMES A WEEK.. MARITAL STATUS: .. OTHERS AT HOME: LIVES BYSELF WITH CAT. - HAS THE PATIENT BEEN EDUCATED REGARDING HIS/HER PLAN OF CARE?YES HAS THE PATIENT BEEN EDUCATED REGARDING PAIN, THE RISK FOR PAIN, THE IMPORTANCE OF EFFECTIVE PAIN MANAGEMENT, AND THE PAIN ASSESSMENT PROCESS?YES ADVANCE DIRECTIVE ADVANCE DIRECTIVE DISCUSSED WITH PATIENT:YES MUNIRA Jacobs [phone] REVIEW OF SYSTEMS GLAUCOMA: NOTHYROID DISEASE: NOHYPERTENSION: YESHEART DISEASE: NOLUNG DISEASE: SLEEP APNEADIABETES: YESGI DISEASE: HISTORY OF GASTRIC BYPASSLIVER DISEASE: NO KIDNEY DISEASE: NOSTERIOD USE: NONEUROLOGICAL DISEASE: NOBACK PROBLEMS: YES, PAINEXTREMITIES: YES, PAINGENITOURINARY: LOSS OS CONTROLBLEEDING DISORDER: NOASA CLASS: IIAIRWAY CLASS: II. VITAL SIGNS WT 299.0 LBS, HT 62.75 IN, BMI 53.38 INDEX, BP 135/70 MM HG, HR 99 /MIN, RR 18 /MIN, TEMP 97.7 F, OXYGEN SAT % 97%, SAFE IN ENV? (Y/N) YES, NA INITIALS AW 1104, REVIEWED BY: Keerthi MURPHY RN. EXAMINATION GENERAL EXAMINATION: THE PATIENT IS ALERT, ORIENTED TIMES THREE AND COOPERATIVE. LUNGS ARE CLEAR TO AUSCULTATION. HEART SHOWS REGULAR RHYTHM, NO MURMURS AND NO GALLOPS. THERE IS TENDERNESS OVER THE RIGHT HIP AREA. MRI OF THE RIGHT HIP 11/29/2020 SHOWS SOME ARTHRITIC CHANGES F THE RIGHT HIP. 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 PATIENT EXPRESSED AN UNDERSTANDING OF THE TEACHING. EDUCATIONAL MATERIAL ON HIP INJECTION PRINTED AND GIVEN TO PATIENT. Arsh GARCIA RN . CLINICAL NOTES: I DISCUSSED ALTERNATIVES WITH MS. INGRAM. WE AGREE ON DOING A RIGHT HIP INJECTION WITH IV SEDATION DUE TO ANXIETY AND DISCOMFORT ASSOCIATED WITH THE PROCEDURE. THE PATIENT REPORTS UNDERSTANDING AND AGREES WITH THE PLAN. I, GISELA PETERSON, DOCUMENTED THE ABOVE INFORMATION ACTING A SCRIBE FOR DR. SAMUEL. I HAVE REVIEWED THE ABOVE DOCUMENT, WRITTEN BY GISELA PETERSON, DNA SEQUENCING ASSOCIATE, AND I VERIFY THAT IT IS ACCURATE. PROCEDURE CODES [id number] ESTABILISHED PATIENT [facility] CHARGE [id number] OFFICE/OUTPATIENT VISIT EST DISPOSITION & COMMUNICATION FOLLOW UP OKAY TO BOOK (REASON: RIGHT HIP INJECTION) ELECTRONICALLY SIGNED BY ALONDRA SAMUEL MD, MD ON 02/04/2021 AT 03:58 PM EDT DISCLAIMER : THIS IS A VISIT SUMMARY EXTRACTED FROM THE [facility] CHART. IT IS NOT A COPY OF THE [facility] PROGRESS NOTE. MTDD
== END ==
LOC: M PAIN 11:15
PROVIDERS: ATTEND Anesthesiology
DX: M16.11 Unilateral primary osteoarthritis, right hip (principal); M87.051 Idiopathic aseptic necrosis of right femur; G89.29 Other chronic pain; E11.9 Type 2 diabetes mellitus without complications; E55.9 Vitamin D deficiency, unspecified; G47.33 Obstructive sleep apnea (adult) (pediatric); J45.40 Moderate persistent asthma, uncomplicated; Z87.891 Personal history of nicotine dependence; Z91.09 Other allergy status, other than to drugs and biological substances; E66.01 Morbid (severe) obesity due to excess calories; Z68.43 Body mass index [BMI] 50.0-59.9, adult; Z79.4 Long term (current) use of insulin; Z79.51 Long term (current) use of inhaled steroids; Z79.899 Other long term (current) drug therapy

== ENCOUNTER → 2021-02-01 | Outpatient (CLI) | payer MEDICAID | LOC: M LABSMTC 10:44 | PROVIDERS: ATTEND Anesthesiology | DX: Z20.822 Contact with and (suspected) exposure to COVID-19 (principal) ==

== ENCOUNTER → 2021-02-04 | Outpatient (CLI) | payer MEDICAID ==
--- NOTE | 2021-02-07 00:02 | ECWPNPC ---
PATIENT NAME: ROHIT INGRAM : 1955 GENDER: FEMALE VISIT DATE: 02/04/2021 DISCHARGE DATE: 02/04/211527 VISIT LOCKED DATE TIME: PHYSICIAN: ALONDRA SAMUEL MD PHYSICIAN PAGER NO: ACTIVE RESOURCE: ALONDRA SAMUEL MD REASON FOR APPOINTMENT 1. DISCUSS ULTRACET HISTORY OF PRESENT ILLNESS GENERAL: PERMISSION FROM PATIENT WAS RECEIVED TO DO TELEPHONE OFFICE VISIT. 65-YEAR-OLD FEMALE PATIENT WITH A HISTORY OF CHRONIC RIGHT HIP PAIN. THE PATIENT DESCRIBES THE PAIN ACHING AND THROBBING WITH A PAIN SCORE RANGING FROM 5-10/10. PRESENTLY, SHE IS USING OXYCODONE 3 TIMES PER DAY AND TYLENOL IN BETWEEN, NO MORE THAN 6 A DAY. IN THE PAST, SHE WAS USING MORPHINE AND TRAMADOL, THOSE WERE STOPPED. SHE USES LIDOCAINE CREAM OVER THE COUNTER WHICH IS OKAY. WE TALKED ABOUT DOING A RIGHT HIP INJECTION, BUT THE PATIENT HAD HER 1ST COVID-19 VACCINE YESTERDAY SO WE WILL WAIT. FALL RISK SCREENING: SCREENING : NO FALLS REPORTED IN THE LAST YEAR. PAIN SCREENING: PATIENT HAS A COMPLAINT OF ACUTE OR CHRONIC PAIN :YES LOCATION OF PAIN:RIGHT HIP INTENSITY OF PAIN (SCALE OF 1 TO 10):6 WHAT DOES YOUR PAIN FEEL LIKE:ACHING, THROBBING DURATION:CONTINOUS, CONSTANT PAIN IS INCREASED BY:ACTIVITIES PAIN IS DECREASED BY:USE OF PAIN MEDICATIONS NURSING NOTE: -. PAIN CENTER INTAKE QUESTIONS: DO YOU HAVE A HISTORY OF MRSA? :NO DO YOU TAKE A BLOOD THINNERS? :NO DO YOU HAVE ANY BLEEDING DISORDERS? :NO ANY NEW NUMBNESS OR WEAKNESS IN YOUR LEGS OR ARMS? :NO ANY PACEMAKER,DEFIBRILLATOR, OR DORSAL COLUMN STIMULATOR? :NO DO YOU HAVE ANY RASHES OR OPEN SORES? :YES RASH TO LEFT POSTERIOR THIGH, PT TREATING W GOLDBOND AND BACITRACIN, RASH IS [facility] , PT WILL SEE PCP FOR THIS ARE YOU ALLERGIC TO IV DYE? :NO ARE YOU DIABETIC? :YES ANY NEW PROBLEMS WITH YOUR MEDICATIONS? :NO HAVE YOU RECEIVED A VACCINE IN THE PAST 30 DAYS? :YES IF SO WHAT VACCINE AND WHEN? COVID VACCINE 02/03/21 MODERNA # 1 DO YOU PLAN TO RECEIVE A VACCINE IN THE NEXT 21 DAYS? :YES IF SO WHAT VACCINE AND WHEN? 03/03/21 MODERNA #2 DO YOU NEED ANY PRESCRIPTION? :YES OXY CALLED INTO SCRIPT LINE 01/31/21 DO YOU TAKE ANY IMMUNOSUPPRESSIVE MEDICATIONS? :NO DO YOU HAVE ANY KIDNEY OR LIVER DISEASE? :NO IS THERE A CHANCE YOU COULD BE ? :NO ARE YOU BREAST FEEDING? :NO CURRENT MEDICATIONS TAKING FLUCONAZOLE 150 MG TABLET 1 TABLET ORALLY ONCE TAKING CLOTRIMAZOLE 1 % CREAM 1 APPLICATION EXTERNALLY TWICE A DAY NEEDED FOR RASH TAKING SUCRALFATE 1 GM TABLET 1 TABLET AT BEDTIME ON AN EMPTY STOMACH BEFORE MEALS ORALLY DAILY TAKING BUPROPION HCL ER (XL) 300 MG TABLET EXTENDED RELEASE 24 HOUR 1 TABLET IN THE MORNING P.O. ONCE A DAY TAKING ADVAIR DISKUS 500-50 MCG/DOSE AEROSOL POWDER BREATH ACTIVATED 1 PUFF INHALATION TWICE A DAY TAKING ALCOHOL WIPES 70 % PAD DIRECTED TOPICALLY BID TAKING ZOFRAN 4 MG TABLET 1 TABLET NEEDED ORALLY EVERY 4 HRS TAKING PROAIR HFA 108 (90 BASE) MCG/ACT AEROSOL SOLUTION 2 PUFFS NEEDED INHALATION FOUR TIMES DAILY NEEDED TAKING DUONEB 0.5-2.5 (3) MG/3ML SOLUTION 3 ML INHALATION FOUR TIMES A DAY NEEDED TAKING MAY HAVE - - MAY HAVE WHEEL CHAIR BATTERY (R26.2) DIRECTED (R26.2) DAILY TAKING MAY HAVE CERTARITE ANTIOXIDANT DAILY TAKING HYDROXYZINE HCL 50 MG TABLET 1 TABLET NEEDED ORALLY EVERY 6 HRS PRN FOR PURITUS TAKING MAY HAVE - - WHEEL CHAIR SEAT BELT SUPERINTENDENT MARINE DIRECTED (R 26.2) DAILY TAKING ONETOUCH TEST - STRIP DX E11.9 DIRECTED FOUR TIMES DAILY TAKING ONETOUCH ULTRA TEST - STRIP USE FOUR TIMES A DAY DIRECTED TAKING HUMALOG KWIKPEN 200 UNIT/ML SOLUTION PEN-INJECTOR DIRECTED SUBCUTANEOUS PER SLIDING SCALE (MDD 66 UNITS) TAKING FLONASE ALLERGY RELIEF 50 MCG/ACT SUSPENSION 1 SPRAY IN EACH NOSTRIL NASALLY ONCE A DAY TAKING INCRUSE ELLIPTA 62.5 MCG/INH AEROSOL POWDER BREATH ACTIVATED 1 PUFF INHALATION ONCE A DAY TAKING WHEELCHAIR BATTERY REPAIR AND MAINTENANCE DIRECTED ICD10 - R26.2 [facility]# [id number] TAKING WHEELCHAIR - MISCELLANEOUS DX.R26.2 BATTERY DAILY TAKING LORATADINE 10 MG TABLET 1 TABLET ORALLY ONCE A DAY TAKING LANCETS - MISCELLANEOUS DIRECTED SUBCUTANEOUSLY BID TAKING WHEELCHAIR - MISCELLANEOUS DIRECTED (R26.2) MAY HAVE MOTERIZED WHEELCHAIR DAILY TAKING MAY HAVE - - POWER WHEELCHAIR ADJUNCT PSYCHOLOGY FACULTY MEMBER DIRECTED DX:R26.9 TAKING PRILOSEC OTC 20 MG TABLET DELAYED RELEASE 2 TABLET ORALLY ONCE A DAY TAKING LISINOPRIL 20 MG TABLET 1 TABLET ORALLY ONCE A DAY TAKING LIPITOR 20 MG TABLET 1 TABLET ORALLY ONCE A DAY TAKING COLACE 100 MG CAPSULE 1 CAPSULE NEEDED ORALLY TWICE DAILY NEEDED, NOTES: PRN TAKING METFORMIN HCL 1000 MG TABLET 1 TABLET WITH MEALS ORALLY TWICE A DAY TAKING LEVOTHYROXINE SODIUM 50 MCG TABLET 1 TABLET ON AN EMPTY STOMACH IN THE MORNING ORALLY ONCE A DAY TAKING TIZANIDINE HCL 4 MG TABLET 1 TABLET NEEDED ORALLY THREE TIMES A DAY TAKING DAILY MULTIVITAMIN - CAPSULE 1 TAB ORALLY DAILY TAKING SINGULAIR 10 MG TABLET 1 TABLET IN THE EVENING P.O. ONCE A DAY TAKING TOUJEO MAX SOLOSTAR 300 UNIT/ML SOLUTION PEN-INJECTOR 116 UNITS SUBCUTANEOUS DAILY TAKING MIRALAX - POWDER 17 GRAMS ORALLY ONCE A DAY TAKING FUROSEMIDE 20 MG TABLET 1 TABLET ORALLY ONCE A DAY TAKING TRULICITY 0.75 MG/0.5ML SOLUTION PEN-INJECTOR DIRECTED SUBCUTANEOUS WEEKLY TAKING TROSPIUM CHLORIDE ER 60 MG CAPSULE EXTENDED RELEASE 24 HOUR 1 CAPSULE IN THE MORNING ON AN EMPTY STOMACH OR 1 HOUR BEFORE A MEAL ORALLY ONCE A DAY TAKING MAY HAVE - - HEAVY DUTY ROLLING WALKER WITH SEAT, ROLLATOR, DX: R26.2 WEIGHT: 320 LBS TAKING INSULIN PEN NEEDLE 29G X 8MM MISCELLANEOUS 1 SUBCUTANEOUSLY DAILY TAKING CYMBALTA 60 MG CAPSULE DELAYED RELEASE PARTICLES 1 CAPSULE ORALLY ONCE A DAY TAKING VITAMIN D (ERGOCALCIFEROL) [id number] UNIT CAPSULE TAKE ONE CAPSULE BY MOUTH ONCE WEEKLY , NOTES: WEEKLY TAKING LYRICA 200 MG CAPSULE 1 CAPSULE ORALLY TID MDD: 3 TABS TAKING FERROUS SULFATE 325 (65 FE) MG TABLET 1 TABLET ORALLY TWICE A DAY TAKING NORVASC 10 MG TABLET 1 TABLET ORALLY ONCE A DAY TAKING OXYCODONE HCL 5 MG TABLET 1 TABLET NEEDED ORALLY FOR PAIN EVERY 8 HRS MDD3 NOT-TAKING HYDROCODONE-ACETAMINOPHEN 7.5-325 MG TABLET 1 TABLET NEEDED ORALLY FOR PAIN EVERY 8 HRS MDD3 NOT-TAKING HYDROCODONE-ACETAMINOPHEN 7.5-500 MG TABLET DIRECTED ORALLY NOT-TAKING MORPHINE SULFATE 15 MG TABLET 1 TABLET NEEDED ORALLY FOR PAIN DAILY NOT-TAKING MELATONIN 5 MG TABLET 1 TABLET AT BEDTIME NEEDED WITH FOOD ORALLY ONCE A DAY NOT-TAKING DIAZEPAM 5 MG TABLET [address] NEEDED ORALLY ON WAY TO MRI MAY REPEAT AT MRI UNTI MDD2 NOT-TAKING NYSTATIN [id number] UNIT/GM POWDER 1 APPLICATION TO AFFECTED AREA EXTERNALLY GROIN DAILY NOT-TAKING DOXYCYCLINE MONOHYDRATE 100 MG CAPSULE 1 CAPSULE ORALLY EVERY 12 HOURS NOT-TAKING CEPHALEXIN 500 MG CAPSULE 1 CAPSULE ORALLY EVERY 8 HRS NOT-TAKING [facility] HYDROCORTISONE ANTI-ITCH 0.5 % CREAM 1 APPLICATION TO AFFECTED AREA EXTERNALLY TWICE A DAY NOT-TAKING SPIRIVA HANDIHALER 18 MCG CAPSULE 1 CAPSULE INHALATION ONCE A DAY MEDICATION LIST REVIEWED AND RECONCILED WITH THE PATIENT PAST MEDICAL HISTORY LOW VITAMIN D TYPE II DIABETES GOAL ALC OF LESS THAT 7.5 OBSTRUCTIVE SLEEP APNEA HISTORY OF ABNORMAL PAPS, LAST 4 PAP SMEARS NORMAL (LAST 2017) MORBID OBESITY ARTHRITIS QUESTIONABLE FIBROMYALGIA 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 WHEELCHAIR BOUND DUE TO PAIN ALLERGIES ADHESIVE BANDAGES PLASTIC: ITCHING/RASH - ALLERGY SOCIAL HISTORY GENERAL: TOBACCO USE ARE YOU A:FORMER SMOKER HOW LONG HAS IT BEEN SINCE YOU LAST SMOKED?> 10 YEARS LATEX QUESTIONNAIRE LATEX ALLERGY : HAVE YOU EVER DEVELOPED ANY TYPE OF REACTION AFTER HANDLING LATEX PRODUCTS SUCH RUBBER GLOVES, CONDOMS, DIAPHRAGMS, BALLOONS, SOCKS, OR UNDERWEAR?YES LATEX ALLERGY : HAVE YOU EVER DEVELOPED ANY TYPE OF REACTION DURING OR AFTER DENTAL APPOINTMENT, VAGINAL/RECTAL EXAMINATION, SURGICAL PROCEDURE, OR ANY OTHER EXPOSURE?NO - PLEASE INDICATE :OTHER (DOCUMENT IN NOTES) ADHESIVE DATE ASKED : 01/27/2021 LATEX RISK : HAVE YOU EVER HAD ANY DIFFICULTY BREATHING OR HIVES AFTER EATING OR HANDLING ANY FRUITS, OR VEGETABLES; SUCH KIWI, BANANAS, STONE FRUITS, OR CHESTNUTSNO LATEX RISK : DO YOU HAVE A PREVIOUS PERSONAL HISTORY OF MORE THAN NINE SURGERIES, SPINA BIFIDA, OR REPEATED CATHERIZATIONS? NO LATEX RISK : ARE YOU FREQUENTLY EXPOSED TO LATEX PRODUCTS IN YOUR OCCUPATION?NO ALCOHOL USE: YES, OCCASIONALLY 1 GLASS OF WINE MAYBE ONCE A YEAR.. BMI CARE GOAL FOLLOW-UP ABOVE NORMAL BMI FOLLOW-UPLIFESTYLE EDUCATION REGARDING DIET ALCOHOL SCREENING DID YOU HAVE A DRINK CONTAINING ALCOHOL IN THE PAST YEAR?YES HOW OFTEN DID YOU HAVE SIX OR MORE DRINKS ON ONE OCCASION IN THE PAST YEAR?NEVER (0 POINTS) HOW MANY DRINKS DID YOU HAVE ON A TYPICAL DAY WHEN YOU WERE DRINKING IN THE PAST YEAR?1 OR 2 (0 POINTS) HOW OFTEN DID YOU HAVE A DRINK CONTAINING ALCOHOL IN THE PAST YEAR?MONTHLY OR LESS (1 POINT) POINTS1 INTERPRETATIONNEGATIVE RECREATIONAL DRUG USE DRUG USE?NO CAFFEINE CAFFEINE USE?YES HOW OFTEN AND HOW MUCH? ICE 2-3 8 OZ GLASSES A DAY SEXUAL HX HAD SEX IN THE LAST 12 MONTHS (VAGINAL, ORAL, OR ANAL)?: NO, HAVE YOU EVER HAD AN STD?: YES, CHLAMYDIA?: YES. HIV / HEP-C SCREENING HIV TEST OFFERED TO PATIENT:YES DATE OFFERED:03/21/2018 TEST ACCEPTED:NO HEP-C TEST OFFERED TO PATIENT:YES DATE OFFERED:03/21/2018 REASON:PATIENT DECLINED TEST ACCEPTED:NO REASON:PATIENT DECLINED BROCHURE PROVIDED TO PATIENTNO [id number] LANGUAGE NEW ZE[employer]ER. 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 EXERCISE: LOST 70 POUNDS AFTER BYPASS, STARTED BACK UP AT [employer] DOING WATER AEROBICS AND WEIGHTS AT THE GYM FIVE TIMES A WEEK.. MARITAL STATUS: .. OTHERS AT HOME: LIVES BYSELF WITH CAT. - HAS THE PATIENT BEEN EDUCATED REGARDING HIS/HER PLAN OF CARE?YES HAS THE PATIENT BEEN EDUCATED REGARDING PAIN, THE RISK FOR PAIN, THE IMPORTANCE OF EFFECTIVE PAIN MANAGEMENT, AND THE PAIN ASSESSMENT PROCESS?YES ADVANCE DIRECTIVE ADVANCE DIRECTIVE DISCUSSED WITH PATIENT:YES MUNIRA Jacobs [phone] REVIEW OF SYSTEMS CONSTITUTIONAL: ANY RECENT FEVER NO . CHILLS NO . WEIGHT CHANGE OF UNKNOWN REASONS NO . GASTROENTEROLOGY: NEW UNEXPLAINABLE CHANGES IN BOWEL CONTROL NO . CONSTIPATION NO . GENITOURINARY: ANY NEW CHANGE IN BLADDER CONTROL? NO . NEUROLOGY: NEW ONSET DIZZINESS OR NEUROLOGICAL CHANGES NOT MENTIONED NO . NEW NUMBNESS OR PAIN PATTERNS NOT MENTIONED AND PERTINENT TO TODAY'S VISIT NO . CARDIOLOGY: NEW CHEST PRESSURE NO . PATIENT DENIES NO . RESPIRATORY: UNEXPLAINABLE COUGH NO . NEW SHORTNESS OF BREATH NO . EXAMINATION GENERAL EXAMINATION: THIS IS A TELEPHONE VISIT. THE PATIENT IS ALERT, ORIENTED TIMES THREE AND COOPERATIVE. ASSESSMENTS RIGHT HIP PAIN - M25.551 (PRIMARY) ARTHRITIS OF RIGHT HIP - M16.11 TREATMENT RIGHT HIP PAIN CONTINUE OXYCODONE HCL TABLET, 5 MG, 1 TABLET NEEDED, ORALLY FOR PAIN, EVERY 8 HRS MDD3, 15 DAYS, 45, REFILLS 0 CLINICAL NOTES: I DISCUSSED ALTERNATIVES WITH MS. INGRAM. THERE WERE SOME CONFUSIONS OVER THE MEDICATIONS THAT SHE NEEDED REFILLED. I WILL GIVE HER A REFILL OF HER OXYCODONE. ISTOP NUMBER [id number] WAS CHECKED. WE ARE GOING TO HOLD THE HIP INJECTION UNTIL 2 WEEKS AFTER HER 2ND VACCINE. THE TOTAL TIME OF THE VISIT WAS 10 MINUTES. THE PATIENT REPORTS UNDERSTANDING AND AGREES WITH THE PLAN. I, GISELA PETERSON, DOCUMENTED THE ABOVE INFORMATION ACTING A SCRIBE FOR DR. SAMUEL. I HAVE REVIEWED THE ABOVE DOCUMENT, WRITTEN BY GISELA PETERSON, POLICE STENOGRAPHER, AND I VERIFY THAT IT IS ACCURATE. OTHERS NOTES: PAT DONE 02/04/21 @ 1240 NO VITAL SIGNS DONE FOR TELEPHONE VISIT. Sandra CAMILO DIGITAL BUSINESS ANALYST. PROCEDURE CODES [id number] TELEMEDICINE PHONE E/M BY AUGUSTO 5-10 MIN DISPOSITION & COMMUNICATION FOLLOW UP FOLLOW UP FOR PRESEDATE CLOSE TO 2ND VACCINE (REASON: PRESEDATE FOR RIGHT HIP INJECTION) ELECTRONICALLY SIGNED BY ALONDRA SAMUEL MD, ON 02/06/2021 AT 03:13 PM EDT DISCLAIMER : THIS IS A VISIT SUMMARY EXTRACTED FROM THE [employer] CHART. IT IS NOT A COPY OF THE [employer] PROGRESS NOTE. JASOND
== END ==
LOC: M PAIN 14:30
PROVIDERS: ATTEND Anesthesiology
DX: M25.551 Pain in right hip (principal); M16.11 Unilateral primary osteoarthritis, right hip; G89.29 Other chronic pain; E11.9 Type 2 diabetes mellitus without complications; E55.9 Vitamin D deficiency, unspecified; G47.33 Obstructive sleep apnea (adult) (pediatric); J45.40 Moderate persistent asthma, uncomplicated; Z87.891 Personal history of nicotine dependence; Z91.09 Other allergy status, other than to drugs and biological substances; Z79.4 Long term (current) use of insulin; Z79.51 Long term (current) use of inhaled steroids; Z79.899 Other long term (current) drug therapy

== ENCOUNTER → 2021-02-05 | Outpatient (REF) | payer MEDICAID ==
[2021-02-05 13:38] LABS: HEMATOCRIT 39.8 % (36.0-47.0); HEMOGLOBIN 12.4 g/dl (12.0-15.5); MEAN CORPUSCULAR HEMOGLOBIN 29.5 pg (27.0-33.0); MEAN CORPUSCULAR HGB CONC 31.2 g/dl (32.0-36.5); MEAN CORPUSCULAR VOLUME 94.8 fl (80.0-96.0); PLATELET COUNT, AUTOMATED 242 10^3/uL (150-450); WHITE BLOOD COUNT 5.1 10^3/uL (4.0-10.0)
[2021-02-05 14:35] LABS: HEMOGLOBIN A1c 6.5 %
[2021-02-05 14:46] LABS: CHOLESTEROL RISK RATIO 2.378 (<5); CREATININE FOR GFR 1.06 MG/DL (0.55-1.30); GLOMERULAR FILTRATION RATE 55.6 (>45); POTASSIUM SERUM 5.5 MEQ/L (3.5-5.1); THYROID STIMULATING HORMONE 1.6 uIU/ML (0.358-3.740); TOTAL 25(OH) VITAMIN D 16.8 NG/ML (30.0-100.0)
== END ==
LOC: M SFHCPLAZ 11:39
PROVIDERS: ATTEND Family Medicine
DX: E11.42 Type 2 diabetes mellitus with diabetic polyneuropathy (principal); I10 Essential (primary) hypertension; E03.9 Hypothyroidism, unspecified; E55.9 Vitamin D deficiency, unspecified

== ENCOUNTER → 2021-03-12 | Outpatient (CLI) | payer MEDICAID ==
--- NOTE | 2021-03-14 00:01 | ECWPNPC ---
PATIENT NAME: ROHIT INGRAM : 1955 GENDER: FEMALE VISIT DATE: 03/12/2021 DISCHARGE DATE: 03/12/21 1444 VISIT LOCKED DATE TIME: PHYSICIAN: ALONDRA SAMUEL MD PHYSICIAN PAGER NO: ACTIVE RESOURCE: ALONDRA SAMUEL MD REASON FOR APPOINTMENT 1. PRESEDATE FOR RIGHT HIP INJECTION HISTORY OF PRESENT ILLNESS GENERAL: 65-YEAR-OLD FEMALE PATIENT WITH A HISTORY OF CHRONIC RIGHT HIP PAIN. THE PATIENT DESCRIBES THE PAIN ACHING AND THROBBING WITH A PAIN SCORE RANGING FROM 6-10/10. PRESENTLY, SHE IS USING MEDICATION TO HELP THE PAIN. SHE HAS DONE PHYSICAL THERAPY BUT THE PAIN PERSIST. SHE IS INTERESTED IN DOING SOME INTERVENTIONS. THIS IS AFFECTING HER ABILITY TO WALK. WE ARE IN THE PROCESS OF TRYING TO GET HER A RIGHT HIP REPLACEMENT. ALSO, WE ARE LOOKING INTO SEEING IF SHE CAN DO A REVISION OF HER GASTRIC BYPASS. FALL RISK SCREENING: SCREENING : NO FALLS REPORTED IN THE LAST YEAR. PAIN SCREENING: PATIENT HAS A COMPLAINT OF ACUTE OR CHRONIC PAIN :YES LOCATION OF PAIN:RIGHT HIP, LEG(S) "RIGHT LEG TO KNEE AND SOME DAYS LOWER" INTENSITY OF PAIN (SCALE OF 1 TO 10):7 AVERAGE 6-7 WHAT DOES YOUR PAIN FEEL LIKE:ACHING, CONTINOUS, STABBING, TENDER, SORE, SHOOTING SOMETIMES SHARP AND STABBING DURATION:CONTINOUS, CONSTANT, AWAKENS FROM SLEEP SOMETIMES WAKES HER AT NIGHT PAIN IS INCREASED BY:ACTIVITIES PAIN IS DECREASED BY:OTHERS ONLY ON LEFT SIDE, HEAT, OXYCODONE, VOLTAREN GEL, TYLENOL PAIN HAS INTERFERED WITH THE FOLLOWING: EVERYTHING NURSING NOTE: -. PAIN CENTER INTAKE QUESTIONS: DO YOU HAVE A HISTORY OF MRSA? :NO DO YOU TAKE A BLOOD THINNERS? :NO DO YOU HAVE ANY BLEEDING DISORDERS? :NO ANY NEW NUMBNESS OR WEAKNESS IN YOUR LEGS OR ARMS? :NO ANY PACEMAKER,DEFIBRILLATOR, OR DORSAL COLUMN STIMULATOR? :NO DO YOU HAVE ANY RASHES OR OPEN SORES? :YES SORE LEFT UPPER BACK THIGH/BUTTOCKS THAT STARTED A RASH. SHE HAS HAD FOR GREAT THAN A MONTH. SHE IS IS HAVING PCP LOOK AT IT TOMORRROW ARE YOU ALLERGIC TO IV DYE? :NO ARE YOU DIABETIC? :YES ANY NEW PROBLEMS WITH YOUR MEDICATIONS? :NO HAVE YOU RECEIVED A VACCINE IN THE PAST 30 DAYS? :YES IF SO WHAT VACCINE AND WHEN? 2ND COVID 03/06/21-MADERNA DO YOU PLAN TO RECEIVE A VACCINE IN THE NEXT 21 DAYS? :NO DO YOU NEED ANY PRESCRIPTION? :NO DO YOU TAKE ANY IMMUNOSUPPRESSIVE MEDICATIONS? :NO DO YOU HAVE ANY KIDNEY OR LIVER DISEASE? :NO IS THERE A CHANCE YOU COULD BE ? :NO ARE YOU BREAST FEEDING? :NO CURRENT MEDICATIONS TAKING FLUCONAZOLE 150 MG TABLET 1 TABLET ORALLY DAILY TAKING CLOTRIMAZOLE 1 % CREAM 1 APPLICATION EXTERNALLY TWICE A DAY NEEDED FOR RASH TAKING SUCRALFATE 1 GM TABLET 1 TABLET AT BEDTIME ON AN EMPTY STOMACH BEFORE MEALS ORALLY DAILY TAKING BUPROPION HCL ER (XL) 300 MG TABLET EXTENDED RELEASE 24 HOUR 1 TABLET IN THE MORNING P.O. ONCE A DAY TAKING ADVAIR DISKUS 500-50 MCG/DOSE AEROSOL POWDER BREATH ACTIVATED 1 PUFF INHALATION TWICE A DAY TAKING ALCOHOL WIPES 70 % PAD DIRECTED TOPICALLY BID TAKING ZOFRAN 4 MG TABLET 1 TABLET NEEDED ORALLY EVERY 4 HRS TAKING PROAIR HFA 108 (90 BASE) MCG/ACT AEROSOL SOLUTION 2 PUFFS NEEDED INHALATION FOUR TIMES DAILY NEEDED TAKING DUONEB 0.5-2.5 (3) MG/3ML SOLUTION 3 ML INHALATION FOUR TIMES A DAY NEEDED TAKING MAY HAVE - - MAY HAVE WHEEL CHAIR BATTERY (R26.2) DIRECTED (R26.2) DAILY TAKING MAY HAVE CERTIVITE ANTIOXIDANT DAILY TAKING HYDROXYZINE HCL 50 MG TABLET 1 TABLET NEEDED ORALLY EVERY 6 HRS PRN FOR PURITUS TAKING MAY HAVE - - WHEEL CHAIR SEAT BELT FLANGING ROLL OPERATOR DIRECTED (R 26.2) DAILY TAKING ONETOUCH TEST - STRIP DX E11.9 DIRECTED FOUR TIMES DAILY TAKING ONETOUCH ULTRA TEST - STRIP USE FOUR TIMES A DAY DIRECTED TAKING HUMALOG KWIKPEN 200 UNIT/ML SOLUTION PEN-INJECTOR DIRECTED SUBCUTANEOUS PER SLIDING SCALE (MDD 66 UNITS) TAKING INCRUSE ELLIPTA 62.5 MCG/INH AEROSOL POWDER BREATH ACTIVATED 1 PUFF INHALATION ONCE A DAY TAKING WHEELCHAIR BATTERY REPAIR AND MAINTENANCE DIRECTED ICD10 - R26.2 [facility]# [id number] TAKING WHEELCHAIR - MISCELLANEOUS DX.R26.2 BATTERY DAILY TAKING LANCETS - MISCELLANEOUS DIRECTED SUBCUTANEOUSLY BID TAKING WHEELCHAIR - MISCELLANEOUS DIRECTED (R26.2) MAY HAVE MOTERIZED WHEELCHAIR DAILY TAKING MAY HAVE - - POWER WHEELCHAIR SCHEDULER DIRECTED DX:R26.9 TAKING LIPITOR 20 MG TABLET 1 TABLET ORALLY ONCE A DAY TAKING METFORMIN HCL 1000 MG TABLET 1 TABLET WITH MEALS ORALLY TWICE A DAY TAKING LEVOTHYROXINE SODIUM 50 MCG TABLET 1 TABLET ON AN EMPTY STOMACH IN THE MORNING ORALLY ONCE A DAY TAKING TIZANIDINE HCL 4 MG TABLET 1 TABLET NEEDED ORALLY THREE TIMES A DAY TAKING SINGULAIR 10 MG TABLET 1 TABLET IN THE EVENING P.O. ONCE A DAY TAKING TOUJEO MAX SOLOSTAR 300 UNIT/ML SOLUTION PEN-INJECTOR 116 UNITS SUBCUTANEOUS DAILY TAKING MIRALAX - POWDER 17 GRAMS ORALLY ONCE A DAY TAKING FUROSEMIDE 20 MG TABLET 1 TABLET ORALLY ONCE A DAY TAKING TROSPIUM CHLORIDE ER 60 MG CAPSULE EXTENDED RELEASE 24 HOUR 1 CAPSULE IN THE MORNING ON AN EMPTY STOMACH OR 1 HOUR BEFORE A MEAL ORALLY ONCE A DAY, NOTES: TAKES AT NIGHT TAKING MAY HAVE - - HEAVY DUTY ROLLING WALKER WITH SEAT, ROLLATOR, DX: R26.2 WEIGHT: 320 LBS TAKING INSULIN PEN NEEDLE 29G X 8MM MISCELLANEOUS 1 SUBCUTANEOUSLY DAILY TAKING FERROUS SULFATE 325 (65 FE) MG TABLET 1 TABLET ORALLY TWICE A DAY TAKING NORVASC 10 MG TABLET 1 TABLET ORALLY ONCE A DAY TAKING PRILOSEC OTC 20 MG TABLET DELAYED RELEASE 2 TABLET ORALLY ONCE A DAY TAKING VITAMIN D (ERGOCALCIFEROL) 61547 UNIT CAPSULE TAKE ONE CAPSULE BY MOUTH ONCE WEEKLY , NOTES: WEEKLY TAKING CYMBALTA 60 MG CAPSULE DELAYED RELEASE PARTICLES 1 CAPSULE ORALLY ONCE A DAY TAKING DAILY MULTIVITAMIN - CAPSULE 1 TAB ORALLY DAILY TAKING COLACE 100 MG CAPSULE 1 CAPSULE NEEDED ORALLY TWICE DAILY NEEDED, NOTES: PRN TAKING FLONASE ALLERGY RELIEF 50 MCG/ACT SUSPENSION 1 SPRAY IN EACH NOSTRIL NASALLY ONCE A DAY TAKING LORATADINE 10 MG TABLET 1 TABLET ORALLY ONCE A DAY TAKING TRULICITY 0.75 MG/0.5ML SOLUTION PEN-INJECTOR DIRECTED SUBCUTANEOUS WEEKLY TAKING LISINOPRIL 20 MG TABLET 1 TABLET ORALLY ONCE A DAY TAKING OXYCODONE HCL 5 MG TABLET 1 TABLET NEEDED ORALLY FOR PAIN EVERY 8 HRS MDD3 TAKING LYRICA 200 MG CAPSULE 1 CAPSULE ORALLY TID MDD: 3 TABS NOT-TAKING HYDROCODONE-ACETAMINOPHEN 7.5-325 MG TABLET 1 TABLET NEEDED ORALLY FOR PAIN EVERY 8 HRS MDD3 NOT-TAKING HYDROCODONE-ACETAMINOPHEN 7.5-500 MG TABLET DIRECTED ORALLY NOT-TAKING MORPHINE SULFATE 15 MG TABLET 1 TABLET NEEDED ORALLY FOR PAIN DAILY NOT-TAKING MELATONIN 5 MG TABLET 1 TABLET AT BEDTIME NEEDED WITH FOOD ORALLY ONCE A DAY NOT-TAKING DIAZEPAM 5 MG TABLET [address] NEEDED ORALLY ON WAY TO MRI MAY REPEAT AT MRI UNTI MDD2 NOT-TAKING NYSTATIN [id number] UNIT/GM POWDER 1 APPLICATION TO AFFECTED AREA EXTERNALLY GROIN DAILY NOT-TAKING DOXYCYCLINE MONOHYDRATE 100 MG CAPSULE 1 CAPSULE ORALLY EVERY 12 HOURS NOT-TAKING CEPHALEXIN 500 MG CAPSULE 1 CAPSULE ORALLY EVERY 8 HRS NOT-TAKING [facility] HYDROCORTISONE ANTI-ITCH 0.5 % CREAM 1 APPLICATION TO AFFECTED AREA EXTERNALLY TWICE A DAY NOT-TAKING SPIRIVA HANDIHALER 18 MCG CAPSULE 1 CAPSULE INHALATION ONCE A DAY MEDICATION LIST REVIEWED AND RECONCILED WITH THE PATIENT PAST MEDICAL HISTORY LOW VITAMIN D TYPE II DIABETES GOAL ALC OF LESS THAT 7.5 OBSTRUCTIVE SLEEP APNEA HISTORY OF ABNORMAL PAPS, LAST 4 PAP SMEARS NORMAL (LAST 2016) MORBID OBESITY ARTHRITIS QUESTIONABLE FIBROMYALGIA 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 KNEE SURGERY MENISCUS TEAR REPAIR 2013 COLONOSCOPY 2006 TOTAL KNEE REPLACEMENT LEFT 03/19/17 LITHOTRIPSY FAMILY HISTORY FATHER: MOTHER: SON(S): ALIVE 3 SON(S) - HEALTHY. PATIENT IS ADOPTED. SOCIAL HISTORY GENERAL: TOBACCO USE ARE YOU A:FORMER SMOKER HOW LONG HAS IT BEEN SINCE YOU LAST SMOKED?> 10 YEARS LATEX QUESTIONNAIRE LATEX ALLERGY : HAVE YOU EVER DEVELOPED ANY TYPE OF REACTION AFTER HANDLING LATEX PRODUCTS SUCH RUBBER GLOVES, CONDOMS, DIAPHRAGMS, BALLOONS, SOCKS, OR UNDERWEAR?YES - PLEASE INDICATE :OTHER (DOCUMENT IN NOTES) ADHESIVE LATEX ALLERGY : HAVE YOU EVER DEVELOPED ANY TYPE OF REACTION DURING OR AFTER DENTAL APPOINTMENT, VAGINAL/RECTAL EXAMINATION, SURGICAL PROCEDURE, OR ANY OTHER EXPOSURE?NO LATEX RISK : HAVE YOU EVER HAD ANY DIFFICULTY BREATHING OR HIVES AFTER EATING OR HANDLING ANY FRUITS, OR VEGETABLES; SUCH KIWI, BANANAS, STONE FRUITS, OR CHESTNUTSNO LATEX RISK : DO YOU HAVE A PREVIOUS PERSONAL HISTORY OF MORE THAN NINE SURGERIES, SPINA BIFIDA, OR REPEATED CATHERIZATIONS? NO LATEX RISK : ARE YOU FREQUENTLY EXPOSED TO LATEX PRODUCTS IN YOUR OCCUPATION?NO DATE ASKED : 03/12/2021 ALCOHOL USE: YES, OCCASIONALLY 1 GLASS OF WINE MAYBE ONCE A YEAR.. BMI CARE GOAL FOLLOW-UP ABOVE NORMAL BMI FOLLOW-UPLIFESTYLE EDUCATION REGARDING DIET ALCOHOL SCREENING DID YOU HAVE A DRINK CONTAINING ALCOHOL IN THE PAST YEAR?YES HOW OFTEN DID YOU HAVE SIX OR MORE DRINKS ON ONE OCCASION IN THE PAST YEAR?NEVER (0 POINTS) HOW MANY DRINKS DID YOU HAVE ON A TYPICAL DAY WHEN YOU WERE DRINKING IN THE PAST YEAR?1 OR 2 (0 POINTS) HOW OFTEN DID YOU HAVE A DRINK CONTAINING ALCOHOL IN THE PAST YEAR?MONTHLY OR LESS (1 POINT) POINTS1 INTERPRETATIONNEGATIVE RECREATIONAL DRUG USE DRUG USE?NO CAFFEINE CAFFEINE USE?YES HOW OFTEN AND HOW MUCH? ICE 2-3 8 OZ GLASSES A DAY SEXUAL HX HAD SEX IN THE LAST 12 MONTHS (VAGINAL, ORAL, OR ANAL)?: NO, HAVE YOU EVER HAD AN STD?: YES, CHLAMYDIA?: YES. HIV / HEP-C SCREENING HIV TEST OFFERED TO PATIENT:YES DATE OFFERED:03/21/2018 TEST ACCEPTED:NO HEP-C TEST OFFERED TO PATIENT:YES DATE OFFERED:03/21/2018 REASON:PATIENT DECLINED TEST ACCEPTED:NO REASON:PATIENT DECLINED BROCHURE PROVIDED TO PATIENTNO VOODOO [id number] [employer] ROMAN[employer]. 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 EXERCISE: LOST 70 POUNDS AFTER BYPASS, STARTED BACK UP AT [facility] DOING WATER AEROBICS AND WEIGHTS AT THE GYM FIVE TIMES A WEEK.. MARITAL STATUS: .. OTHERS AT HOME: LIVES BYSELF WITH CAT. - HAS THE PATIENT BEEN EDUCATED REGARDING HIS/HER PLAN OF CARE?YES HAS THE PATIENT BEEN EDUCATED REGARDING PAIN, THE RISK FOR PAIN, THE IMPORTANCE OF EFFECTIVE PAIN MANAGEMENT, AND THE PAIN ASSESSMENT PROCESS?YES ADVANCE DIRECTIVE ADVANCE DIRECTIVE DISCUSSED WITH PATIENT:YES [phone] HOSPITALIZATION/MAJOR DIAGNOSTIC PROCEDURE COPD EXACERBATION AND RSV 11/08/2018-11/12/2018 HYPERGLYCEMIA, RENAL INSUFFICIENCY 05/30/19 CELLULITIS 06/2020 REVIEW OF SYSTEMS GLAUCOMA: NOTHYROID DISEASE: NOHYPERTENSION: NOHEART DISEASE: NOLUNG DISEASE: ASTHMADIABETES: NOGI DISEASE: HISTORY OF GASTRIC BYPASSLIVER DISEASE: NO KIDNEY DISEASE: NOSTEROID USE: NONEUROLOGICAL DISEASE: NOBACK PROBLEMS: NOEXTREMITIES: NOGENITOURINARY: NOBLEEDING DISORDER: NOASA CLASS: IIAIRWAY CLASS: II. VITAL SIGNS WT 300 LBS, HT 62.75 IN, BMI 53.56 INDEX, BP 146/67 MM HG, HR 101 /MIN, RR 18 /MIN, TEMP 98.3 F, OXYGEN SAT % 98%, NA INITIALS SC 13:10. EXAMINATION GENERAL: THE PATIENT IS ALERT, ORIENTED TIMES THREE AND COOPERATIVE. LUNGS ARE CLEAR TO AUSCULTATION. HEART SHOWS REGULAR RHYTHM, NO MURMURS AND NO GALLOPS. TENDERNESS IN THE RIGHT HIP AREA. THE PATIENT IS IN A WHEELCHAIR. THE PATIENT IS OBESE. MRI OF THE RIGHT HIP 11/29/2020 SHOWS AVASCULAR NECROSIS OF THE RIGHT HIP WITH EFFUSION AND OSTEOARTHRITIC CHANGES. LUMBAR MRI DATED 01/21/2021 SHOWS BULGING DISC AND SPINAL STENOSIS. ASSESSMENTS RIGHT HIP PAIN - M25.551 (PRIMARY) OSTEOARTHRITIS OF RIGHT HIP, UNSPECIFIED OSTEOARTHRITIS TYPE - M16.11, WITH AVASCULAR NECROSIS TREATMENT RIGHT HIP PAIN CLINICAL NOTES: I DISCUSSED ALTERNATIVES WITH MS. INGRAM. WE ARE GOING TO GO AHEAD WITH THE RIGHT HIP INJECTION WITH IV SEDATION DUE TO ANXIETY AND DISCOMFORT ASSOCIATED WITH THE PROCEDURE. THE PATIENT EXPLAINED TO US THAT SHE HAS SOME SORT OF LESION OVER THE LEFT BUTTOCK AREA. SHE CANNOT SEE THAT AREA BUT SHE IS GOING TO SEE HER PRIMARY TOMORROW. I WANT HER TO DISCUSS WITH HER PRIMARY ABOUT THIS AND I WANT THE PRIMARY TO CLEAR HER. IF THE PROBLEM OVER THE LEFT BUTTOCK IS AN INFECTION OR IS NOT HEALED, WE SHOULD POSTPONE THE INJECTION. I REVIEWED WITH THE PATIENT THE URINE TOX DATED 01/03/2021 WITH THE PATIENT. THE PATIENT UNDERSTANDS THE IMPLICATIONS OF USING OPIOIDS AND BEING COMPLIANT. SHE IS FOLLOWING GUIDELINES AND SHE WILL CONTINUE RECEIVING MEDICATIONS. THE PATIENT REPORTS UNDERSTANDING AND AGREES WITH THE PLAN. I, GISELA PETERSON, DOCUMENTED THE ABOVE INFORMATION ACTING A SCRIBE FOR DR. SAMUEL. I HAVE REVIEWED THE ABOVE DOCUMENT, WRITTEN BY GISELA PETERSON, DESIGN PROJECT MANAGER, AND I VERIFY THAT IT IS ACCURATE. PROCEDURE CODES FA211 ESTABILISHED PATIENT [facility] CHARGE [id number] OFFICE/OUTPATIENT VISIT EST DISPOSITION & COMMUNICATION FOLLOW UP SEE TELEHPONE ENCOUNTER (REASON: RIGHT HIP INJECTION WITH IV SEDATION) ELECTRONICALLY SIGNED BY ALONDRA SAMUEL MD, MD ON 03/13/2021 AT 06:12 PM EDT DISCLAIMER : THIS IS A VISIT SUMMARY EXTRACTED FROM THE [employer] CHART. IT IS NOT A COPY OF THE [employer] PROGRESS NOTE. PRINCE
== END ==
LOC: M PAIN 13:00
PROVIDERS: ATTEND Anesthesiology
DX: M25.551 Pain in right hip (principal); M16.11 Unilateral primary osteoarthritis, right hip; G89.29 Other chronic pain; E11.9 Type 2 diabetes mellitus without complications; E55.9 Vitamin D deficiency, unspecified; G47.33 Obstructive sleep apnea (adult) (pediatric); J45.40 Moderate persistent asthma, uncomplicated; Z98.84 Bariatric surgery status; Z96.652 Presence of left artificial knee joint; Z87.891 Personal history of nicotine dependence; Z91.09 Other allergy status, other than to drugs and biological substances; E66.01 Morbid (severe) obesity due to excess calories; Z68.43 Body mass index [BMI] 50.0-59.9, adult; Z79.4 Long term (current) use of insulin; Z79.51 Long term (current) use of inhaled steroids; Z79.899 Other long term (current) drug therapy

== ENCOUNTER → 2021-04-17 | Outpatient (CLI) | payer MEDICARE, MEDICAID ==
--- NOTE | 2021-04-17 23:51 | ECWPNPC ---
PATIENT NAME: ROHIT INGRAM : 1955 GENDER: FEMALE VISIT DATE: 04/17/2021 DISCHARGE DATE: 04/17/21 1424 VISIT LOCKED DATE TIME: PHYSICIAN: ALONDRA SAMUEL MD PHYSICIAN PAGER NO: ACTIVE RESOURCE: ALONDRA SAMUEL MD REASON FOR APPOINTMENT 1. PRESEDATE RIGHT HIP INJECTION HISTORY OF PRESENT ILLNESS GENERAL: 66-YEAR-OLD FEMALE PATIENT WITH A HISTORY OF CHRONIC RIGHT HIP PAIN. THE PATIENT DESCRIBES THE PAIN ACHING, THROBBING AND SEVERE WITH A PAIN SCORE RANGING FROM 6-10/10 OVER THE RIGHT HIP. IT IS AFFECTING HER ABIIUITY TO MOVE AROUDN AND DO BASIC ACTIVITES SUCH CLEANIGN HER HOUSE. SHE IS USUALLY IN A WHEEL SYLVAIN. SHE HAS TRIED MEDICATION MANAGEMNT BUT THE PAIN PERSITS. SHE HAS HAD RIGHT HIP INJECTIONS IN THE PAST THAT HAVE HELPED HER. FALL RISK SCREENING: SCREENING : NO FALLS REPORTED IN THE LAST YEAR. PAIN SCREENING: PATIENT HAS A COMPLAINT OF ACUTE OR CHRONIC PAIN :YES LOCATION OF PAIN:LOW BACK, RIGHT HIP INTENSITY OF PAIN (SCALE OF 1 TO 10):6 WHAT DOES YOUR PAIN FEEL LIKE:ACHING, THROBBING DURATION:CONTINOUS PAIN IS INCREASED BY:ACTIVITIES PAIN IS DECREASED BY:USE OF PAIN MEDICATIONS NURSING NOTE: -. PAIN CENTER INTAKE QUESTIONS: DO YOU HAVE A HISTORY OF MRSA? :NO DO YOU TAKE A BLOOD THINNERS? :NO DO YOU HAVE ANY BLEEDING DISORDERS? :NO ANY NEW NUMBNESS OR WEAKNESS IN YOUR LEGS OR ARMS? :NO ANY PACEMAKER,DEFIBRILLATOR, OR DORSAL COLUMN STIMULATOR? :NO DO YOU HAVE ANY RASHES OR OPEN SORES? :YES SORE TO LEFT UPPER POSTERIOR THIGH CLOSING ARE YOU ALLERGIC TO IV DYE? :NO ARE YOU DIABETIC? :YES ANY NEW PROBLEMS WITH YOUR MEDICATIONS? :NO HAVE YOU RECEIVED A VACCINE IN THE PAST 30 DAYS? :NO DO YOU PLAN TO RECEIVE A VACCINE IN THE NEXT 21 DAYS? :NO DO YOU NEED ANY PRESCRIPTION? :NO DO YOU TAKE ANY IMMUNOSUPPRESSIVE MEDICATIONS? :NO DO YOU HAVE ANY KIDNEY OR LIVER DISEASE? :NO IS THERE A CHANCE YOU COULD BE ? :NO ARE YOU BREAST FEEDING? :NO CURRENT MEDICATIONS TAKING FLUCONAZOLE 150 MG TABLET 1 TABLET ORALLY DAILY TAKING CLOTRIMAZOLE 1 % CREAM 1 APPLICATION EXTERNALLY TWICE A DAY NEEDED FOR RASH TAKING SUCRALFATE 1 GM TABLET 1 TABLET AT BEDTIME ON AN EMPTY STOMACH BEFORE MEALS ORALLY DAILY TAKING BUPROPION HCL ER (XL) 300 MG TABLET EXTENDED RELEASE 24 HOUR 1 TABLET IN THE MORNING P.O. ONCE A DAY TAKING ADVAIR DISKUS 500-50 MCG/DOSE AEROSOL POWDER BREATH ACTIVATED 1 PUFF INHALATION TWICE A DAY TAKING ALCOHOL WIPES 70 % PAD DIRECTED TOPICALLY BID TAKING ZOFRAN 4 MG TABLET 1 TABLET NEEDED ORALLY EVERY 4 HRS TAKING PROAIR HFA 108 (90 BASE) MCG/ACT AEROSOL SOLUTION 2 PUFFS NEEDED INHALATION FOUR TIMES DAILY NEEDED TAKING DUONEB 0.5-2.5 (3) MG/3ML SOLUTION 3 ML INHALATION FOUR TIMES A DAY NEEDED TAKING MAY HAVE - - MAY HAVE WHEEL CHAIR BATTERY (R26.2) DIRECTED (R26.2) DAILY TAKING MAY HAVE CERTIVITE ANTIOXIDANT DAILY TAKING HYDROXYZINE HCL 50 MG TABLET 1 TABLET NEEDED ORALLY EVERY 6 HRS PRN FOR PURITUS TAKING MAY HAVE - - WHEEL CHAIR SEAT BELT WELFARE ELIGIBILITY WORKER DIRECTED (R 26.2) DAILY TAKING ONETOUCH TEST - STRIP DX E11.9 DIRECTED FOUR TIMES DAILY TAKING ONETOUCH ULTRA TEST - STRIP USE FOUR TIMES A DAY DIRECTED TAKING HUMALOG KWIKPEN 200 UNIT/ML SOLUTION PEN-INJECTOR DIRECTED SUBCUTANEOUS PER SLIDING SCALE (MDD 66 UNITS) TAKING INCRUSE ELLIPTA 62.5 MCG/INH AEROSOL POWDER BREATH ACTIVATED 1 PUFF INHALATION ONCE A DAY TAKING WHEELCHAIR BATTERY REPAIR AND MAINTENANCE DIRECTED ICD10 - R26.2 [facility]# [id number] TAKING WHEELCHAIR - MISCELLANEOUS DX.R26.2 BATTERY DAILY TAKING LANCETS - MISCELLANEOUS DIRECTED SUBCUTANEOUSLY BID TAKING WHEELCHAIR - MISCELLANEOUS DIRECTED (R26.2) MAY HAVE MOTERIZED WHEELCHAIR DAILY TAKING MAY HAVE - - POWER WHEELCHAIR DIRECTOR OF HEALTHCARE SYSTEMS DIRECTED DX:R26.9 TAKING LIPITOR 20 MG TABLET 1 TABLET ORALLY ONCE A DAY TAKING METFORMIN HCL 1000 MG TABLET 1 TABLET WITH MEALS ORALLY TWICE A DAY TAKING LEVOTHYROXINE SODIUM 50 MCG TABLET 1 TABLET ON AN EMPTY STOMACH IN THE MORNING ORALLY ONCE A DAY TAKING TIZANIDINE HCL 4 MG TABLET 1 TABLET NEEDED ORALLY THREE TIMES A DAY TAKING SINGULAIR 10 MG TABLET 1 TABLET IN THE EVENING P.O. ONCE A DAY TAKING TOUJEO MAX SOLOSTAR 300 UNIT/ML SOLUTION PEN-INJECTOR 116 UNITS SUBCUTANEOUS DAILY TAKING MIRALAX - POWDER 17 GRAMS ORALLY ONCE A DAY TAKING TROSPIUM CHLORIDE ER 60 MG CAPSULE EXTENDED RELEASE 24 HOUR 1 CAPSULE IN THE MORNING ON AN EMPTY STOMACH OR 1 HOUR BEFORE A MEAL ORALLY ONCE A DAY, NOTES: TAKES AT NIGHT TAKING MAY HAVE - - HEAVY DUTY ROLLING WALKER WITH SEAT, ROLLATOR, DX: R26.2 WEIGHT: 320 LBS TAKING INSULIN PEN NEEDLE 29G X 8MM MISCELLANEOUS 1 SUBCUTANEOUSLY DAILY TAKING NORVASC 10 MG TABLET 1 TABLET ORALLY ONCE A DAY TAKING PRILOSEC OTC 20 MG TABLET DELAYED RELEASE 2 TABLET ORALLY ONCE A DAY TAKING VITAMIN D (ERGOCALCIFEROL) 00635 UNIT CAPSULE TAKE ONE CAPSULE BY MOUTH ONCE WEEKLY , NOTES: WEEKLY TAKING CYMBALTA 60 MG CAPSULE DELAYED RELEASE PARTICLES 1 CAPSULE ORALLY ONCE A DAY TAKING DAILY MULTIVITAMIN - CAPSULE 1 TAB ORALLY DAILY TAKING COLACE 100 MG CAPSULE 1 CAPSULE NEEDED ORALLY TWICE DAILY NEEDED, NOTES: PRN TAKING FLONASE ALLERGY RELIEF 50 MCG/ACT SUSPENSION 1 SPRAY IN EACH NOSTRIL NASALLY ONCE A DAY TAKING LORATADINE 10 MG TABLET 1 TABLET ORALLY ONCE A DAY TAKING TRULICITY 0.75 MG/0.5ML SOLUTION PEN-INJECTOR DIRECTED SUBCUTANEOUS WEEKLY TAKING MUPIROCIN 2 % OINTMENT APPLY TO AFFECTED AREA OF LEFT POSTERIOR THIGH EXTERNALLY TWICE A DAY TAKING OPTIFOAM GENTLE AG DRESSING 4"X4" PAD APPLY TO LEFT POSTERIOR THIGH EXTERNALLY DAILY TAKING OXYCODONE HCL 5 MG TABLET 1 TABLET NEEDED ORALLY FOR PAIN EVERY 8 HRS MDD3 TAKING LYRICA 200 MG CAPSULE 1 CAPSULE ORALLY TID MDD: 3 TABS TAKING LISINOPRIL 20 MG TABLET 1 TABLET ORALLY ONCE A DAY TAKING FERROUS SULFATE 325 (65 FE) MG TABLET 1 TABLET ORALLY TWICE A DAY TAKING FUROSEMIDE 20 MG TABLET 1 TABLET ORALLY ONCE A DAY NOT-TAKING DOXYCYCLINE MONOHYDRATE 100 MG CAPSULE 1 CAPSULE ORALLY BID NOT-TAKING HYDROCODONE-ACETAMINOPHEN 7.5-325 MG TABLET 1 TABLET NEEDED ORALLY FOR PAIN EVERY 8 HRS MDD3 NOT-TAKING HYDROCODONE-ACETAMINOPHEN 7.5-500 MG TABLET DIRECTED ORALLY NOT-TAKING MORPHINE SULFATE 15 MG TABLET 1 TABLET NEEDED ORALLY FOR PAIN DAILY NOT-TAKING MELATONIN 5 MG TABLET 1 TABLET AT BEDTIME NEEDED WITH FOOD ORALLY ONCE A DAY NOT-TAKING DIAZEPAM 5 MG TABLET [address] NEEDED ORALLY ON [address] TO MRI MAY REPEAT AT MRI UNTI MDD2 NOT-TAKING NYSTATIN [id number] UNIT/GM POWDER 1 APPLICATION TO AFFECTED AREA EXTERNALLY GROIN DAILY NOT-TAKING DOXYCYCLINE MONOHYDRATE 100 MG CAPSULE 1 CAPSULE ORALLY EVERY 12 HOURS NOT-TAKING CEPHALEXIN 500 MG CAPSULE 1 CAPSULE ORALLY EVERY 8 HRS NOT-TAKING [facility] HYDROCORTISONE ANTI-ITCH 0.5 % CREAM 1 APPLICATION TO AFFECTED AREA EXTERNALLY TWICE A DAY NOT-TAKING SPIRIVA HANDIHALER 18 MCG CAPSULE 1 CAPSULE INHALATION ONCE A DAY MEDICATION LIST REVIEWED AND RECONCILED WITH THE PATIENT PAST MEDICAL HISTORY LOW VITAMIN D TYPE II DIABETES GOAL ALC OF LESS THAT 7.5 OBSTRUCTIVE SLEEP APNEA HISTORY OF ABNORMAL PAPS, LAST 4 PAP SMEARS NORMAL (LAST 2017) MORBID OBESITY ARTHRITIS QUESTIONABLE FIBROMYALGIA 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 WHEELCHAIR BOUND DUE TO PAIN RIGHT HIP PAIN ALLERGIES ADHESIVE BANDAGES PLASTIC: ITCHING/RASH - ALLERGY SOCIAL HISTORY GENERAL: TOBACCO USE ARE YOU A:FORMER SMOKER HOW LONG HAS IT BEEN SINCE YOU LAST SMOKED?> 10 YEARS LATEX QUESTIONNAIRE LATEX ALLERGY : HAVE YOU EVER DEVELOPED ANY TYPE OF REACTION AFTER HANDLING LATEX PRODUCTS SUCH RUBBER GLOVES, CONDOMS, DIAPHRAGMS, BALLOONS, SOCKS, OR UNDERWEAR?YES LATEX ALLERGY : HAVE YOU EVER DEVELOPED ANY TYPE OF REACTION DURING OR AFTER DENTAL APPOINTMENT, VAGINAL/RECTAL EXAMINATION, SURGICAL PROCEDURE, OR ANY OTHER EXPOSURE?NO - PLEASE INDICATE :OTHER (DOCUMENT IN NOTES) ADHESIVE DATE ASKED : 03/13/2021 LATEX RISK : HAVE YOU EVER HAD ANY DIFFICULTY BREATHING OR HIVES AFTER EATING OR HANDLING ANY FRUITS, OR VEGETABLES; SUCH KIWI, BANANAS, STONE FRUITS, OR CHESTNUTSNO LATEX RISK : DO YOU HAVE A PREVIOUS PERSONAL HISTORY OF MORE THAN NINE SURGERIES, SPINA BIFIDA, OR REPEATED CATHERIZATIONS? NO LATEX RISK : ARE YOU FREQUENTLY EXPOSED TO LATEX PRODUCTS IN YOUR OCCUPATION?NO ALCOHOL USE: YES, OCCASIONALLY 1 GLASS OF WINE MAYBE ONCE A YEAR.. BMI CARE GOAL FOLLOW-UP ABOVE NORMAL BMI FOLLOW-UPLIFESTYLE EDUCATION REGARDING DIET ALCOHOL SCREENING DID YOU HAVE A DRINK CONTAINING ALCOHOL IN THE PAST YEAR?YES HOW OFTEN DID YOU HAVE SIX OR MORE DRINKS ON ONE OCCASION IN THE PAST YEAR?NEVER (0 POINTS) HOW MANY DRINKS DID YOU HAVE ON A TYPICAL DAY WHEN YOU WERE DRINKING IN THE PAST YEAR?1 OR 2 (0 POINTS) HOW OFTEN DID YOU HAVE A DRINK CONTAINING ALCOHOL IN THE PAST YEAR?MONTHLY OR LESS (1 POINT) POINTS1 INTERPRETATIONNEGATIVE RECREATIONAL DRUG USE DRUG USE?NO CAFFEINE CAFFEINE USE?YES HOW OFTEN AND HOW MUCH? ICE 2-3 8 OZ GLASSES A DAY SEXUAL HX HAD SEX IN THE LAST 12 MONTHS (VAGINAL, ORAL, OR ANAL)?: NO, HAVE YOU EVER HAD AN STD?: YES, CHLAMYDIA?: YES. HIV / HEP-C SCREENING HIV TEST OFFERED TO PATIENT:YES DATE OFFERED:03/21/2018 TEST ACCEPTED:NO HEP-C TEST OFFERED TO PATIENT:YES DATE OFFERED:03/21/2018 REASON:PATIENT DECLINED TEST ACCEPTED:NO REASON:PATIENT DECLINED BROCHURE PROVIDED TO PATIENTNO TEMPLE [id number] LATTER DAY LANGUAGE [place]ET[place]ESE. 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 EXERCISE: LOST 70 POUNDS AFTER BYPASS, STARTED BACK UP AT [facility] DOING WATER AEROBICS AND WEIGHTS AT THE GYM FIVE TIMES A WEEK.. MARITAL STATUS: .. OTHERS AT HOME: LIVES BYSELF WITH CAT. - HAS THE PATIENT BEEN EDUCATED REGARDING HIS/HER PLAN OF CARE?YES HAS THE PATIENT BEEN EDUCATED REGARDING PAIN, THE RISK FOR PAIN, THE IMPORTANCE OF EFFECTIVE PAIN MANAGEMENT, AND THE PAIN ASSESSMENT PROCESS?YES ADVANCE DIRECTIVE ADVANCE DIRECTIVE DISCUSSED WITH PATIENT:YES [phone] REVIEW OF SYSTEMS GLAUCOMA: NOTHYROID DISEASE: HYPOTHYROIDISMHYPERTENSION: YESHEART DISEASE: NOLUNG DISEASE: ASTHMADIABETES: YESGI DISEASE: HISTORY OF GERDLIVER DISEASE: NO KIDNEY DISEASE: NOSTEROID USE: NONEUROLOGICAL DISEASE: NOBACK PROBLEMS: YES, PAINEXTREMITIES: YES, PAINGENITOURINARY: OCCASIONAL INCONTINENCEBLEEDING DISORDER: NOASA CLASS: IIIAIRWAY CLASS: II. VITAL SIGNS WT 300 LBS, HT 62.75 IN, BMI 53.56 INDEX, BP 158/65 MM HG, HR 104 /MIN, RR 20 /MIN, TEMP 98.2 F, OXYGEN SAT % 96%, SAFE IN ENV? (Y/N) Y, NA INITIALS SC 13:27, REVIEWED BY: EM. EXAMINATION GENERAL: THE PATIENT IS ALERT, ORIENTED TIMES THREE AND COOPERATIVE. SHE IS IN THE WHEELCHAIR. THERE IS TENDERNESS OVER THE RIGHT HIP AREA. MRI OF THE RIGHT HIP DATED 11/29/2020 SHOWS AVASCULAR NECROSIS. ASSESSMENTS RIGHT HIP PAIN - M25.551 (PRIMARY) OSTEOARTHRITIS OF RIGHT HIP, UNSPECIFIED OSTEOARTHRITIS TYPE - M16.11 TREATMENT RIGHT HIP PAIN NOTES: PRINTED AND REVIEWED PRE PROCEDURE INSTRUCTIONS WITH PATIENT. PATIENT VERBALIZED AN UNDERSTANDING OF THESE INSTRUCTIONS. Arsh GARCIA RN . CLINICAL NOTES: I DISCUSSED ALTERNATIVES WITH MS. INGRAM. WE ARE GOING TO PERFORM THIS PROCEDURE WITH IV SEDATION DUE TO ANXIETY AND PAIN ASSOCIATED WITH THE PROCEDURE. THE PATIENT WAS CLEARED BY HER PRIMARY CARE IN REGARD TO THE ULCER THAT SHE HAS OVER THE LEFT LOWER EXTREMITY. THE PATIENT IS LOOKING FORWARD TO HAVING THIS INJECTION. I, GISELA PETERSON, DOCUMENTED THE ABOVE INFORMATION ACTING A SCRIBE FOR DR. SAMUEL. I HAVE REVIEWED THE ABOVE DOCUMENT, WRITTEN BY GISELA PETERSON, BIN FILLER, AND I VERIFY THAT IT IS ACCURATE. PROCEDURE CODES FA211 ESTABILISHED PATIENT [facility] CHARGE [id number] OFFICE/OUTPATIENT VISIT EST DISPOSITION & COMMUNICATION FOLLOW UP OKAY TO BOOK (REASON: RIGHT HIP INJECTION WITH IV SEDATION) ELECTRONICALLY SIGNED BY ALONDRA SAMUEL MD, MD ON 04/17/2021 AT 05:39 PM EDT DISCLAIMER : THIS IS A VISIT SUMMARY EXTRACTED FROM THE [employer] CHART. IT IS NOT A COPY OF THE [employer] PROGRESS NOTE. MTDD
== END ==
LOC: M PAIN 13:40
PROVIDERS: ATTEND Anesthesiology
DX: M25.551 Pain in right hip (principal); M16.11 Unilateral primary osteoarthritis, right hip; G89.29 Other chronic pain; E11.9 Type 2 diabetes mellitus without complications; E55.9 Vitamin D deficiency, unspecified; G47.33 Obstructive sleep apnea (adult) (pediatric); Z87.891 Personal history of nicotine dependence; Z91.09 Other allergy status, other than to drugs and biological substances; E66.01 Morbid (severe) obesity due to excess calories; Z68.43 Body mass index [BMI] 50.0-59.9, adult; Z79.4 Long term (current) use of insulin; Z79.51 Long term (current) use of inhaled steroids; Z79.899 Other long term (current) drug therapy

== ENCOUNTER → 2021-04-19 | Outpatient (CLI) | payer MEDICARE, MEDICAID | LOC: M LABSMTC 10:08 | PROVIDERS: ATTEND Anesthesiology | DX: Z20.828 Contact with and (suspected) exposure to other viral communicable diseases (principal); Z11.59 Encounter for screening for other viral diseases ==

== ENCOUNTER → 2021-04-24 | Outpatient (CLI) | payer MEDICARE, MEDICAID ==
[~2021-04-24] MED LIST changes: +BUPIVACAINE HCL 0.25% 30ML VIAL As Ordered ONE; +ISOVUE-M 300 61% 15ML VIAL As Ordered ONE; +LIDOCAINE 1% SDV 30ML VIAL As Ordered ONE; +MIDAZOLAM INJ 2MG/2ML VIAL (J2250 PER 1MG) As Ordered ONE; +ONDANSETRON 4MG/2ML VIAL As Ordered ONE; +TRIAMCINOLONE ACETONIDE SUSP 40 MG/ML VIAL (J3301) As Ordered ONE; +diphenhydrAMINE 50MG/ML VIAL (J1200) As Ordered ONE; +fentaNYL 100 MCG/2 ML INJECTION (J3010) As Ordered ONE
--- NOTE | 2021-04-25 00:49 | ECWPNPC ---
PATIENT NAME: ROHIT INGRAM : 1955 GENDER: FEMALE VISIT DATE: 04/24/2021 DISCHARGE DATE: 04/24/21 1603 VISIT LOCKED DATE TIME: PHYSICIAN: ALONDRA SAMUEL MD PHYSICIAN PAGER NO: ACTIVE RESOURCE: ALONDRA SAMUEL MD REASON FOR APPOINTMENT 1. RIGHT HIP INJECTION HISTORY OF PRESENT ILLNESS GENERAL: -. FALL RISK SCREENING: SCREENING : NO FALLS REPORTED IN THE LAST YEAR. PAIN SCREENING: PATIENT HAS A COMPLAINT OF ACUTE OR CHRONIC PAIN :YES LOCATION OF PAIN:RIGHT HIP INTENSITY OF PAIN (SCALE OF 1 TO 10):8 WHAT DOES YOUR PAIN FEEL LIKE:ACHING, CONTINOUS, SHARP, TENDER, THROBBING, SORE, SHOOTING SOMETIMES SHARP DURATION:CONTINOUS, CONSTANT, AWAKENS FROM SLEEP DOESN'T SLEEP WELL DUE TO THE PAIN PAIN IS INCREASED BY:ACTIVITIES, OTHERS PROLONGED SITTING AND SHE CAN'T REALLY STAND. SHE IS WHEELCHAIR BOUND DUE TO HER HIP PAIN PAIN IS DECREASED BY:USE OF PAIN MEDICATIONS PAIN CREAM, LAYING ON LEFT SIDE, HIP INJECTIONS PAIN HAS INTERFERED WITH THE FOLLOWING: EVERYTHING NURSING NOTE: -. PAIN CENTER INTAKE QUESTIONS: DO YOU HAVE A HISTORY OF MRSA? :NO DO YOU TAKE A BLOOD THINNERS? :NO DO YOU HAVE ANY BLEEDING DISORDERS? :NO ANY NEW NUMBNESS OR WEAKNESS IN YOUR LEGS OR ARMS? :NO ANY PACEMAKER,DEFIBRILLATOR, OR DORSAL COLUMN STIMULATOR? :NO DO YOU HAVE ANY RASHES OR OPEN SORES? :YES SORE JUST BELOW LEFT BUTTOCK-NOT DRAINING AT THIS TIME. HAS BEEN FOLLOWING WITH PCP'S OFFICE-Arsh CASTANEDA ARE YOU ALLERGIC TO IV DYE? :NO ARE YOU DIABETIC? :YES FSBS 165 ANY NEW PROBLEMS WITH YOUR MEDICATIONS? :NO HAVE YOU RECEIVED A VACCINE IN THE PAST 30 DAYS? :NO DO YOU PLAN TO RECEIVE A VACCINE IN THE NEXT 21 DAYS? :NO DO YOU TAKE ANY IMMUNOSUPPRESSIVE MEDICATIONS? :NO ANY HISTORY OF SEIZURES? :NO ANY HISTORY OF CARDIAC ISSUES OR EVENTS? :YES HEART MURMUR THAT SHE HAS HAD SINCE INFANCY DO YOU HAVE ANY KIDNEY OR LIVER DISEASE? :NO DO YOU HAVE SLEEP APNEA? :YES DO YOU WEAR A CPAP?YES ANY RECENT HEAD INJURY? :NO DO YOU HAVE ANY NEW INFECTIONS? :NO IS THERE A CHANCE YOU COULD BE ? :NO ARE YOU BREAST FEEDING? :NO WHEN DID YOU LAST EAT? : 04/23/21 WHEN DID YOU LAST DRINK? : 04/24/21 0930 WHAT DID YOU LAST DRINK? : WATER NAME OF PERSON DRIVING YOU HOME? : [facility]. SHE WILL HAVE SOMEONE CHECKING IN ON HER WHEN SHE GETS HOME DO YOU HAVE ANY OTHER QUESTIONS OR CONCERNS? : - CURRENT MEDICATIONS TAKING FLUCONAZOLE 150 MG TABLET 1 TABLET ORALLY DAILY TAKING CLOTRIMAZOLE 1 % CREAM 1 APPLICATION EXTERNALLY TWICE A DAY NEEDED FOR RASH TAKING SUCRALFATE 1 GM TABLET 1 TABLET AT BEDTIME ON AN EMPTY STOMACH BEFORE MEALS ORALLY DAILY TAKING BUPROPION HCL ER (XL) 300 MG TABLET EXTENDED RELEASE 24 HOUR 1 TABLET IN THE MORNING P.O. ONCE A DAY TAKING ADVAIR DISKUS 500-50 MCG/DOSE AEROSOL POWDER BREATH ACTIVATED 1 PUFF INHALATION TWICE A DAY TAKING ALCOHOL WIPES 70 % PAD DIRECTED TOPICALLY BID TAKING ZOFRAN 4 MG TABLET 1 TABLET NEEDED ORALLY EVERY 4 HRS TAKING PROAIR HFA 108 (90 BASE) MCG/ACT AEROSOL SOLUTION 2 PUFFS NEEDED INHALATION FOUR TIMES DAILY NEEDED TAKING DUONEB 0.5-2.5 (3) MG/3ML SOLUTION 3 ML INHALATION FOUR TIMES A DAY NEEDED TAKING MAY HAVE - - MAY HAVE WHEEL CHAIR BATTERY (R26.2) DIRECTED (R26.2) DAILY TAKING MAY HAVE CERTIVITE ANTIOXIDANT ORALLY DAILY TAKING HYDROXYZINE HCL 50 MG TABLET 1 TABLET NEEDED ORALLY EVERY 6 HRS PRN FOR PURITUS TAKING MAY HAVE - - WHEEL CHAIR SEAT BELT [employer] MAGISTRATE DIRECTED (R 26.2) DAILY TAKING ONETOUCH TEST - STRIP DX E11.9 DIRECTED FOUR TIMES DAILY TAKING ONETOUCH ULTRA TEST - STRIP USE FOUR TIMES A DAY DIRECTED TAKING HUMALOG KWIKPEN 200 UNIT/ML SOLUTION PEN-INJECTOR DIRECTED SUBCUTANEOUS PER SLIDING SCALE (MDD 66 UNITS), NOTES: 04/23/21 TAKING INCRUSE ELLIPTA 62.5 MCG/INH AEROSOL POWDER BREATH ACTIVATED 1 PUFF INHALATION ONCE A DAY TAKING WHEELCHAIR BATTERY REPAIR AND MAINTENANCE DIRECTED ICD10 - R26.2 [facility]# [id number] TAKING WHEELCHAIR - MISCELLANEOUS DX.R26.2 BATTERY DAILY TAKING LANCETS - MISCELLANEOUS DIRECTED SUBCUTANEOUSLY BID TAKING WHEELCHAIR - MISCELLANEOUS DIRECTED (R26.2) MAY HAVE MOTERIZED WHEELCHAIR DAILY TAKING MAY HAVE - - POWER WHEELCHAIR DESTINATION IMAGINATION COORDINATOR DIRECTED DX:R26.9 TAKING LIPITOR 20 MG TABLET 1 TABLET ORALLY ONCE A DAY TAKING METFORMIN HCL 1000 MG TABLET 1 TABLET WITH MEALS ORALLY TWICE A DAY, NOTES: 04/23/21 TAKING LEVOTHYROXINE SODIUM 50 MCG TABLET 1 TABLET ON AN EMPTY STOMACH IN THE MORNING ORALLY ONCE A DAY TAKING TIZANIDINE HCL 4 MG TABLET 1 TABLET NEEDED ORALLY THREE TIMES A DAY, NOTES: 04/24/21 TAKING SINGULAIR 10 MG TABLET 1 TABLET IN THE EVENING P.O. ONCE A DAY TAKING TOUJEO MAX SOLOSTAR 300 UNIT/ML SOLUTION PEN-INJECTOR 116 UNITS SUBCUTANEOUS DAILY, NOTES: 04/23/21 TAKING MIRALAX - POWDER 17 GRAMS ORALLY ONCE A DAY TAKING MAY HAVE - - HEAVY DUTY ROLLING WALKER WITH SEAT, ROLLATOR, DX: R26.2 WEIGHT: 320 LBS TAKING INSULIN PEN NEEDLE 29G X 8MM MISCELLANEOUS 1 SUBCUTANEOUSLY DAILY TAKING NORVASC 10 MG TABLET 1 TABLET ORALLY ONCE A DAY, NOTES: 04/24/21699 TAKING PRILOSEC OTC 20 MG TABLET DELAYED RELEASE 2 TABLET ORALLY ONCE A DAY TAKING CYMBALTA 60 MG CAPSULE DELAYED RELEASE PARTICLES 1 CAPSULE ORALLY ONCE A DAY, NOTES: 04/24/21699 TAKING COLACE 100 MG CAPSULE 1 CAPSULE NEEDED ORALLY TWICE DAILY NEEDED, NOTES: PRN TAKING FLONASE ALLERGY RELIEF 50 MCG/ACT SUSPENSION 1 SPRAY IN EACH NOSTRIL NASALLY ONCE A DAY TAKING LORATADINE 10 MG TABLET 1 TABLET ORALLY ONCE A DAY TAKING TRULICITY 0.75 MG/0.5ML SOLUTION PEN-INJECTOR DIRECTED SUBCUTANEOUS WEEKLY, NOTES: WEDNESDAY TAKING MUPIROCIN 2 % OINTMENT APPLY TO AFFECTED AREA OF LEFT POSTERIOR THIGH EXTERNALLY TWICE A DAY TAKING OPTIFOAM GENTLE AG DRESSING 4"X4" PAD APPLY TO LEFT POSTERIOR THIGH EXTERNALLY DAILY TAKING OXYCODONE HCL 5 MG TABLET 1 TABLET NEEDED ORALLY FOR PAIN EVERY 8 HRS MDD3, NOTES: 04/24/21699 TAKING LYRICA 200 MG CAPSULE 1 CAPSULE ORALLY TID MDD: 3 TABS, NOTES: 04/24/21699 TAKING LISINOPRIL 20 MG TABLET 1 TABLET ORALLY ONCE A DAY, NOTES: 04/24/21699 TAKING FERROUS SULFATE 325 (65 FE) MG TABLET 1 TABLET ORALLY TWICE A DAY TAKING FUROSEMIDE 20 MG TABLET 1 TABLET ORALLY ONCE A DAY, NOTES: 04/23/21 TAKING TROSPIUM CHLORIDE ER 60 MG CAPSULE EXTENDED RELEASE 24 HOUR 1 CAPSULE IN THE MORNING ON AN EMPTY STOMACH OR 1 HOUR BEFORE A MEAL ORALLY ONCE A DAY, NOTES: TAKES AT NIGHT TAKING DAILY MULTIVITAMIN - CAPSULE 1 TAB ORALLY DAILY TAKING VITAMIN D (ERGOCALCIFEROL) 82496 UNIT CAPSULE 1 CAPSULE ORALLY WEEKLY, NOTES: WEEKLY NOT-TAKING DOXYCYCLINE MONOHYDRATE 100 MG CAPSULE 1 CAPSULE ORALLY BID NOT-TAKING HYDROCODONE-ACETAMINOPHEN 7.5-325 MG TABLET 1 TABLET NEEDED ORALLY FOR PAIN EVERY 8 HRS MDD3 NOT-TAKING HYDROCODONE-ACETAMINOPHEN 7.5-500 MG TABLET DIRECTED ORALLY NOT-TAKING MORPHINE SULFATE 15 MG TABLET 1 TABLET NEEDED ORALLY FOR PAIN DAILY NOT-TAKING MELATONIN 5 MG TABLET 1 TABLET AT BEDTIME NEEDED WITH FOOD ORALLY ONCE A DAY NOT-TAKING DIAZEPAM 5 MG TABLET 1 TABLET NEEDED ORALLY ON WAY TO MRI MAY REPEAT AT MRI UNTI MDD2 NOT-TAKING NYSTATIN [id number] UNIT/GM POWDER 1 APPLICATION TO AFFECTED AREA EXTERNALLY GROIN DAILY NOT-TAKING DOXYCYCLINE MONOHYDRATE 100 MG CAPSULE 1 CAPSULE ORALLY EVERY 12 HOURS NOT-TAKING CEPHALEXIN 500 MG CAPSULE 1 CAPSULE ORALLY EVERY 8 HRS NOT-TAKING [facility] HYDROCORTISONE ANTI-ITCH 0.5 % CREAM 1 APPLICATION TO AFFECTED AREA EXTERNALLY TWICE A DAY NOT-TAKING SPIRIVA HANDIHALER 18 MCG CAPSULE 1 CAPSULE INHALATION ONCE A DAY MEDICATION LIST REVIEWED AND RECONCILED WITH THE PATIENT PAST MEDICAL HISTORY LOW VITAMIN D TYPE II DIABETES GOAL ALC OF LESS THAT 7.5 OBSTRUCTIVE SLEEP APNEA HISTORY OF ABNORMAL PAPS, LAST 4 PAP SMEARS NORMAL (LAST 2016) MORBID OBESITY ARTHRITIS QUESTIONABLE FIBROMYALGIA 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 WHEELCHAIR BOUND DUE TO PAIN RIGHT HIP PAIN ALLERGIES ADHESIVE BANDAGES PLASTIC: ITCHING/RASH - ALLERGY LACTOSE INTOLERANCE: GAS, NAUSEA, BLOATING - ALLERGY SOCIAL HISTORY GENERAL: TOBACCO USE ARE YOU A:FORMER SMOKER HOW LONG HAS IT BEEN SINCE YOU LAST SMOKED?> 10 YEARS LATEX QUESTIONNAIRE LATEX ALLERGY : HAVE YOU EVER DEVELOPED ANY TYPE OF REACTION AFTER HANDLING LATEX PRODUCTS SUCH RUBBER GLOVES, CONDOMS, DIAPHRAGMS, BALLOONS, SOCKS, OR UNDERWEAR?YES - PLEASE INDICATE :OTHER (DOCUMENT IN NOTES) ADHESIVE LATEX ALLERGY : HAVE YOU EVER DEVELOPED ANY TYPE OF REACTION DURING OR AFTER DENTAL APPOINTMENT, VAGINAL/RECTAL EXAMINATION, SURGICAL PROCEDURE, OR ANY OTHER EXPOSURE?NO LATEX RISK : HAVE YOU EVER HAD ANY DIFFICULTY BREATHING OR HIVES AFTER EATING OR HANDLING ANY FRUITS, OR VEGETABLES; SUCH KIWI, BANANAS, STONE FRUITS, OR CHESTNUTSNO LATEX RISK : DO YOU HAVE A PREVIOUS PERSONAL HISTORY OF MORE THAN NINE SURGERIES, SPINA BIFIDA, OR REPEATED CATHERIZATIONS? NO LATEX RISK : ARE YOU FREQUENTLY EXPOSED TO LATEX PRODUCTS IN YOUR OCCUPATION?NO DATE ASKED : 04/23/2021 ALCOHOL USE: YES, OCCASIONALLY 1 GLASS OF WINE MAYBE ONCE A YEAR.. BMI CARE GOAL FOLLOW-UP ABOVE NORMAL BMI FOLLOW-UPLIFESTYLE EDUCATION REGARDING DIET ALCOHOL SCREENING DID YOU HAVE A DRINK CONTAINING ALCOHOL IN THE PAST YEAR?YES HOW OFTEN DID YOU HAVE SIX OR MORE DRINKS ON ONE OCCASION IN THE PAST YEAR?NEVER (0 POINTS) HOW MANY DRINKS DID YOU HAVE ON A TYPICAL DAY WHEN YOU WERE DRINKING IN THE PAST YEAR?1 OR 2 (0 POINTS) HOW OFTEN DID YOU HAVE A DRINK CONTAINING ALCOHOL IN THE PAST YEAR?MONTHLY OR LESS (1 POINT) POINTS1 INTERPRETATIONNEGATIVE RECREATIONAL DRUG USE DRUG USE?NO CAFFEINE CAFFEINE USE?YES HOW OFTEN AND HOW MUCH? ICE 2-3 8 OZ GLASSES A DAY SEXUAL HX HAD SEX IN THE LAST 12 MONTHS (VAGINAL, ORAL, OR ANAL)?: NO, HAVE YOU EVER HAD AN STD?: YES, CHLAMYDIA?: YES. HIV / HEP-C SCREENING HIV TEST OFFERED TO PATIENT:YES DATE OFFERED:03/21/2018 TEST ACCEPTED:NO HEP-C TEST OFFERED TO PATIENT:YES DATE OFFERED:03/21/2018 REASON:PATIENT DECLINED TEST ACCEPTED:NO REASON:PATIENT DECLINED BROCHURE PROVIDED TO PATIENTNO SPIRITISM [id number] FAITH LANGUAGE PERUVIAN. 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 EXERCISE: LOST 70 POUNDS AFTER BYPASS, STARTED BACK UP AT [facility] DOING WATER AEROBICS AND WEIGHTS AT THE GYM FIVE TIMES A WEEK.. MARITAL STATUS: .. OTHERS AT HOME: LIVES BYSELF WITH CAT. - HAS THE PATIENT BEEN EDUCATED REGARDING HIS/HER PLAN OF CARE?YES HAS THE PATIENT BEEN EDUCATED REGARDING PAIN, THE RISK FOR PAIN, THE IMPORTANCE OF EFFECTIVE PAIN MANAGEMENT, AND THE PAIN ASSESSMENT PROCESS?YES ADVANCE DIRECTIVE ADVANCE DIRECTIVE DISCUSSED WITH PATIENT:YES [id number] [phone] VITAL SIGNS WT 300 LBS, HT 62.75 IN, BMI 53.56 INDEX, BP 146/65 MM HG, HR 105 /MIN, RR 18 /MIN, TEMP 98.0 F, OXYGEN SAT % 94%, BLOOD GLUCOSE LEVEL 165, SAFE IN ENV? (Y/N) Y, NA INITIALS AW 1143, REVIEWED BY: EMFS @ HOME BY PT. EM. EXAMINATION GENERAL: A HISTORY AND PHYSICAL EXAM ON THE PATIENT WAS DONE ON 04/17/2021 (DATE OF ORIGINAL ASSESSMENT) IN PREPARATION OF SURGERY/PROCEDURE. I HAVE NOW REASSESSED THIS PATIENT'S HEALTH STATUS AND PERFORMED AN UPDATED EXAM TODAY. ALL CHANGES IN THE PATIENT'S HISTORY, PHYSICAL EXAM, PRE-EXISTING CONDITONS, AND INDICATIONS/CONTRAINDICATIONS TO THE PLANNED PROCEDURE AND ANESTHESIA ARE DOCUMENTED AND EVALUATED BELOW. I ATTEST TO THE ADEQUACY AND APPROPRIATENESS OF MY ASSESSMENT, AND CONFIRM THE NECESSITY FOR THE PLANNED PROCEDURE. THE PATIENT IS ALERT, ORIENTED TIMES THREE AND COOPERATIVE. LUNGS ARE CLEAR TO AUSCULTATION. HEART SHOWS REGULAR RHYTHM, NO MURMURS AND NO GALLOPS. ASSESSMENTS ARTHRITIS OF RIGHT HIP - M16.11 (PRIMARY) TREATMENT ARTHRITIS OF RIGHT HIP [facility] FLUORO GUIDANCE (PAIN)[id number] MED: VERSED 0.5MG IV MIDAZOLAMDILECARLOS AGISELA 04/24/2021 2:53:41 PM > VERIFIED BY JODY ROTHMAN 04/24/2021 3:40:30 PM > 1/2MG GIVEN AT 1453. COMPLETION OF PROCEDURAL VISIT WHEN MEETS CRITERIATJ MURPHY 04/24/2021 3:49:01 PM > CRITERIA MET. MEDICATION: FENTANYL CITRATE 25MCG IVDEVISAAD HERBERT 04/24/2021 2:12:29 PM > VERIFIED SAAD PASCUAL 04/24/2021 2:12:29 PM > VERIFIED DILEONALIZET LARAGISELA 04/24/2021 2:56:03 PM > SECOND DOSE ORDERED, VERIFIED BY SAAD TALLEY 04/24/2021 2:12:29 PM > VERIFIED SAAD PASCUAL 04/24/2021 2:12:29 PM > VERIFIED DILEONARDO,GISELA 04/24/2021 2:56:03 PM > SECOND DOSE ORDERED, VERIFIED BY GISELA VERDE 04/24/2021 2:59:02 PM > THIRD DOSE ORDERED, VERIFIED BY DR. JIMMIE PASCUAL,SAAD 04/24/2021 2:12:29 PM > VERIFIED ANKUR,SAAD 04/24/2021 2:12:29 PM > VERIFIED DILEONARDO,GISELA 04/24/2021 2:56:03 PM > SECOND DOSE ORDERED, VERIFIED BY DR. JIMMIE PASCUAL,SAAD 04/24/2021 2:12:29 PM > VERIFIED ANKUR,SAAD 04/24/2021 2:12:29 PM > VERIFIED DILEONARDO,GISELA 04/24/2021 2:56:03 PM > SECOND DOSE ORDERED, VERIFIED BY GISELA VERDE 04/24/2021 2:59:02 PM > THIRD DOSE ORDERED, VERIFIED BY GISELA VERDE 04/24/2021 3:02:33 PM > FOURTH DOSE ORDERED, VERIFIED BY DR. JIMMIE PASCUAL,SAAD 04/24/2021 2:12:29 PM > VERIFIED ANKUR,SAAD 04/24/2021 2:12:29 PM > VERIFIED DILEONARDO,GISELA 04/24/2021 2:56:03 PM > SECOND DOSE ORDERED, VERIFIED BY DR. JIMMIE PASCUAL,SAAD 04/24/2021 2:12:29 PM > VERIFIED ANKUR,SAAD 04/24/2021 2:12:29 PM > VERIFIED DILEONARDO,GISELA 04/24/2021 2:56:03 PM > SECOND DOSE ORDERED, VERIFIED BY GISELA VERDE 04/24/2021 2:59:02 PM > THIRD DOSE ORDERED, VERIFIED BY DR. JIMMIE PASCUAL,SAAD 04/24/2021 2:12:29 PM > VERIFIED ANKUR,SAAD 04/24/2021 2:12:29 PM > VERIFIED DILEONARDO,GISELA 04/24/2021 2:56:03 PM > SECOND DOSE ORDERED, VERIFIED BY SAAD TALLEY 04/24/2021 2:12:29 PM > VERIFIED SAAD PASCUAL 04/24/2021 2:12:29 PM > VERIFIED GISELA PETERSON 04/24/2021 2:56:03 PM > SECOND DOSE ORDERED, VERIFIED BY GISELA VERDE 04/24/2021 2:59:02 PM > THIRD DOSE ORDERED, VERIFIED BY GISELA VERDE 04/24/2021 3:02:33 PM > FOURTH DOSE ORDERED, VERIFIED BY GISELA VERDE 04/24/2021 3:03:09 PM > FIFTH DOSE ORDERED, VERIFIED BY GISELA VERDE 04/24/2021 3:05:47 PM > SIXTH DOSE ORDERED, VERIFIED BY GISELA VERDE 04/24/2021 3:07:18 PM > SEVENTH DOSE ORDERED, VERIFIED BY GISELA VERDE 04/24/2021 3:09:55 PM > EIGHTH DOSE ORDERED, VERIFIED BY GISELA VERDE 04/24/2021 3:12:49 PM > NINTH DOSE ORDERED, VERIFIED BY JODY ROTHMAN 04/24/2021 3:42:34 PM > 25MCG GIVEN AT 1454. JODY JUAREZ 04/24/2021 3:42:52 PM > 2: 25MCG GIVEN AT 1456. JODY JUAREZ 04/24/2021 3:45:46 PM > 3: 25MCG GIVEN AT 1459. 4: 25MCG GIVEN AT 1501. 5: 25MCG GIVEN AT 1502. 6: 25MCG GIVEN AT 1505. 7: 25MCG GIVEN AT 1507. 8: 25MCG GIVEN AT 1509. PATIENT GIVEN A TOTAL OF 225MCG OF FENTANYL. JODY JUAREZ 04/24/2021 3:49:24 PM > ADDENDUM: 9TH: 25MCG GIVEN AT 1514. MED: VERSED 1MG IV MIDAZOLAMSAAD PASCUAL 04/24/2021 2:12:45 PM > VERIFIED DILEONARDOGISELA 04/24/2021 3:57:24 PM > ORDER CANCELED, VERIFIED BY DR. SAMUEL OXYGEN AT 2 LITERS PER NASAL CANNULAMEETAZAREDWINATJ L 04/24/2021 2:47:49 PM > ON AT 1443. TJ MURPHY 04/24/2021 3:25:14 PM > OFF AT 1524. IV LACTATED RINGER'S AT KVOTHOMASJODY 04/24/2021 2:08:51 PM > 20G SALINE LOCK IN RIGHT AC ESTABLISHED ON FIRST ATTEMPT, POSITIVE FLASH, GOOD BLOOD RETURN, POSITIVE FLUSH, NO S/S OF INFILTRATION AND PATIENT TOLERATED PROCEDURE WELL. TJ MURPHY 04/24/2021 3:49:56 PM > SL REMOVED AT 1542, CATHETER TIP INTACT, SITE CLEAR. DSD PLACED OVER SITE. TJ MURPHY 04/24/2021 4:08:05 PM > TOTAL OF 250 ML INFUSED. MEDICATION: PAIN ZOFRAN 4MG/2ML IV ONDANSETRONDEVISAAD HERBERT 04/24/2021 2:13:54 PM > VERIFIED JODY JUAREZ 04/24/2021 2:21:02 PM > ADMINISTERED AT 1419. MED: PAIN BENADRYL 25MG IV DIPHENHYDRAMINEDEVITO,SAAD 04/24/2021 2:13:04 PM > VERIFIED JODY JUAREZ 04/24/2021 2:21:20 PM > ADMINISTERED AT 1420. DILEONARDOGISELA 04/24/2021 3:08:11 PM > SECOND DOSE ORDERED, VERIFIED BY JODY ROTHMAN 04/24/2021 3:41:38 PM > 25MG GIVEN AT 1508. TOTAL OF 50MGS OF BENADRYL. OTHERS NOTES: 04/23/21 PRE-PROCEDURE CALL COMPLETED. Arsh PASCUAL RN. PROCEDURES PAIN NURSING RECORD PROCEDURE IN ROOM 1440, PHYSICIAN IN ROOM 1452, START 1514, FINISH 1520, PHYSICIAN OUT OF ROOM 1523, OUT OF ROOM 1533, ECG OTHER SINUS TACHYCARDIA, PATIENT SHIELDED YES, SAFETY STRAP YES, PREP CHLOROPREP AND CHLORHEXIDINE BY DR. SAMUEL, DRESSING TEGADERM DR. SAMUEL LOC: TJ MURPHY L 04/24/2021 2:53:24 PM > 1. ALERT, ORIENTED JEFFREY,TJ L 04/24/2021 3:17:24 PM > 1. ALERT, ORIENTED JEFFREY,TJ L 04/24/2021 3:37:07 PM > LOC REMAINED AT BASELINE THROUGHOUT THE PROCEDURE. RESP: TJ MURPHY L 04/24/2021 3:17:47 PM > , 1. REGULAR, NO DYSPNEA COLOR: SYLDAMIEN,TJ L 04/24/2021 3:17:52 PM > , 1. PINK SKIN: SYLDAMIEN,TJ L 04/24/2021 3:17:57 PM > , 1. WARM, DRY POSITION: TJ MURPHY L 04/24/2021 3:18:02 PM > , 2. SUPINE VITALS: EDWINA MURPHYIE L 04/24/2021 2:48:19 PM > 181/84, 104, 18, 99% SYLVER,TJ L 04/24/2021 2:50:45 PM > 174/84, 104, 18, 99% SYLVER,TJ L 04/24/2021 2:53:09 PM > 178/86, 105, 18, 100% SYLVER,TJ L 04/24/2021 2:58:01 PM > 174/84, 104, 18, 99% SYLVER,TJ L 04/24/2021 3:03:26 PM > 178/84, 109, 18, 98% SYLVER,TJ L 04/24/2021 3:08:16 PM > 184/88, 109, 18, 96% SYLVER,TJ L 04/24/2021 3:09:56 PM > 174/81, 110, 18, 93% SYLVER,TJ L 04/24/2021 3:13:05 PM > 169/107, 113, 18, 95% SYLVER,TJ L 04/24/2021 3:14:22 PM > 171/83, 112, 18, 94% SYLVER,TJ L 04/24/2021 3:18:21 PM > 166/79, 112, 18, 94% SYLVER,TJ L 04/24/2021 3:23:31 PM > 171/90, 116, 18, 97% SYLVER,TJ Kwame 04/24/2021 3:25:55 PM > 166/91, 115, 18, 94% TJ MURPHY Kwame 04/24/2021 3:39:35 PM > 130/59, 111, 18, 95% COMPLETION OF PROCEDURE APPOINTMENT: POST PAIN 3, DRESSING SITE DRY AND INTACT, IV DISCONTINUED, SITE CLEAR, CATHETER INTACT, GAIT WHEELCHAIR, TEACHING COMPLETED, PATIENT ACKNOWLEDGES UNDERSTANDING YES, PROCEDURE APPOINTMENT COMPLETED AT 1559 BY: Keerthi MURPHY RN PREOPERATIVE DIAGNOSIS: RIGHT HIP PAINPOSTOPERATIVE DIAGNOSIS: RIGHT HIP PAINPROCEDURE: INJECTION OF THE RIGHT HIP JOINT UNDER FLUOROSCOPIC GUIDANCESURGEON: NISHA QUIROZTHESIA: LOCAL WITH IV SEDATIONPREOPERATIVE NOTE: THE PATIENT HAS HISTORY OF RIGHT HIP PAIN. I EVALUATED THE PATIENT AND REVIEWED THE CHART. I DISCUSSED THE RISKS, BENEFITS AND ALTERNATIVES ASSOCIATED WITH THIS PROCEDURE, WHICH INCLUDE INFECTIONS, NERVE DAMAGE INJECTION INSIDE OF A BLOOD VESSEL, CARDIOVASCULAR REST. THE PATIENT WOULD LIKE TO PROCEED AND GAVE CONSENT TO PERFORM THE PROCEDURE. THE PATIENT WOULD LIKE TO MOVE FORWARD WITH IV SEDATION DUE TO ANXIETY AND DISCOMFORT ASSOCIATED WITH THE PROCEDURE. THE PATIENT DENIES UNEXPLAINABLE WEIGHT LOSS, FEVERS, CHILLS, OR CHANGES IN HIS URINARY OR BOWEL CONTROL. THE PATIENT IS COVID-19 NEGATIVEPROCEDURE NOTE: AFTER CONSENT WAS TAKEN, THE PATIENT WAS BROUGHT TO THE PROCEDURE ROOM AND PLACED IN THE SUPINE POSITION. THE RIGHT INGUINAL AREA WAS CLEANED WITH CHLORAPREP SOLUTION AND DRAPED ASEPTICALLY. THE PROCEDURE WAS DONE UNDER STERILE CONDITIONS. UNDER FLUOROSCOPIC GUIDANCE, A 22-GAUGE SPINAL NEEDLE WAS ADVANCED TO THE LATERAL ASPECT OF THE FEMORAL NECK. I PALPATED AND EVALUATED THE RIGHT INGUINAL AREA. THE POSITION OF THE FEMORAL ARTERY WAS IDENTIFIED. THE NEEDLE WAS ADVANCED UNDER FLUOROSCOPIC GUIDANCE. AFTER PROPER POSITION OF THE NEEDLE WAS ACHIEVED, ISOVUE-M DYE 30%, 0.25 ML, WAS INJECTED SHOWING ADEQUATE SPREAD OF THE DYE. KENALOG 40 MG WAS INJECTED. THEN, A SOLUTION OF 30 ML OF BUPIVACAINE 0.125% WAS USED TO FLUSH THE SITE. THE MEDICATIONS WERE VERIFIED WITH THE NURSE. THERE WAS NO EVIDENCE OF BLOOD OR PARESTHESIA. THE PATIENT WAS SENT TO THE RECOVERY ROOM. THE PATIENT WAS MOVING THE EXTREMITIES AND DOING WELL. THERE WERE NO COMPLICATIONS DURING THE PROCEDURE. ESTIMATED BLOOD LOSS WAS LESS THAN 5 ML. FLUOROSCOPIC TIME WAS 37 SECONDS. THE PATIENT RECEIVED VERSED 0.5 MG AND FENTANYL 225 MCG AND BENADRYL 50 MG IV IN DIVIDED DOSES. FACE TO FACE START TIME: 1453 FACE TO FACE END TIME: 1524 TOTAL FACE TO FACE TIME: 31 MINUTES.POSTOPERATIVE NOTE: I DISCUSSED THE PROCEDURE WITH THE PATIENT. WE WILL SEE THE PATIENT BACK IN SEVERAL WEEKS FOR FOLLOWUP. I AM LOOKING FOR LONG-LASTING PAIN RELIEF WITH THIS INTERVENTION. I, GISELA PETERSON, DOCUMENTED THE ABOVE INFORMATION ACTING A SCRIBE FOR DR. SAMUEL. I HAVE REVIEWED THE ABOVE DOCUMENT, WRITTEN BY GISELA PETERSON, CANVAS MARKER, AND I VERIFY THAT IT IS ACCURATE . PROCEDURE CODES 94073 DRAIN/INJ JOINT/BURSA W/[place], [place] [id number] NEEDLE LOCALIZATION BY XRAY, MODIFIERS: [id number] MOD SED SAME PHYS/QHP 5/>YRS 29884 MOD SED SAME PHYS/QHP EA DISPOSITION & COMMUNICATION FOLLOW UP FOLLOW UP WITH [facility] DIVER (REASON: POST RIGHT HIP INJECTION) ELECTRONICALLY SIGNED BY ALONDRA SAMUEL MD, ON 04/24/2021 AT 05:43 PM EDT DISCLAIMER : THIS IS A VISIT SUMMARY EXTRACTED FROM THE [employer] CHART. IT IS NOT A COPY OF THE [facility] PROGRESS NOTE. MTDD
--- NOTE | 2021-04-25 09:44 | REP ---
INDICATION: RIGHT HIP INJECTION. COMPARISON: None. TECHNIQUE: Two views right hip using a C-arm. FINDINGS: A needle overlies the right femoral neck. Small amount of contrast is injected. IMPRESSION: 37 seconds fluoroscopy time utilized. <Electronically signed by Earl Baires > 04/25/21 0934
== END ==
LOC: M PAIN 11:40
PROVIDERS: ATTEND Anesthesiology
DX: M16.11 Unilateral primary osteoarthritis, right hip (principal); E11.9 Type 2 diabetes mellitus without complications; G47.33 Obstructive sleep apnea (adult) (pediatric); E55.9 Vitamin D deficiency, unspecified; J45.40 Moderate persistent asthma, uncomplicated; Z87.891 Personal history of nicotine dependence; Z91.018 Allergy to other foods; Z91.09 Other allergy status, other than to drugs and biological substances; E66.01 Morbid (severe) obesity due to excess calories; Z68.43 Body mass index [BMI] 50.0-59.9, adult; Z79.4 Long term (current) use of insulin; Z79.51 Long term (current) use of inhaled steroids; Z79.899 Other long term (current) drug therapy
CPT/HCPCS: 20610; 77002; 99152; 99153; J1200; J2250; J2405; J3010; J3301; Q9967

== ENCOUNTER → 2021-05-12 | Outpatient (REF) | payer MEDICARE, MEDICAID ==
[~2021-05-12] MED LIST changes: -BUPIVACAINE HCL 0.25% 30ML VIAL As Ordered ONE; -ISOVUE-M 300 61% 15ML VIAL As Ordered ONE; -LIDOCAINE 1% SDV 30ML VIAL As Ordered ONE; -MIDAZOLAM INJ 2MG/2ML VIAL (J2250 PER 1MG) As Ordered ONE; -ONDANSETRON 4MG/2ML VIAL As Ordered ONE; -TRIAMCINOLONE ACETONIDE SUSP 40 MG/ML VIAL (J3301) As Ordered ONE; -diphenhydrAMINE 50MG/ML VIAL (J1200) As Ordered ONE; -fentaNYL 100 MCG/2 ML INJECTION (J3010) As Ordered ONE
[2021-05-12 16:38] LABS: CALCIUM LEVEL 9.1 MG/DL (8.8-10.2); CREATININE FOR GFR 1.05 MG/DL (0.55-1.30); POTASSIUM SERUM 4.3 MEQ/L (3.5-5.1); TOTAL 25(OH) VITAMIN D 19.1 NG/ML (30.0-100.0)
[2021-05-12 16:51] LABS: CREATININE, URINE 76.5 MG/DL; MALB URINE SIEMENS 5.1 MG/L; MAU/CREAT RATIO 6.6 MCG/MG (0.0-30.0)
[2021-05-12 19:54] LABS: HEMOGLOBIN A1c 8.3 %
== END ==
LOC: M SFHCPLAZ 13:00
PROVIDERS: ATTEND Family Medicine
DX: E11.42 Type 2 diabetes mellitus with diabetic polyneuropathy (principal); E87.5 Hyperkalemia; E55.9 Vitamin D deficiency, unspecified
CPT/HCPCS: 36415; 80048; 82043; 82306; 83036; G0463

== ENCOUNTER → 2021-06-20 | Outpatient (CLI) | payer MEDICARE, MEDICAID ==
[~2021-06-20] MED LIST changes: +AZIT-12 PO; +BENZ200C70 PO; +CEFD300C41 PO; +CEFD300CAP PO; -CERTTAB3 PO; +CERTTAB5 PO; +ERGO500029 PO; +FURO20TA2 PO; +LEVO50TA5 PO; +MULT400T10 PO; +OXYC-517 PO; +PREG200C PO; +TOVI4TAB PO; +TRUL0.5I SC
== END ==
LOC: M PAIN 14:30
PROVIDERS: ATTEND Anesthesiology
DX: M25.551 Pain in right hip (principal); G89.29 Other chronic pain; E11.9 Type 2 diabetes mellitus without complications; G47.33 Obstructive sleep apnea (adult) (pediatric); E55.9 Vitamin D deficiency, unspecified; J45.30 Mild persistent asthma, uncomplicated; Z87.891 Personal history of nicotine dependence; Z91.011 Allergy to milk products; Z91.09 Other allergy status, other than to drugs and biological substances; Z79.4 Long term (current) use of insulin; Z79.51 Long term (current) use of inhaled steroids; Z79.899 Other long term (current) drug therapy

== ENCOUNTER → 2021-08-01 | Outpatient (CLI) | payer MEDICARE, MEDICAID ==
[~2021-08-01] MED LIST changes: -AZIT-12 PO; -BENZ200C70 PO; -CEFD300C41 PO; -CEFD300CAP PO; +CERTTAB3 PO; -CERTTAB5 PO; -ERGO500029 PO; -FURO20TA2 PO; -LEVO50TA5 PO; -MULT400T10 PO; -OXYC-517 PO; -PREG200C PO; -TOVI4TAB PO; -TRUL0.5I SC
[2021-08-01 17:13] LABS: BASO % 0.4 % (0.0-1.0); EOS # 0.1 10^3/uL (0.0-0.5); EOS % 2.4 % (0.0-3.0); HEMATOCRIT 38.1 % (36.0-47.0); HEMOGLOBIN 12.1 g/dl (12.0-15.5); LYMPH # 1.3 10^3/uL (1.5-5.0); LYMPH % 24.3 % (24.0-44.0); MEAN CORPUSCULAR HEMOGLOBIN 29.8 pg (27.0-33.0); MEAN CORPUSCULAR HGB CONC 31.8 g/dl (32.0-36.5); MEAN CORPUSCULAR VOLUME 93.8 fl (80.0-96.0); MONO # 0.4 10^3/uL (0.0-0.8); MONO % 7.8 % (2.0-8.0); NEUTROPHILS # 3.5 10^3/uL (1.5-8.5); NEUTROPHILS % 63.6 % (36.0-66.0); PLATELET COUNT, AUTOMATED 242 10^3/uL (150-450); RED BLOOD COUNT 4.06 10^6/uL (4.00-5.40); WHITE BLOOD COUNT 5.5 10^3/uL (4.0-10.0)
[2021-08-01 17:29] LABS: ALBUMIN 3.4 GM/DL (3.2-5.2); ALT/SGPT 43 U/L (12-78); BILIRUBIN,TOTAL 0.4 MG/DL (0.2-1.0); BLOOD UREA NITROGEN 19 MG/DL (7-18); CALCIUM LEVEL 8.9 MG/DL (8.8-10.2); CARBON DIOXIDE LEVEL 29 MEQ/L (21-32); CHLORIDE LEVEL 111 MEQ/L (98-107); CREATININE FOR GFR 0.95 MG/DL (0.55-1.30); GLOMERULAR FILTRATION RATE > 60.0 (>45); GLUCOSE, FASTING 68 MG/DL (70-100); POTASSIUM SERUM 4.7 MEQ/L (3.5-5.1); SODIUM LEVEL 143 MEQ/L (136-145); TOTAL PROTEIN 6.6 GM/DL (6.4-8.2)
[2021-08-01 18:50] LABS: HEMOGLOBIN A1c 8.4 %
== END ==
LOC: M PLALAB 15:17
PROVIDERS: ATTEND Student in an Organized Health Care Education/Training Program
DX: E11.42 Type 2 diabetes mellitus with diabetic polyneuropathy (principal)
CPT/HCPCS: 36415; 80053; 83036; 85025; G0463

== ENCOUNTER → 2021-08-06 | Outpatient (CLI) | payer MEDICARE, MEDICAID ==
[~2021-08-06] MED LIST changes: +AZIT-12 PO; +BENZ200C70 PO; +CEFD300C41 PO; +CEFD300CAP PO; -CERTTAB3 PO; +CERTTAB5 PO; +ERGO500029 PO; +FURO20TA2 PO; +LEVO50TA5 PO; +MULT400T10 PO; +OXYC-517 PO; +PREG200C PO; +TOVI4TAB PO; +TRUL0.5I SC
== END ==
LOC: M PAIN 13:45
PROVIDERS: ATTEND Anesthesiology
DX: M16.11 Unilateral primary osteoarthritis, right hip (principal); M87.051 Idiopathic aseptic necrosis of right femur; E11.9 Type 2 diabetes mellitus without complications; G47.33 Obstructive sleep apnea (adult) (pediatric); E55.9 Vitamin D deficiency, unspecified; J45.40 Moderate persistent asthma, uncomplicated; E03.9 Hypothyroidism, unspecified; Z87.891 Personal history of nicotine dependence; Z91.011 Allergy to milk products; Z91.09 Other allergy status, other than to drugs and biological substances; E66.01 Morbid (severe) obesity due to excess calories; Z68.43 Body mass index [BMI] 50.0-59.9, adult; Z79.4 Long term (current) use of insulin; Z79.51 Long term (current) use of inhaled steroids; Z79.899 Other long term (current) drug therapy

== ENCOUNTER → 2021-08-21 | Outpatient (CLI) | payer MEDICARE, MEDICAID ==
[~2021-08-21] MED LIST changes: -AZIT-12 PO; -BENZ200C70 PO; -CEFD300C41 PO; -CEFD300CAP PO; +CERTTAB3 PO; -CERTTAB5 PO; -ERGO500029 PO; -FURO20TA2 PO; -LEVO50TA5 PO; -MULT400T10 PO; -OXYC-517 PO; -PREG200C PO; -TOVI4TAB PO; -TRUL0.5I SC
== END ==
LOC: M LABSMTC 11:17
PROVIDERS: ATTEND Anesthesiology
DX: Z20.822 Contact with and (suspected) exposure to COVID-19 (principal)

== ENCOUNTER → 2021-08-26 | Outpatient (CLI) | payer MEDICARE, MEDICAID ==
[~2021-08-26] MED LIST changes: +BUPIVACAINE HCL 0.25% 30ML VIAL As Ordered ONE; +ISOVUE-M 300 61% 15ML VIAL As Ordered ONE; +LIDOCAINE 1% SDV 30ML VIAL As Ordered ONE; +MIDAZOLAM INJ 2MG/2ML VIAL (J2250 PER 1MG) As Ordered ONE; +ONDANSETRON 4MG/2ML VIAL As Ordered ONE; +TRIAMCINOLONE ACETONIDE SUSP 40 MG/ML VIAL (J3301) As Ordered ONE; +diphenhydrAMINE 50MG/ML VIAL (J1200) As Ordered ONE; +fentaNYL 100 MCG/2 ML INJECTION (J3010) As Ordered ONE
--- NOTE | 2021-08-26 14:13 | REP ---
INDICATION: RIGHT HIP INJECTION. COMPARISON: None. TECHNIQUE: A single spot view of the right hip. 29.6 seconds of fluoroscopy time is reported. FINDINGS: A single last image hold fluoroscopically obtained spot radiograph of the right hip document needle position and contrast injection associated with injection procedure. IMPRESSION: Procedural imaging. <Electronically signed by Donnie Alvarado > 08/26/21 1081
== END ==
LOC: M PAIN 11:40
PROVIDERS: ATTEND Anesthesiology
DX: M16.11 Unilateral primary osteoarthritis, right hip (principal); E11.9 Type 2 diabetes mellitus without complications; G47.33 Obstructive sleep apnea (adult) (pediatric); E55.9 Vitamin D deficiency, unspecified; J45.40 Moderate persistent asthma, uncomplicated; E03.9 Hypothyroidism, unspecified; Z87.891 Personal history of nicotine dependence; Z91.011 Allergy to milk products; Z91.09 Other allergy status, other than to drugs and biological substances; E66.01 Morbid (severe) obesity due to excess calories; Z68.43 Body mass index [BMI] 50.0-59.9, adult; Z79.4 Long term (current) use of insulin; Z79.51 Long term (current) use of inhaled steroids; Z79.899 Other long term (current) drug therapy
CPT/HCPCS: 20610; 77002; 99152; J1200; J2250; J2405; J3010; J3301; Q9967

== ENCOUNTER → 2021-09-12 | Outpatient (CLI) | payer MEDICARE, MEDICAID ==
[~2021-09-12] MED LIST changes: -BUPIVACAINE HCL 0.25% 30ML VIAL As Ordered ONE; -CERTTAB3 PO; +CERTTAB5 PO; -ISOVUE-M 300 61% 15ML VIAL As Ordered ONE; -LIDOCAINE 1% SDV 30ML VIAL As Ordered ONE; -MIDAZOLAM INJ 2MG/2ML VIAL (J2250 PER 1MG) As Ordered ONE; -ONDANSETRON 4MG/2ML VIAL As Ordered ONE; -TRIAMCINOLONE ACETONIDE SUSP 40 MG/ML VIAL (J3301) As Ordered ONE; -diphenhydrAMINE 50MG/ML VIAL (J1200) As Ordered ONE; -fentaNYL 100 MCG/2 ML INJECTION (J3010) As Ordered ONE
== END ==
LOC: M PAIN 13:30
PROVIDERS: ATTEND Anesthesiology
DX: M25.551 Pain in right hip (principal); M16.11 Unilateral primary osteoarthritis, right hip; G89.29 Other chronic pain; E11.9 Type 2 diabetes mellitus without complications; G47.33 Obstructive sleep apnea (adult) (pediatric); E55.9 Vitamin D deficiency, unspecified; J45.40 Moderate persistent asthma, uncomplicated; E03.9 Hypothyroidism, unspecified; Z87.891 Personal history of nicotine dependence; Z91.011 Allergy to milk products; Z91.09 Other allergy status, other than to drugs and biological substances; E66.01 Morbid (severe) obesity due to excess calories; Z68.43 Body mass index [BMI] 50.0-59.9, adult; Z79.4 Long term (current) use of insulin; Z79.51 Long term (current) use of inhaled steroids; Z79.899 Other long term (current) drug therapy

== ENCOUNTER → 2021-10-15 | Outpatient (CLI) | payer MEDICARE, MEDICAID | LOC: M LABSMTC 11:38 | PROVIDERS: ATTEND Family Medicine | DX: Z20.822 Contact with and (suspected) exposure to COVID-19 (principal) | CPT/HCPCS: C9803; U0003 ==

== ENCOUNTER → 2021-11-10 | Outpatient (CLI) | payer MEDICARE, MEDICAID | LOC: M PAIN 10:00 | PROVIDERS: ATTEND Nurse Practitioner Family | DX: M16.11 Unilateral primary osteoarthritis, right hip (principal); G89.29 Other chronic pain; E11.9 Type 2 diabetes mellitus without complications; E55.9 Vitamin D deficiency, unspecified; G47.33 Obstructive sleep apnea (adult) (pediatric); J45.40 Moderate persistent asthma, uncomplicated; E03.9 Hypothyroidism, unspecified; Z87.891 Personal history of nicotine dependence; Z91.011 Allergy to milk products; Z91.09 Other allergy status, other than to drugs and biological substances; E66.01 Morbid (severe) obesity due to excess calories; Z68.42 Body mass index [BMI] 45.0-49.9, adult; Z79.4 Long term (current) use of insulin; Z79.899 Other long term (current) drug therapy ==

== ENCOUNTER → 2021-11-26 | Outpatient (CLI) | payer MEDICARE, MEDICAID ==
[~2021-11-26] MED LIST changes: +ERGO500029 PO; +FURO20TA2 PO; +LEVO50TA5 PO; +MULT400T10 PO; +OXYC-517 PO; +PREG200C PO; +TOVI4TAB PO; +TRUL0.5I SC
== END ==
LOC: M LABSMTC 13:35
PROVIDERS: ATTEND Anesthesiology
DX: Z20.822 Contact with and (suspected) exposure to COVID-19 (principal)

== ENCOUNTER 2021-12-04 14:19 | Observation (INO) | payer MEDICARE, MEDICAID ==
[~2021-12-04] VITALS: Ht 160 cm; Wt 130.5 kg
[~2021-12-04 14:19] MED LIST changes: +AZIT-12 PO; +CEFD300CAP PO
[2021-12-04] MEDS ORDERED: oxyCODONE 5MG TAB PO ONE (19:15)
[2021-12-04] MEDS ORDERED: tiZANidine 4 MG TAB PO ONE (19:15)
[2021-12-04] MEDS ORDERED: PREGABALIN 100 MG CAP (LYRICA) PO ONE (19:15)
[2021-12-04 20:14] LABS: BASO % 0.3 % (0.0-1.0); EOS # 0.1 10^3/uL (0.0-0.5); EOS % 1.6 % (0.0-3.0); HEMATOCRIT 37.1 % (36.0-47.0); LYMPH # 1.1 10^3/uL (1.5-5.0); LYMPH % 16.3 % (24.0-44.0); MEAN CORPUSCULAR HEMOGLOBIN 29.2 pg (27.0-33.0); MEAN CORPUSCULAR HGB CONC 32.3 g/dl (32.0-36.5); MEAN CORPUSCULAR VOLUME 90.3 fl (80.0-96.0); MONO # 0.5 10^3/uL (0.0-0.8); NEUTROPHILS % 73.3 % (36.0-66.0); PLATELET COUNT, AUTOMATED 286 10^3/uL (150-450); RED BLOOD COUNT 4.11 10^6/uL (4.00-5.40); WHITE BLOOD COUNT 6.8 10^3/uL (4.0-10.0)
[2021-12-04 20:36] LABS: ALBUMIN 3.4 GM/DL (3.2-5.2); ALT/SGPT 35 U/L (12-78); BILIRUBIN,DIRECT 0.1 MG/DL (0.0-0.2); BILIRUBIN,TOTAL 0.3 MG/DL (0.2-1.0); BLOOD UREA NITROGEN 14 MG/DL (7-18); CALCIUM LEVEL 8.8 MG/DL (8.8-10.2); CARBON DIOXIDE LEVEL 27 MEQ/L (21-32); CHLORIDE LEVEL 108 MEQ/L (98-107); CREATININE FOR GFR 0.98 MG/DL (0.55-1.30); GLOMERULAR FILTRATION RATE > 60.0 (>45); GLUCOSE, FASTING 122 MG/DL (70-100); LIPASE 59 U/L (73-393); NT-PRO BNP 209 PG/ML (<125); POTASSIUM SERUM 4.5 MEQ/L (3.5-5.1); SODIUM LEVEL 140 MEQ/L (136-145); TOTAL PROTEIN 6.5 GM/DL (6.4-8.2)
[2021-12-04] MEDS ORDERED: ISOVUE-370 76% 100ML VIAL As Ordered ONE (21:11)
[2021-12-04 21:33] LABS: CK-MB VALUE MASS 4.6 NG/ML (<3.6); MB/CK RELATIVE INDEX 2.47 (< OR =4)
[2021-12-04 23:12] LABS: CK-MB VALUE MASS 4.1 NG/ML (<3.6); MB/CK RELATIVE INDEX 2.41 (< OR =4)
[2021-12-05] MEDS ORDERED: CEFD300C41 PO (00:08)
[2021-12-05] MEDS ORDERED: TRUL0.5I SC (00:08)
[2021-12-05] MEDS ORDERED: IPRA0.00 INH (00:13)
[2021-12-05] MEDS ORDERED: HOME MED LIST COMPLETE! XX SCH (00:15)
[2021-12-05 00:41] LABS: CK-MB VALUE MASS 3.6 NG/ML (<3.6); MB/CK RELATIVE INDEX 1.97 (< OR =4)
[2021-12-05] MEDS ORDERED: ONDANSETRON 4 MG ORAL DISINTEGRATING TAB PO PRN (01:15)
[2021-12-05] MEDS ORDERED: IPRATROPIUM 0.5MG/ALBUTEROL 2.5MG INH SOL UD 3ML (DUONEB) INH PRN (01:15)
[2021-12-05] MEDS ORDERED: ALBUTEROL 90 MCG/ACT 8GM HFA INHALER INH PRN (01:15)
[2021-12-05] MEDS ORDERED: MIRALAX *UNIT DOSE* 17GM PACKET PO PRN (01:15)
[2021-12-05] MEDS ORDERED: DEXTROSE 50% 50 ML SYRINGE IV PRN (02:00)
[2021-12-05] MEDS ORDERED: GLUCOSE 4GM CHEW TABLET PO PRN (02:00)
[2021-12-05] MEDS ORDERED: GLUCAGON INJ 1MG VIAL SC PRN (02:00)
[2021-12-05 02:50] LABS: RSV AMPLIFICATION NEGATIVE (NEGATIVE)
[2021-12-05 05:00] VITALS: BP 154/80
[2021-12-05 05:47] VITALS: O2SAT 93
[2021-12-05] MEDS ORDERED: LEVOTHYROXINE 50MCG TABLET (0.05MG) PO SCH (06:00)
[2021-12-05] MEDS: HEPARIN SOD (PORCINE) 5000UNITS/ML 1ML VIAL/SYRINGE SC SCH ×2 (06:24→13:27)
[2021-12-05] MEDS ORDERED: ADVAIR HFA 230/21MCG INHALER INH SCH (08:00)
[2021-12-05 08:21] VITALS: BP 154/80
[2021-12-05] MEDS: HumaLOG INSULIN (NovoLOG) PER UNIT SC SCH ×2 (08:22→13:27)
[2021-12-05] MEDS ORDERED: oxyCODONE 5MG TAB PO SCH (09:00)
[2021-12-05] MEDS ORDERED: tiZANidine 4 MG TAB PO SCH (09:00)
[2021-12-05] MEDS ORDERED: OMEPRAZOLE 20 MG CAP PO SCH (09:00)
[2021-12-05] MEDS ORDERED: LEVEMIR (INSULIN DETEMIR) 1 UNITS/0.01ML SC SCH (09:00)
[2021-12-05] MEDS ORDERED: buPROPion **XL** TABLET 150MG (WELLBUTRIN XL) PO SCH (09:00)
[2021-12-05] MEDS ORDERED: DULoxetine 30MG CAPSULE (CYMBALTA) PO SCH (09:00)
[2021-12-05] MEDS ORDERED: FUROSEMIDE 20 MG TAB PO SCH (09:00)
[2021-12-05] MEDS ORDERED: ACETAMINOPHEN 500 MG TAB PO SCH (09:00)
[2021-12-05] MEDS ORDERED: DOCUSATE SODIUM 100MG CAPSULE PO SCH (09:00)
[2021-12-05] MEDS ORDERED: PRED20TA PO (10:19)
[2021-12-05] MEDS ORDERED: BENZ200C70 PO (10:21)
[2021-12-05] MEDS ORDERED: FERROUS SULFATE 325MG TAB PO SCH (12:30)
[2021-12-05] MEDS ORDERED: BENZONATATE 100MG CAPSULE PO SCH (14:00)
[2021-12-05] MEDS ORDERED: PREGABALIN 100 MG CAP (LYRICA) PO SCH (14:00)
[2021-12-05] MEDS ORDERED: ATORVASTATIN 20 MG TAB PO SCH (21:00)
[2021-12-05] MEDS ORDERED: MONTELUKAST 10 MG TAB PO SCH (21:00)
[2021-12-05] MEDS ORDERED: HumaLOG INSULIN (NovoLOG) PER UNIT SC SCH (21:00)
[2021-12-07] MEDS ORDERED: VITAMIN D 50,000 UNITS CAPSULE (ERGOCALCIFEROL 1.25MG) PO SCH (09:00)
== END 2021-12-05 14:25 | disposition home or self-care (01) ==
LOC: EDBD 14:19 → M ED 14:19 → M ED INP 14:20 → M MS5PR 12-05 05:00
PROVIDERS: ADMIT Family Medicine; ATTEND Internal Medicine Nephrology
DX: R07.89 Other chest pain (principal); R05.9 Cough, unspecified; J98.01 Acute bronchospasm; E11.9 Type 2 diabetes mellitus without complications; I10 Essential (primary) hypertension; E78.5 Hyperlipidemia, unspecified; J45.40 Moderate persistent asthma, uncomplicated; E55.9 Vitamin D deficiency, unspecified; G89.29 Other chronic pain; Z99.3 Dependence on wheelchair; G47.33 Obstructive sleep apnea (adult) (pediatric); E66.01 Morbid (severe) obesity due to excess calories; Z91.011 Allergy to milk products; Z98.84 Bariatric surgery status; Z87.891 Personal history of nicotine dependence; M79.7 Fibromyalgia; Z79.4 Long term (current) use of insulin; Z79.899 Other long term (current) drug therapy; Z79.84 Long term (current) use of oral hypoglycemic drugs; Z79.52 Long term (current) use of systemic steroids
CPT/HCPCS: 36415; 71046; 71275; 80048; 80076; 82550; 82553; 83690; 83880; 84484; 85025; 85379; 87631; 93005; 93041; 94640; 94760; 99285; G0378; J1644; Q9967

== ENCOUNTER → 2022-01-26 | Outpatient (CLI) | payer MEDICAID, OTHER ==
[~2022-01-26] MED LIST changes: +BENZ200C70 PO; +CEFD300C41 PO; +ULTR1TAB PO; -ULTR37.54 PO
[2022-01-26 13:22] LABS: BASO % 0.6 % (0.0-1.0); EOS % 0.6 % (0.0-3.0); HEMATOCRIT 37.7 % (36.0-47.0); HEMOGLOBIN 12.3 g/dl (12.0-15.5); LYMPH # 0.8 10^3/uL (1.5-5.0); LYMPH % 11.7 % (24.0-44.0); MEAN CORPUSCULAR HEMOGLOBIN 29.6 pg (27.0-33.0); MEAN CORPUSCULAR HGB CONC 32.6 g/dl (32.0-36.5); MEAN CORPUSCULAR VOLUME 90.8 fl (80.0-96.0); MONO # 0.3 10^3/uL (0.0-0.8); NEUTROPHILS # 5.8 10^3/uL (1.5-8.5); NEUTROPHILS % 81.5 % (36.0-66.0); PLATELET COUNT, AUTOMATED 246 10^3/uL (150-450); RED BLOOD COUNT 4.15 10^6/uL (4.00-5.40); WHITE BLOOD COUNT 7.1 10^3/uL (4.0-10.0)
[2022-01-26 13:49] LABS: HEMOGLOBIN A1c 9.9 %
[2022-01-26 13:58] LABS: ALBUMIN 3.7 GM/DL (3.2-5.2); BILIRUBIN,TOTAL 0.3 MG/DL (0.2-1.0); CALCIUM LEVEL 8.9 MG/DL (8.8-10.2); CHOLESTEROL RISK RATIO 3.041 (<5); CREATININE FOR GFR 1.3 MG/DL (0.55-1.30); GLOMERULAR FILTRATION RATE 43.8 (>45); POTASSIUM SERUM 5.2 MEQ/L (3.5-5.1); TOTAL PROTEIN 6.6 GM/DL (6.4-8.2)
== END ==
LOC: M PLALAB 10:03
PROVIDERS: ATTEND Student in an Organized Health Care Education/Training Program
DX: E11.42 Type 2 diabetes mellitus with diabetic polyneuropathy (principal)

== ENCOUNTER → 2022-04-15 | Outpatient (CLI) | payer OTHER, MEDICAID | LOC: M PAIN 08:30 | PROVIDERS: ATTEND Anesthesiology | DX: M16.11 Unilateral primary osteoarthritis, right hip (principal); M25.551 Pain in right hip; G89.29 Other chronic pain; E11.9 Type 2 diabetes mellitus without complications; G47.33 Obstructive sleep apnea (adult) (pediatric); J45.40 Moderate persistent asthma, uncomplicated; E03.9 Hypothyroidism, unspecified; Z87.891 Personal history of nicotine dependence; Z91.011 Allergy to milk products; Z91.09 Other allergy status, other than to drugs and biological substances; E66.01 Morbid (severe) obesity due to excess calories; Z68.42 Body mass index [BMI] 45.0-49.9, adult; Z79.4 Long term (current) use of insulin; Z79.899 Other long term (current) drug therapy ==

== ENCOUNTER → 2022-06-17 | Outpatient (CLI) | payer OTHER, MEDICAID | LOC: M LABSMTC 10:48 | PROVIDERS: ATTEND Anesthesiology | DX: Z01.812 Encounter for preprocedural laboratory examination (principal); Z20.822 Contact with and (suspected) exposure to COVID-19 ==

== ENCOUNTER → 2022-07-20 | Outpatient (CLI) | payer OTHER, MEDICAID | LOC: M PAIN 13:00 | PROVIDERS: ATTEND Anesthesiology | DX: M25.551 Pain in right hip (principal); G89.29 Other chronic pain; M16.11 Unilateral primary osteoarthritis, right hip; E11.9 Type 2 diabetes mellitus without complications; E55.9 Vitamin D deficiency, unspecified; G47.33 Obstructive sleep apnea (adult) (pediatric); J45.40 Moderate persistent asthma, uncomplicated; E03.9 Hypothyroidism, unspecified; Z86.59 Personal history of other mental and behavioral disorders; Z96.652 Presence of left artificial knee joint; Z98.84 Bariatric surgery status; Z87.891 Personal history of nicotine dependence; Z91.011 Allergy to milk products; Z91.09 Other allergy status, other than to drugs and biological substances; E66.01 Morbid (severe) obesity due to excess calories; Z68.42 Body mass index [BMI] 45.0-49.9, adult; Z79.4 Long term (current) use of insulin; Z79.890 Hormone replacement therapy; Z79.891 Long term (current) use of opiate analgesic; Z79.899 Other long term (current) drug therapy ==

== ENCOUNTER → 2022-08-05 | Outpatient (CLI) | payer OTHER, MEDICAID ==
[~2022-08-05] MED LIST changes: +MELACAP PO; +tessalon perles
== END ==
LOC: M LABSMTC 10:45
PROVIDERS: ATTEND Anesthesiology
DX: Z01.812 Encounter for preprocedural laboratory examination (principal); Z20.822 Contact with and (suspected) exposure to COVID-19

== ENCOUNTER 2022-08-10 10:48 | Day surgery (SDC) | payer OTHER, MEDICAID ==
[~2022-08-10] VITALS: Ht 160 cm; Wt 134.3 kg
[~2022-08-10 10:48] MED LIST changes: +MIDAZOLAM INJ 2MG/2ML VIAL (J2250 PER 1MG) As Ordered ONE
[2022-08-10] MEDS ORDERED: LR 1,000 ML IV SCH (11:00)
[2022-08-10] MEDS ORDERED: INSULIN LISPRO (NovoLOG) PER UNIT SC PRN (11:00)
[2022-08-10] MEDS ORDERED: DEXTROSE 50% 50 ML SYRINGE As Ordered ONE (12:29)
[2022-08-10] MEDS ORDERED: DEXTROSE 50% 50 ML SYRINGE IV ONE (12:35)
[2022-08-10] MEDS ORDERED: LIDOCAINE 1% SDV 30ML VIAL As Ordered ONE (14:13)
[2022-08-10] MEDS ORDERED: TRIAMCINOLONE ACETONIDE SUSP 40 MG/ML VIAL (J3301) As Ordered ONE (14:13)
[2022-08-10] MEDS ORDERED: ISOVUE-M 300 61% 15ML VIAL As Ordered ONE (14:14)
[2022-08-10] MEDS ORDERED: MIDAZOLAM INJ 2MG/2ML VIAL (J2250 PER 1MG) As Ordered ONE (14:15)
[2022-08-10] MEDS ORDERED: BUPIVACAINE HCL 0.25% 10ML VIAL As Ordered ONE (14:15)
[2022-08-10] MEDS ORDERED: fentaNYL 100 MCG/2 ML INJECTION As Ordered ONE (14:16)
[2022-08-10 16:00] VITALS: BP 153/70
== END 2022-08-10 18:50 | disposition home or self-care (01) ==
LOC: M SDC 10:48
PROVIDERS: ATTEND Anesthesiology
DX: M16.11 Unilateral primary osteoarthritis, right hip (principal); M25.551 Pain in right hip; I10 Essential (primary) hypertension; K21.9 Gastro-esophageal reflux disease without esophagitis; E10.9 Type 1 diabetes mellitus without complications; R60.0 Localized edema; Z79.4 Long term (current) use of insulin; Z79.84 Long term (current) use of oral hypoglycemic drugs; K57.92 Diverticulitis of intestine, part unspecified, without perforation or abscess without bleeding; M81.0 Age-related osteoporosis without current pathological fracture; J45.909 Unspecified asthma, uncomplicated; E03.9 Hypothyroidism, unspecified; Z91.011 Allergy to milk products; Z87.891 Personal history of nicotine dependence; Z98.84 Bariatric surgery status; Z79.51 Long term (current) use of inhaled steroids; Z79.899 Other long term (current) drug therapy
CPT/HCPCS: 20610; 76000; J2250; J3010; J3301; Q9967

== ENCOUNTER → 2022-08-31 | Outpatient (REF) | payer OTHER, MEDICAID ==
[~2022-08-31] MED LIST changes: -MIDAZOLAM INJ 2MG/2ML VIAL (J2250 PER 1MG) As Ordered ONE
== END ==
LOC: M LAB REF 17:04
PROVIDERS: ATTEND Internal Medicine Pulmonary Disease
DX: J45.40 Moderate persistent asthma, uncomplicated (principal)

== ENCOUNTER 2022-09-03 20:23 | Emergency (ER) | payer MEDICAID, OTHER ==
[~2022-09-03] VITALS: Ht 160 cm; Wt 136.4 kg
[2022-09-04 01:21] LABS: BASO % 0.3 % (0.0-1.0); EOS # 0.1 10^3/uL (0.0-0.5); EOS % 1.5 % (0.0-3.0); HEMATOCRIT 32.6 % (36.0-47.0); HEMOGLOBIN 10.6 g/dl (12.0-15.5); LYMPH # 0.8 10^3/uL (1.5-5.0); LYMPH % 20.2 % (24.0-44.0); MEAN CORPUSCULAR HEMOGLOBIN 30.6 pg (27.0-33.0); MEAN CORPUSCULAR HGB CONC 32.5 g/dl (32.0-36.5); MEAN CORPUSCULAR VOLUME 94.2 fl (80.0-96.0); MONO # 0.3 10^3/uL (0.0-0.8); MONO % 7.9 % (2.0-8.0); NEUTROPHILS # 2.7 10^3/uL (1.5-8.5); NEUTROPHILS % 68.6 % (36.0-66.0); PLATELET COUNT, AUTOMATED 224 10^3/uL (150-450); RED BLOOD COUNT 3.46 10^6/uL (4.00-5.40); WHITE BLOOD COUNT 3.9 10^3/uL (4.0-10.0)
[2022-09-04 02:17] LABS: ALBUMIN 3.6 GM/DL (3.2-5.2); BILIRUBIN,DIRECT 0.2 MG/DL (0.0-0.2); BILIRUBIN,TOTAL 0.5 MG/DL (0.2-1.0); CALCIUM LEVEL 8.4 MG/DL (8.8-10.2); CREATININE FOR GFR 1.92 MG/DL (0.55-1.30); GLOMERULAR FILTRATION RATE 27.8 (>45); POTASSIUM SERUM 4.2 MEQ/L (3.5-5.1); THYROID STIMULATING HORMONE 1.43 uIU/ML (0.358-3.740); THYROXINE (T4) 7.4 UG/DL (4.5-12.0); TOTAL PROTEIN 6.8 GM/DL (6.4-8.2)
[2022-09-04] MEDS ORDERED: predniSONE 20 MG TAB PO ONE (03:10)
[2022-09-04 04:21] VITALS: BP 158/67
== END 2022-09-04 04:32 | disposition home or self-care (01) ==
LOC: M ED 20:23
DX: U07.1 COVID-19 (principal); I49.1 Atrial premature depolarization; I25.2 Old myocardial infarction; E11.9 Type 2 diabetes mellitus without complications; I10 Essential (primary) hypertension; E78.5 Hyperlipidemia, unspecified; J45.909 Unspecified asthma, uncomplicated; F10.10 Alcohol abuse, uncomplicated; Z79.4 Long term (current) use of insulin; Z86.79 Personal history of other diseases of the circulatory system; Z91.011 Allergy to milk products; Z91.048 Other nonmedicinal substance allergy status; Z79.51 Long term (current) use of inhaled steroids; Z79.811 Long term (current) use of aromatase inhibitors; Z79.899 Other long term (current) drug therapy
CPT/HCPCS: 71046; 80048; 80076; 83880; 84436; 84443; 85025; 93005; 93041; 94760; 99285; J7512

== ENCOUNTER → 2022-09-15 | Outpatient (CLI) | payer MEDICAID, OTHER ==
[~2022-09-15] MED LIST changes: +ALBU2.5V10 NEB; +AMOX875T2 PO; +BENZ-18 PO; +DOXY100T PO; +LEVO1TAB40 PO; +SENN18TA PO; +SPIR1AER PO
[2022-09-15 17:33] LABS: BASO % 0.3 % (0.0-1.0); EOS # 0.1 10^3/uL (0.0-0.5); EOS % 0.8 % (0.0-3.0); HEMATOCRIT 33.8 % (36.0-47.0); HEMOGLOBIN 10.4 g/dl (12.0-15.5); LYMPH # 0.9 10^3/uL (1.5-5.0); LYMPH % 10.9 % (24.0-44.0); MEAN CORPUSCULAR HEMOGLOBIN 30.4 pg (27.0-33.0); MEAN CORPUSCULAR HGB CONC 30.8 g/dl (32.0-36.5); MEAN CORPUSCULAR VOLUME 98.8 fl (80.0-96.0); MONO # 0.5 10^3/uL (0.0-0.8); MONO % 6.2 % (2.0-8.0); NEUTROPHILS # 6.4 10^3/uL (1.5-8.5); NEUTROPHILS % 80.9 % (36.0-66.0); PLATELET COUNT, AUTOMATED 246 10^3/uL (150-450); RED BLOOD COUNT 3.42 10^6/uL (4.00-5.40)
[2022-09-15 19:02] LABS: ALBUMIN 3.2 GM/DL (3.2-5.2); BILIRUBIN,TOTAL 0.7 MG/DL (0.2-1.0); CALCIUM LEVEL 8.3 MG/DL (8.8-10.2); CHOLESTEROL RISK RATIO 2.387 (<5); CREATININE FOR GFR 2.19 MG/DL (0.55-1.30); FREE T4 1.02 NG/DL (0.76-1.46); GLOMERULAR FILTRATION RATE 23.9 (>45); POTASSIUM SERUM 5.3 MEQ/L (3.5-5.1); THYROID STIMULATING HORMONE 1.14 uIU/ML (0.358-3.740); TOTAL PROTEIN 6.5 GM/DL (6.4-8.2)
[2022-09-15 19:53] LABS: HEMOGLOBIN A1c 7.8 %
[2022-09-15 20:02] LABS: TOTAL 25(OH) VITAMIN D 26.1 NG/ML (30.0-100.0)
== END ==
LOC: M PLALAB 15:52
PROVIDERS: ATTEND Student in an Organized Health Care Education/Training Program
DX: E55.9 Vitamin D deficiency, unspecified (principal); I10 Essential (primary) hypertension; E03.9 Hypothyroidism, unspecified; E11.42 Type 2 diabetes mellitus with diabetic polyneuropathy; E66.01 Morbid (severe) obesity due to excess calories; D50.9 Iron deficiency anemia, unspecified

== ENCOUNTER 2022-09-16 12:25 | Emergency (ER) | payer OTHER ==
[~2022-09-16] VITALS: Ht 160 cm; Wt 131.8 kg
[~2022-09-16 12:25] MED LIST changes: -ALBU2.5V10 NEB; -AMOX875T2 PO; -BENZ-18 PO; -DOXY100T PO; -LEVO1TAB40 PO; -SENN18TA PO; -SPIR1AER PO
[2022-09-16 17:09] VITALS: BP 128/61
== END 2022-09-16 17:10 | disposition home or self-care (01) ==
LOC: M ED 12:25
DX: M25.561 Pain in right knee (principal); E11.9 Type 2 diabetes mellitus without complications; I10 Essential (primary) hypertension; J45.909 Unspecified asthma, uncomplicated; E78.5 Hyperlipidemia, unspecified; Z98.84 Bariatric surgery status; Z79.84 Long term (current) use of oral hypoglycemic drugs; Z91.011 Allergy to milk products; Z91.048 Other nonmedicinal substance allergy status; Z79.82 Long term (current) use of aspirin; Z79.811 Long term (current) use of aromatase inhibitors; Z79.899 Other long term (current) drug therapy

== ENCOUNTER 2022-09-18 18:20 | Inpatient (IN) | payer OTHER ==
[~2022-09-18] VITALS: Ht 160 cm; Wt 144.1 kg
[2022-09-18] MEDS ORDERED: DEXTROSE 50% 50 ML VIAL IV STA (19:45)
[2022-09-18 19:46] LABS: ALBUMIN 2.7 GM/DL (3.2-5.2); BILIRUBIN,TOTAL 0.4 MG/DL (0.2-1.0); CALCIUM LEVEL 7.5 MG/DL (8.8-10.2); CREATININE FOR GFR 2.05 MG/DL (0.55-1.30); GLOMERULAR FILTRATION RATE 25.8 (>45); POTASSIUM SERUM 5.3 MEQ/L (3.5-5.1); TOTAL PROTEIN 5.6 GM/DL (6.4-8.2)
[2022-09-18] MEDS ORDERED: DEXTROSE 50% 50 ML SYRINGE As Ordered ONE (19:46)
[2022-09-18] MEDS ORDERED: DEXTROSE 50% 50 ML SYRINGE IV STA (19:47)
[2022-09-18 19:48] LABS: BASO % 0.3 % (0.0-1.0); EOS # 0.1 10^3/uL (0.0-0.5); EOS % 1.3 % (0.0-3.0); HEMATOCRIT 28.6 % (36.0-47.0); HEMOGLOBIN 8.8 g/dl (12.0-15.5); LYMPH # 0.6 10^3/uL (1.5-5.0); LYMPH % 16.2 % (24.0-44.0); MEAN CORPUSCULAR HEMOGLOBIN 30.6 pg (27.0-33.0); MEAN CORPUSCULAR HGB CONC 30.8 g/dl (32.0-36.5); MEAN CORPUSCULAR VOLUME 99.3 fl (80.0-96.0); MONO # 0.4 10^3/uL (0.0-0.8); MONO % 9.5 % (2.0-8.0); NEUTROPHILS # 2.8 10^3/uL (1.5-8.5); NEUTROPHILS % 71.4 % (36.0-66.0); PLATELET COUNT, AUTOMATED 212 10^3/uL (150-450); RED BLOOD COUNT 2.88 10^6/uL (4.00-5.40); WHITE BLOOD COUNT 3.9 10^3/uL (4.0-10.0)
[2022-09-18] MEDS ORDERED: NS IV ONE (20:00)
[2022-09-18 20:10] LABS: CK-MB VALUE MASS 3.4 NG/ML (<3.6); MB/CK RELATIVE INDEX 2.41 (< OR =4)
[2022-09-18] MEDS: INSULIN LISPRO (NovoLOG) PER UNIT SC SCH (21:00)
[2022-09-18] MEDS ORDERED: LR 1,000 ML IV ONE (21:05)
[2022-09-18] MEDS ORDERED: ONDA-83 PO (22:22)
[2022-09-18] MEDS ORDERED: SPIR1AER PO (22:22)
[2022-09-18] MEDS ORDERED: ALBU2.5V10 NEB (22:22)
[2022-09-18] MEDS ORDERED: HOME MED LIST COMPLETE! XX SCH (22:25)
[2022-09-18] MEDS ORDERED: DEXTROSE 50% 50 ML SYRINGE IV PRN (23:25)
[2022-09-18] MEDS ORDERED: GLUCAGON INJ 1MG VIAL SC PRN (23:25)
[2022-09-18] MEDS ORDERED: GLUCOSE 4GM CHEW TABLET PO PRN (23:25)
[2022-09-18] MEDS ORDERED: MOM 30ML SUSPENSION UDC PO PRN (23:55)
[2022-09-18] MEDS ORDERED: ACETAMINOPHEN TAB 650MG DOSE (2X325MG) PO PRN (23:55)
[2022-09-19] MEDS ORDERED: D5W/0.45% SODIUM CHLORIDE 1,000 ML IV ONE (00:35)
[2022-09-19 01:01] LABS: HEMATOCRIT 28.1 % (36.0-47.0); HEMOGLOBIN 8.8 g/dl (12.0-15.5)
[2022-09-19] MEDS: ATORVASTATIN 20 MG TAB PO SCH ×2 (01:17→21:43)
[2022-09-19] MEDS: MONTELUKAST 10 MG TAB PO SCH ×2 (01:17→21:43)
[2022-09-19 01:28] VITALS: BP 149/75
[2022-09-19 03:40] VITALS: BP 129/60
[2022-09-19] MEDS: LEVOTHYROXINE 50MCG TABLET (0.05MG) PO SCH (05:56)
[2022-09-19] MEDS: HEPARIN SOD (PORCINE) 5000UNITS/ML 1ML VIAL/SYRINGE SC SCH ×3 (05:56→21:43)
[2022-09-19 06:36] LABS: HEMATOCRIT 29.1 % (36.0-47.0); MEAN CORPUSCULAR HGB CONC 30.9 g/dl (32.0-36.5); PLATELET COUNT, AUTOMATED 213 10^3/uL (150-450); WHITE BLOOD COUNT 3.7 10^3/uL (4.0-10.0)
[2022-09-19 07:10] LABS: ALBUMIN 2.5 GM/DL (3.2-5.2); BILIRUBIN,TOTAL 0.4 MG/DL (0.2-1.0); CALCIUM LEVEL 8.1 MG/DL (8.8-10.2); CREATININE FOR GFR 1.78 MG/DL (0.55-1.30); GLOMERULAR FILTRATION RATE 30.4 (>45); POTASSIUM SERUM 4.6 MEQ/L (3.5-5.1); TOTAL PROTEIN 5.9 GM/DL (6.4-8.2)
[2022-09-19] MEDS: INSULIN LISPRO (NovoLOG) PER UNIT SC SCH ×4 (07:30→20:06)
[2022-09-19] MEDS: ADVAIR HFA 230/21MCG INHALER INH SCH ×2 (07:39→20:21)
[2022-09-19 08:00] VITALS: BP 148/52
[2022-09-19] MEDS: buPROPion **XL** TABLET 150MG (WELLBUTRIN XL) PO SCH (08:13)
[2022-09-19] MEDS: DULoxetine 30MG CAPSULE (CYMBALTA) PO SCH (08:14)
[2022-09-19] MEDS: tiZANidine 4 MG TAB PO SCH ×3 (08:14→21:43)
[2022-09-19] MEDS: OMEPRAZOLE 20MG CAP PO SCH (08:14)
[2022-09-19] MEDS: DOCUSATE SODIUM 100MG CAPSULE PO SCH ×2 (08:15→21:43)
[2022-09-19] MEDS ORDERED: FUROSEMIDE 20 MG TAB PO SCH (09:00)
[2022-09-19 12:00] VITALS: BP 146/65
[2022-09-19] MEDS: NS 1,000 ML IV SCH ×2 (12:00→21:43)
[2022-09-19] MEDS: oxyCODONE 5MG TAB PO PRN (15:38)
[2022-09-19 16:00] VITALS: BP 126/60
[2022-09-19 20:00] VITALS: BP 126/60
[2022-09-20 04:00] VITALS: BP 128/60
[2022-09-20 04:52] LABS: BASO % 0.3 % (0.0-1.0); EOS # 0.1 10^3/uL (0.0-0.5); EOS % 1.7 % (0.0-3.0); HEMATOCRIT 28.8 % (36.0-47.0); HEMOGLOBIN 8.7 g/dl (12.0-15.5); LYMPH # 0.6 10^3/uL (1.5-5.0); LYMPH % 18.8 % (24.0-44.0); MEAN CORPUSCULAR HEMOGLOBIN 29.8 pg (27.0-33.0); MEAN CORPUSCULAR HGB CONC 30.2 g/dl (32.0-36.5); MEAN CORPUSCULAR VOLUME 98.6 fl (80.0-96.0); MONO # 0.3 10^3/uL (0.0-0.8); MONO % 10.7 % (2.0-8.0); NEUTROPHILS # 1.9 10^3/uL (1.5-8.5); NEUTROPHILS % 65.1 % (36.0-66.0); PLATELET COUNT, AUTOMATED 209 10^3/uL (150-450); RED BLOOD COUNT 2.92 10^6/uL (4.00-5.40)
[2022-09-20 05:28] LABS: BLOOD UREA NITROGEN 27 MG/DL (7-18); CALCIUM LEVEL 7.9 MG/DL (8.8-10.2); CARBON DIOXIDE LEVEL 22 MEQ/L (21-32); CHLORIDE LEVEL 114 MEQ/L (98-107); CREATININE FOR GFR 1.83 MG/DL (0.55-1.30); FERRITIN 208 NG/ML (8-252); GLOMERULAR FILTRATION RATE 29.4 (>45); GLUCOSE, FASTING 118 MG/DL (70-100); IRON (FE) 48 UG/DL (50-170); PERCENT SATURATION 19.8 % (13.2-45.0); POTASSIUM SERUM 4.5 MEQ/L (3.5-5.1); SODIUM LEVEL 141 MEQ/L (136-145); TOTAL IRON BINDING CAPACITY 243 UG/DL (250-450); TOTAL PROTEIN 5.7 GM/DL (6.4-8.2)
[2022-09-20] MEDS: LEVOTHYROXINE 50MCG TABLET (0.05MG) PO SCH (05:58)
[2022-09-20] MEDS: HEPARIN SOD (PORCINE) 5000UNITS/ML 1ML VIAL/SYRINGE SC SCH ×3 (05:58→20:19)
[2022-09-20] MEDS: oxyCODONE 5MG TAB PO PRN ×2 (05:59→14:54)
[2022-09-20] MEDS: ADVAIR HFA 230/21MCG INHALER INH SCH ×2 (07:23→20:32)
[2022-09-20] MEDS: INSULIN LISPRO (NovoLOG) PER UNIT SC SCH ×4 (07:30→20:22)
[2022-09-20 08:00] VITALS: BP 150/64
[2022-09-20] MEDS: OMEPRAZOLE 20MG CAP PO SCH (08:12)
[2022-09-20] MEDS: tiZANidine 4 MG TAB PO SCH ×3 (08:12→20:22)
[2022-09-20] MEDS: DULoxetine 30MG CAPSULE (CYMBALTA) PO SCH (08:13)
[2022-09-20] MEDS: DOCUSATE SODIUM 100MG CAPSULE PO SCH ×2 (08:13→20:19)
[2022-09-20] MEDS: buPROPion **XL** TABLET 150MG (WELLBUTRIN XL) PO SCH (08:13)
[2022-09-20] MEDS: cefTRIAXone SOD 1 GM in D5W MINI-BAG PLUS 50 ML IV SCH (08:14)
[2022-09-20] MEDS: NS 1,000 ML IV SCH (08:14)
[2022-09-20] MEDS ORDERED: FERROUS SULFATE 325MG TAB PO SCH (09:00)
[2022-09-20] MEDS ORDERED: amLODIPine 5 MG TAB PO SCH (09:00)
[2022-09-20] MEDS ORDERED: amLODIPine 5 MG TAB PO ONE (12:30)
[2022-09-20] MEDS ORDERED: FERRIC CARBOXYMALTOSE INJ 750 MG, VIAL MATE ADAPTER 1 EACH in NS 250 ML IV ONE (13:00)
[2022-09-20] MEDS: ONDANSETRON 4MG 2ML VIAL IV PRN (13:41)
[2022-09-20] MEDS: NYSTATIN 100,000 UNITS/GM TOPICAL PWD 15 GM TOP SCH ×2 (13:42→20:19)
[2022-09-20 16:00] VITALS: BP 137/80
[2022-09-20 20:00] VITALS: BP 118/35
[2022-09-20] MEDS: MONTELUKAST 10 MG TAB PO SCH (20:20)
[2022-09-20] MEDS: ATORVASTATIN 20 MG TAB PO SCH (20:20)
[2022-09-20 20:44] VITALS: BP 109/91
[2022-09-21] MEDS: oxyCODONE 5MG TAB PO PRN ×3 (00:32→15:41)
[2022-09-21] MEDS: HEPARIN SOD (PORCINE) 5000UNITS/ML 1ML VIAL/SYRINGE SC SCH ×3 (05:18→21:54)
[2022-09-21] MEDS: LEVOTHYROXINE 50MCG TABLET (0.05MG) PO SCH (05:18)
[2022-09-21 05:25] LABS: BASO % 0.3 % (0.0-1.0); EOS # 0.1 10^3/uL (0.0-0.5); EOS % 2.6 % (0.0-3.0); HEMATOCRIT 27.2 % (36.0-47.0); HEMOGLOBIN 8.5 g/dl (12.0-15.5); LYMPH # 0.4 10^3/uL (1.5-5.0); LYMPH % 12.9 % (24.0-44.0); MEAN CORPUSCULAR HEMOGLOBIN 30.7 pg (27.0-33.0); MEAN CORPUSCULAR HGB CONC 31.3 g/dl (32.0-36.5); MEAN CORPUSCULAR VOLUME 98.2 fl (80.0-96.0); MONO # 0.3 10^3/uL (0.0-0.8); MONO % 9.7 % (2.0-8.0); NEUTROPHILS # 2.2 10^3/uL (1.5-8.5); NEUTROPHILS % 70.9 % (36.0-66.0); PLATELET COUNT, AUTOMATED 188 10^3/uL (150-450); RED BLOOD COUNT 2.77 10^6/uL (4.00-5.40); WHITE BLOOD COUNT 3.1 10^3/uL (4.0-10.0)
[2022-09-21 06:00] VITALS: BP 157/79
[2022-09-21 06:03] LABS: CALCIUM LEVEL 8.1 MG/DL (8.8-10.2); CREATININE FOR GFR 1.64 MG/DL (0.55-1.30); GLOMERULAR FILTRATION RATE 33.4 (>45); POTASSIUM SERUM 4.4 MEQ/L (3.5-5.1)
[2022-09-21] MEDS: ADVAIR HFA 230/21MCG INHALER INH SCH ×2 (08:41→20:00)
[2022-09-21] MEDS: NYSTATIN 100,000 UNITS/GM TOPICAL PWD 15 GM TOP SCH ×2 (09:00→21:00)
[2022-09-21] MEDS: cefTRIAXone SOD 1 GM in D5W MINI-BAG PLUS 50 ML IV SCH (09:18)
[2022-09-21] MEDS: tiZANidine 4 MG TAB PO SCH ×3 (09:19→21:54)
[2022-09-21] MEDS: DOCUSATE SODIUM 100MG CAPSULE PO SCH ×2 (09:19→21:53)
[2022-09-21] MEDS: INSULIN LISPRO (NovoLOG) PER UNIT SC SCH ×4 (09:19→20:38)
[2022-09-21] MEDS: buPROPion **XL** TABLET 150MG (WELLBUTRIN XL) PO SCH (09:20)
[2022-09-21] MEDS: OMEPRAZOLE 20MG CAP PO SCH (09:20)
[2022-09-21] MEDS: DULoxetine 30MG CAPSULE (CYMBALTA) PO SCH (09:20)
[2022-09-21] MEDS ORDERED: VANCOMYCIN HCL 1,000 MG, VIAL MATE ADAPTER 1 EACH in NS 250 ML IV SCH (09:55)
[2022-09-21] MEDS ORDERED: NS 2,000 ML IV ONE (10:00)
[2022-09-21] MEDS: IPRATROPIUM 0.5MG/ALBUTEROL 2.5MG INH SOL UD 3ML (DUONEB) NEB SCH ×3 (11:28→20:00)
[2022-09-21] MEDS ORDERED: VANCOMYCIN HCL 1,000 MG, VIAL MATE ADAPTER 1 EACH in NS 250 ML IV ONE ×2 (13:00→14:00)
[2022-09-21 13:24] LABS: C REACTIVE PROTEIN QUANTITATIV 1.6 MG/DL (0.00-0.30)
[2022-09-21 13:38] LABS: FOLATE > 24.0 NG/ML (>5.4); VITAMIN B12 LEVEL 411 PG/ML (247-911)
[2022-09-21 14:00] VITALS: BP 159/74
[2022-09-21] MEDS: CEFEPIME HCL 2 GM in D5W MINI-BAG PLUS 50 ML IV SCH (15:41)
[2022-09-21] MEDS: NS 1,000 ML IV SCH (19:02)
[2022-09-21] MEDS: ATORVASTATIN 20 MG TAB PO SCH (21:53)
[2022-09-21] MEDS: MONTELUKAST 10 MG TAB PO SCH (21:57)
[2022-09-21 22:00] VITALS: BP 156/71
[2022-09-22] MEDS: oxyCODONE 5MG TAB PO PRN ×3 (00:19→20:51)
[2022-09-22] MEDS: CEFEPIME HCL 2 GM in D5W MINI-BAG PLUS 50 ML IV SCH ×2 (03:13→14:26)
[2022-09-22] MEDS: LEVOTHYROXINE 50MCG TABLET (0.05MG) PO SCH (05:40)
[2022-09-22] MEDS: HEPARIN SOD (PORCINE) 5000UNITS/ML 1ML VIAL/SYRINGE SC SCH ×3 (05:41→20:52)
[2022-09-22 06:00] VITALS: BP 138/50
[2022-09-22 06:11] LABS: BASO % 0.5 % (0.0-1.0); EOS # 0.1 10^3/uL (0.0-0.5); EOS % 1.6 % (0.0-3.0); HEMATOCRIT 28.6 % (36.0-47.0); LYMPH # 0.3 10^3/uL (1.5-5.0); MEAN CORPUSCULAR HEMOGLOBIN 30.9 pg (27.0-33.0); MEAN CORPUSCULAR HGB CONC 31.5 g/dl (32.0-36.5); MEAN CORPUSCULAR VOLUME 98.3 fl (80.0-96.0); MONO # 0.3 10^3/uL (0.0-0.8); MONO % 7.9 % (2.0-8.0); NEUTROPHILS # 2.9 10^3/uL (1.5-8.5); NEUTROPHILS % 76.8 % (36.0-66.0); PLATELET COUNT, AUTOMATED 180 10^3/uL (150-450); RED BLOOD COUNT 2.91 10^6/uL (4.00-5.40); WHITE BLOOD COUNT 3.8 10^3/uL (4.0-10.0)
[2022-09-22 06:40] LABS: CALCIUM LEVEL 8.5 MG/DL (8.8-10.2); CREATININE FOR GFR 1.4 MG/DL (0.55-1.30); GLOMERULAR FILTRATION RATE 40.1 (>45); POTASSIUM SERUM 4.4 MEQ/L (3.5-5.1)
[2022-09-22] MEDS: INSULIN LISPRO (NovoLOG) PER UNIT SC SCH ×4 (07:30→21:00)
[2022-09-22] MEDS: IPRATROPIUM 0.5MG/ALBUTEROL 2.5MG INH SOL UD 3ML (DUONEB) NEB SCH ×4 (08:00→19:42)
[2022-09-22] MEDS ORDERED: VANCOMYCIN HCL 750 MG, VIAL MATE ADAPTER 1 EACH in D5W 250 ML IV SCH (08:00)
[2022-09-22] MEDS: ADVAIR HFA 230/21MCG INHALER INH SCH ×2 (08:00→19:42)
[2022-09-22] MEDS: ONDANSETRON 4MG 2ML VIAL IV PRN ×2 (08:08→17:38)
[2022-09-22] MEDS: tiZANidine 4 MG TAB PO SCH ×3 (08:11→20:50)
[2022-09-22] MEDS: DULoxetine 30MG CAPSULE (CYMBALTA) PO SCH (08:11)
[2022-09-22] MEDS: DOCUSATE SODIUM 100MG CAPSULE PO SCH ×2 (08:11→20:50)
[2022-09-22] MEDS: OMEPRAZOLE 20MG CAP PO SCH (08:11)
[2022-09-22] MEDS: NS 1,000 ML IV SCH (08:12)
[2022-09-22] MEDS: buPROPion **XL** TABLET 150MG (WELLBUTRIN XL) PO SCH (08:12)
[2022-09-22] MEDS ORDERED: VANCOMYCIN HCL 500 MG in D5W MINI-BAG PLUS 100 ML IV SCH (09:00)
[2022-09-22] MEDS: NYSTATIN 100,000 UNITS/GM TOPICAL PWD 15 GM TOP SCH ×2 (10:19→20:52)
[2022-09-22 14:00] VITALS: BP 153/63
[2022-09-22] MEDS: ATORVASTATIN 20 MG TAB PO SCH (20:50)
[2022-09-22] MEDS: MONTELUKAST 10 MG TAB PO SCH (20:50)
[2022-09-22] MEDS: DOXYCYCLINE HYCLATE 100MG TABLET PO SCH (20:50)
[2022-09-22 22:00] VITALS: BP 149/78
[2022-09-23] MEDS: CEFEPIME HCL 2 GM in D5W MINI-BAG PLUS 50 ML IV SCH (02:53)
[2022-09-23] MEDS: ONDANSETRON 4MG 2ML VIAL IV PRN (02:57)
[2022-09-23] MEDS: LEVOTHYROXINE 50MCG TABLET (0.05MG) PO SCH (05:47)
[2022-09-23] MEDS: HEPARIN SOD (PORCINE) 5000UNITS/ML 1ML VIAL/SYRINGE SC SCH ×3 (05:48→20:58)
[2022-09-23 06:00] VITALS: BP 173/73
[2022-09-23 06:18] LABS: BASO % 0.5 % (0.0-1.0); EOS # 0.1 10^3/uL (0.0-0.5); EOS % 1.8 % (0.0-3.0); HEMATOCRIT 29.3 % (36.0-47.0); HEMOGLOBIN 9.2 g/dl (12.0-15.5); LYMPH # 0.3 10^3/uL (1.5-5.0); LYMPH % 7.3 % (24.0-44.0); MEAN CORPUSCULAR HEMOGLOBIN 30.4 pg (27.0-33.0); MEAN CORPUSCULAR HGB CONC 31.4 g/dl (32.0-36.5); MEAN CORPUSCULAR VOLUME 96.7 fl (80.0-96.0); MONO # 0.3 10^3/uL (0.0-0.8); MONO % 7.6 % (2.0-8.0); NEUTROPHILS # 3.1 10^3/uL (1.5-8.5); NEUTROPHILS % 78.5 % (36.0-66.0); PLATELET COUNT, AUTOMATED 205 10^3/uL (150-450); RED BLOOD COUNT 3.03 10^6/uL (4.00-5.40)
[2022-09-23 06:53] LABS: CREATININE FOR GFR 1.46 MG/DL (0.55-1.30); GLOMERULAR FILTRATION RATE 38.2 (>45); POTASSIUM SERUM 4.1 MEQ/L (3.5-5.1)
[2022-09-23] MEDS: INSULIN LISPRO (NovoLOG) PER UNIT SC SCH ×4 (07:30→21:00)
[2022-09-23] MEDS: IPRATROPIUM 0.5MG/ALBUTEROL 2.5MG INH SOL UD 3ML (DUONEB) NEB SCH ×4 (07:43→19:20)
[2022-09-23] MEDS: ADVAIR HFA 230/21MCG INHALER INH SCH ×2 (07:43→19:20)
[2022-09-23] MEDS ORDERED: DOXY100T PO (08:23)
[2022-09-23] MEDS ORDERED: CEFD300CAP PO (08:23)
[2022-09-23] MEDS: ONDANSETRON 4MG ORAL DISINTEGRATING TAB PO PRN ×2 (08:31→15:45)
[2022-09-23] MEDS: buPROPion **XL** TABLET 150MG (WELLBUTRIN XL) PO SCH (11:23)
[2022-09-23] MEDS: OMEPRAZOLE 20MG CAP PO SCH (11:23)
[2022-09-23] MEDS: DOXYCYCLINE HYCLATE 100MG TABLET PO SCH ×2 (11:23→20:59)
[2022-09-23] MEDS: DOCUSATE SODIUM 100MG CAPSULE PO SCH ×2 (11:24→20:58)
[2022-09-23] MEDS: DULoxetine 30MG CAPSULE (CYMBALTA) PO SCH (11:24)
[2022-09-23] MEDS: tiZANidine 4 MG TAB PO SCH ×3 (11:24→21:00)
[2022-09-23] MEDS: NYSTATIN 100,000 UNITS/GM TOPICAL PWD 15 GM TOP SCH ×2 (11:25→21:00)
[2022-09-23] MEDS: CEFDINIR 300 MG CAP (OMNICEF) PO SCH ×2 (11:51→20:58)
[2022-09-23] MEDS: oxyCODONE 5MG TAB PO PRN ×2 (11:51→20:59)
[2022-09-23 14:00] VITALS: BP 142/66
[2022-09-23 14:35] LABS: ALBUMIN % 56.2 % (55.8-66.1); ALPHA-1-GLOBULIN % 6.8 % (2.9-4.9); ALPHA-2-GLOBULINS % 14.1 % (7.1-11.8)
[2022-09-23 14:36] LABS: ALPHA-1-GLOBULINS 0.39 GM/DL (0.17-0.41); BETA-1-GLOBULINS 0.34 GM/DL (0.28-0.60); BETA-2-GLOBULINS 0.29 GM/DL (0.19-0.55); GAMMA GLOBULIN % 11.9 % (11.1-18.8); GAMMA GLOBULINS 0.68 GM/DL (0.65-1.58)
[2022-09-23 19:49] VITALS: BP 140/68
[2022-09-23] MEDS: MONTELUKAST 10 MG TAB PO SCH (20:58)
[2022-09-23] MEDS: ATORVASTATIN 20 MG TAB PO SCH (20:58)
[2022-09-24 05:12] VITALS: BP 156/80
[2022-09-24] MEDS: LEVOTHYROXINE 50MCG TABLET (0.05MG) PO SCH (06:17)
[2022-09-24] MEDS: HEPARIN SOD (PORCINE) 5000UNITS/ML 1ML VIAL/SYRINGE SC SCH (06:17)
[2022-09-24] MEDS: ADVAIR HFA 230/21MCG INHALER INH SCH (07:41)
[2022-09-24] MEDS: IPRATROPIUM 0.5MG/ALBUTEROL 2.5MG INH SOL UD 3ML (DUONEB) NEB SCH ×2 (07:41→11:22)
[2022-09-24] MEDS: DOCUSATE SODIUM 100MG CAPSULE PO SCH (09:08)
[2022-09-24] MEDS: DULoxetine 30MG CAPSULE (CYMBALTA) PO SCH (09:08)
[2022-09-24] MEDS: OMEPRAZOLE 20MG CAP PO SCH (09:08)
[2022-09-24 09:09] VITALS: BP 156/80
[2022-09-24] MEDS: tiZANidine 4 MG TAB PO SCH (09:09)
[2022-09-24] MEDS: buPROPion **XL** TABLET 150MG (WELLBUTRIN XL) PO SCH (09:09)
[2022-09-24] MEDS: DOXYCYCLINE HYCLATE 100MG TABLET PO SCH (09:09)
[2022-09-24] MEDS: CEFDINIR 300 MG CAP (OMNICEF) PO SCH (09:09)
[2022-09-24] MEDS: INSULIN LISPRO (NovoLOG) PER UNIT SC SCH ×2 (09:10→12:00)
[2022-09-24] MEDS: NYSTATIN 100,000 UNITS/GM TOPICAL PWD 15 GM TOP SCH (09:11)
[2022-09-24] MEDS ORDERED: MAALOX 30 ML SUSP *UDC PO ONE (10:30)
[2022-09-24] MEDS: oxyCODONE 5MG TAB PO PRN (13:00)
== END 2022-09-24 13:39 | disposition home health service (06) | DRG 643 ==
LOC: M ED 18:20 → M ED INP 23:25 → M PCU 09-19 01:29 → M MSPAV 09-20 20:48
PROVIDERS: ADMIT Family Medicine; ATTEND Internal Medicine
DX: E16.0 Drug-induced hypoglycemia without coma (principal); G93.41 Metabolic encephalopathy; N17.9 Acute kidney failure, unspecified; Z68.43 Body mass index [BMI] 50.0-59.9, adult; N39.0 Urinary tract infection, site not specified; E87.20 Acidosis, unspecified; E66.01 Morbid (severe) obesity due to excess calories; I10 Essential (primary) hypertension; E10.649 Type 1 diabetes mellitus with hypoglycemia without coma; J45.40 Moderate persistent asthma, uncomplicated; G47.33 Obstructive sleep apnea (adult) (pediatric); T38.3X5A Adverse effect of insulin and oral hypoglycemic [antidiabetic] drugs, initial encounter; E03.9 Hypothyroidism, unspecified; M79.7 Fibromyalgia; Z79.4 Long term (current) use of insulin; D53.9 Nutritional anemia, unspecified; Z79.899 Other long term (current) drug therapy; Z91.011 Allergy to milk products; M19.90 Unspecified osteoarthritis, unspecified site; Z96.652 Presence of left artificial knee joint; Z87.891 Personal history of nicotine dependence

== ENCOUNTER 2022-09-28 11:44 | Inpatient (IN) | payer OTHER ==
[~2022-09-28] VITALS: Ht 160 cm; Wt 126.0 kg
[~2022-09-28 11:44] MED LIST changes: +ALBU2.5V10 NEB; +DOXY100T PO; +SPIR1AER PO
[2022-09-28] MEDS ORDERED: ACETAMINOPHEN TAB 650MG DOSE (2X325MG) PO ONE (12:50)
[2022-09-28 13:13] LABS: BASO % 0.1 % (0.0-1.0); EOS % 0.3 % (0.0-3.0); HEMATOCRIT 28.1 % (36.0-47.0); HEMOGLOBIN 8.8 g/dl (12.0-15.5); LYMPH # 0.4 10^3/uL (1.5-5.0); LYMPH % 4.6 % (24.0-44.0); MEAN CORPUSCULAR HEMOGLOBIN 30.8 pg (27.0-33.0); MEAN CORPUSCULAR HGB CONC 31.3 g/dl (32.0-36.5); MEAN CORPUSCULAR VOLUME 98.3 fl (80.0-96.0); MONO # 0.3 10^3/uL (0.0-0.8); MONO % 3.9 % (2.0-8.0); NEUTROPHILS % 90.5 % (36.0-66.0); PLATELET COUNT, AUTOMATED 207 10^3/uL (150-450); RED BLOOD COUNT 2.86 10^6/uL (4.00-5.40); WHITE BLOOD COUNT 7.8 10^3/uL (4.0-10.0)
[2022-09-28 14:05] LABS: BILIRUBIN,DIRECT 0.2 MG/DL (0.0-0.2); BILIRUBIN,TOTAL 0.4 MG/DL (0.2-1.0); CALCIUM LEVEL 8.1 MG/DL (8.8-10.2); CREATININE FOR GFR 2.42 MG/DL (0.55-1.30); GLOMERULAR FILTRATION RATE 21.3 (>45); POTASSIUM SERUM 5.4 MEQ/L (3.5-5.1); THYROID STIMULATING HORMONE 1.07 uIU/ML (0.358-3.740); TOTAL PROTEIN 6.2 GM/DL (6.4-8.2)
[2022-09-28] MEDS ORDERED: PIPERACILLIN/TAZOBACTAM SOD 4.5 GM in D5W MINI-BAG PLUS 50 ML IV ONE (14:20)
[2022-09-28] MEDS ORDERED: NS 1,000 ML IV SCH (14:20)
[2022-09-28] MEDS ORDERED: CEFD300C41 PO (14:53)
[2022-09-28] MEDS ORDERED: DOXY100T PO (14:59)
[2022-09-28] MEDS ORDERED: HOME MED LIST COMPLETE! XX SCH (15:00)
[2022-09-28] MEDS ORDERED: DOCUSATE SODIUM 100MG CAPSULE PO PRN (16:20)
[2022-09-28] MEDS ORDERED: MIRALAX *UNIT DOSE* 17GM PACKET PO PRN (16:20)
[2022-09-28] MEDS ORDERED: GLUCOSE 4GM CHEW TABLET PO PRN (16:50)
[2022-09-28] MEDS ORDERED: IPRATROPIUM 0.5MG/ALBUTEROL 2.5MG INH SOL UD 3ML (DUONEB) NEB PRN (16:50)
[2022-09-28] MEDS ORDERED: GLUCAGON INJ 1MG VIAL SC PRN (16:50)
[2022-09-28] MEDS ORDERED: DEXTROSE 50% 50 ML SYRINGE IV PRN (16:50)
[2022-09-28] MEDS ORDERED: NS 1,000 ML IV ONE (17:55)
[2022-09-28 18:00] VITALS: BP 148/71
[2022-09-28] MEDS ORDERED: ONDANSETRON 4MG TAB PO PRN (18:00)
[2022-09-28 18:28] LABS: ERYTHROCYTE SEDIMENTATION RATE 69 mm/hr (0-30)
[2022-09-28] MEDS: INSULIN LISPRO (NovoLOG) PER UNIT SC SCH ×2 (18:42→20:15)
[2022-09-28] MEDS: MAG SULF 1GM/100ML (MAG RUN) 1 GM in IV 1 EA IV SCH ×2 (18:42→19:05)
[2022-09-28 19:45] LABS: C REACTIVE PROTEIN QUANTITATIV 7.44 MG/DL (0.00-0.30); LDH LACTATE DEHYDROGENASE 297 U/L (84-246); TOTAL PROTEIN 5.6 GM/DL (6.4-8.2)
[2022-09-28] MEDS: oxyCODONE 5MG TAB PO PRN (20:12)
[2022-09-28] MEDS: methylPREDNISolone 40MG 1ML VIAL IV SCH (20:13)
[2022-09-28] MEDS: PREGABALIN 100 MG CAP (LYRICA) PO SCH (20:13)
[2022-09-28] MEDS: tiZANidine 4 MG TAB PO SCH (20:13)
[2022-09-28] MEDS: FERROUS SULFATE 325MG TAB PO SCH (20:13)
[2022-09-28] MEDS: ATORVASTATIN 20 MG TAB PO SCH (20:14)
[2022-09-28] MEDS: DOXYCYCLINE HYCLATE 100MG TABLET PO SCH (20:14)
[2022-09-28] MEDS: LEVEMIR (INSULIN DETEMIR) 1 UNITS/0.01ML SC SCH (20:14)
[2022-09-28] MEDS: NYSTATIN 100,000 UNITS/GM TOPICAL PWD 15 GM TOP SCH (20:14)
[2022-09-28] MEDS: IPRATROPIUM 0.5MG/ALBUTEROL 2.5MG INH SOL UD 3ML (DUONEB) NEB SCH (20:34)
[2022-09-28 20:51] LABS: HEPATITIS B SURFACE ANTIGEN NEGATIVE (NEGATIVE)
[2022-09-28] MEDS ORDERED: ACETAMINOPHEN 500 MG TAB PO PRN (21:00)
[2022-09-28 21:13] LABS: HEPATITIS B CORE ANTIBODY IGM NEGATIVE (NEGATIVE); HEPATITIS C VIRUS ABY INDEX < 0.0 INDEX (<0.8)
[2022-09-28 21:24] LABS: HIV 1&2 SCREEN CENTAUR NEGATIVE (NEGATIVE)
[2022-09-28] MEDS: HEPARIN SOD (PORCINE) 5000UNITS/ML 1ML VIAL/SYRINGE SC SCH (21:45)
[2022-09-28] MEDS: PIPERACILLIN/TAZOBACTAM SOD 3.375 GM in D5W MINI-BAG PLUS 50 ML IV SCH (21:45)
[2022-09-28 22:00] VITALS: BP 109/45
[2022-09-29] MEDS ORDERED: CEPACOL LOZENGE PO PRN (01:10)
[2022-09-29] MEDS: guaiFENesin SYRUP 200MG 10ML UDC PO PRN (01:22)
[2022-09-29] MEDS: IPRATROPIUM 0.5MG/ALBUTEROL 2.5MG INH SOL UD 3ML (DUONEB) NEB SCH ×4 (02:38→20:02)
[2022-09-29] MEDS: PIPERACILLIN/TAZOBACTAM SOD 3.375 GM in D5W MINI-BAG PLUS 50 ML IV SCH ×4 (04:01→23:08)
[2022-09-29] MEDS: HEPARIN SOD (PORCINE) 5000UNITS/ML 1ML VIAL/SYRINGE SC SCH ×3 (05:07→23:08)
[2022-09-29] MEDS: LEVOTHYROXINE 50MCG TABLET (0.05MG) PO SCH (05:07)
[2022-09-29 06:00] VITALS: BP 153/71
[2022-09-29 06:13] LABS: HEMATOCRIT 27.4 % (36.0-47.0); HEMOGLOBIN 8.6 g/dl (12.0-15.5); MEAN CORPUSCULAR HEMOGLOBIN 31.2 pg (27.0-33.0); MEAN CORPUSCULAR HGB CONC 31.4 g/dl (32.0-36.5); MEAN CORPUSCULAR VOLUME 99.3 fl (80.0-96.0); PLATELET COUNT, AUTOMATED 189 10^3/uL (150-450); RED BLOOD COUNT 2.76 10^6/uL (4.00-5.40); WHITE BLOOD COUNT 5.6 10^3/uL (4.0-10.0)
[2022-09-29 07:31] LABS: ALBUMIN 2.8 GM/DL (3.2-5.2); BILIRUBIN,TOTAL 0.5 MG/DL (0.2-1.0); CALCIUM LEVEL 8.3 MG/DL (8.8-10.2); CREATININE FOR GFR 1.96 MG/DL (0.55-1.30); GLOMERULAR FILTRATION RATE 27.2 (>45); POTASSIUM SERUM 4.6 MEQ/L (3.5-5.1); TOTAL PROTEIN 5.8 GM/DL (6.4-8.2)
[2022-09-29] MEDS: tiZANidine 4 MG TAB PO SCH ×3 (09:37→20:14)
[2022-09-29] MEDS: buPROPion **XL** TABLET 150MG (WELLBUTRIN XL) PO SCH (09:37)
[2022-09-29] MEDS: PREGABALIN 100 MG CAP (LYRICA) PO SCH (09:37)
[2022-09-29] MEDS: FERROUS SULFATE 325MG TAB PO SCH ×2 (09:37→20:13)
[2022-09-29] MEDS: DOXYCYCLINE HYCLATE 100MG TABLET PO SCH ×2 (09:37→20:13)
[2022-09-29] MEDS: methylPREDNISolone 40MG 1ML VIAL IV SCH ×2 (09:38→20:13)
[2022-09-29] MEDS: DULoxetine 30MG CAPSULE (CYMBALTA) PO SCH (09:38)
[2022-09-29] MEDS: LEVEMIR (INSULIN DETEMIR) 1 UNITS/0.01ML SC SCH ×2 (09:38→20:15)
[2022-09-29] MEDS: OMEPRAZOLE 20MG CAP PO SCH (09:38)
[2022-09-29] MEDS: INSULIN LISPRO (NovoLOG) PER UNIT SC SCH ×4 (09:39→20:15)
[2022-09-29] MEDS: NYSTATIN 100,000 UNITS/GM TOPICAL PWD 15 GM TOP SCH ×2 (09:39→20:16)
[2022-09-29 14:00] VITALS: BP 141/94
[2022-09-29] MEDS ORDERED: BENZONATATE 100MG CAPSULE PO PRN (14:10)
[2022-09-29] MEDS: PREGABALIN 75 MG CAP(LYRICA) PO SCH ×2 (17:22→20:14)
[2022-09-29 19:57] VITALS: BP 136/76
[2022-09-29] MEDS: ATORVASTATIN 20 MG TAB PO SCH (20:14)
[2022-09-29] MEDS: oxyCODONE 5MG TAB PO PRN (23:13)
[2022-09-30] MEDS: guaiFENesin SYRUP 200MG 10ML UDC PO PRN (01:20)
[2022-09-30] MEDS: IPRATROPIUM 0.5MG/ALBUTEROL 2.5MG INH SOL UD 3ML (DUONEB) NEB SCH ×2 (02:43→07:35)
[2022-09-30 02:57] LABS: IMMUNOGLOBULIN A 93.8 MG/DL (70-400); IMMUNOGLOBULIN E 72.9 IU/ML (<100); IMMUNOGLOBULIN G 684 MG/DL (681-1648); IMMUNOGLOBULIN M 90.4 MG/DL (40-230)
[2022-09-30] MEDS: PIPERACILLIN/TAZOBACTAM SOD 3.375 GM in D5W MINI-BAG PLUS 50 ML IV SCH ×2 (04:36→09:51)
[2022-09-30] MEDS: HEPARIN SOD (PORCINE) 5000UNITS/ML 1ML VIAL/SYRINGE SC SCH (05:51)
[2022-09-30] MEDS: LEVOTHYROXINE 50MCG TABLET (0.05MG) PO SCH (05:51)
[2022-09-30 06:00] VITALS: BP 139/75
[2022-09-30 06:40] LABS: HEMATOCRIT 26.2 % (36.0-47.0); HEMOGLOBIN 8.1 g/dl (12.0-15.5); MEAN CORPUSCULAR HEMOGLOBIN 30.8 pg (27.0-33.0); MEAN CORPUSCULAR HGB CONC 30.9 g/dl (32.0-36.5); MEAN CORPUSCULAR VOLUME 99.6 fl (80.0-96.0); PLATELET COUNT, AUTOMATED 218 10^3/uL (150-450); RED BLOOD COUNT 2.63 10^6/uL (4.00-5.40); WHITE BLOOD COUNT 4.8 10^3/uL (4.0-10.0)
[2022-09-30 07:18] LABS: ALBUMIN 2.8 GM/DL (3.2-5.2); BILIRUBIN,TOTAL 0.5 MG/DL (0.2-1.0); CALCIUM LEVEL 8.7 MG/DL (8.8-10.2); CREATININE FOR GFR 1.82 MG/DL (0.55-1.30); GLOMERULAR FILTRATION RATE 29.6 (>45); TOTAL PROTEIN 5.9 GM/DL (6.4-8.2)
[2022-09-30 08:00] VITALS: BP 143/70
[2022-09-30] MEDS ORDERED: LACTULOSE 20 GM/30 ML SYRUP UD PO ONE (09:00)
[2022-09-30] MEDS: INSULIN LISPRO (NovoLOG) PER UNIT SC SCH (09:37)
[2022-09-30] MEDS: LEVEMIR (INSULIN DETEMIR) 1 UNITS/0.01ML SC SCH (09:38)
[2022-09-30] MEDS: OMEPRAZOLE 20MG CAP PO SCH (09:40)
[2022-09-30] MEDS: buPROPion **XL** TABLET 150MG (WELLBUTRIN XL) PO SCH (09:42)
[2022-09-30] MEDS: DOXYCYCLINE HYCLATE 100MG TABLET PO SCH (09:43)
[2022-09-30] MEDS: PREGABALIN 75 MG CAP(LYRICA) PO SCH (09:43)
[2022-09-30] MEDS: tiZANidine 4 MG TAB PO SCH (09:44)
[2022-09-30] MEDS: DULoxetine 30MG CAPSULE (CYMBALTA) PO SCH (09:44)
[2022-09-30] MEDS: FERROUS SULFATE 325MG TAB PO SCH (09:44)
[2022-09-30 09:45] VITALS: BP 143/70
[2022-09-30] MEDS: methylPREDNISolone 40MG 1ML VIAL IV SCH (09:46)
[2022-09-30] MEDS: NYSTATIN 100,000 UNITS/GM TOPICAL PWD 15 GM TOP SCH (09:53)
[2022-09-30] MEDS ORDERED: SENN18TA PO (10:45)
[2022-09-30] MEDS ORDERED: BENZ-18 PO (10:45)
[2022-09-30] MEDS ORDERED: LEVO1TAB40 PO (10:45)
[2022-09-30 13:13] LABS: ALBUMIN 3.22 GM/DL (3.29-5.55); ALBUMIN % 57.5 % (55.8-66.1); ALPHA-1-GLOBULIN % 6.5 % (2.9-4.9); ALPHA-1-GLOBULINS 0.36 GM/DL (0.17-0.41); ALPHA-2-GLOBULINS 0.72 GM/DL (0.42-0.99); ALPHA-2-GLOBULINS % 12.9 % (7.1-11.8); BETA-1-GLOBULINS % 6.5 % (4.7-7.2); BETA-2-GLOBULINS % 4.8 % (3.2-6.5); GAMMA GLOBULIN % 11.8 % (11.1-18.8)
[2022-09-30 13:14] LABS: BETA-1-GLOBULINS 0.36 GM/DL (0.28-0.60); BETA-2-GLOBULINS 0.27 GM/DL (0.19-0.55); GAMMA GLOBULINS 0.66 GM/DL (0.65-1.58)
[2022-10-06] MEDS ORDERED: PREGABALIN 100 MG CAP (LYRICA) PO SCH (16:00)
== END 2022-09-30 11:35 | disposition home health service (06) | DRG 871 ==
LOC: M ED 11:44 → M ED INP 15:28 → ENRESERV 15:43 → M MS5PR 17:45
PROVIDERS: ADMIT Internal Medicine; ATTEND Internal Medicine
DX: A41.9 Sepsis, unspecified organism (principal); G93.41 Metabolic encephalopathy; J15.1 Pneumonia due to Pseudomonas; J45.41 Moderate persistent asthma with (acute) exacerbation; N17.9 Acute kidney failure, unspecified; Z68.42 Body mass index [BMI] 45.0-49.9, adult; R04.2 Hemoptysis; I10 Essential (primary) hypertension; E03.9 Hypothyroidism, unspecified; K21.9 Gastro-esophageal reflux disease without esophagitis; D64.9 Anemia, unspecified; E66.01 Morbid (severe) obesity due to excess calories; G47.33 Obstructive sleep apnea (adult) (pediatric); F32.A Depression, unspecified; F41.9 Anxiety disorder, unspecified; M79.7 Fibromyalgia; E11.9 Type 2 diabetes mellitus without complications; Z79.4 Long term (current) use of insulin; M19.90 Unspecified osteoarthritis, unspecified site; Z79.899 Other long term (current) drug therapy; Z91.011 Allergy to milk products; Z96.652 Presence of left artificial knee joint; Z87.891 Personal history of nicotine dependence; E78.5 Hyperlipidemia, unspecified; G89.29 Other chronic pain

== ENCOUNTER → 2022-10-02 | Outpatient (CLI) | payer OTHER, MEDICAID ==
[~2022-10-02] MED LIST changes: +AMOX875T2 PO; +BENZ-18 PO; +LEVO1TAB39; +LEVO1TAB40 PO; -POTA10CA32 PO; +POTA10CA33 PO; +SENN18TA PO
[2022-10-02 13:50] LABS: HEMATOCRIT 34.2 % (36.0-47.0); HEMOGLOBIN 10.9 g/dl (12.0-15.5); MEAN CORPUSCULAR HEMOGLOBIN 31.2 pg (27.0-33.0); MEAN CORPUSCULAR HGB CONC 31.9 g/dl (32.0-36.5); PLATELET COUNT, AUTOMATED 287 10^3/uL (150-450); RED BLOOD COUNT 3.49 10^6/uL (4.00-5.40); WHITE BLOOD COUNT 4.5 10^3/uL (4.0-10.0)
[2022-10-02 14:52] LABS: EOSINOPHILS 2 % (0-3); LYMPHOCYTES 10 % (16-44); METAMYELOCYTES 1 % (0-0); MONOCYTES 7 % (0-5); MYELOCYTES 1 % (0-0); NEUTROPHILS 76 % (28-66); PROMYELOCYTES 3 % (0-0)
[2022-10-02 14:53] LABS: PLATELET ESTIMATE NORMAL (NORMAL)
[2022-10-02 15:19] LABS: ALBUMIN 3.3 GM/DL (3.2-5.2); BILIRUBIN,TOTAL 0.5 MG/DL (0.2-1.0); CALCIUM LEVEL 8.8 MG/DL (8.8-10.2); CREATININE FOR GFR 1.57 MG/DL (0.55-1.30); GLOMERULAR FILTRATION RATE 35.1 (>45); POTASSIUM SERUM 4.5 MEQ/L (3.5-5.1); TOTAL PROTEIN 6.7 GM/DL (6.4-8.2)
== END ==
LOC: M PLALAB 10:43
PROVIDERS: ATTEND Family Medicine
DX: N17.9 Acute kidney failure, unspecified (principal); D75.89 Other specified diseases of blood and blood-forming organs

== ENCOUNTER 2022-10-05 20:21 | Emergency (ER) | payer OTHER, MEDICAID ==
[~2022-10-05 20:21] MED LIST changes: -AMOX875T2 PO; -LEVO1TAB39; +POTA10CA32 PO; -POTA10CA33 PO
[2022-10-05 21:53] LABS: HEMATOCRIT 31.9 % (36.0-47.0); HEMOGLOBIN 10.2 g/dl (12.0-15.5); MEAN CORPUSCULAR HEMOGLOBIN 30.1 pg (27.0-33.0); MEAN CORPUSCULAR VOLUME 94.1 fl (80.0-96.0); PLATELET COUNT, AUTOMATED 225 10^3/uL (150-450); RED BLOOD COUNT 3.39 10^6/uL (4.00-5.40); WHITE BLOOD COUNT 4.6 10^3/uL (4.0-10.0)
[2022-10-05 22:34] LABS: ALBUMIN 3.4 GM/DL (3.2-5.2); BILIRUBIN,DIRECT 0.1 MG/DL (0.0-0.2); BILIRUBIN,TOTAL 0.3 MG/DL (0.2-1.0); CALCIUM LEVEL 8.7 MG/DL (8.8-10.2); CREATININE FOR GFR 1.71 MG/DL (0.55-1.30); GLOMERULAR FILTRATION RATE 31.8 (>45); POTASSIUM SERUM 4.6 MEQ/L (3.5-5.1); TOTAL PROTEIN 6.2 GM/DL (6.4-8.2)
[2022-10-05 22:51] LABS: ATYPICAL LYMPH 2 % (0-5); BLAST CELLS 3 % (0-0); EOSINOPHILS 4 % (0-3); LYMPHOCYTES 10 % (16-44); MONOCYTES 5 % (0-5); MYELOCYTES 1 % (0-0); NEUTROPHILS 66 % (28-66); PLATELET ESTIMATE NORMAL (NORMAL); PROMYELOCYTES 2 % (0-0)
[2022-10-06] MEDS ORDERED: ACETAMINOPHEN TAB 650MG DOSE (2X325MG) PO ONE (00:05)
[2022-10-06] MEDS ORDERED: AMOX875T2 PO (00:27)
[2022-10-06 01:00] VITALS: BP 182/87
== END 2022-10-06 01:26 | disposition home or self-care (01) ==
LOC: M ED 20:21 → EDBD 20:21 → M ED 10-06 01:26
DX: R56.00 Simple febrile convulsions (principal); R79.89 Other specified abnormal findings of blood chemistry; I44.4 Left anterior fascicular block; E11.9 Type 2 diabetes mellitus without complications; J45.909 Unspecified asthma, uncomplicated; F32.A Depression, unspecified; E03.9 Hypothyroidism, unspecified; Z98.84 Bariatric surgery status; Z87.891 Personal history of nicotine dependence; Z91.048 Other nonmedicinal substance allergy status; Z91.011 Allergy to milk products; Z79.51 Long term (current) use of inhaled steroids; Z79.82 Long term (current) use of aspirin; Z79.4 Long term (current) use of insulin; Z79.811 Long term (current) use of aromatase inhibitors; Z79.899 Other long term (current) drug therapy

== ENCOUNTER → 2022-11-03 | Outpatient (CLI) | payer OTHER, MEDICAID ==
[~2022-11-03] MED LIST changes: +AMOX875T2 PO; +LEVO1TAB39; -POTA10CA32 PO; +POTA10CA33 PO
== END ==
LOC: M PAIN 10:30
PROVIDERS: ATTEND Nurse Practitioner Family
DX: M25.551 Pain in right hip (principal); G89.29 Other chronic pain; E11.9 Type 2 diabetes mellitus without complications; E55.9 Vitamin D deficiency, unspecified; G47.33 Obstructive sleep apnea (adult) (pediatric); J45.40 Moderate persistent asthma, uncomplicated; E03.9 Hypothyroidism, unspecified; Z86.59 Personal history of other mental and behavioral disorders; Z98.84 Bariatric surgery status; Z96.652 Presence of left artificial knee joint; Z87.891 Personal history of nicotine dependence; Z88.8 Allergy status to other drugs, medicaments and biological substances; Z91.011 Allergy to milk products; Z91.09 Other allergy status, other than to drugs and biological substances; E66.01 Morbid (severe) obesity due to excess calories; Z68.42 Body mass index [BMI] 45.0-49.9, adult; Z79.4 Long term (current) use of insulin; Z79.890 Hormone replacement therapy; Z79.899 Other long term (current) drug therapy

== ENCOUNTER → 2022-11-30 | Outpatient (CLI) | payer OTHER, MEDICAID | LOC: M LABSMTC 09:27 | PROVIDERS: ATTEND Anesthesiology | DX: Z01.812 Encounter for preprocedural laboratory examination (principal); Z20.822 Contact with and (suspected) exposure to COVID-19 ==

== ENCOUNTER → 2022-12-16 | Outpatient (CLI) | payer OTHER, MEDICAID ==
[2022-12-16 14:14] LABS: BASO % 0.2 % (0.0-1.0); EOS # 0.1 10^3/uL (0.0-0.5); EOS % 1.7 % (0.0-3.0); HEMATOCRIT 35.4 % (36.0-47.0); HEMOGLOBIN 11.4 g/dl (12.0-15.5); LYMPH # 0.7 10^3/uL (1.5-5.0); LYMPH % 15.2 % (24.0-44.0); MEAN CORPUSCULAR HEMOGLOBIN 30.8 pg (27.0-33.0); MEAN CORPUSCULAR HGB CONC 32.2 g/dl (32.0-36.5); MEAN CORPUSCULAR VOLUME 95.7 fl (80.0-96.0); MONO # 0.4 10^3/uL (0.0-0.8); MONO % 7.5 % (2.0-8.0); NEUTROPHILS # 3.5 10^3/uL (1.5-8.5); PLATELET COUNT, AUTOMATED 200 10^3/uL (150-450); WHITE BLOOD COUNT 4.7 10^3/uL (4.0-10.0)
[2022-12-16 14:46] LABS: ALBUMIN 3.7 G/DL (3.2-5.2); ALKALINE PHOSPHATASE 242 U/L (46-116); ALT/SGPT 25 U/L (7.0-40); AST/SGOT 19 U/L (<34); BILIRUBIN,TOTAL 0.4 MG/DL (0.3-1.2); BLOOD UREA NITROGEN 25 MG/DL (9-23); CALCIUM LEVEL 8.6 MG/DL (8.3-10.6); CARBON DIOXIDE LEVEL 23 MMOL/L (20-31); CHLORIDE LEVEL 103 MMOL/L (98-107); CREATININE FOR GFR 1.69 MG/DL (0.55-1.30); GLOMERULAR FILTRATION RATE 32.2 (>45); GLUCOSE, FASTING 338 MG/DL (74-106); POTASSIUM SERUM 5.1 MMOL/L (3.5-5.1); SODIUM LEVEL 137 MMOL/L (136-145); TOTAL PROTEIN 5.5 G/DL (5.7-8.2)
[2022-12-16 14:50] LABS: FOLATE > 24.00 NG/ML (>5.4); THYROID STIMULATING HORMONE 1.961 uIU/ML (0.55-4.78)
[2022-12-16 14:51] LABS: FREE T4 1.02 NG/DL (0.89-1.76)
[2022-12-16 14:52] LABS: VITAMIN B12 LEVEL 216 PG/ML (211-911)
[2022-12-16 15:17] LABS: ERYTHROCYTE SEDIMENTATION RATE 12 mm/hr (0-30)
[2022-12-16 15:18] LABS: HEMOGLOBIN A1c 10.2 % (4.0-6.0)
[2022-12-22 14:08] LABS: ANTINUCLEAR ANTIBODIES DIRECT Negative (Negative); VITAMIN B1 LEVEL WHOLE BLOOD 185.2 nmol/L (66.5-200.0); VITAMIN B6,PYRIDOXAL PHOSPHATE 7.8 ug/L (3.4-65.2); VITAMIN E(GAMMA TOCOPHEROL) 1.5 mg/L (0.5-4.9)
== END ==
LOC: M PLALAB 11:30
PROVIDERS: ATTEND Psychiatry & Neurology Neurology
DX: E11.9 Type 2 diabetes mellitus without complications (principal); E07.9 Disorder of thyroid, unspecified; R41.82 Altered mental status, unspecified; R41.3 Other amnesia

== ENCOUNTER → 2022-12-28 | Outpatient (CLI) | payer OTHER, MEDICAID | LOC: M PLAIMG 10:37 | PROVIDERS: ATTEND Nurse Practitioner Adult Health | DX: R91.8 Other nonspecific abnormal finding of lung field (principal) ==

== ENCOUNTER → 2023-01-07 | Outpatient (CLI) | payer OTHER, MEDICAID | LOC: M WHC 07:48 | PROVIDERS: ATTEND Student in an Organized Health Care Education/Training Program | DX: R80.9 Proteinuria, unspecified (principal); E11.42 Type 2 diabetes mellitus with diabetic polyneuropathy; I10 Essential (primary) hypertension ==

== ENCOUNTER → 2023-01-18 | Outpatient (CLI) | payer OTHER, MEDICAID | LOC: M LABSMTC 09:32 | PROVIDERS: ATTEND Anesthesiology | DX: Z01.812 Encounter for preprocedural laboratory examination (principal) ==

== ENCOUNTER → 2023-01-20 | Outpatient (CLI) | payer OTHER, MEDICAID ==
[~2023-01-20] MED LIST changes: +INSU100I6 SC; -LEVE1INJ5 SC; +MONT-5 PO; -SING10TA32 PO
[2023-01-20 13:07] LABS: BASO % 0.3 % (0.0-1.0); EOS # 0.1 10^3/uL (0.0-0.5); EOS % 1.3 % (0.0-3.0); HEMATOCRIT 36.3 % (36.0-47.0); HEMOGLOBIN 11.9 g/dl (12.0-15.5); LYMPH # 0.7 10^3/uL (1.5-5.0); LYMPH % 17.9 % (24.0-44.0); MEAN CORPUSCULAR HEMOGLOBIN 31.2 pg (27.0-33.0); MEAN CORPUSCULAR HGB CONC 32.8 g/dl (32.0-36.5); MONO # 0.3 10^3/uL (0.0-0.8); MONO % 7.5 % (2.0-8.0); NEUTROPHILS # 2.8 10^3/uL (1.5-8.5); NEUTROPHILS % 72.2 % (36.0-66.0); PLATELET COUNT, AUTOMATED 228 10^3/uL (150-450); RED BLOOD COUNT 3.82 10^6/uL (4.00-5.40); WHITE BLOOD COUNT 3.9 10^3/uL (4.0-10.0)
[2023-01-20 13:29] LABS: INR 0.97; PROTHROMBIN TIME 13.1 SECONDS (12.5-14.5)
== END ==
LOC: M PLALAB 10:42
PROVIDERS: ATTEND Student in an Organized Health Care Education/Training Program
DX: Z01.818 Encounter for other preprocedural examination (principal); Z79.899 Other long term (current) drug therapy

== ENCOUNTER → 2023-01-20 | Outpatient (REF) | payer OTHER, MEDICAID | LOC: M SFHCPLAZ 10:27 | PROVIDERS: ATTEND Family Medicine | DX: Z01.818 Encounter for other preprocedural examination (principal); Z79.899 Other long term (current) drug therapy ==

== ENCOUNTER 2023-01-22 06:12 | Day surgery (SDC) | payer OTHER, MEDICAID ==
[~2023-01-22] VITALS: Ht 160 cm; Wt 122.5 kg
[2023-01-22] MEDS: NS 1,000 ML IV ONE (07:29)
[2023-01-22] MEDS ORDERED: propofoL 200 MG/20 ML VIAL As Ordered ONE ×3 (07:30→08:00)
[2023-01-22] MEDS ORDERED: LIDOCAINE 2% 100MG/5ML SDV (FOR ANES.) As Ordered ONE (07:30)
[2023-01-22 11:30] VITALS: BP 164/67
== END 2023-01-22 12:15 | disposition home or self-care (01) ==
LOC: M OPP 06:12
PROVIDERS: ATTEND Internal Medicine Gastroenterology
DX: Z12.11 Encounter for screening for malignant neoplasm of colon (principal); Z86.010 Personal history of colon polyps; R12 Heartburn; R11.2 Nausea with vomiting, unspecified; D12.0 Benign neoplasm of cecum; K52.9 Noninfective gastroenteritis and colitis, unspecified; K57.30 Diverticulosis of large intestine without perforation or abscess without bleeding; K64.8 Other hemorrhoids; K63.89 Other specified diseases of intestine; K44.9 Diaphragmatic hernia without obstruction or gangrene; Z98.0 Intestinal bypass and anastomosis status; I11.0 Hypertensive heart disease with heart failure; I50.9 Heart failure, unspecified; E78.5 Hyperlipidemia, unspecified; E11.9 Type 2 diabetes mellitus without complications; E03.9 Hypothyroidism, unspecified; K76.0 Fatty (change of) liver, not elsewhere classified; K21.9 Gastro-esophageal reflux disease without esophagitis; D50.9 Iron deficiency anemia, unspecified; M19.90 Unspecified osteoarthritis, unspecified site; F41.9 Anxiety disorder, unspecified; F32.A Depression, unspecified; M47.816 Spondylosis without myelopathy or radiculopathy, lumbar region; K31.84 Gastroparesis; G43.909 Migraine, unspecified, not intractable, without status migrainosus; J44.9 Chronic obstructive pulmonary disease, unspecified; G47.30 Sleep apnea, unspecified; Z87.891 Personal history of nicotine dependence; Z79.4 Long term (current) use of insulin; Z79.890 Hormone replacement therapy; Z79.85 Long-term (current) use of injectable non-insulin antidiabetic drugs; Z79.899 Other long term (current) drug therapy

== ENCOUNTER → 2023-01-29 | Outpatient (CLI) | payer OTHER, MEDICAID | LOC: M PAIN 14:30 | PROVIDERS: ATTEND Nurse Practitioner Family | DX: M25.551 Pain in right hip (principal); G89.29 Other chronic pain; E11.9 Type 2 diabetes mellitus without complications; J45.40 Moderate persistent asthma, uncomplicated; G47.33 Obstructive sleep apnea (adult) (pediatric); E03.9 Hypothyroidism, unspecified; Z86.59 Personal history of other mental and behavioral disorders; Z87.891 Personal history of nicotine dependence; Z88.8 Allergy status to other drugs, medicaments and biological substances; Z91.011 Allergy to milk products; Z91.09 Other allergy status, other than to drugs and biological substances; E66.01 Morbid (severe) obesity due to excess calories; Z68.42 Body mass index [BMI] 45.0-49.9, adult; Z79.4 Long term (current) use of insulin; Z79.899 Other long term (current) drug therapy ==

== ENCOUNTER → 2023-03-11 | Outpatient (CLI) | payer OTHER, MEDICAID | LOC: M PAIN 09:45 | PROVIDERS: ATTEND Anesthesiology | DX: M16.11 Unilateral primary osteoarthritis, right hip (principal); G89.29 Other chronic pain; M94.20 Chondromalacia, unspecified site; E11.40 Type 2 diabetes mellitus with diabetic neuropathy, unspecified; G47.33 Obstructive sleep apnea (adult) (pediatric); J45.40 Moderate persistent asthma, uncomplicated; E55.9 Vitamin D deficiency, unspecified; E03.9 Hypothyroidism, unspecified; Z86.59 Personal history of other mental and behavioral disorders; Z96.652 Presence of left artificial knee joint; Z87.891 Personal history of nicotine dependence; Z88.8 Allergy status to other drugs, medicaments and biological substances; Z91.011 Allergy to milk products; Z91.09 Other allergy status, other than to drugs and biological substances; E66.01 Morbid (severe) obesity due to excess calories; Z68.42 Body mass index [BMI] 45.0-49.9, adult; Z79.4 Long term (current) use of insulin; Z79.85 Long-term (current) use of injectable non-insulin antidiabetic drugs; Z79.890 Hormone replacement therapy; Z79.899 Other long term (current) drug therapy ==

== ENCOUNTER → 2023-05-13 | Outpatient (CLI) | payer OTHER, MEDICAID ==
[~2023-05-13] MED LIST changes: -K-TA10TA PO; +POTA-164 PO; -POTA10CA33 PO; +POTA10CA60 PO; +SENN-111 PO; -SENN18TA PO
[2023-05-13 16:20] LABS: BASO % 0.4 % (0.0-1.0); EOS # 0.1 10^3/uL (0.0-0.5); EOS % 2.2 % (0.0-3.0); HEMATOCRIT 33.7 % (36.0-47.0); HEMOGLOBIN 11.2 g/dl (12.0-15.5); LYMPH # 0.8 10^3/uL (1.5-5.0); LYMPH % 16.2 % (24.0-44.0); MEAN CORPUSCULAR HGB CONC 33.2 g/dl (32.0-36.5); MEAN CORPUSCULAR VOLUME 93.4 fl (80.0-96.0); MONO # 0.3 10^3/uL (0.0-0.8); MONO % 5.7 % (2.0-8.0); NEUTROPHILS # 3.8 10^3/uL (1.5-8.5); NEUTROPHILS % 74.9 % (36.0-66.0); PLATELET COUNT, AUTOMATED 217 10^3/uL (150-450); RED BLOOD COUNT 3.61 10^6/uL (4.00-5.40); WHITE BLOOD COUNT 5.1 10^3/uL (4.0-10.0)
[2023-05-13 16:35] LABS: ALBUMIN 3.7 G/DL (3.2-5.2); ALKALINE PHOSPHATASE 205 U/L (46-116); ALT/SGPT 19 U/L (7.0-40); AST/SGOT < 8 U/L (<34); BILIRUBIN,TOTAL 0.3 MG/DL (0.3-1.2); BLOOD UREA NITROGEN 45 MG/DL (9-23); CALCIUM LEVEL 9.1 MG/DL (8.3-10.6); CARBON DIOXIDE LEVEL 20 MMOL/L (20-31); CHLORIDE LEVEL 104 MMOL/L (98-107); CREATININE FOR GFR 2.05 MG/DL (0.55-1.30); GLOMERULAR FILTRATION RATE 25.7 (>45); GLUCOSE, FASTING 324 MG/DL (74-106); POTASSIUM SERUM 5.1 MMOL/L (3.5-5.1); SODIUM LEVEL 133 MMOL/L (136-145); TOTAL PROTEIN 6.3 G/DL (5.7-8.2)
[2023-05-13 16:37] LABS: VITAMIN B12 LEVEL 1753 PG/ML (211-911)
[2023-05-13 16:41] LABS: HEMOGLOBIN A1c 9.4 % (4.0-6.0)
[2023-05-13 17:00] LABS: CREATININE, URINE 82.4 MG/DL; MAU/CREAT RATIO 12.1 MCG/MG (0.0-30.0)
== END ==
LOC: M PLALAB 14:30
PROVIDERS: ATTEND Student in an Organized Health Care Education/Training Program
DX: E11.42 Type 2 diabetes mellitus with diabetic polyneuropathy (principal)

== ENCOUNTER → 2023-05-19 | Outpatient (CLI) | payer OTHER, MEDICAID ==
[2023-05-19 15:04] LABS: FREE T4 0.93 NG/DL (0.89-1.76); THYROID STIMULATING HORMONE 3.063 uIU/ML (0.55-4.78)
== END ==
LOC: M PLALAB 11:40
PROVIDERS: ATTEND Student in an Organized Health Care Education/Training Program
DX: E03.9 Hypothyroidism, unspecified (principal)

== ENCOUNTER → 2023-05-26 | Outpatient (CLI) | payer OTHER, MEDICAID | LOC: M PAIN 09:45 | PROVIDERS: ATTEND Anesthesiology | DX: M25.551 Pain in right hip (principal); M16.11 Unilateral primary osteoarthritis, right hip; E11.40 Type 2 diabetes mellitus with diabetic neuropathy, unspecified; J45.40 Moderate persistent asthma, uncomplicated; G47.33 Obstructive sleep apnea (adult) (pediatric); E55.9 Vitamin D deficiency, unspecified; E03.9 Hypothyroidism, unspecified; Z86.59 Personal history of other mental and behavioral disorders; Z98.84 Bariatric surgery status; Z96.652 Presence of left artificial knee joint; Z87.891 Personal history of nicotine dependence; Z88.8 Allergy status to other drugs, medicaments and biological substances; Z91.011 Allergy to milk products; Z91.09 Other allergy status, other than to drugs and biological substances; E66.01 Morbid (severe) obesity due to excess calories; Z68.42 Body mass index [BMI] 45.0-49.9, adult; Z79.4 Long term (current) use of insulin; Z79.82 Long term (current) use of aspirin; Z79.85 Long-term (current) use of injectable non-insulin antidiabetic drugs; Z79.890 Hormone replacement therapy; Z79.899 Other long term (current) drug therapy ==

== ENCOUNTER → 2023-06-17 | Outpatient (CLI) | payer OTHER, MEDICAID ==
[~2023-06-17] MED LIST changes: +ASPI81TA26 PO; +GLYCCAP PO; +PREG200C
== END ==
LOC: M PAIN 11:00
PROVIDERS: ATTEND Anesthesiology
DX: M25.551 Pain in right hip (principal); M19.90 Unspecified osteoarthritis, unspecified site; G89.29 Other chronic pain; E11.21 Type 2 diabetes mellitus with diabetic nephropathy; E11.40 Type 2 diabetes mellitus with diabetic neuropathy, unspecified; J45.40 Moderate persistent asthma, uncomplicated; G47.33 Obstructive sleep apnea (adult) (pediatric); E66.01 Morbid (severe) obesity due to excess calories; E55.9 Vitamin D deficiency, unspecified; E03.9 Hypothyroidism, unspecified; F32.A Depression, unspecified; Z99.3 Dependence on wheelchair; Z68.42 Body mass index [BMI] 45.0-49.9, adult; Z88.1 Allergy status to other antibiotic agents; E73.9 Lactose intolerance, unspecified; Z91.048 Other nonmedicinal substance allergy status; Z79.82 Long term (current) use of aspirin; Z79.85 Long-term (current) use of injectable non-insulin antidiabetic drugs; Z79.890 Hormone replacement therapy; Z79.891 Long term (current) use of opiate analgesic; Z79.899 Other long term (current) drug therapy

== ENCOUNTER → 2023-06-22 | Outpatient (CLI) | payer OTHER, MEDICAID | LOC: M RAD 10:33 | PROVIDERS: ATTEND Anesthesiology | DX: M16.0 Bilateral primary osteoarthritis of hip (principal); M25.461 Effusion, right knee; M51.36 Other intervertebral disc degeneration, lumbar region ==

== ENCOUNTER → 2023-06-24 | Outpatient (CLI) | payer OTHER, MEDICAID ==
[~2023-06-24] MED LIST changes: +ISOVUE-M 300 61% 15ML VIAL As Ordered ONE; +LIDOCAINE 1% SDV 30ML VIAL As Ordered ONE; +MIDAZOLAM INJ 2MG/2ML VIAL As Ordered ONE; +TRIAMCINOLONE ACETONIDE SUSP 40MG/ML 1ML VIAL As Ordered ONE; +fentaNYL 100 MCG/2 ML INJECTION As Ordered ONE
[2023-06-24 12:12] LABS: INR 0.96
== END ==
LOC: M PAIN 11:30
PROVIDERS: ATTEND Anesthesiology
DX: M25.551 Pain in right hip (principal); E11.9 Type 2 diabetes mellitus without complications; G47.33 Obstructive sleep apnea (adult) (pediatric); J45.40 Moderate persistent asthma, uncomplicated; E55.9 Vitamin D deficiency, unspecified; E03.9 Hypothyroidism, unspecified; Z86.59 Personal history of other mental and behavioral disorders; Z98.84 Bariatric surgery status; Z96.652 Presence of left artificial knee joint; Z87.891 Personal history of nicotine dependence; Z88.8 Allergy status to other drugs, medicaments and biological substances; Z91.011 Allergy to milk products; Z91.09 Other allergy status, other than to drugs and biological substances; E66.01 Morbid (severe) obesity due to excess calories; Z68.42 Body mass index [BMI] 45.0-49.9, adult; Z79.4 Long term (current) use of insulin; Z79.82 Long term (current) use of aspirin; Z79.85 Long-term (current) use of injectable non-insulin antidiabetic drugs; Z79.890 Hormone replacement therapy; Z79.899 Other long term (current) drug therapy
CPT/HCPCS: 20610; 36415; 77002; 85610; 85730; 99152; J0665; J2250; J3010; J3301; Q9967

== ENCOUNTER → 2023-07-28 | Outpatient (CLI) | payer OTHER, MEDICAID ==
[~2023-07-28] MED LIST changes: -ISOVUE-M 300 61% 15ML VIAL As Ordered ONE; -LIDOCAINE 1% SDV 30ML VIAL As Ordered ONE; -MIDAZOLAM INJ 2MG/2ML VIAL As Ordered ONE; -PREG200C; -PREG200C PO; +PREG200C2; +PREG200C2 PO; -TRIAMCINOLONE ACETONIDE SUSP 40MG/ML 1ML VIAL As Ordered ONE; -fentaNYL 100 MCG/2 ML INJECTION As Ordered ONE
== END ==
LOC: M PAIN 11:00
PROVIDERS: ATTEND Anesthesiology
DX: M25.551 Pain in right hip (principal); M16.11 Unilateral primary osteoarthritis, right hip; G89.29 Other chronic pain; E11.9 Type 2 diabetes mellitus without complications; G47.33 Obstructive sleep apnea (adult) (pediatric); J45.40 Moderate persistent asthma, uncomplicated; E55.9 Vitamin D deficiency, unspecified; E03.9 Hypothyroidism, unspecified; Z86.59 Personal history of other mental and behavioral disorders; Z86.16 Personal history of COVID-19; Z96.652 Presence of left artificial knee joint; Z87.891 Personal history of nicotine dependence; Z88.8 Allergy status to other drugs, medicaments and biological substances; Z91.011 Allergy to milk products; Z91.09 Other allergy status, other than to drugs and biological substances; Z79.4 Long term (current) use of insulin; Z79.82 Long term (current) use of aspirin; Z79.85 Long-term (current) use of injectable non-insulin antidiabetic drugs; Z79.890 Hormone replacement therapy; Z79.899 Other long term (current) drug therapy

== ENCOUNTER 2023-10-20 16:58 | Observation (INO) | payer OTHER, MEDICAID ==
[~2023-10-20] VITALS: Ht 160 cm; Wt 120.2 kg
[~2023-10-20 16:58] MED LIST changes: -BISA1TAB PO; -CEFD1CAP9 PO; +CEFD300C42 PO; -CYAN-1 PO; -DULA3PEN SQ; -MAGN400T2 PO; -MELA3TAB30 PO; -MV-M1CAP8 PO; -TOUJ300I2 SQ
[2023-10-20] MEDS ORDERED: TOUJ300I2 SQ (17:56)
[2023-10-20] MEDS ORDERED: HYDR50TA70 PO (17:57)
[2023-10-20] MEDS ORDERED: MV-M1CAP8 PO (17:57)
[2023-10-20] MEDS ORDERED: LORazepam 2 MG/ML 1ML VIAL IV PRN (18:25)
[2023-10-20 18:34] LABS: BASO % 0.2 % (0.0-1.0); EOS # 0.1 10^3/uL (0.0-0.5); EOS % 1.6 % (0.0-3.0); HEMATOCRIT 29.1 % (36.0-47.0); HEMOGLOBIN 9.5 g/dl (12.0-15.5); LYMPH # 0.7 10^3/uL (1.5-5.0); LYMPH % 15.2 % (24.0-44.0); MEAN CORPUSCULAR HEMOGLOBIN 31.6 pg (27.0-33.0); MEAN CORPUSCULAR HGB CONC 32.6 g/dl (32.0-36.5); MEAN CORPUSCULAR VOLUME 96.7 fl (80.0-96.0); MONO # 0.4 10^3/uL (0.0-0.8); MONO % 8.4 % (2.0-8.0); NEUTROPHILS # 3.3 10^3/uL (1.5-8.5); NEUTROPHILS % 73.9 % (36.0-66.0); PLATELET COUNT, AUTOMATED 212 10^3/uL (150-450); RED BLOOD COUNT 3.01 10^6/uL (4.00-5.40); WHITE BLOOD COUNT 4.4 10^3/uL (4.0-10.0)
[2023-10-20 19:16] LABS: ALBUMIN 3.3 G/DL (3.2-5.2); ALKALINE PHOSPHATASE 157 U/L (46-116); ALT/SGPT 16 U/L (7.0-40); AST/SGOT 11 U/L (<34); BILIRUBIN,DIRECT < 0.1 MG/DL (<0.4); BILIRUBIN,TOTAL 0.3 MG/DL (0.3-1.2); BLOOD UREA NITROGEN 41 MG/DL (9-23); CALCIUM LEVEL 7.9 MG/DL (8.3-10.6); CARBON DIOXIDE LEVEL 19 MMOL/L (20-31); CHLORIDE LEVEL 108 MMOL/L (98-107); CREATININE FOR GFR 1.91 MG/DL (0.55-1.30); GLOMERULAR FILTRATION RATE 27.9 (>45); GLUCOSE, FASTING 122 MG/DL (74-106); POTASSIUM SERUM 5.6 MMOL/L (3.5-5.1); SODIUM LEVEL 137 MMOL/L (136-145); TOTAL PROTEIN 5.9 G/DL (5.7-8.2)
[2023-10-20] MEDS ORDERED: CALCIUM GLUCONATE 1,000 MG in D5W MINI-BAG PLUS 100 ML IV ONE (19:25)
[2023-10-20] MEDS ORDERED: HumuLIN R (REGULAR) INSULIN (NovoLIN R) **100U/ML** PER UNIT IV ONE (19:25)
[2023-10-20] MEDS ORDERED: DEXTROSE 50% 50ML SYRINGE IV STA (19:25)
[2023-10-20] MEDS ORDERED: NS 1,000 ML IV SCH ×2 (20:35→21:25)
[2023-10-20 21:15] LABS: RSV AMPLIFICATION NEGATIVE (NEGATIVE)
[2023-10-20] MEDS ORDERED: SOD POLYSTYRENE SULFONATE SUSP 15GM 60ML UD PO ONE (21:20)
[2023-10-20] MEDS ORDERED: MOM 30ML SUSPENSION UDC PO PRN (21:25)
[2023-10-20 22:45] VITALS: BP 158/76; TEMP 98.1; O2SAT 96
[2023-10-21] MEDS ORDERED: PERCOCET 5MG/325MG TAB PO ONE (01:00)
[2023-10-21 03:35] LABS: HEMATOCRIT 27.6 % (36.0-47.0); HEMOGLOBIN 9.1 g/dl (12.0-15.5); MEAN CORPUSCULAR HEMOGLOBIN 31.4 pg (27.0-33.0); MEAN CORPUSCULAR VOLUME 95.2 fl (80.0-96.0); PLATELET COUNT, AUTOMATED 193 10^3/uL (150-450)
[2023-10-21 04:03] LABS: CALCIUM LEVEL 7.5 MG/DL (8.3-10.6); CREATININE FOR GFR 1.85 MG/DL (0.55-1.30); GLOMERULAR FILTRATION RATE 28.9 (>45); MAGNESIUM LEVEL 1.5 MG/DL (1.8-2.4); POTASSIUM SERUM 4.8 MMOL/L (3.5-5.1)
[2023-10-21] MEDS ORDERED: HEPARIN SOD (PORCINE) 5000UNITS/ML 1ML VIAL/SYRINGE SC SCH (06:00)
[2023-10-21] MEDS ORDERED: LEVOTHYROXINE 50MCG TABLET (0.05MG) PO SCH (06:00)
[2023-10-21] MEDS: INSULIN LISPRO (NovoLOG) PER UNIT SC SCH ×2 (07:30→12:00)
[2023-10-21 07:44] VITALS: BP 145/65; TEMP 97.9; O2SAT 94
[2023-10-21] MEDS ORDERED: GLUCOSE 4GM CHEW TABLET PO PRN (07:50)
[2023-10-21] MEDS ORDERED: GLUCAGON INJ 1MG VIAL SC PRN (07:50)
[2023-10-21] MEDS ORDERED: DEXTROSE 50% 50ML SYRINGE IV PRN (07:50)
[2023-10-21] MEDS ORDERED: TIOTROPIUM INHALER/CAPSULE (SPIRIVA) INH SCH (08:00)
[2023-10-21] MEDS ORDERED: ADVAIR HFA 230/21MCG INHALER INH SCH (08:00)
[2023-10-21] MEDS ORDERED: MELA3TAB30 PO (08:10)
[2023-10-21] MEDS ORDERED: HOME MED LIST COMPLETE! XX SCH (08:10)
[2023-10-21] MEDS ORDERED: CYAN-1 PO (08:10)
[2023-10-21] MEDS ORDERED: DULA3PEN SQ (08:10)
[2023-10-21] MEDS ORDERED: BISA1TAB PO (08:10)
[2023-10-21] MEDS ORDERED: LISI20TA33 PO ×2 (08:10→11:40)
[2023-10-21] MEDS ORDERED: ASPIRIN 81MG ENTERIC TABLET PO SCH (09:00)
[2023-10-21] MEDS ORDERED: DOCUSATE SODIUM 100MG CAPSULE PO SCH ×2 (09:00)
[2023-10-21] MEDS ORDERED: PREGABALIN 100 MG CAP (LYRICA) PO SCH (09:00)
[2023-10-21] MEDS ORDERED: buPROPion **XL** TABLET 150MG (WELLBUTRIN XL) PO SCH (09:00)
[2023-10-21] MEDS ORDERED: tiZANidine 4 MG TAB PO SCH (09:00)
[2023-10-21] MEDS ORDERED: CYANOCOBALAMIN 500 MCG TAB PO SCH (09:00)
[2023-10-21] MEDS ORDERED: OMEPRAZOLE 20MG CAP PO SCH (09:00)
[2023-10-21] MEDS ORDERED: MAGNESIUM OXIDE 400MG TAB (MAG-OX) PO SCH (09:00)
[2023-10-21] MEDS ORDERED: BISACODYL 5MG TAB PO SCH (09:00)
[2023-10-21] MEDS ORDERED: DULoxetine 30MG CAPSULE (CYMBALTA) PO SCH (09:00)
[2023-10-21] MEDS ORDERED: FERROUS SULFATE 325MG TAB PO SCH (09:00)
[2023-10-21] MEDS ORDERED: ACETAMINOPHEN 500 MG TAB PO PRN (10:00)
[2023-10-21] MEDS ORDERED: ALBUTEROL SULFATE 2.5MG/0.5ML INH NEB SOLN NEB PRN (10:00)
[2023-10-21] MEDS ORDERED: oxyCODONE 5MG TAB PO PRN (10:00)
[2023-10-21] MEDS ORDERED: ONDANSETRON 4MG TAB PO PRN (10:00)
[2023-10-21] MEDS ORDERED: hydrOXYzine 50 MG TAB PO PRN (10:00)
[2023-10-21] MEDS ORDERED: MAGN400T2 PO (11:40)
[2023-10-21] MEDS ORDERED: ATORVASTATIN 20 MG TAB PO SCH (21:00)
[2023-10-21] MEDS ORDERED: LEVEMIR (INSULIN DETEMIR) 1 UNITS/0.01ML SC SCH (21:00)
[2023-10-21] MEDS ORDERED: INSULIN LISPRO (NovoLOG) PER UNIT SC SCH (21:00)
[2023-10-21] MEDS ORDERED: RAMELTEON 8 MG TAB (ROZEREM) PO SCH (21:00)
[2023-10-21] MEDS ORDERED: MONTELUKAST 10 MG TAB PO SCH (21:00)
[2023-10-22] MEDS ORDERED: MIRALAX *UNIT DOSE* 17GM PACKET PO SCH (09:00)
== END 2023-10-21 13:46 | disposition home or self-care (01) ==
LOC: M ED 16:58 → M ED INP 21:21 → INTOOBSV 21:21 → M MSPAV 22:44
PROVIDERS: ADMIT Family Medicine; ATTEND Student in an Organized Health Care Education/Training Program
DX: E87.5 Hyperkalemia (principal); N18.9 Chronic kidney disease, unspecified; M79.7 Fibromyalgia; M25.559 Pain in unspecified hip; G89.29 Other chronic pain; Z99.3 Dependence on wheelchair; G47.33 Obstructive sleep apnea (adult) (pediatric); E66.01 Morbid (severe) obesity due to excess calories; Z68.42 Body mass index [BMI] 45.0-49.9, adult; I69.351 Hemiplegia and hemiparesis following cerebral infarction affecting right dominant side; R29.810 Facial weakness; E11.9 Type 2 diabetes mellitus without complications; J45.30 Mild persistent asthma, uncomplicated; I67.82 Cerebral ischemia; G31.1 Senile degeneration of brain, not elsewhere classified; Z98.84 Bariatric surgery status; Z91.048 Other nonmedicinal substance allergy status; Z91.011 Allergy to milk products; Z79.899 Other long term (current) drug therapy; Z79.82 Long term (current) use of aspirin; Z79.891 Long term (current) use of opiate analgesic; Z79.85 Long-term (current) use of injectable non-insulin antidiabetic drugs; Z79.51 Long term (current) use of inhaled steroids; Z79.4 Long term (current) use of insulin; Z87.891 Personal history of nicotine dependence
CPT/HCPCS: 36415; 70450; 70544; 70551; 80047; 80048; 80076; 83735; 84484; 85025; 85027; 87631; 87635; 93005; 93041; 94760; 96361; 96372; 96374; 96375; 97161; 99285; G0378; J0612; J1815; J2060

== ENCOUNTER → 2023-10-20 | Outpatient (CLI) | payer OTHER, MEDICAID ==
[~2023-10-20] MED LIST changes: +BISA1TAB PO; +CEFD1CAP9 PO; -CEFD300C41 PO; +CYAN-1 PO; +DULA3PEN SQ; +MAGN400T2 PO; +MELA3TAB30 PO; +MV-M1CAP8 PO; -PREG200C2; +TOUJ300I2 SQ
== END ==
LOC: M PAIN 16:00
PROVIDERS: ATTEND Anesthesiology
DX: M25.551 Pain in right hip (principal); Z86.73 Personal history of transient ischemic attack (TIA), and cerebral infarction without residual deficits; R29.898 Other symptoms and signs involving the musculoskeletal system; E11.21 Type 2 diabetes mellitus with diabetic nephropathy; E11.40 Type 2 diabetes mellitus with diabetic neuropathy, unspecified; J45.40 Moderate persistent asthma, uncomplicated; G47.33 Obstructive sleep apnea (adult) (pediatric); E66.01 Morbid (severe) obesity due to excess calories; E55.9 Vitamin D deficiency, unspecified; E03.9 Hypothyroidism, unspecified; F32.A Depression, unspecified; Z86.16 Personal history of COVID-19; Z87.891 Personal history of nicotine dependence; Z79.4 Long term (current) use of insulin; Z79.891 Long term (current) use of opiate analgesic; Z79.899 Other long term (current) drug therapy; Z88.1 Allergy status to other antibiotic agents; E73.9 Lactose intolerance, unspecified; Z91.048 Other nonmedicinal substance allergy status; Z68.42 Body mass index [BMI] 45.0-49.9, adult

== ENCOUNTER → 2023-11-09 | Outpatient (CLI) | payer OTHER, MEDICAID ==
[~2023-11-09] MED LIST changes: +ALBU6.7H6 INH; +BIOFREEZE ROLL ON TOP; +BISA1TAB PO; +CEFD1CAP9 PO; -CEFD300C42 PO; +CYAN-1 PO; +DULA3PEN SQ; +FLON1SPR NARES; +IPRA0.00 NEB; +IPRA2IN NEB; +LIDO1PAD TOP; +LISI10TA22 PO; +MAGN400T2 PO; +MELA3TAB30 PO; +MV-M1CAP8 PO; +SYST1SOL4 OP; +THERTAB52 PO; +TOUJ300I2 SQ; +[UNRECOGNIZED DRUG - OTHER]
[2023-11-09 16:14] LABS: BASO % 0.3 % (0.0-1.0); EOS # 0.1 10^3/uL (0.0-0.5); EOS % 1.4 % (0.0-3.0); HEMATOCRIT 30.6 % (36.0-47.0); HEMOGLOBIN 9.7 g/dl (12.0-15.5); LYMPH # 0.7 10^3/uL (1.5-5.0); LYMPH % 17.6 % (24.0-44.0); MEAN CORPUSCULAR HGB CONC 31.7 g/dl (32.0-36.5); MEAN CORPUSCULAR VOLUME 97.8 fl (80.0-96.0); MONO # 0.3 10^3/uL (0.0-0.8); MONO % 8.7 % (2.0-8.0); NEUTROPHILS # 2.6 10^3/uL (1.5-8.5); NEUTROPHILS % 71.2 % (36.0-66.0); PLATELET COUNT, AUTOMATED 253 10^3/uL (150-450); RED BLOOD COUNT 3.13 10^6/uL (4.00-5.40); WHITE BLOOD COUNT 3.7 10^3/uL (4.0-10.0)
[2023-11-09 16:38] LABS: ALBUMIN 3.6 G/DL (3.2-5.2); ALKALINE PHOSPHATASE 168 U/L (46-116); ALT/SGPT 22 U/L (7.0-40); AST/SGOT 24 U/L (<34); BILIRUBIN,TOTAL < 0.2 MG/DL (0.3-1.2); BLOOD UREA NITROGEN 73 MG/DL (9-23); CALCIUM LEVEL 8.2 MG/DL (8.3-10.6); CARBON DIOXIDE LEVEL 15 MMOL/L (20-31); CHLORIDE LEVEL 114 MMOL/L (98-107); CREATININE FOR GFR 4.74 MG/DL (0.55-1.30); GLOMERULAR FILTRATION RATE 9.8 (>45); GLUCOSE, FASTING 94 MG/DL (74-106); POTASSIUM SERUM 5.4 MMOL/L (3.5-5.1); SODIUM LEVEL 142 MMOL/L (136-145); TOTAL PROTEIN 6.4 G/DL (5.7-8.2)
[2023-11-09 16:39] LABS: THYROID STIMULATING HORMONE 1.142 uIU/ML (0.55-4.78)
[2023-11-09 18:02] LABS: HEMOGLOBIN A1c 5.4 % (4.0-6.0)
== END ==
LOC: M PLALAB 12:21
PROVIDERS: ATTEND Student in an Organized Health Care Education/Training Program
DX: B34.9 Viral infection, unspecified (principal); E11.42 Type 2 diabetes mellitus with diabetic polyneuropathy; E03.9 Hypothyroidism, unspecified

== ENCOUNTER → 2023-11-29 | Outpatient (CLI) | payer OTHER, MEDICAID ==
[2023-11-29 16:22] LABS: ALBUMIN 3.7 G/DL (3.2-5.2); CALCIUM LEVEL 8.1 MG/DL (8.3-10.6); CREATININE FOR GFR 2.87 MG/DL (0.55-1.30); CREATININE, URINE 103.5 MG/DL; GLOMERULAR FILTRATION RATE 17.4 (>45); MAU/CREAT RATIO 49.2 MCG/MG (0.0-30.0); POTASSIUM SERUM 4.9 MMOL/L (3.5-5.1)
== END ==
LOC: M PLALAB 14:39
PROVIDERS: ATTEND Student in an Organized Health Care Education/Training Program
DX: N18.32 Chronic kidney disease, stage 3b (principal); E11.42 Type 2 diabetes mellitus with diabetic polyneuropathy

== ENCOUNTER → 2023-12-22 | Outpatient (REF) | payer OTHER, MEDICAID ==
[2023-12-22 18:32] LABS: PERCENT SATURATION 43.3 % (13.2-45.0)
== END ==
LOC: M LAB REF 17:29
PROVIDERS: ATTEND Internal Medicine Nephrology
DX: D50.9 Iron deficiency anemia, unspecified (principal)

== ENCOUNTER → 2023-12-23 | Outpatient (CLI) | payer OTHER, MEDICAID ==
[~2023-12-23] MED LIST changes: +CALC1CAP31 PO; +FERR325T19 PO; +FESO4TAB PO; +PREG100C2 PO; +PROBCAP14 PO; +SODI650T PO; +TIZA10TA PO; +TOUJ300I2 SC
== END ==
LOC: M PAIN 15:45
PROVIDERS: ATTEND Anesthesiology
DX: M25.551 Pain in right hip (principal); M16.11 Unilateral primary osteoarthritis, right hip; Z86.16 Personal history of COVID-19; Z98.84 Bariatric surgery status; Z87.891 Personal history of nicotine dependence; Z88.8 Allergy status to other drugs, medicaments and biological substances; Z91.09 Other allergy status, other than to drugs and biological substances; Z79.4 Long term (current) use of insulin; Z79.82 Long term (current) use of aspirin; Z79.85 Long-term (current) use of injectable non-insulin antidiabetic drugs; Z79.899 Other long term (current) drug therapy

== ENCOUNTER → 2023-12-30 | Outpatient (CLI) | payer OTHER, MEDICAID | LOC: M PAIN 09:30 | PROVIDERS: ATTEND Anesthesiology | DX: Z01.818 Encounter for other preprocedural examination (principal); M16.11 Unilateral primary osteoarthritis, right hip; M25.551 Pain in right hip; E11.40 Type 2 diabetes mellitus with diabetic neuropathy, unspecified; E11.21 Type 2 diabetes mellitus with diabetic nephropathy; J45.40 Moderate persistent asthma, uncomplicated; G47.22 Circadian rhythm sleep disorder, advanced sleep phase type; E03.9 Hypothyroidism, unspecified; F32.A Depression, unspecified; Z87.891 Personal history of nicotine dependence; Z79.890 Hormone replacement therapy; Z79.899 Other long term (current) drug therapy; Z79.4 Long term (current) use of insulin; Z79.82 Long term (current) use of aspirin; Z79.891 Long term (current) use of opiate analgesic; Z88.1 Allergy status to other antibiotic agents; Z91.048 Other nonmedicinal substance allergy status ==

== ENCOUNTER 2024-01-13 13:10 | Day surgery (SDC) | payer OTHER, MEDICAID ==
[~2024-01-13] VITALS: Ht 160 cm; Wt 121.6 kg
[~2024-01-13 13:10] MED LIST changes: +UNRESOLVED CLARIFICATION ENTRY XX SCH
[2024-01-13] MEDS ORDERED: DEXTROSE 50% 50ML SYRINGE IV PRN (14:15)
[2024-01-13] MEDS ORDERED: GLUCAGON INJ 1MG VIAL SC PRN (14:15)
[2024-01-13] MEDS ORDERED: GLUCOSE 4GM CHEW TABLET PO PRN (14:15)
[2024-01-13] MEDS ORDERED: INSULIN LISPRO (NovoLOG) PER UNIT SC PRN (14:15)
[2024-01-13] MEDS ORDERED: LR 1,000 ML IV SCH (14:15)
[2024-01-13] MEDS ORDERED: ISOVUE-300 61% 100ML VIAL As Ordered ONE (14:49)
[2024-01-13] MEDS ORDERED: MIDAZOLAM INJ 2MG/2ML VIAL As Ordered ONE (15:10)
[2024-01-13] MEDS ORDERED: fentaNYL 100 MCG/2 ML INJECTION As Ordered ONE (15:10)
[2024-01-13] MEDS: TRIAMCINOLONE ACETONIDE SUSP 40MG/ML 1ML VIAL As Ordered ONE (15:44)
[2024-01-13] MEDS: LIDOCAINE 1% SDV 30ML VIAL As Ordered ONE (15:53)
[2024-01-13] MEDS: ISOVUE-M 300 61% 15ML VIAL As Ordered ONE (15:54)
[2024-01-13 16:52] VITALS: BP 138/74; TEMP 97.1; O2SAT 97
== END 2024-01-13 17:30 | disposition home or self-care (01) ==
LOC: M SDC 13:10
PROVIDERS: ATTEND Anesthesiology
DX: M16.11 Unilateral primary osteoarthritis, right hip (principal); M25.551 Pain in right hip
CPT/HCPCS: 20610; 76000; J2250; J3010; J3301

== ENCOUNTER → 2024-01-26 | Outpatient (CLI) | payer OTHER, MEDICAID ==
[~2024-01-26] MED LIST changes: -UNRESOLVED CLARIFICATION ENTRY XX SCH
== END ==
LOC: M PAIN 09:00
PROVIDERS: ATTEND Anesthesiology
DX: M25.551 Pain in right hip (principal); Z79.891 Long term (current) use of opiate analgesic; M16.11 Unilateral primary osteoarthritis, right hip; E11.21 Type 2 diabetes mellitus with diabetic nephropathy; E11.40 Type 2 diabetes mellitus with diabetic neuropathy, unspecified; J45.40 Moderate persistent asthma, uncomplicated; G47.33 Obstructive sleep apnea (adult) (pediatric); E66.01 Morbid (severe) obesity due to excess calories; E55.9 Vitamin D deficiency, unspecified; E03.9 Hypothyroidism, unspecified; F32.A Depression, unspecified; Z86.16 Personal history of COVID-19; Z87.891 Personal history of nicotine dependence; Z79.890 Hormone replacement therapy; Z79.4 Long term (current) use of insulin; Z79.82 Long term (current) use of aspirin; Z79.899 Other long term (current) drug therapy; Z88.8 Allergy status to other drugs, medicaments and biological substances; Z91.048 Other nonmedicinal substance allergy status; Z68.42 Body mass index [BMI] 45.0-49.9, adult

== ENCOUNTER → 2024-02-01 | Outpatient (REF) | payer OTHER, MEDICAID ==
[2024-02-01 20:25] LABS: FERRITIN 485.8 NG/ML (7.3-270.7)
== END ==
LOC: M LAB REF 14:31
PROVIDERS: ATTEND Nurse Practitioner Family
DX: D50.9 Iron deficiency anemia, unspecified (principal)

== ENCOUNTER → 2024-02-18 | Outpatient (CLI) | payer OTHER, MEDICAID ==
[~2024-02-18] MED LIST changes: +BUPR-597 PO; -BUPR300T92 PO; -POTA10CA60 PO; +POTA10CA70 PO
== END ==
LOC: M PLAIMG 08:53
PROVIDERS: ATTEND Student in an Organized Health Care Education/Training Program
DX: M51.36 Other intervertebral disc degeneration, lumbar region (principal); M51.37 Other intervertebral disc degeneration, lumbosacral region; G89.4 Chronic pain syndrome

== ENCOUNTER → 2024-04-12 | Outpatient (CLI) | payer OTHER, MEDICAID | LOC: M PAIN 10:30 | PROVIDERS: ATTEND Anesthesiology | DX: M16.11 Unilateral primary osteoarthritis, right hip (principal); M25.551 Pain in right hip; E11.40 Type 2 diabetes mellitus with diabetic neuropathy, unspecified; E11.21 Type 2 diabetes mellitus with diabetic nephropathy; J45.40 Moderate persistent asthma, uncomplicated; G47.33 Obstructive sleep apnea (adult) (pediatric); E66.01 Morbid (severe) obesity due to excess calories; M19.90 Unspecified osteoarthritis, unspecified site; E55.9 Vitamin D deficiency, unspecified; E03.9 Hypothyroidism, unspecified; F32.A Depression, unspecified; Z86.16 Personal history of COVID-19; Z99.3 Dependence on wheelchair; Z87.891 Personal history of nicotine dependence; Z79.82 Long term (current) use of aspirin; Z79.4 Long term (current) use of insulin; Z79.890 Hormone replacement therapy; Z88.1 Allergy status to other antibiotic agents; Z91.048 Other nonmedicinal substance allergy status; Z68.41 Body mass index [BMI] 40.0-44.9, adult ==

== ENCOUNTER → 2024-05-02 | Outpatient (CLI) | payer OTHER, MEDICAID ==
[~2024-05-02] MED LIST changes: +ONDA-282 PO; +ONDA-284 PO; -ONDA4TAB6 PO; -ONDA8TAB8 PO
== END ==
LOC: M WHC 12:59
PROVIDERS: ATTEND Student in an Organized Health Care Education/Training Program
DX: Z12.31 Encounter for screening mammogram for malignant neoplasm of breast (principal)

== ENCOUNTER → 2024-05-02 | Outpatient (CLI) | payer OTHER, MEDICAID ==
[2024-05-02 18:00] LABS: HEMATOCRIT 35.5 % (36.0-47.0); MEAN CORPUSCULAR HEMOGLOBIN 31.4 pg (27.0-33.0); MEAN CORPUSCULAR HGB CONC 33.8 g/dl (32.0-36.5); MEAN CORPUSCULAR VOLUME 92.9 fl (80.0-96.0); PLATELET COUNT, AUTOMATED 279 10^3/uL (150-450); RED BLOOD COUNT 3.82 10^6/uL (4.00-5.40); WHITE BLOOD COUNT 5.6 10^3/uL (4.0-10.0)
[2024-05-02 18:29] LABS: CALCIUM LEVEL 8.8 MG/DL (8.3-10.6); CREATININE FOR GFR 1.76 MG/DL (0.55-1.30); GLOMERULAR FILTRATION RATE 30.6 (>45); POTASSIUM SERUM 3.5 MMOL/L (3.5-5.1)
== END ==
LOC: M PLALAB 16:13
PROVIDERS: ATTEND Student in an Organized Health Care Education/Training Program
DX: Z01.818 Encounter for other preprocedural examination (principal); Z79.899 Other long term (current) drug therapy

== ENCOUNTER → 2024-05-04 | Outpatient (CLI) | payer OTHER, MEDICAID ==
[~2024-05-04] MED LIST changes: +ISOVUE-M 300 61% 15ML VIAL As Ordered ONE; +LIDOCAINE 1% MDV 20ML VIAL As Ordered ONE; +MIDAZOLAM INJ 2MG/2ML VIAL As Ordered ONE; +TRIAMCINOLONE ACETONIDE SUSP 40MG/ML 1ML VIAL As Ordered ONE; +fentaNYL 100 MCG/2 ML INJECTION As Ordered ONE
[2024-05-04 15:20] VITALS: BP 122/63; O2SAT 100
== END ==
LOC: M IRPRO 12:19
PROVIDERS: ATTEND Anesthesiology
DX: M16.11 Unilateral primary osteoarthritis, right hip (principal)
CPT/HCPCS: 20610; 99152; J0665; J2250; J3010; J3301; Q9967

== ENCOUNTER → 2024-06-16 | Outpatient (CLI) | payer OTHER, MEDICAID ==
[~2024-06-16] MED LIST changes: -ISOVUE-M 300 61% 15ML VIAL As Ordered ONE; -LIDOCAINE 1% MDV 20ML VIAL As Ordered ONE; -MIDAZOLAM INJ 2MG/2ML VIAL As Ordered ONE; +TRAM-443 PO; -TRAM37.53 PO; -TRIAMCINOLONE ACETONIDE SUSP 40MG/ML 1ML VIAL As Ordered ONE; -fentaNYL 100 MCG/2 ML INJECTION As Ordered ONE
== END ==
LOC: M PAIN 14:45
PROVIDERS: ATTEND Nurse Practitioner Family
DX: M25.551 Pain in right hip (principal); G89.29 Other chronic pain; E11.40 Type 2 diabetes mellitus with diabetic neuropathy, unspecified; E11.21 Type 2 diabetes mellitus with diabetic nephropathy; J45.40 Moderate persistent asthma, uncomplicated; G47.33 Obstructive sleep apnea (adult) (pediatric); E66.01 Morbid (severe) obesity due to excess calories; E55.9 Vitamin D deficiency, unspecified; Z99.3 Dependence on wheelchair; E03.9 Hypothyroidism, unspecified; F32.A Depression, unspecified; Z87.891 Personal history of nicotine dependence; Z68.41 Body mass index [BMI] 40.0-44.9, adult; Z79.4 Long term (current) use of insulin; Z79.82 Long term (current) use of aspirin; Z79.890 Hormone replacement therapy; Z79.891 Long term (current) use of opiate analgesic; Z79.899 Other long term (current) drug therapy; Z88.1 Allergy status to other antibiotic agents; Z91.048 Other nonmedicinal substance allergy status

== ENCOUNTER → 2024-06-20 | Outpatient (CLI) | payer OTHER, MEDICAID ==
[~2024-06-20] MED LIST changes: -TRAM-443 PO; +TRAM1TAB42 PO
== END ==
LOC: M PLALAB 10:53
PROVIDERS: ATTEND Student in an Organized Health Care Education/Training Program
DX: E11.42 Type 2 diabetes mellitus with diabetic polyneuropathy (principal); E03.9 Hypothyroidism, unspecified

== ENCOUNTER 2024-08-09 09:19 | Day surgery (SDC) | payer OTHER, MEDICAID ==
[~2024-08-09] VITALS: Ht 160 cm; Wt 109.3 kg
[~2024-08-09 09:19] MED LIST changes: +AMLO25TA PO; +PHENYLEPHRINE 10% OPHTH SOL 5ML OD PRN; +VENTAER INH
[2024-08-09] MEDS ORDERED: fentaNYL 100 MCG/2 ML INJECTION As Ordered ONE (10:10)
[2024-08-09] MEDS ORDERED: MIDAZOLAM INJ 2MG/2ML VIAL As Ordered ONE (10:10)
[2024-08-09] MEDS: PHENYLEPHRINE 2.5% OPHTH SOL 2ML OD SCH (10:33)
[2024-08-09] MEDS: LIDOCAINE 3.5 % 1ML OPHTH TOPICAL GEL OU ONE (10:33)
[2024-08-09] MEDS: ATROPINE SULFATE 1% OPHTH SOLN 2ML BTL OD SCH (10:33)
[2024-08-09] MEDS: TROPICAMIDE 1% OPHTH SOLN 15ML OD SCH (10:33)
[2024-08-09] MEDS: OFLOXACIN 0.3 % (OCUFLOX) OPTH SOL 5ML OD ONE (10:33)
[2024-08-09] MEDS: BSS IRRIG/VANCO(10MG)/TOBRA(5MG)/EPINEPH(1:1000-0.5CC)500ML BAG-ORONLY As Ordered ONE (11:25)
[2024-08-09] MEDS: LIDOCAINE 1% SDV 5ML VIAL As Ordered ONE (11:25)
[2024-08-09] MEDS: CEFUROXIME 1MG/0.1ML INTRACAMERAL INJ As Ordered ONE (11:25)
[2024-08-09 11:38] VITALS: BP 167/69; TEMP 97.6; O2SAT 100
== END 2024-08-09 12:05 | disposition home or self-care (01) ==
LOC: M SDC 09:19
PROVIDERS: ATTEND Ophthalmology
DX: H25.11 Age-related nuclear cataract, right eye (principal); I10 Essential (primary) hypertension; E78.5 Hyperlipidemia, unspecified; E11.9 Type 2 diabetes mellitus without complications; E03.9 Hypothyroidism, unspecified; K57.92 Diverticulitis of intestine, part unspecified, without perforation or abscess without bleeding; F32.A Depression, unspecified; K21.9 Gastro-esophageal reflux disease without esophagitis; K76.0 Fatty (change of) liver, not elsewhere classified; G40.909 Epilepsy, unspecified, not intractable, without status epilepticus; G43.909 Migraine, unspecified, not intractable, without status migrainosus; G47.33 Obstructive sleep apnea (adult) (pediatric); Z98.84 Bariatric surgery status; Z79.51 Long term (current) use of inhaled steroids; Z79.4 Long term (current) use of insulin; Z79.899 Other long term (current) drug therapy; Z88.1 Allergy status to other antibiotic agents
CPT/HCPCS: 66984; J0697; J2250; J3010; V2632

== ENCOUNTER 2024-08-16 10:29 | Day surgery (SDC) | payer OTHER, MEDICAID ==
[~2024-08-16] VITALS: Ht 160 cm; Wt 110.7 kg
[~2024-08-16 10:29] MED LIST changes: +MIDAZOLAM INJ 2MG/2ML VIAL As Ordered ONE; -PHENYLEPHRINE 10% OPHTH SOL 5ML OD PRN; +PHENYLEPHRINE 10% OPHTH SOL 5ML OS PRN
[2024-08-16] MEDS: TROPICAMIDE 1% OPHTH SOLN 15ML OS SCH (11:20)
[2024-08-16] MEDS: ATROPINE SULFATE 1% OPHTH SOLN 2ML BTL OS SCH (11:20)
[2024-08-16] MEDS: LIDOCAINE 3.5 % 1ML OPHTH TOPICAL GEL OU ONE (11:20)
[2024-08-16] MEDS: PHENYLEPHRINE 2.5% OPHTH SOL 2ML OS SCH (11:20)
[2024-08-16] MEDS: OFLOXACIN 0.3 % (OCUFLOX) OPTH SOL 5ML OS ONE (11:27)
[2024-08-16] MEDS: CEFUROXIME 1MG/0.1ML INTRACAMERAL INJ As Ordered ONE (11:36)
[2024-08-16] MEDS: BSS IRRIG/VANCO(10MG)/TOBRA(5MG)/EPINEPH(1:1000-0.5CC)500ML BAG-ORONLY As Ordered ONE (11:36)
[2024-08-16] MEDS: LIDOCAINE 1% SDV 5ML VIAL As Ordered ONE (11:36)
[2024-08-16] MEDS: CARBACHOL 0.01% OPHTH SOLN 1.5ML VIAL As Ordered ONE (11:50)
[2024-08-16 11:57] VITALS: BP 167/74; TEMP 97.1; O2SAT 98
== END 2024-08-16 12:06 | disposition home or self-care (01) ==
LOC: M SDC 10:29
PROVIDERS: ATTEND Ophthalmology
DX: H25.12 Age-related nuclear cataract, left eye (principal); E11.9 Type 2 diabetes mellitus without complications; G47.30 Sleep apnea, unspecified; Z68.41 Body mass index [BMI] 40.0-44.9, adult; Z98.41 Cataract extraction status, right eye; Z88.1 Allergy status to other antibiotic agents; Z91.048 Other nonmedicinal substance allergy status; Z79.899 Other long term (current) drug therapy
CPT/HCPCS: 66984; J0697; J2250; V2632

== ENCOUNTER → 2024-08-18 | Outpatient (CLI) | payer OTHER, MEDICAID ==
[~2024-08-18] MED LIST changes: -MIDAZOLAM INJ 2MG/2ML VIAL As Ordered ONE; -PHENYLEPHRINE 10% OPHTH SOL 5ML OS PRN; -SENN-111 PO; +SENN-165 PO
== END ==
LOC: M PAIN 14:30
PROVIDERS: ATTEND Nurse Practitioner Family
DX: M25.551 Pain in right hip (principal); Z79.891 Long term (current) use of opiate analgesic; G89.29 Other chronic pain; E11.40 Type 2 diabetes mellitus with diabetic neuropathy, unspecified; E11.21 Type 2 diabetes mellitus with diabetic nephropathy; J45.40 Moderate persistent asthma, uncomplicated; G47.33 Obstructive sleep apnea (adult) (pediatric); E66.01 Morbid (severe) obesity due to excess calories; E55.9 Vitamin D deficiency, unspecified; E03.9 Hypothyroidism, unspecified; F32.A Depression, unspecified; Z99.3 Dependence on wheelchair; Z79.890 Hormone replacement therapy; Z79.899 Other long term (current) drug therapy; Z87.891 Personal history of nicotine dependence; Z88.1 Allergy status to other antibiotic agents; Z91.048 Other nonmedicinal substance allergy status; Z68.41 Body mass index [BMI] 40.0-44.9, adult

== ENCOUNTER 2024-09-02 13:26 | Emergency (ER) | payer OTHER, MEDICAID ==
[~2024-09-02] VITALS: Ht 160 cm; Wt 107.3 kg
[2024-09-02 13:34] VITALS: BP 170/70; TEMP 98; O2SAT 97
== END 2024-09-02 16:30 | disposition home or self-care (01) ==
LOC: M ED 13:26
DX: R10.9 Unspecified abdominal pain (principal); M54.50 Low back pain, unspecified; N18.32 Chronic kidney disease, stage 3b; E11.9 Type 2 diabetes mellitus without complications; I10 Essential (primary) hypertension; Z91.048 Other nonmedicinal substance allergy status; Z88.8 Allergy status to other drugs, medicaments and biological substances; Z79.52 Long term (current) use of systemic steroids; Z79.82 Long term (current) use of aspirin; Z79.02 Long term (current) use of antithrombotics/antiplatelets; Z79.4 Long term (current) use of insulin; Z79.83 Long term (current) use of bisphosphonates; Z79.899 Other long term (current) drug therapy

== ENCOUNTER → 2024-10-18 | Outpatient (CLI) | payer OTHER, MEDICAID ==
[2024-10-18 13:59] LABS: HEMATOCRIT 32.4 % (36.0-47.0); HEMOGLOBIN 10.7 g/dl (12.0-15.5); MEAN CORPUSCULAR HEMOGLOBIN 30.7 pg (27.0-33.0); MEAN CORPUSCULAR VOLUME 92.8 fl (80.0-96.0); PLATELET COUNT, AUTOMATED 232 10^3/uL (150-450); RED BLOOD COUNT 3.49 10^6/uL (4.00-5.40); WHITE BLOOD COUNT 5.3 10^3/uL (4.0-10.0)
[2024-10-18 14:20] LABS: HEMOGLOBIN A1c 6.7 % (4.0-6.0)
== END ==
LOC: M PLALAB 11:52
PROVIDERS: ATTEND Student in an Organized Health Care Education/Training Program
DX: Z00.00 Encounter for general adult medical examination without abnormal findings (principal); E11.42 Type 2 diabetes mellitus with diabetic polyneuropathy; E03.9 Hypothyroidism, unspecified

== ENCOUNTER → 2024-10-27 | Outpatient (CLI) | payer OTHER, MEDICAID | LOC: M PAIN 12:45 | PROVIDERS: ATTEND Anesthesiology | DX: Z01.818 Encounter for other preprocedural examination (principal); M25.551 Pain in right hip; M70.61 Trochanteric bursitis, right hip; E11.40 Type 2 diabetes mellitus with diabetic neuropathy, unspecified; E11.21 Type 2 diabetes mellitus with diabetic nephropathy; J45.40 Moderate persistent asthma, uncomplicated; G47.33 Obstructive sleep apnea (adult) (pediatric); E66.01 Morbid (severe) obesity due to excess calories; E55.9 Vitamin D deficiency, unspecified; E03.9 Hypothyroidism, unspecified; F32.A Depression, unspecified; Z87.891 Personal history of nicotine dependence; Z79.890 Hormone replacement therapy; Z79.4 Long term (current) use of insulin; Z79.899 Other long term (current) drug therapy; Z88.8 Allergy status to other drugs, medicaments and biological substances; Z91.048 Other nonmedicinal substance allergy status; Z68.41 Body mass index [BMI] 40.0-44.9, adult ==

== ENCOUNTER → 2024-12-21 | Outpatient (CLI) | payer OTHER, MEDICAID ==
[~2024-12-21] MED LIST changes: -ADV500INH INH; +ADVA1AER10 INH
[2024-12-21 19:11] LABS: CHOLESTEROL RISK RATIO 4.69 (<5); HDL CHOLESTEROL 37.5 MG/DL (>40); LDL CHOLESTEROL 87.7 MG/DL (<100); NON-HDL-C 138.5 MG/DL
== END ==
LOC: M PLALAB 15:30
PROVIDERS: ATTEND Student in an Organized Health Care Education/Training Program
DX: E78.5 Hyperlipidemia, unspecified (principal)

== ENCOUNTER → 2025-01-25 | Outpatient (CLI) | payer OTHER, MEDICAID | LOC: M CARPUL 12:44 | PROVIDERS: ATTEND Physician Assistant | DX: I35.0 Nonrheumatic aortic (valve) stenosis (principal); I35.8 Other nonrheumatic aortic valve disorders; I08.0 Rheumatic disorders of both mitral and aortic valves; I37.1 Nonrheumatic pulmonary valve insufficiency ==

== ENCOUNTER → 2025-03-07 | Outpatient (CLI) | payer OTHER, MEDICAID ==
[~2025-03-07] MED LIST changes: -BUPR-597 PO; +BUPR-766 PO; +PREG-35 PO; -PREG100CA PO
== END ==
LOC: M PLALAB 11:42
PROVIDERS: ATTEND Student in an Organized Health Care Education/Training Program
DX: E03.9 Hypothyroidism, unspecified (principal); M79.645 Pain in left finger(s)

== ENCOUNTER → 2025-03-07 | Outpatient (CLI) | payer OTHER, MEDICAID | LOC: M SOG 08:41 | PROVIDERS: ATTEND Physician Assistant | DX: M79.645 Pain in left finger(s) (principal) ==

== ENCOUNTER → 2025-03-14 | Outpatient (CLI) | payer OTHER, MEDICAID ==
[~2025-03-14] MED LIST changes: +BUPR-597 PO; -BUPR-766 PO; -PREG-35 PO; +PREG100CA PO
[2025-03-14 11:23] LABS: BASO % 0.2 % (0.0-1.0); EOS # 0.1 10^3/uL (0.0-0.5); EOS % 1.9 % (0.0-3.0); HEMATOCRIT 32.5 % (36.0-47.0); HEMOGLOBIN 10.7 g/dl (12.0-15.5); LYMPH # 0.9 10^3/uL (1.5-5.0); LYMPH % 18.1 % (24.0-44.0); MEAN CORPUSCULAR HEMOGLOBIN 30.4 pg (27.0-33.0); MEAN CORPUSCULAR HGB CONC 32.9 g/dl (32.0-36.5); MEAN CORPUSCULAR VOLUME 92.3 fl (80.0-96.0); MONO # 0.3 10^3/uL (0.0-0.8); MONO % 5.9 % (2.0-8.0); NEUTROPHILS # 3.5 10^3/uL (1.5-8.5); NEUTROPHILS % 72.8 % (36.0-66.0); PLATELET COUNT, AUTOMATED 241 10^3/uL (150-450); RED BLOOD COUNT 3.52 10^6/uL (4.00-5.40); WHITE BLOOD COUNT 4.7 10^3/uL (4.0-10.0)
[2025-03-14 11:28] LABS: ERYTHROCYTE SEDIMENTATION RATE 29 mm/hr (0-30)
[2025-03-14 11:54] LABS: ALBUMIN 3.8 G/DL (3.2-5.2); ALKALINE PHOSPHATASE 96 U/L (35-104); ALT/SGPT 28 U/L (7.0-40); AST/SGOT 17 U/L (<34); BILIRUBIN,TOTAL 0.3 MG/DL (0.3-1.2); BLOOD UREA NITROGEN 54 MG/DL (9-23); CALCIUM LEVEL 9.5 MG/DL (8.3-10.6); CARBON DIOXIDE LEVEL 27 MMOL/L (20-31); CHLORIDE LEVEL 101 MMOL/L (98-107); CREATININE FOR GFR 2.48 MG/DL (0.55-1.30); GLOMERULAR FILTRATION RATE 20.6 (>45); GLUCOSE, FASTING 129 MG/DL (74-106); SODIUM LEVEL 139 MMOL/L (136-145); TOTAL PROTEIN 6.9 G/DL (5.7-8.2)
[2025-03-14 11:55] LABS: FREE T4 1.01 NG/DL (0.89-1.76); RHEUMATOID FACTOR QUANT < 3.5 IU/ML (<14); THYROID STIMULATING HORMONE 1.228 uIU/ML (0.55-4.78)
[2025-03-14 11:56] LABS: FOLATE > 24.0 NG/ML (>5.4); HEMOGLOBIN A1c 6.9 % (4.0-6.0); VITAMIN B12 LEVEL 1035 PG/ML (211-911)
[2025-03-15 09:08] LABS: T P ELECTROPHORESIS SO 6.9 g/dL (6.1-8.1)
[2025-03-15 16:44] LABS: ANA SCREEN, IFA NEGATIVE (NEGATIVE)
== END ==
LOC: M LAB 10:35
PROVIDERS: ATTEND Psychiatry & Neurology Neurology
DX: E11.9 Type 2 diabetes mellitus without complications (principal); E07.9 Disorder of thyroid, unspecified

== ENCOUNTER 2025-07-05 19:33 | Emergency (ER) | payer OTHER, MEDICAID ==
[~2025-07-05] VITALS: Ht 160 cm; Wt 113.6 kg
[~2025-07-05 19:33] MED LIST changes: -BUPR-597 PO; +BUPR-766 PO; +MUCI1TAB16 PO; +PREG-35 PO; -PREG100CA PO; +PREG75CA3
[2025-07-05 23:32] VITALS: BP 101/59; TEMP 97.5; O2SAT 98
== END 2025-07-05 23:33 | disposition home or self-care (01) ==
LOC: M ED 19:33
DX: T63.441A Toxic effect of venom of bees, accidental (unintentional), initial encounter (principal); I25.119 Atherosclerotic heart disease of native coronary artery with unspecified angina pectoris; E11.9 Type 2 diabetes mellitus without complications; Z88.8 Allergy status to other drugs, medicaments and biological substances; Z91.048 Other nonmedicinal substance allergy status; Z79.1 Long term (current) use of non-steroidal anti-inflammatories (NSAID); Z79.51 Long term (current) use of inhaled steroids; Z79.4 Long term (current) use of insulin; Z79.899 Other long term (current) drug therapy; Z79.810 Long term (current) use of selective estrogen receptor modulators (SERMs)
CPT/HCPCS: 36415; 85025; 96372; 99283; Q5106

== ENCOUNTER → 2025-07-12 | Outpatient (REF) | payer OTHER, MEDICAID ==
[2025-07-12 17:51] LABS: IRON (FE) 32.0 UG/DL (50-170); PERCENT SATURATION 11.7 % (13.2-45.0)
== END ==
LOC: M LAB REF 17:03
PROVIDERS: ATTEND Nurse Practitioner Family
DX: D50.9 Iron deficiency anemia, unspecified (principal)

== ENCOUNTER 2025-07-17 13:07 | Inpatient (IN) | payer OTHER, MEDICAID ==
[~2025-07-17] VITALS: Ht 160 cm; Wt 116.3 kg
[~2025-07-17 13:07] MED LIST changes: -PREG75CA3; +PREG75CA3 PO; -SYST1SOL4 OP; +SYST1SOL4 OU
[2025-07-17 14:27] LABS: BASO # 0.0 10^3/uL (0.0-0.2); BASO % 0.4 % (0.0-1.0); EOS # 0.2 10^3/uL (0.0-0.5); EOS % 3.1 % (0.0-3.0); LYMPH # 0.8 10^3/uL (1.5-5.0); LYMPH % 14.9 % (24.0-44.0); MONO # 0.4 10^3/uL (0.0-0.8); MONO % 7.5 % (2.0-8.0); NEUTROPHILS # 3.8 10^3/uL (1.5-8.5); NEUTROPHILS % 72.7 % (36.0-66.0); PLATELET COUNT, AUTOMATED 250 10^3/uL (150-450)
[2025-07-17] MEDS ORDERED: TIRZ2.5P PO (14:55)
[2025-07-17] MEDS ORDERED: CALC0.5C6 PO (14:55)
[2025-07-17] MEDS ORDERED: TIZA10TA PO (14:55)
[2025-07-17] MEDS ORDERED: MELA5CAP2 PO (14:55)
[2025-07-17] MEDS ORDERED: SERT25TA21 PO (14:55)
[2025-07-17] MEDS ORDERED: ADVA1AER9 INH (14:55)
[2025-07-17] MEDS ORDERED: HOME MED LIST COMPLETE! XX SCH (15:00)
[2025-07-17 15:07] LABS: ALT/SGPT 18 U/L (7.0-40); AST/SGOT 25 U/L (<34)
[2025-07-17] MEDS: NS (Normal Saline) 0.9% 1,000 ML IV SCH (16:21)
[2025-07-17] MEDS ORDERED: MAALOX 30 ML SUSP *UDC PO PRN (16:55)
[2025-07-17] MEDS ORDERED: MOM 30 ML SUSPENSION UDC PO PRN (16:55)
[2025-07-17] MEDS ORDERED: ACETAMINOPHEN 325 MG TAB PO PRN (16:55)
[2025-07-17] MEDS: INSULIN LISPRO (NovoLOG) PER UNIT SC SCH ×2 (17:30→21:00)
[2025-07-17] MEDS ORDERED: DEXTROSE 50% 50 ML SYRINGE IV PRN (17:45)
[2025-07-17] MEDS ORDERED: GLUCAGON INJ 1 MG VIAL SC PRN (17:45)
[2025-07-17] MEDS ORDERED: GLUCOSE 4 GM CHEW PO PRN (17:45)
[2025-07-17] MEDS ORDERED: IPRATROPIUM 0.5 MG/ALBUTEROL 2.5 MG INH SOL UD 3 ML NEB PRN (17:45)
[2025-07-17] MEDS ORDERED: ALBUTEROL 90 MCG/ACT 8 GM HFA INHALER INH PRN (17:45)
[2025-07-17] MEDS ORDERED: MIRALAX *UNIT DOSE* 17 GM PACKET PO PRN (17:45)
[2025-07-17 18:16] LABS: KETONE, URINE AUTO RFX NEGATIVE (NEGATIVE); LEUKOCYTE ESTERASE UR AUTO RFX NEGATIVE (NEGATIVE); NITRITE, URINE AUTO RFX NEGATIVE (NEGATIVE); RBC, URINE AUTO RFX 0 /HPF (0-3); SQUAM EPITHELIAL CELL UR AURFX 0 /HPF (0-6); WBC, URINE AUTO RFX 0 /HPF (0-3)
[2025-07-17 19:44] LABS: CALCIUM LEVEL 9.4 MG/DL (8.3-10.6); CARBON DIOXIDE LEVEL 23 MMOL/L (20-31); CHLORIDE LEVEL 107 MMOL/L (98-107); CREATININE FOR GFR 3.68 MG/DL (0.55-1.30); GLOMERULAR FILTRATION RATE 12.8 (>45); POTASSIUM SERUM 4.1 MMOL/L (3.5-5.1); SODIUM LEVEL 145 MMOL/L (136-145)
[2025-07-17] MEDS: ADVAIR HFA 115/21 MCG INHALER INH SCH (20:22)
[2025-07-17] MEDS: HEPARIN SOD 5000 UNITS/ML 1 ML VIAL/SYRINGE SC SCH (21:18)
[2025-07-17] MEDS: PREGABALIN 75 MG CAP PO SCH (21:18)
[2025-07-17] MEDS: ATORVASTATIN 20 MG TAB PO SCH (21:18)
[2025-07-17] MEDS: MONTELUKAST 10 MG TAB PO SCH (21:18)
[2025-07-17 21:42] VITALS: BP 157/67; TEMP 97.3
[2025-07-17 21:56] LABS: CALCIUM LEVEL 9.3 MG/DL (8.3-10.6); CARBON DIOXIDE LEVEL 25.0 MMOL/L (20-31); CHLORIDE LEVEL 108.0 MMOL/L (98-107); CREATININE FOR GFR 3.68 MG/DL (0.55-1.30); GLOMERULAR FILTRATION RATE 12.8 (>45); POTASSIUM SERUM 4.4 MMOL/L (3.5-5.1); SODIUM LEVEL 145.0 MMOL/L (136-145)
[2025-07-18 03:19] VITALS: BP 140/59; TEMP 97.7; O2SAT 99
[2025-07-18] MEDS: LEVOTHYROXINE 50 MCG TABLET (0.05 MG) PO SCH (05:56)
[2025-07-18 06:46] LABS: INR 1.05
[2025-07-18 06:55] LABS: CALCIUM LEVEL 8.6 MG/DL (8.3-10.6); CARBON DIOXIDE LEVEL 25.0 MMOL/L (20-31); CHLORIDE LEVEL 108.0 MMOL/L (98-107); CREATININE FOR GFR 3.68 MG/DL (0.55-1.30); GLOMERULAR FILTRATION RATE 12.8 (>45); MAGNESIUM LEVEL 2.0 MG/DL (1.8-2.4); POTASSIUM SERUM 4.3 MMOL/L (3.5-5.1); SODIUM LEVEL 146.0 MMOL/L (136-145)
[2025-07-18 06:56] LABS: IRON (FE) 39 UG/DL (50-170); PERCENT SATURATION 16.4 % (13.2-45.0)
[2025-07-18 06:59] LABS: HEPATITIS B SURFACE ANTIBODY NEGATIVE (POSITIVE)
[2025-07-18 07:31] LABS: HEPATITIS C VIRUS ABY INDEX < 0.02 INDEX (<0.8)
[2025-07-18] MEDS: ASPIRIN 81 MG ENTERIC TABLET PO SCH (08:00)
[2025-07-18] MEDS: CALCITRIOL 0.25 MCG CAP (S0169) PO SCH (08:02)
[2025-07-18] MEDS: MULTIVITAMINS/MINERALS THERAP 1 TAB PO SCH (08:02)
[2025-07-18] MEDS: SERTRALINE HCL 25 MG TABLET PO SCH (08:02)
[2025-07-18] MEDS: FLUTICASONE PROPIONATE 0.05% NASAL SPRAY 16 GM NARES SCH (08:13)
[2025-07-18] MEDS: INSULIN GLARGINE-YFGN 1 UNITS/0.01 ML SC SCH (08:14)
[2025-07-18] MEDS ORDERED: MIDAZOLAM INJ 2 MG/2 ML VIAL IV PRN (10:50)
[2025-07-18] MEDS ORDERED: HEPARIN 1,000 UNITS/ML 10 ML VIAL (FOR RADIOLOGY & DIALYSIS ONLY) IV PRN (11:25)
[2025-07-18] MEDS ORDERED: SODIUM CHLORIDE 0.9% 1000 ML IV PRN (11:25)
[2025-07-18] MEDS: ceFAZolin SODIUM 2 GM in DEXTROSE 5% (D5W) ADV/MINI-BAG 50 ML IV ONE (11:59)
[2025-07-18] MEDS: LIDOCAINE 1% MDV 20 ML VIAL SC SCH (12:01)
[2025-07-18] MEDS: HEPARIN 1,000 UNITS/ML 10 ML VIAL (FOR RADIOLOGY & DIALYSIS ONLY) IV PRN (12:01)
[2025-07-18] MEDS: IRON SUCROSE 100 MG/5 ML VIAL IV SCH (13:42)
[2025-07-18] MEDS: HEPARIN 1,000 UNITS/ML 10 ML VIAL (FOR RADIOLOGY & DIALYSIS ONLY) XX SCH (13:42)
[2025-07-18 15:32] VITALS: BP 158/69; TEMP 97.9; O2SAT 97
[2025-07-18] MEDS: LIDOCAINE 5% PATCH TOP PRN (17:49)
[2025-07-18 20:36] VITALS: BP 160/67; TEMP 97.9; O2SAT 96
[2025-07-19 03:25] VITALS: BP 155/63; TEMP 97.5; O2SAT 98
[2025-07-19] MEDS ORDERED: SODIUM CHLORIDE 0.9% 1000 ML IV PRN (06:00)
[2025-07-19] MEDS ORDERED: HEPARIN 1,000 UNITS/ML 10 ML VIAL (FOR RADIOLOGY & DIALYSIS ONLY) IV PRN (06:00)
[2025-07-19 06:46] LABS: CALCIUM LEVEL 9.2 MG/DL (8.3-10.6); CARBON DIOXIDE LEVEL 24.0 MMOL/L (20-31); CHLORIDE LEVEL 109.0 MMOL/L (98-107); CREATININE FOR GFR 2.82 MG/DL (0.55-1.30); GLOMERULAR FILTRATION RATE 17.6 (>45); MAGNESIUM LEVEL 1.9 MG/DL (1.8-2.4); POTASSIUM SERUM 4.0 MMOL/L (3.5-5.1); SODIUM LEVEL 144.0 MMOL/L (136-145)
[2025-07-19] MEDS: HEPARIN 1,000 UNITS/ML 10 ML VIAL (FOR RADIOLOGY & DIALYSIS ONLY) XX SCH (10:09)
[2025-07-19 12:04] VITALS: BP 137/68; TEMP 97.7; O2SAT 96
[2025-07-19] MEDS: diphenhydrAMINE 50 MG/ML VIAL IV ONE (15:04)
[2025-07-19 19:32] VITALS: BP 159/83; TEMP 98.1; O2SAT 98
[2025-07-20 03:31] VITALS: BP 136/50; TEMP 97.7; O2SAT 96
[2025-07-20 06:13] VITALS: BP 164/80
[2025-07-20] MEDS ORDERED: HEPARIN 1,000 UNITS/ML 10 ML VIAL (FOR RADIOLOGY & DIALYSIS ONLY) XX SCH (06:20)
[2025-07-20] MEDS ORDERED: SODIUM CHLORIDE 0.9% 1000 ML IV PRN (06:20)
[2025-07-20 07:23] LABS: CALCIUM LEVEL 9.5 MG/DL (8.3-10.6); CARBON DIOXIDE LEVEL 24.0 MMOL/L (20-31); CHLORIDE LEVEL 108.0 MMOL/L (98-107); CREATININE FOR GFR 2.48 MG/DL (0.55-1.30); GLOMERULAR FILTRATION RATE 20.5 (>45); MAGNESIUM LEVEL 1.9 MG/DL (1.8-2.4); POTASSIUM SERUM 4.0 MMOL/L (3.5-5.1); SODIUM LEVEL 142.0 MMOL/L (136-145)
[2025-07-20] MEDS: HEPARIN 1,000 UNITS/ML 10 ML VIAL (FOR RADIOLOGY & DIALYSIS ONLY) IV PRN (09:21)
[2025-07-20 11:45] VITALS: BP 108/58; TEMP 97.7; O2SAT 96
[2025-07-20 14:16] VITALS: O2SAT 96
[2025-07-20] MEDS ORDERED: BENA2CRE3 TOP (14:30)
== END 2025-07-20 15:23 | disposition home or self-care (01) | DRG 674 ==
LOC: M ED 13:07 → M ED INP 16:52 → M MSPAV 21:38
PROVIDERS: ADMIT Student in an Organized Health Care Education/Training Program; ATTEND Student in an Organized Health Care Education/Training Program
PROC: 05HM33Z Insertion of Infusion Device into Right Internal Jugular Vein, Percutaneous Approach (ICD-10-PCS; 2025-07-18)
PROC: 0JH60XZ Insertion of Tunneled Vascular Access Device into Chest Subcutaneous Tissue and Fascia, Open Approach (ICD-10-PCS; principal; 2025-07-18 10:30)
DX: E11.22 Type 2 diabetes mellitus with diabetic chronic kidney disease (principal); N18.6 End stage renal disease; Z68.42 Body mass index [BMI] 45.0-49.9, adult; E87.0 Hyperosmolality and hypernatremia; I12.0 Hypertensive chronic kidney disease with stage 5 chronic kidney disease or end stage renal disease; E03.9 Hypothyroidism, unspecified; D63.1 Anemia in chronic kidney disease; K21.9 Gastro-esophageal reflux disease without esophagitis; M79.7 Fibromyalgia; F32.A Depression, unspecified; E66.01 Morbid (severe) obesity due to excess calories; G47.33 Obstructive sleep apnea (adult) (pediatric); J45.909 Unspecified asthma, uncomplicated; F41.9 Anxiety disorder, unspecified; G43.909 Migraine, unspecified, not intractable, without status migrainosus; D50.9 Iron deficiency anemia, unspecified; Z98.84 Bariatric surgery status; Z96.652 Presence of left artificial knee joint; Z99.3 Dependence on wheelchair; Z88.8 Allergy status to other drugs, medicaments and biological substances; Z79.899 Other long term (current) drug therapy; Z79.82 Long term (current) use of aspirin; Z79.4 Long term (current) use of insulin; Z79.890 Hormone replacement therapy; N17.9 Acute kidney failure, unspecified

== ENCOUNTER → 2025-08-07 | Outpatient (CLI) | payer OTHER, MEDICAID ==
[~2025-08-07] MED LIST changes: +ADVA1AER9 INH; +BENA2CRE3 TOP; +CALC0.5C6 PO; +MELA5CAP2 PO; +SERT25TA21 PO; +TIRZ2.5P PO
[2025-08-13 02:18] LABS: ACETONE SP None Detected; ETHANOL SP None Detected; ISOPROPANOL SP None Detected; METHANOL SP None Detected
== END ==
LOC: M PLALAB 16:21
PROVIDERS: ATTEND Nurse Practitioner Family
DX: Z79.891 Long term (current) use of opiate analgesic (principal)

== ENCOUNTER → 2025-09-18 | Outpatient (REF) | payer OTHER, MEDICAID | LOC: M SFHCPLAZ 17:23 | PROVIDERS: ATTEND Student in an Organized Health Care Education/Training Program | DX: N30.90 Cystitis, unspecified without hematuria (principal) ==

== ENCOUNTER 2025-10-29 17:53 | Emergency (ER) | payer OTHER, MEDICAID ==
[~2025-10-29] VITALS: Ht 160 cm; Wt 106.8 kg
[2025-10-29] MEDS: ACETAMINOPH W/CODEINE #3 TAB UD PO ONE (23:45)
[2025-10-30] MEDS: PREGABALIN 75 MG CAP PO ONE (00:28)
[2025-10-30 09:00] VITALS: BP 152/68; TEMP 97.8; O2SAT 95
[2025-10-30] MEDS ORDERED: CEPHALEXIN 500 MG CAP PO ONE (09:25)
[2025-10-30] MEDS ORDERED: ISOVUE-300 61% 100 ML VIAL IV SCH (09:25)
[2025-10-30] MEDS ORDERED: HEPARIN 1,000 UNITS/ML 10 ML VIAL (FOR RADIOLOGY & DIALYSIS ONLY) IV PRN (09:25)
[2025-10-30] MEDS ORDERED: LIDOCAINE 1% MDV 20 ML VIAL SC SCH (09:25)
== END 2025-10-30 09:25 | disposition home or self-care (01) ==
LOC: M ED 17:53
DX: Z45.2 Encounter for adjustment and management of vascular access device (principal); M75.31 Calcific tendinitis of right shoulder; S39.012A Strain of muscle, fascia and tendon of lower back, initial encounter; W19.XXXA Unspecified fall, initial encounter; M19.019 Primary osteoarthritis, unspecified shoulder; M46.1 Sacroiliitis, not elsewhere classified; I10 Essential (primary) hypertension; E78.5 Hyperlipidemia, unspecified; G47.33 Obstructive sleep apnea (adult) (pediatric); J45.909 Unspecified asthma, uncomplicated; J44.9 Chronic obstructive pulmonary disease, unspecified; Z88.8 Allergy status to other drugs, medicaments and biological substances; Z91.09 Other allergy status, other than to drugs and biological substances; Z79.52 Long term (current) use of systemic steroids; Z79.82 Long term (current) use of aspirin; Z79.4 Long term (current) use of insulin; Z79.899 Other long term (current) drug therapy; Z79.02 Long term (current) use of antithrombotics/antiplatelets; Z79.1 Long term (current) use of non-steroidal anti-inflammatories (NSAID); Y92.9 Unspecified place or not applicable; Y93.89 Activity, other specified; Y99.9 Unspecified external cause status; N18.30 Chronic kidney disease, stage 3 unspecified

== ENCOUNTER → 2025-10-30 | Outpatient (CLI) | payer OTHER, MEDICAID ==
[2025-10-30 10:45] VITALS: TEMP 97.7
[2025-10-30] MEDS: CEPHALEXIN 500 MG CAP PO ONE (16:20)
[2025-10-30] MEDS: HEPARIN 1,000 UNITS/ML 10 ML VIAL (FOR RADIOLOGY & DIALYSIS ONLY) IV PRN (17:03)
[2025-10-30] MEDS: ISOVUE-300 61% 100 ML VIAL IV SCH ×2 (17:03→17:04)
[2025-10-30] MEDS: LIDOCAINE 1% MDV 20 ML VIAL SC SCH ×2 (17:03→17:05)
[2025-10-30 17:20] VITALS: BP 151/66; O2SAT 98
== END ==
LOC: M IRPRO 09:57
PROVIDERS: ATTEND Registered Nurse School
DX: N18.30 Chronic kidney disease, stage 3 unspecified (principal)